=== PATIENT | female | born 1980 | race Caucasian/White ===

== ENCOUNTER 2016-11-20 16:02 | Emergency (ER) | payer OTHER ==
[~2016-11-20] VITALS: Ht 175.3 cm; Wt 117.1 kg
[~2016-11-20 16:02] MED LIST: MAGN400T6 PO; NAPR-1169 PO
[2016-11-20 16:14] VITALS: Ht 175.3 cm; Wt 117.1 kg
[2016-11-20] MEDS ORDERED: ACETAMINOPHEN 500 MG TAB PO STA (17:03)
--- NOTE | 2016-11-20 17:24 | DIAGNOSTIC IMAGING REPORT ---
RIGHT WRIST MIN 3 VIEWS ROUTINE CLINICAL HISTORY: Right wrist pain status post trauma COMPARISON: None. DISCUSSION: No acute fractures or dislocations are visualized. There is a 2 mm corticated density adjacent the base the fifth metacarpal. This is likely old. IMPRESSION: No acute fractures or dislocations are visualized. Electronically signed by: Ben Roque M.D. 11/20/2016 5:22 PM Dictated Date/Time: 11/20/2016 5:22 PM
--- NOTE | 2016-11-20 17:25 | DIAGNOSTIC IMAGING REPORT ---
LEFT WRIST MIN 3 VIEWS ROUTINE CLINICAL HISTORY: Left wrist pain status post trauma COMPARISON: None. DISCUSSION: No acute fractures or dislocations are visualized. There is a tiny navicular spur. IMPRESSION: No acute fractures or dislocations identified. Electronically signed by: Ben Roque M.D. 11/20/2016 5:23 PM Dictated Date/Time: 11/20/2016 5:23 PM
--- NOTE | 2016-11-20 17:28 | DIAGNOSTIC IMAGING REPORT ---
RIGHT ELBOW MIN 3 VIEWS ROUTINE CLINICAL HISTORY: Right elbow pain. Trauma. COMPARISON: None. DISCUSSION: The fat pads are not displaced. No acute fractures or dislocations are visualized. IMPRESSION: No acute fractures or dislocations identified. Electronically signed by: Ben Roque M.D. 11/20/2016 5:26 PM Dictated Date/Time: 11/20/2016 5:25 PM
[2016-11-20 18:13] VITALS: BP 131/91; PULSE 88; TEMP 37.3; O2SAT 96
--- NOTE | 2016-11-21 01:03 | EMERGENCY ROOM VISIT NOTE ---
History First contact with patient: 16:42 Chief Complaint: WRIST PAIN Stated Complaint: SLIPPED & FELL ON BOTH WRISTS, RT WRIST/ELBOW PAIN History of Present Illness The patient is a 35 year old female who presents to the Emergency Room with complaints of bilateral wrist pain after slipping and falling backwards about one hour ago. The patient slipped on ice and attempted to catch herself. She is having pain of both of her wrists as well as her right elbow. She did not strike her head or lose consciousness. She has taken ibuprofen at home with only minimal improvement of symptoms. She does not have a previous history of fracture to her wrist or elbow. She rates her discomfort a 7/10. Review of Systems More than 10 systems were reviewed and otherwise negative with the exception of history of present illness. Past Medical/Surgical History Medical Problems: (1) Asthma (2) Depressive disorder (3) Dilation and curettage (4) DRUG ABUSE NEC-UNSPEC (5) MIGRAINE W AURA W/O INTRACT MGRN W/O STATUS MIGRAINOSUS (6) Missed (7) OBESITY, NOS (8) PNEUMONIA, ORGANISM NOS (9) PYELONEPHRITIS NOS (10) THREATEN ABORT-ANTEPART (11) TOBACCO USE DISOR COMP PREG/CHILDBIRTH/PUERPERIUM, ANTEPART Family History Cancer Diabetes mellitus Gallbladder disease Heart disease Hypertension Kidney stones Lung disease Seizures Social History Smoking Status: Current Every Day Smoker Alcohol Use: occasionally Marital Status: Housing Status: lives with family Occupation Status: employed Current/Historical Medications Scheduled Bupropion HCl (Bupropion HCl Sr), 100 MG PO QAM Gabapentin (Neurontin), 300 MG PO TID Magnesium Oxide (Mag-Ox), 400 MG PO DAILY Scheduled PRN Naproxen (Naprosyn), 500 MG PO BID PRN for Pain Allergies Coded Allergies: Citalopram (Verified Allergy, Mild, ITCHING, 08/24/16) Azithromycin (Verified Adverse Reaction, Intermediate, GI UPSET, 08/24/16) Venlafaxine (Verified Adverse Reaction, Mild, DROWSY, 08/24/16) Ketorolac Tromethamine (Verified Adverse Reaction, Unknown, headache, ) Morphine (Verified Adverse Reaction, Unknown, REBOUND HEADACHE, 11/20/16) Red Dye (Verified Adverse Reaction, Unknown, MIGRAINE, 08/24/16) #30 Uncoded Allergies: fish-talapia (Adverse Reaction, Intermediate, states she throws up after eating only this fish, 11/22/15) Physical Exam Vital Signs Date Time Temp Pulse Resp B/P Pulse Ox O2 Delivery O2 Flow Rate FiO2 11/20/16 18:13 37.3 88 18 131/91 96 11/20/16 18:11 88 18 131/91 96 Room Air 11/20/16 16:14 37.3 91 18 135/95 96 Room Air Pain Rating (0-10): 3.0 Physical Exam VITALS: Vitals are noted on the nurse's note and reviewed by myself. Vital signs stable. GENERAL: Well-developed, well-nourished, white female, who is in no acute distress and resting comfortably. Patient is cooperative with the examination. HEAD: Normocephalic atraumatic. HEART: Regular rate and rhythm without murmurs gallops or rubs. LUNGS: Clear to auscultation bilaterally without wheezes, rales or rhonchi. No retractions or accessory muscle use. MUSCULOSKELETAL: No muscle atrophy, erythema, or edema noted. There is tenderness bilaterally of the wrists. Neurovascular status is intact to both wrists. No significant lacerations, abrasions, or deformity noted. No snuffbox tenderness appreciated in either wrist. The patient does have tenderness with supination and pronation of the right elbow. No other significant injuries are noted. NEURO: Patient was alert and oriented to person place and time. CN II through XII grossly intact. Medical Decision & Procedures ER Provider Diagnostic Interpretation: RIGHT ELBOW MIN 3 VIEWS ROUTINE CLINICAL HISTORY: Right elbow pain. Trauma. COMPARISON: None. DISCUSSION: The fat pads are not displaced. No acute fractures or dislocations are visualized. IMPRESSION: No acute fractures or dislocations identified. RIGHT WRIST MIN 3 VIEWS ROUTINE CLINICAL HISTORY: Right wrist pain status post trauma COMPARISON: None. DISCUSSION: No acute fractures or dislocations are visualized. There is a 2 mm corticated density adjacent the base the fifth metacarpal. This is likely old. IMPRESSION: No acute fractures or dislocations are visualized. LEFT WRIST MIN 3 VIEWS ROUTINE CLINICAL HISTORY: Left wrist pain status post trauma COMPARISON: None. DISCUSSION: No acute fractures or dislocations are visualized. There is a tiny navicular spur. IMPRESSION: No acute fractures or dislocations identified. Medications Administered Medications (Trade) Dose Ordered Sig/Mary Route Start Time Stop Time Status Last Admin Dose Admin Acetaminophen (Tylenol Tab) 1,000 mg NOW STAT PO 11/20/16 17:03 11/20/16 17:04 DC 11/20/16 17:29 1,000 MG ED Course Physical exam and history were performed. Nursing notes and EMR were reviewed. Patient appears to have fallen and suffered injury to her wrist and elbow as described above. She was given ibuprofen and Tylenol here in the department. X -rays were performed and do not show evidence of acute fracture or dislocation. The patient will be treated conservatively, and asked to follow with orthopedics with any ongoing or persisting symptoms. She was otherwise invited back to the ER anytime and was pleased with plan of care. The chart was completed utilizing [employer] Speech Voice Recognition Software. Grammatical errors, random word insertions, pronoun errors, and incomplete sentences are an occasional consequence of this system due to software limitations, ambient noise, and hardware issues. Any formal questions or concerns about the content, text, or information contained within the body of this dictation should be directly addressed to the provider for clarification. . Medical Decision Differential diagnoses includes, but is not limited to: Sprain, strain, fracture , dislocation, subluxation, contusion, and others Impression Primary Impression: Fall Additional Impression: Wrist injuries Departure Information Dispostion Home / Self-Care Condition GOOD Forms HOME CARE DOCUMENTATION FORM, Work Instructions, Additional Instructions: Patient seen and evaluated today in the emergency department medical care. May not lift more than 10 pounds at work until 11/23/2016. IMPORTANT VISIT INFORMATION Patient Instructions [facility] Additional Instructions You were seen and evaluated today on an emergency basis only. This is not a substitute for, or an effort to provide, complete comprehensive medical care. It is not possible to recognize and treat all injuries or illnesses in a single emergency department visit. For this reason it is recommended that you followup with Orthopedics, Dr. Mckeon's office, with any ongoing or persistent symptoms. For baseline pain relief you may alternate ibuprofen and acetaminophen every 4 hours for pain control. Take 600 mg ibuprofen (Advil) and then 4 hours later take 1000 mg acetaminophen (Tylenol). Do not take more than 3000 mg acetaminophen in a single day. Wear your splints for comfort for the next 4 or 5 days. If you have persistent discomfort please follow with orthopedics. You are welcome to return to the emergency department anytime with new, worsening, or concerning symptoms. Work Instructions Additional Work Instructions: Patient seen and evaluated today in the emergency department medical care. May not lift more than 10 pounds at work until 11/23/2016. Problem Qualifiers
[2017-04-03] MEDS ORDERED: CYCL10TA6 PO (02:02)
[2017-04-03] MEDS ORDERED: ASPI-390 PO (02:03)
[2017-04-03] MEDS ORDERED: WLLSR100 PO (12:48)
== END 2016-11-20 18:14 | disposition home or self-care (01) ==
LOC: C.EDB 16:04 → C.EDD 18:14
DX: S69.91XA Unspecified injury of right wrist, hand and finger(s), initial encounter (principal); S69.92XA Unspecified injury of left wrist, hand and finger(s), initial encounter; W00.0XXA Fall on same level due to ice and snow, initial encounter; J45.909 Unspecified asthma, uncomplicated; F32.9 Major depressive disorder, single episode, unspecified; E66.9 Obesity, unspecified; Z72.0 Tobacco use; Z83.3 Family history of diabetes mellitus; Z83.79 Family history of other diseases of the digestive system; Z82.49 Family history of ischemic heart disease and other diseases of the circulatory system; Z84.1 Family history of disorders of kidney and ureter; Z83.6 Family history of other diseases of the respiratory system; Z82.0 Family history of epilepsy and other diseases of the nervous system

== ENCOUNTER 2016-12-22 03:32 | Emergency (ER) | payer OTHER ==
[~2016-12-22] VITALS: Ht 175.3 cm; Wt 98.0 kg
[2016-12-22 03:39] VITALS: TEMP 36.8; Ht 175.3 cm; Wt 98.0 kg
[2016-12-22] MEDS ORDERED: XYLOCAINE 1%/SOD BICARB 20 ML VIAL INFIL ONE (03:53)
[2016-12-22] MEDS ORDERED: CEPHALEXIN 500MG HOME PACK 1 EA BTL PO ONE (04:00)
[2016-12-22] MEDS ORDERED: SEPTRA DS HOME PACK 1 EA VIAL PO ONE (04:00)
[2016-12-22] MEDS ORDERED: SULF800T23 PO (04:01)
[2016-12-22] MEDS ORDERED: CEPH500C2 PO (04:01)
--- NOTE | 2016-12-22 04:06 | EMERGENCY ROOM VISIT NOTE ---
History First contact with patient: 03:43 Chief Complaint: WOUND INFECTION Stated Complaint: LUMP ON TAILBONE TO LEFT CHEEK Nursing Triage Summary: + pylonidal cyst. History of Present Illness The patient is a 35 year old female who presents to the Emergency Room with complaints of buttock pain for the past 2 weeks. Patient states there was some drainage of this area. No history of pilonidal abscess before. Patient denies fevers, vomiting, diarrhea. Review of Systems See HPI for pertinent positives & negatives. A total of 10 systems reviewed and were otherwise negative. Past Medical/Surgical History Medical Problems: (1) Asthma (2) Depressive disorder (3) Dilation and curettage (4) DRUG ABUSE NEC-UNSPEC (5) MIGRAINE W AURA W/O INTRACT MGRN W/O STATUS MIGRAINOSUS (6) Missed (7) OBESITY, NOS (8) PNEUMONIA, ORGANISM NOS (9) PYELONEPHRITIS NOS (10) THREATEN ABORT-ANTEPART (11) TOBACCO USE DISOR COMP PREG/CHILDBIRTH/PUERPERIUM, ANTEPART Family History Cancer Diabetes mellitus Gallbladder disease Heart disease Hypertension Kidney stones Lung disease Seizures Social History Smoking Status: Never Smoker Alcohol Use: occasionally Marital Status: Housing Status: lives with family Occupation Status: employed Current/Historical Medications Scheduled Bupropion HCl (Bupropion HCl Sr), 100 MG PO QAM Cephalexin Monohydrate (Keflex), 500 MG PO QID Gabapentin (Neurontin), 300 MG PO TID Magnesium Oxide (Mag-Ox), 400 MG PO DAILY Sulfa/Trimethoprim (Bactrim Ds 800MG/160MG), 1 TAB PO BID Scheduled PRN Naproxen (Naprosyn), 500 MG PO BID PRN for Pain Allergies Coded Allergies: Citalopram (Verified Allergy, Mild, ITCHING, 08/24/16) Azithromycin (Verified Adverse Reaction, Intermediate, GI UPSET, 08/24/16) Venlafaxine (Verified Adverse Reaction, Mild, DROWSY, 08/24/16) Ketorolac Tromethamine (Verified Adverse Reaction, Unknown, headache, ) Morphine (Verified Adverse Reaction, Unknown, REBOUND HEADACHE, 11/20/16) Red Dye (Verified Adverse Reaction, Unknown, MIGRAINE, 08/24/16) #30 Uncoded Allergies: fish-talapia (Adverse Reaction, Intermediate, states she throws up after eating only this fish, 11/22/15) Physical Exam Vital Signs Date Time Temp Pulse Resp B/P Pulse Ox O2 Delivery O2 Flow Rate FiO2 12/22/16 03:39 36.8 113 16 122/87 96 Room Air Physical Exam VITALS: Vitals are noted on the nurse's note and reviewed by myself. Vital signs stable. GENERAL: Pleasant female, in no acute distress, nondiaphoretic, well-developed well-nourished. SKIN: Capillary reflex less than 2 seconds. HEENT: Normocephalic. PERRLA. EOMI. Nares patent. Mucous membranes moist. Neck is supple without nuchal rigidity. HEART: Regular rate and rhythm without murmurs gallops or rubs. LUNGS: Clear to auscultation bilaterally without wheezes, rales or rhonchi. No retractions or accessory muscle use. ABDOMEN: Positive bowel sounds x 4. Normal tympanic percussion. Soft, nontender, without masses or organomegaly. García sign negative. No guarding or rebound tenderness. Pelvic exam: 1 cm x 1 cm erythematous area with no fluctuance to the gluteal cleft without palpable abscess or active drainage with superficial abrasion present. The was shown this MUSCULOSKELETAL: No gross musculoskeletal defects. NEURO: Patient was alert and oriented to person place and time. Normal sensation to light and sharp touch. No focal neurological deficits. Medical Decision & Procedures ED Course Prior records reviewed and summarized as above. Triage Nursing notes reviewed. Additional history obtained from family. The patient's history was concerning for swelling and redness of the skin. Differential diagnosis: Etiologies such as cellulitis, abscess, MRSA infection, necrotizing fasciitis, dermatitis, drug eruption, as well as others were entertained.. Physical examination: The physical examination was consistent with cellulitis with possible developing abscess ER treatment provided: Keflex, Bactrim On reassessment the patient felt better. Diagnostics interpreted by me: Deferred This appears to be cellulitis with developing pilonidal abscess. Patient had no fluctuance. She was well-appearing. Afebrile nontoxic. She was advised to continue Epsom soaks abd FU with family care in a day or 2 or here in the ER sooner for fevers, redness, spreading infection, worsening signs or symptoms or as needed.By the evaluation outlined above emergent etiologies such as necrotizing fasciitis, DVT, as well as others were deemed relatively unlikely. The pt informed about the findings as listed above. All questions were answered and pleased with the treatment. Return instructions were outlined and the patient was discharged in stable condition. Outpatient prescription management: ELIAS carrillo Referral: The patient was referred back to primary care physician for follow-up in 2 to 3 days for a recheck of the current condition. Medical Decision as above Impression Primary Impression: Pilonidal abscess Departure Information Dispostion Home / Self-Care Condition GOOD Prescriptions Sulfa/Trimethoprim (Bactrim Ds 800MG/160MG) Tab 1 TAB PO BID for 9 Days, #18 TAB Prov: Alana Waldron .JENNIFER 12/22/16 Cephalexin Monohydrate (KEFLEX) 500 Mg Cap 500 MG PO QID for 9 Days, #36 CAP Prov: Alana Waldron .JENNIFER 12/22/16 Forms WORK / SCHOOL INSTRUCTIONS, HOME CARE DOCUMENTATION FORM, IMPORTANT VISIT INFORMATION Patient Instructions [facility], ED Cyst Pilonidal Infec Abx Only Additional Instructions Cephalexin(Keflex) 500mg: Take one pill four times daily for 10 days for your skin infection. All antibiotics can cause diarrhea. If this occurs and you feel worse or it does not resolve in 1-2 days follow up with your doctor or return to the Emergency Department as this could be signs of serious underlying problems. Any medication can cause an allergic reaction, stop the pills immediately and return to the ER for rash, hives, breathing difficulties, or swelling. Trimethoprim-Sulfamethoxazole(Bactrim DS): Take one pill twice daily for 10 days for your skin infection. All antibiotics can cause diarrhea. If this occurs and you feel worse or it does not resolve in 1-2 days follow up with your doctor or return to the Emergency Department as this could be signs of serious underlying problems. Any medication can cause an allergic reaction, stop the pills immediately and return to the ER for rash, hives, breathing difficulties, or swelling. Acetaminophen(Tylenol) may be used for fever or pain. Use 1000mg every six hours as needed. Avoid using more than 3000mg in a 24 hour period. Warm compresses to the affected area 4 times daily for 15-20 minutes. Rest and drink plenty of fluids. Continue current medications. Return to the ER for severe pain, persistent fevers, spreading redness, or any worsening of your condition. Follow up with your primary physician within 2-3 days for a recheck of the current condition.
[2016-12-22 04:09] VITALS: BP 119/81; PULSE 97; O2SAT 98
[2017-04-03] MEDS ORDERED: CYCL10TA6 PO (02:02)
[2017-04-03] MEDS ORDERED: ASPI-390 PO (02:03)
[2017-04-03] MEDS ORDERED: WLLSR100 PO (12:48)
== END 2016-12-22 04:09 | disposition home or self-care (01) ==
LOC: C.EDB 03:33
DX: L05.91 Pilonidal cyst without abscess (principal); F32.9 Major depressive disorder, single episode, unspecified; J45.909 Unspecified asthma, uncomplicated; F17.200 Nicotine dependence, unspecified, uncomplicated; Z87.440 Personal history of urinary (tract) infections; Z79.899 Other long term (current) drug therapy; Z88.1 Allergy status to other antibiotic agents; Z88.5 Allergy status to narcotic agent; Z88.8 Allergy status to other drugs, medicaments and biological substances; Z80.9 Family history of malignant neoplasm, unspecified; Z83.3 Family history of diabetes mellitus; Z83.79 Family history of other diseases of the digestive system; Z82.49 Family history of ischemic heart disease and other diseases of the circulatory system; Z84.1 Family history of disorders of kidney and ureter; Z82.0 Family history of epilepsy and other diseases of the nervous system

== ENCOUNTER 2017-02-08 21:04 | Emergency (ER) | payer OTHER ==
[~2017-02-08] VITALS: Ht 175.3 cm; Wt 117.0 kg
[2017-02-08 21:06] VITALS: BP 156/97; PULSE 97; TEMP 36.8; Ht 175.3 cm; Wt 117.0 kg
[2017-02-08] MEDS ORDERED: PROMETHAZINE HCL INJ 25 MG/ML 1 ML VIAL IM STA (21:34)
[2017-02-08] MEDS ORDERED: HYDROmorphone INJ 1 MG/ML SYR IM STA (21:34)
--- NOTE | 2017-02-08 22:22 | EMERGENCY ROOM VISIT NOTE ---
ED Visit Note First contact with patient: 21:14 CHIEF COMPLAINT: Migraine headache HISTORY OF PRESENT ILLNESS: This 36-year-old female patient presented to the emergency department ambulatory with a gradual onset of a severe generalized headache that started this morning. The patient states the migraine is similar to their typical migraines. There has been associated photophobia, phonophobia, nausea and vomiting. The patient denies fever or chills recently, and there is no weakness or numbness of the extremities. There is no difficulty with speech or vision. No trauma to the head and no neck pain. The pain is severe, constant , and it is slowly increasing in severity. The patient rates the pain as throbbing and 10/10. The patient has taken her typical medications without relief. This is not the worst headache of the life and is similar to previous migraines. Previous imaging studies of the brain have been normal. REVIEW OF SYSTEMS: A review of systems was performed with positives and pertinent negatives listed in the history of present illness. All other systems were reviewed and are negative. ALLERGIES: See EMR MEDICATIONS: Bupropion, Neurontin, magnesium, Naprosyn PMH: Migraine headaches SOCIAL HISTORY: The patient lives locally with family. She is a smoker. She denies alcohol use. PHYSICAL EXAM: Vital Signs: Reviewed Nurse's notes, vital signs stable. GENERAL : This is a 36-year-old female, who appears in pain, but non toxic in appearance and in no acute distress. MENTAL STATUS: Alert, oriented, and coherent. HEENT: Normocephalic. PERRLA. EOMI. Nares patent without nuchal rigidity. Tympanic membranes pearly siegel without erythema or effusion bilaterally. Mucous membranes moist. NECK: Supple, no nuchal rigidity, nontender, no lymphadenopathy. HEART: Regular rhythm and normal rate without murmurs, ectopy, gallops, or rubs. LUNGS: Clear to auscultation bilaterally without wheezes, rales or rhonchi. No dullness to percussion. No accessory muscle use. No retractions. SKIN: Normal. NEUROLOGICAL: Pupils are round, equal and react to light. The optic fundi are normal and the discs are flat. The patient moves all extremities well and the gait is normal. EMERGENCY DEPARTMENT COURSE: I examined the patient. The patient is on a 2 narcotic injection per month treatment plan for their migraines. The patient was given 1 mg Dilaudid and 25 mg Phenergan per their usual protocol. The differential diagnosis includes acute intracranial bleed, meningitis, encephalitis, mass or mass effect, sinusitis, infection, tumor, headache, temporal arteritis and carbon monoxide exposure, and migraine. The patient was discharged home in stable condition with a family member driving. DIAGNOSIS: Migraine headache Problem List Medical Problems: (1) Asthma Status: Chronic (2) Depressive disorder Status: Chronic (3) Dilation and curettage Status: Resolved (4) DRUG ABUSE NEC-UNSPEC Status: Chronic (5) MIGRAINE W AURA W/O INTRACT MGRN W/O STATUS MIGRAINOSUS Status: Chronic (6) Missed Status: Resolved (7) OBESITY, NOS Status: Chronic (8) PNEUMONIA, ORGANISM NOS Status: Resolved (9) PYELONEPHRITIS NOS Status: Resolved (10) THREATEN ABORT-ANTEPART Status: Resolved (11) TOBACCO USE DISOR COMP PREG/CHILDBIRTH/PUERPERIUM, ANTEPART Status: Chronic Current/Historical Medications Scheduled Bupropion HCl (Bupropion HCl Sr), 100 MG PO QAM Gabapentin (Neurontin), 300 MG PO TID Magnesium Oxide (Mag-Ox), 400 MG PO DAILY Scheduled PRN Naproxen (Naprosyn), 500 MG PO BID PRN for Pain Allergies Coded Allergies: Citalopram (Verified Allergy, Mild, ITCHING, 02/08/17) Azithromycin (Verified Adverse Reaction, Intermediate, GI UPSET, 02/08/17) Venlafaxine (Verified Adverse Reaction, Mild, DROWSY, 02/08/17) Ketorolac Tromethamine (Verified Adverse Reaction, Unknown, headache, ) Morphine (Verified Adverse Reaction, Unknown, REBOUND HEADACHE, 02/08/17) Red Dye (Verified Adverse Reaction, Unknown, MIGRAINE, 02/08/17) #30 Uncoded Allergies: fish-talapia (Adverse Reaction, Intermediate, states she throws up after eating only this fish, 11/22/15) Vital Signs Date Time Temp Pulse Resp B/P Pulse Ox O2 Delivery O2 Flow Rate FiO2 02/08/17 22:38 18 98 02/08/17 21:06 36.8 97 18 156/97 94 Room Air Medications Administered Medications (Trade) Dose Ordered Sig/Mary Route Start Time Stop Time Status Last Admin Dose Admin Hydromorphone HCl (Dilaudid Inj) 1 mg NOW STAT IM 02/08/17 21:34 02/08/17 21:38 DC 02/08/17 22:01 1 MG Promethazine HCl (Phenergan Inj) 25 mg NOW STAT IM 02/08/17 21:34 02/08/17 21:38 DC 02/08/17 22:01 25 MG Departure Information Impression Primary Impression: Migraine Dispostion Home / Self-Care Condition GOOD Referrals Roddy Giraldo M.D. (PCP) Patient Instructions [facility] Additional Instructions You have received a narcotic medication today. It is illegal to drive while taking this medication. Resume home medications. Follow-up with your primary care provider or neurologist for further evaluation of your headaches.
[2017-02-08 22:38] VITALS: O2SAT 98
[2017-04-03] MEDS ORDERED: CYCL10TA6 PO (02:02)
[2017-04-03] MEDS ORDERED: ASPI-390 PO (02:03)
[2017-04-03] MEDS ORDERED: WLLSR100 PO (12:48)
[2017-06-10] MEDS ORDERED: ACETTAB43 PO (17:25)
== END 2017-02-08 22:39 | disposition home or self-care (01) ==
LOC: C.EDB 21:04 → C.EDC 22:39
DX: G43.909 Migraine, unspecified, not intractable, without status migrainosus (principal); J45.909 Unspecified asthma, uncomplicated; F32.9 Major depressive disorder, single episode, unspecified; E66.9 Obesity, unspecified; F17.210 Nicotine dependence, cigarettes, uncomplicated; Z79.899 Other long term (current) drug therapy

== ENCOUNTER 2017-03-23 01:43 | Emergency (ER) | payer OTHER ==
[~2017-03-23] VITALS: Ht 175.3 cm; Wt 116.1 kg
[2017-03-23 01:47] VITALS: BP 134/91; PULSE 115; TEMP 36.6; O2SAT 95; Ht 175.3 cm; Wt 116.1 kg
[2017-03-23] MEDS ORDERED: PROMETHAZINE HCL INJ 25 MG/ML 1 ML VIAL IM STA (01:52)
[2017-03-23] MEDS ORDERED: HYDROmorphone INJ 1 MG/ML SYR IM STA (01:52)
--- NOTE | 2017-03-23 01:55 | EMERGENCY ROOM VISIT NOTE ---
History First contact with patient: 01:48 Chief Complaint: HEADACHE Stated Complaint: MIGRAINE History of Present Illness The patient is a 36 year old female who presents to the Emergency Room with complaints of headache which started yesterday morning. The patient states that on the left side of her head. 9 out of 10, nothing makes it better or worse described as throbbing. The patient denies any visual changes or any dizziness. The patient admits to some nausea but denies any vomiting. The patient states the symptoms are typical for her migraine headache. The patient states this is not the worst headache of her life. The patient states that she slept all day yesterday which sometimes will relieve her headache but it did not work. Patient denies chest pain, dyspnea, neck stiffness, fever, chills, numbness, tingling, localized weakness. Review of Systems See HPI for pertinent positives & negatives. A total of 10 systems reviewed and were otherwise negative. Past Medical/Surgical History Medical Problems: (1) Asthma (2) Depressive disorder (3) Dilation and curettage (4) DRUG ABUSE NEC-UNSPEC (5) MIGRAINE W AURA W/O INTRACT MGRN W/O STATUS MIGRAINOSUS (6) Missed (7) OBESITY, NOS (8) PNEUMONIA, ORGANISM NOS (9) PYELONEPHRITIS NOS (10) THREATEN ABORT-ANTEPART (11) TOBACCO USE DISOR COMP PREG/CHILDBIRTH/PUERPERIUM, ANTEPART Family History Cancer Diabetes mellitus Gallbladder disease Heart disease Hypertension Kidney stones Lung disease Seizures Social History Smoking Status: Current Every Day Smoker Alcohol Use: occasionally Marital Status: Housing Status: lives with family Occupation Status: employed Current/Historical Medications Scheduled Bupropion HCl (Bupropion HCl Sr), 100 MG PO QAM Gabapentin (Neurontin), 300 MG PO TID Magnesium Oxide (Mag-Ox), 400 MG PO DAILY Scheduled PRN Naproxen (Naprosyn), 500 MG PO BID PRN for Pain Allergies Coded Allergies: Cephalexin (Unverified Allergy, Mild, GI SYMPTOMS, 02/28/17) Citalopram (Verified Allergy, Mild, ITCHING, 02/28/17) Sulfamethoxazole w/Trimethoprim (Unverified Allergy, Mild, GI SYMPTOMS, ) Azithromycin (Verified Adverse Reaction, Intermediate, GI UPSET, 02/28/17) Venlafaxine (Verified Adverse Reaction, Mild, DROWSY, 02/28/17) Ketorolac Tromethamine (Verified Adverse Reaction, Unknown, headache, 02/28) Morphine (Verified Adverse Reaction, Unknown, REBOUND HEADACHE, 02/28/17) Red Dye (Verified Adverse Reaction, Unknown, MIGRAINE, 02/28/17) #30 Uncoded Allergies: fish-talapia (Adverse Reaction, Intermediate, states she throws up after eating only this fish, 11/22/15) Physical Exam Vital Signs Date Time Temp Pulse Resp B/P Pulse Ox O2 Delivery O2 Flow Rate FiO2 03/23/17 01:47 36.6 115 18 134/91 95 Room Air Physical Exam VITALS: Vitals are noted on the nurse's note and reviewed by myself. Vital signs mildly tachycardic. GENERAL: Pleasant female, in no acute distress, nondiaphoretic, well-developed well-nourished. SKIN: The skin was without rashes, erythema, edema, or bruising. There is no tenting of the skin. Capillary reflex less than 2 seconds. HEAD: Normocephalic atraumatic. EARS: External auditory canals clear, tympanic membranes pearly siegel without erythema or effusion bilaterally. EYES: Pupils equal round and reactive to light and accommodation. Conjunctivae without injection, sclerae without icterus. Extraocular movements intact. NOSE: Patent, turbinates without inflammation or discharge. No sinus tenderness. MOUTH: Mucous membranes moist. Pharynx without erythema or exudate. Uvula midline. Airway patent. Tongue does not deviate. NECK: Supple without nuchal rigidity. No lymphadenopathy. No thyromegaly. Cervical spine is nontender. No JVD. No meningeal signs HEART: Regular rate and rhythm without murmurs gallops or rubs. LUNGS: Clear to auscultation bilaterally without wheezes, rales or rhonchi. No dullness to percussion. No retractions or accessory muscle use. ABDOMEN: Positive bowel sounds x 4. Normal tympanic percussion. Soft, nontender, without masses or organomegaly. García sign negative. No guarding or rebound tenderness. MUSCULOSKELETAL: No muscle atrophy, erythema, or edema noted. NEURO: Patient was alert and oriented to person place and time. Normal sensation to light and sharp touch. No focal neurological deficits. Medical Decision & Procedures ED Course Prior records/ancillary studies reviewed. Additional history obtained from family. Triage Nursing notes reviewed. The patient's history was concerning for headache. Differential diagnosis: Etiologies such as migraine headache, meningitis, sinusitis, CO exposure, ICH, SAH, infection, tumor, headache, sinus thrombosis, arterial dissection, as well as others were entertained. Physical examination findings: As above. Non-focal. ER treatment provided: Dilaudid and Phenergan per patient standard protocol On reassessment the patient felt better. Diagnostics interpreted by me: This appears to be consistent with migraine. Patient is a long-standing history of this and symptoms are similar. She was neurovascularly and neurologically intact. No signs of meningitis. She is advised to follow-up family care in a few days or here in the ER sooner for headache, fevers, neck stiffness, worsening signs or symptoms or as needed. Patient ambulated out of the ER without difficulties.. By the evaluation outlined above emergent etiologies such as meningitis, sinusitis, CO exposure, ICH, SAH, infection, temporal arteritis, tumor, sinus thrombosis, arterial dissection, as well as others were deemed relatively unlikely. The pt informed about the findings as listed above. All questions were answered and pleased with the treatment. Return instructions were outlined and the patient was discharged in stable condition. Referral: The patient was referred back to their primary care physician for follow-up in 2 to 3 days for a recheck of the current condition. Medical Decision As above Impression Primary Impression: Migraine Departure Information Dispostion Home / Self-Care Condition GOOD Referrals Roddy Giraldo M.D. (PCP) Patient Instructions My [facility] Additional Instructions DO NOT drive, drink alcohol, operate machinery, or perform dangerous activities today. You were given medications in the ER that can affect your ability to safely function or operate a vehicle. Rest today in a quiet, peaceful, dark environment and get a full 8-10 hrs of sleep tonight. Avoid loud noises, smoke/smoking, alcohol, bright lights, stress, or physical exertion today to minimize the chance the headache may return. Continue current medications. Acetaminophen(Tylenol) may be used for fever or pain. Use 1000mg every six hours as needed. Avoid using more than 3000mg in a 24 hour period. Return to the ER for passing out, worsening headache, vision problems, neck stiffness/pain, fevers, vomiting, worsening of your condition, or as needed. Follow up with your primary physician and/or a neurologist in 2-3 days for a recheck of your current condition. Problem Qualifiers Primary Impression: Migraine Migraine type: without aura Status migrainosus presence: without status migrainosus Intractability: not intractable Qualified Codes: G43.009 - Migraine without aura, not intractable, without status migrainosus
[2017-03-23] MEDS ORDERED: ACET325T96 PO (02:03)
[2017-04-03] MEDS ORDERED: CYCL10TA6 PO (02:02)
[2017-04-03] MEDS ORDERED: ASPI-390 PO (02:03)
[2017-04-03] MEDS ORDERED: WLLSR100 PO (12:48)
[2017-06-10] MEDS ORDERED: ACETTAB43 PO (17:25)
== END 2017-03-23 02:22 | disposition home or self-care (01) ==
LOC: C.EDB 01:44
DX: G43.909 Migraine, unspecified, not intractable, without status migrainosus (principal); F32.9 Major depressive disorder, single episode, unspecified; J45.909 Unspecified asthma, uncomplicated; F17.200 Nicotine dependence, unspecified, uncomplicated; Z87.440 Personal history of urinary (tract) infections; Z79.899 Other long term (current) drug therapy; Z88.1 Allergy status to other antibiotic agents; Z88.2 Allergy status to sulfonamides; Z88.8 Allergy status to other drugs, medicaments and biological substances; Z80.9 Family history of malignant neoplasm, unspecified; Z83.3 Family history of diabetes mellitus; Z83.79 Family history of other diseases of the digestive system; Z82.49 Family history of ischemic heart disease and other diseases of the circulatory system; Z84.1 Family history of disorders of kidney and ureter; Z82.0 Family history of epilepsy and other diseases of the nervous system

== ENCOUNTER 2017-04-03 15:14 | Emergency (ER) | payer OTHER ==
[~2017-04-03] VITALS: Ht 175.3 cm; Wt 115.9 kg
[~2017-04-03 15:14] MED LIST changes: +ACET325T96 PO; +ASPI-390 PO; +CYCL10TA6 PO; -MAGN400T6 PO; +WLLSR100 PO
[2017-04-03 15:26] VITALS: TEMP 37.1; Ht 175.3 cm; Wt 115.9 kg
[2017-04-03] MEDS ORDERED: PROMETHAZINE HCL INJ 25 MG/ML 1 ML VIAL IM STA (15:39)
[2017-04-03] MEDS ORDERED: HYDROmorphone INJ 1 MG/ML SYR IM STA ×2 (15:39→16:53)
--- NOTE | 2017-04-03 15:41 | EMERGENCY ROOM VISIT NOTE ---
History Report prepared by Pascale: Constantino Guadalupe Under the Supervision of: Dr. Virgil Alba M.D. First contact with patient: 15:31 Chief Complaint: HEADACHE Stated Complaint: SEVERE MIGRAINE W/NAUSEA History of Present Illness The patient is a 36 year old female who presents to the Emergency Room with complaints of a headache that began last night. She rates her current pain a 10/ 10 in severity. She has a past medical history of migraines. She states that it began like her typical migraine, but then it got severely worse. She tried Tylenol and Ibuprofen with no relief. She is also experiencing nausea, vomiting , light sensitivity, and noise sensitivity. She denies any fevers, chills, neck pain, chest pain, shortness of breath, cough, weakness, or numbness. She denies any chance of her being . Source of History: patient, spouse/significant other Onset: last night Position: head Symptom Intensity: 10/10 Quality: ache Timing: constant Associated Symptoms: + nausea, + vomiting, No SOB, No chest pain, No chills , No cough, No fevers, No neck pain, No numbness, No weakness Review of Systems See HPI for pertinent positives & negatives. A total of 10 systems reviewed and were otherwise negative. Past Medical & Surgical Medical Problems: (1) Asthma (2) Depressive disorder (3) Dilation and curettage (4) DRUG ABUSE NEC-UNSPEC (5) MIGRAINE W AURA W/O INTRACT MGRN W/O STATUS MIGRAINOSUS (6) Missed (7) OBESITY, NOS (8) PNEUMONIA, ORGANISM NOS (9) PYELONEPHRITIS NOS (10) THREATEN ABORT-ANTEPART (11) TOBACCO USE DISOR COMP PREG/CHILDBIRTH/PUERPERIUM, ANTEPART Old medical records were reviewed. Nurse's notes were reviewed and I agree with. Family History Cancer Diabetes mellitus Gallbladder disease Heart disease Hypertension Kidney stones Lung disease Seizures Social History Smoking Status: Current Every Day Smoker Smokeless Tobacco Use: No Alcohol Use: occasionally Drug Use: none Marital Status: Housing Status: lives with family Occupation Status: employed Current/Historical Medications Scheduled Acetaminophen (Tylenol), 1,000 MG PO PRN UD Bupropion HCl (Bupropion HCl Sr), 100 MG PO QAM Gabapentin (Neurontin), 300 MG PO TID Ibuprofen (Advil), 800 MG PO PRN UD Scheduled PRN Zkqebiu-Ntjloeanqpqlw-Qmpsimed (Excedrin Migraine), 1 TAB PO DIRECTED PRN for Migraine Cyclobenzaprine Hcl (Flexeril), 10 MG PO DIRECTED PRN for muscle spasms Allergies Coded Allergies: Cephalexin (Unverified Allergy, Mild, GI SYMPTOMS, 03/23/17) Citalopram (Verified Allergy, Mild, ITCHING, 03/23/17) Sulfamethoxazole w/Trimethoprim (Unverified Allergy, Mild, GI SYMPTOMS, ) Azithromycin (Verified Adverse Reaction, Intermediate, GI UPSET, 02/28/17) Venlafaxine (Verified Adverse Reaction, Mild, DROWSY, 03/23/17) Ketorolac Tromethamine (Verified Adverse Reaction, Unknown, headache, 03/23) Morphine (Verified Adverse Reaction, Unknown, REBOUND HEADACHE, 03/23/17) Red Dye (Verified Adverse Reaction, Unknown, MIGRAINE, 03/23/17) #30 Uncoded Allergies: fish-talapia (Adverse Reaction, Intermediate, states she throws up after eating only this fish, 11/22/15) Physical Exam Vital Signs Date Time Temp Pulse Resp B/P Pulse Ox O2 Delivery O2 Flow Rate FiO2 04/03/17 15:26 37.1 95 16 155/102 96 Room Air Physical Exam General: Non ill appearing young female, Well developed well nourished in no acute distress, breathing comfortably on room air. Normal speech. Mild photophobia. HEENT: Normal cephalic atraumatic. Pupils are equal round and reactive to light. Extraocular movements are intact. Oropharynx is pink with moist mucous membranes. No swelling of the mouth lips or tongue. Neck: Supple with a midline trachea. No meningeal signs or stiffness, no JVD or bruits. No Stridor. Chest: Clear to auscultation bilaterally. No wheezes or rhonchi. No increased work of breathing. Heart: regular rate and rhythm. Abdomen: Soft nontender, nondistended without rebound guarding or rigidity. Extremities: No cyanosis clubbing or edema. No calf tenderness or assymetry Spine/Back. Non tender to palpation. No CVA tenderness Skin: Good turgor without rashes. Neurologic exam: Cranial nerves two through 12 are intact. Motor and sensation are intact and symmetrical throughout. Medical Decision & Procedures Medications Administered Medications (Trade) Dose Ordered Sig/Mary Route Start Time Stop Time Status Last Admin Dose Admin Hydromorphone HCl (Dilaudid Inj) 1 mg NOW STAT IM 04/03/17 15:39 04/03/17 15:42 DC 04/03/17 16:03 1 MG Promethazine HCl (Phenergan Inj) 25 mg NOW STAT IM 04/03/17 15:39 04/03/17 15:42 DC 04/03/17 16:04 25 MG ED Course 153: Past medical records reviewed. The patient was evaluated in room B10, and a complete history and physical examination were performed. 153: Ordered Phenergan Inj 25 mg IM, Dilaudid Inj 1 mg IM 1650: Her pain is starting to feel better. It is now down to an 8/10. She would like more pain medication. 1652: Ordered Dilaudid Inj 1 mg IM 1730: Upon reevaluation, the patient is resting. I discussed the results and treatment plan with her. She verbalized agreement of the treatment plan. The patient was discharged home. Medical Decision Differentials include migraine, tension headache, meningitis, aneurysm, and toxicologic process. Medication Reconciliation: I attest that I have personally reviewed the patient' s current medication list. Blood pressure Screening: Patient was found to have moderately elevated blood pressure on screening. This may be related to her headache but I did encourage her to follow up with her regular doctor for recheck and possible treatment if persistently elevated. This patient comes in as described above. She was placed in room B 10. She is here for treatment and evaluation of headache and so the previous migraines. She does have photophobia. She has a normal neurologic exam. She has nothing to suggest meningitis or encephalitis or subarachnoid hemorrhage. She's had no trauma. I have reviewed her old records. She was given Dilaudid 1 mg IM and Phenergan 25 mg IM. She was reassessed frequently. She was feeling better but the pain was still 8 out of 10 she was given a second dose of IM Dilaudid. She is feeling much better. She will be discharged home. She'll return if increasing pain, worsening symptoms, fever chills, any new problems or concerns. Impression Primary Impression: Migraine Scribe Attestation The scribe's documentation has been prepared under my direction and personally reviewed by me in its entirety. I confirm that the note above accurately reflects all work, treatment, procedures, and medical decision making performed by me. Departure Information Dispostion Home / Self-Care Referrals Roddy Giraldo M.D. (PCP) Forms HOME CARE DOCUMENTATION FORM, IMPORTANT VISIT INFORMATION Patient Instructions My [facility] Additional Instructions Rest. Drink plenty of fluids. Return if: Headache different than typical, worsening of symptoms, increasing pain, numbness or weakness, any new problems or concerns Your blood pressure was mild/moderately elevated. Please follow-up with your doctor this week for recheck. It may be related to severe pain today. You may need further treatment or evaluation however. Follow-up with doctor in the next couple days for recheck
[2017-04-03] MEDS ORDERED: IBUP-1050 PO (16:06)
[2017-04-03] MEDS ORDERED: ACET-1256 PO (16:06)
[2017-04-03 18:50] VITALS: BP 125/95; PULSE 96; O2SAT 97
[2017-04-03] MEDS ORDERED: GABA-113 PO (22:54)
[2017-06-10] MEDS ORDERED: ACETTAB43 PO (17:25)
== END 2017-04-03 18:50 | disposition home or self-care (01) ==
LOC: C.EDB 15:19
DX: G43.909 Migraine, unspecified, not intractable, without status migrainosus (principal); F32.9 Major depressive disorder, single episode, unspecified; J45.909 Unspecified asthma, uncomplicated; Z79.899 Other long term (current) drug therapy; Z87.09 Personal history of other diseases of the respiratory system; Z87.448 Personal history of other diseases of urinary system; Z87.898 Personal history of other specified conditions; Z82.0 Family history of epilepsy and other diseases of the nervous system; Z82.49 Family history of ischemic heart disease and other diseases of the circulatory system; Z83.3 Family history of diabetes mellitus; Z83.6 Family history of other diseases of the respiratory system; Z83.79 Family history of other diseases of the digestive system; Z84.1 Family history of disorders of kidney and ureter; F17.200 Nicotine dependence, unspecified, uncomplicated

== ENCOUNTER 2017-06-10 16:08 | Emergency (ER) | payer OTHER ==
[~2017-06-10] VITALS: Ht 175.3 cm; Wt 112.6 kg
[~2017-06-10 16:08] MED LIST changes: +ACET-1256 PO; -ACET325T96 PO; +GABA-113 PO; +IBUP-1050 PO; -NAPR-1169 PO
[2017-06-10 16:20] VITALS: TEMP 36.7; Ht 175.3 cm; Wt 112.6 kg
[2017-06-10] MEDS ORDERED: SODIUM CHLORIDE 0.9% 1000ML 1,000 ML IV STA ×3 (16:50→17:39)
[2017-06-10 17:10] LABS: BASO % 0.3 %; BASO ABS # 0.03 K/uL (0-0.2); COMPLETE YES; EOS % 3.6 %; HEMATOCRIT 38.4 % (37-47); IG% 0.3 %; LYMPH % 23.8 %; LYMPH ABS # 2.72 K/uL (1.2-3.4); MEAN CORPUSCULAR HEMOGLOBIN 32.9 pg (25-34); MEAN CORPUSCULAR HGB CONC 34.6 g/dl (32-36); MEAN PLATELET VOLUME 9.8 fL (7.4-10.4); MONO % 8.2 %; NEUT % 63.8 %; PLATELET COUNT 218 K/uL (130-400); RED BLOOD COUNT 4.04 M/uL (4.2-5.4); WHITE BLOOD COUNT 11.45 K/uL (4.8-10.8)
[2017-06-10] MEDS ORDERED: CALC500C3 PO (17:25)
[2017-06-10] MEDS ORDERED: ACETTAB PO (17:25)
[2017-06-10 17:31] LABS: BUN/CREATININE RATIO 14.8 (10-20); CALCIUM 9.1 mg/dl (8.5-10.1); CREATININE 0.75 mg/dl (0.60-1.20); POTASSIUM 3.8 mmol/L (3.5-5.1)
[2017-06-10 17:32] LABS: PREG INTERNAL NEGATIVE QC NEG CLEAR BACKGROUND; PREG INTERNAL POSITIVE QC POS CONTROL LINE
[2017-06-10] MEDS ORDERED: PROMETHAZINE HCL INJ 25 MG in SODIUM CHLORIDE 0.9% 50ML 50 ML IV STA (17:32)
[2017-06-10] MEDS ORDERED: RANITIDINE HCL 50 MG/100 ML D5W IV STA (17:39)
[2017-06-10] MEDS ORDERED: DICYCLOMINE HCL 10 MG/ML 2 ML AMP IM ONE (17:45)
--- NOTE | 2017-06-10 18:24 | DIAGNOSTIC IMAGING REPORT ---
CHEST AND ABDOMEN 2 VIEWS HISTORY: Generalized abdominal pain. Vomiting. COMPARISON: Chest 10/19/2016. FINDINGS: The right lung is clear. Stable small linear scarlike density at the left lower lobe. Cholecystectomy. The cardiomediastinal silhouette is within normal limits. There is no pneumoperitoneum or pneumatosis. The bowel gas pattern is unremarkable. No evidence for bowel obstruction. No renal calculi. IMPRESSION: No acute cardiopulmonary process. No evidence for bowel obstruction. Electronically signed by: Greg Cotter M.D. 06/10/2017 6:22 PM Dictated Date/Time: 06/10/2017 6:21 PM
[2017-06-10] MEDS ORDERED: BENTYL HOME PACK 10 MG VIAL PO ONE (19:30)
[2017-06-10] MEDS ORDERED: PHENERGAN 25MG HOMEPACK PO ONE (19:30)
[2017-06-10 19:48] VITALS: BP 105/64; PULSE 85; O2SAT 95
--- NOTE | 2017-06-10 23:41 | EMERGENCY ROOM VISIT NOTE ---
History Report prepared by Samyibe: Taylor Norman Under the Supervision of: Dr. Refugio Carrero M.D. First contact with patient: 16:50 Chief Complaint: ABDOMINAL PAIN Stated Complaint: ABDOMINAL PAIN, THROWING UP Nursing Triage Summary: pt reports diffuse abdominal pain with NVD X 2 days , all is yellow in color History of Present Illness The patient is a 36 year old female who presents to the Emergency Room with complaints of persistent abdominal pain for the past 2 days. She rates her discomfort as a 10/10 in severity and describes the pain as feeling "crampy" in nature. Tums and Midol have provided no relief. She also complains of nausea, vomiting and diarrhea for the past 2 days. She has been unable to keep any food or liquids down. Her vomit has been "yellow and green" in color and mostly liquid. Imodium has provided minimal relief of her diarrhea. The patient admits to a history of a previous appendectomy, cholecystectomy and tubal ligation. She denies any recent antibiotic use. The patient also denies LOC, headache, fevers, chills, diaphoresis, visual changes, neck pain, chest pain, breathing difficulties, back pain, melena, hematochezia, urinary symptoms, numbness, weakness, lymphadenopathy, rash, or other complaints. Source of History: patient Onset: 2 days [employer] Position: abdomen Symptom Intensity: 10/10 Quality: cramping Timing: other (persistent) Modifying Factors (Relieving): other (Tums, Midol) Associated Symptoms: + nausea, + vomiting, + diarrhea Review of Systems See HPI for pertinent positives and negatives. A total of ten systems were reviewed and were otherwise negative. Past Medical & Surgical Medical Problems: (1) Asthma (2) Depressive disorder (3) Dilation and curettage (4) DRUG ABUSE NEC-UNSPEC (5) MIGRAINE W AURA W/O INTRACT MGRN W/O STATUS MIGRAINOSUS (6) Missed (7) OBESITY, NOS (8) PNEUMONIA, ORGANISM NOS (9) PYELONEPHRITIS NOS (10) THREATEN ABORT-ANTEPART (11) TOBACCO USE DISOR COMP PREG/CHILDBIRTH/PUERPERIUM, ANTEPART Surgical Problems: (1) History of appendectomy (2) History of cholecystectomy (3) History of tubal ligation Family History Cancer Diabetes mellitus Gallbladder disease Heart disease Hypertension Kidney stones Lung disease Seizures Social History Smoking Status: Current Every Day Smoker Alcohol Use: occasionally Drug Use: none Marital Status: Housing Status: lives with family Occupation Status: employed Current/Historical Medications Scheduled Acetaminophen (Tylenol), 1,000 MG PO PRN UD Ibuprofen (Advil), 800 MG PO PRN UD Scheduled PRN Qpsnasj-Hthbrugocswcb-Zxelmvui (Excedrin Migraine), 1 TAB PO DIRECTED PRN for Migraine Miscellaneous Medications Amwihxppwzldd-Vlvxgeyw-Nuehcdz (Midol Maximum Strength Me), 1 TAB PO Calcium Carbonate (Tums), 1-2 TAB PO Allergies Coded Allergies: Cephalexin (Unverified Allergy, Mild, GI SYMPTOMS, 06/10/17) Citalopram (Verified Allergy, Mild, ITCHING, 06/10/17) Sulfamethoxazole w/Trimethoprim (Unverified Allergy, Mild, GI SYMPTOMS, 06/10/17) Azithromycin (Verified Adverse Reaction, Intermediate, GI UPSET, 06/10/17) Venlafaxine (Verified Adverse Reaction, Mild, DROWSY, 06/10/17) Ketorolac Tromethamine (Verified Adverse Reaction, Unknown, headache, ) Morphine (Verified Adverse Reaction, Unknown, REBOUND HEADACHE, 06/10/17) Red Dye (Verified Adverse Reaction, Unknown, MIGRAINE, 06/10/17) #30 Uncoded Allergies: fish-talapia (Adverse Reaction, Intermediate, states she throws up after eating only this fish, 11/22/15) Physical Exam Vital Signs Date Time Temp Pulse Resp B/P (MAP) Pulse Ox O2 Delivery O2 Flow Rate FiO2 06/10/17 19:48 85 20 105/64 95 Room Air 06/10/17 17:33 92 18 138/78 97 Room Air 06/10/17 16:20 36.7 95 18 130/92 97 Room Air Physical Exam GENERAL: Awake, alert, uncomfortable appearing, mild distress HEAD: Normocephalic, atraumatic. No edema. EYES: Normal conjunctiva. Sclera non-icteric. OROPHARYNX: Lips, tongue, and mucosa unremarkable. No erythema or exudate. NECK: Supple. No nuchal rigidity. FROM. No adenopathy. RESPIRATORY: CTA bilaterally. No wheezes rales or rhonchi. CARDIAC: Borderline tachycardic rate, normal rhythm. ABDOMEN: Soft, non distended. epigastric and mild bilateral lower abdominal tenderness to palpation. No rebound or guarding. MUSCULOSKELETAL: Atraumatic. No edema. NEURO: Normal sensorium. SKIN: No rash or jaundice noted Medical Decision & Procedures ER Provider Diagnostic Interpretation: Radiology results as stated below per my review and radiologist interpretation: CHEST AND ABDOMEN 2 VIEWS HISTORY: Generalized abdominal pain. Vomiting. COMPARISON: Chest 10/19/2016. FINDINGS: The right lung is clear. Stable small linear scarlike density at the left lower lobe. Cholecystectomy. The cardiomediastinal silhouette is within normal limits. There is no pneumoperitoneum or pneumatosis. The bowel gas pattern is unremarkable. No evidence for bowel obstruction. No renal calculi. IMPRESSION: No acute cardiopulmonary process. No evidence for bowel obstruction. Electronically signed by: Greg Cotter M.D. 06/10/2017 6:22 PM Laboratory Results 06/10/17 16:08 Red Blood Count 4.04, Mean Corpuscular Volume 95.0, Mean Corpuscular Hemoglobin 32.9, Mean Corpuscular Hemoglobin Concent 34.6, Mean Platelet Volume 9.8, Neutrophils (%) (Auto) 63.8, Lymphocytes (%) (Auto) 23.8, Monocytes (%) (Auto) 8.2, Eosinophils (%) (Auto) 3.6, Basophils (%) (Auto) 0.3, Neutrophils # (Auto) 7.32, Lymphocytes # (Auto) 2.72, Monocytes # (Auto) 0.94, Eosinophils # (Auto) 0.41, Basophils # (Auto) 0.03 06/10/17 16:08 Test 06/10/17 16:08 White Blood Count 11.45 K/uL (4.8-10.8) Red Blood Count 4.04 M/uL (4.2-5.4) Hemoglobin 13.3 g/dL (12.0-16.0) Hematocrit 38.4 % (37-47) Mean Corpuscular Volume 95.0 fL (80-100) Mean Corpuscular Hemoglobin 32.9 pg (25-34) Mean Corpuscular Hemoglobin Concent 34.6 g/dl (32-36) Platelet Count 218 K/uL (130-400) Mean Platelet Volume 9.8 fL (7.4-10.4) Neutrophils (%) (Auto) 63.8 % Lymphocytes (%) (Auto) 23.8 % Monocytes (%) (Auto) 8.2 % Eosinophils (%) (Auto) 3.6 % Basophils (%) (Auto) 0.3 % Neutrophils # (Auto) 7.32 K/uL (1.4-6.5) Lymphocytes # (Auto) 2.72 K/uL (1.2-3.4) Monocytes # (Auto) 0.94 K/uL (0.11-0.59) Eosinophils # (Auto) 0.41 K/uL (0-0.5) Basophils # (Auto) 0.03 K/uL (0-0.2) RDW Standard Deviation 45.9 fL (36.4-46.3) RDW Coefficient of Variation 13.2 % (11.5-14.5) Immature Granulocyte % (Auto) 0.3 % Immature Granulocyte # (Auto) 0.03 K/uL (0.00-0.02) Anion Gap 5.0 mmol/L (3-11) Est Creatinine Clear Calc Drug Dose 140.1 ml/min Estimated GFR () 119.7 Estimated GFR (Non- 103.3 BUN/Creatinine Ratio 14.8 (10-20) Calcium Level 9.1 mg/dl (8.5-10.1) Total Bilirubin 0.5 mg/dl (0.2-1) Direct Bilirubin 0.1 mg/dl (0-0.2) Aspartate Amino Transf (AST/SGOT) 16 U/L (15-37) Alanine Aminotransferase (ALT/SGPT) 22 U/L (12-78) Alkaline Phosphatase 74 U/L (45-117) Total Protein 7.4 gm/dl (6.4-8.2) Albumin 3.7 gm/dl (3.4-5.0) Lipase 74 U/L (73-393) Human Chorionic Gonadotropin, Qual NEG (NEG) Laboratory results reviewed by me Medications Administered Medications (Trade) Dose Ordered Sig/Mary Route Start Time Stop Time Status Last Admin Dose Admin Sodium Chloride 1,000 ml @ 999 mls/hr Q1H1M STAT IV 06/10/17 16:50 06/10/17 17:50 DC 06/10/17 16:50 999 MLS/HR Promethazine HCl 25 mg/Sodium Chloride 51 ml @ 204 mls/hr NOW STAT IV 06/10/17 17:32 06/10/17 17:46 DC 06/10/17 17:43 204 MLS/HR Dicyclomine HCl (Bentyl Inj) 20 mg NOW ONCE IM 06/10/17 17:45 06/10/17 17:46 DC 06/10/17 17:43 20 MG Ranitidine HCl (zANTac IV) 50 mg NOW STAT IV 06/10/17 17:39 06/10/17 17:40 DC 06/10/17 18:15 50 MG Sodium Chloride 1,000 ml @ 999 mls/hr Q1H1M STAT IV 06/10/17 17:39 06/10/17 18:39 DC 06/10/17 17:39 999 MLS/HR Dicyclomine HCl (Dicyclomine HCl 10MG Home Pack) 1 ea UD ONCE PO 06/10/17 19:30 06/10/17 19:31 DC 06/10/17 19:50 1 EA Promethazine HCl (Phenergan 25MG Home Pack) 1 homepack UD ONCE PO 06/10/17 19:30 06/10/17 19:31 DC 06/10/17 19:50 1 HOMEPACK ED Course 1650: NSS 1000 ml @ 999 mls/hr IV, NSS 1000 ml @ 125 mls/hr IV. 173: Promethazine HCl 25 mg/NSS 51 ml @ 204 mls/hr IV. 173: The patient was evaluated in room A12B. A complete history and physical exam was performed. 1739: NSS 1000 ml @ 999 mls/hr IV, Zantac 50 mg IV. 174: Bentyl 20 mg IM. 1834: I reevaluated the patient. She is feeling better and resting comfortably. 1929: Phenergan 25 mg 1 homepack PO, Dicyclomine HCl 25 mg PO. 1934: I reevaluated the patient. She is feeling much better. I discussed her results and discharge instructions and she verbalized complete understanding and agreement. Medical Decision Medication Reconciliation: I attest that I have personally reviewed the patient' s current medication list Blood pressure screening: Patient was found to have an elevated blood pressure and was referred to their primary doctor for recheck and further treatment. Triage Nursing notes reviewed. The patient's presentation and history were concerning for nausea, vomiting, and diarrhea with abdominal pain. Etiologies such as gastroenteritis, food borne illness, infections, obstruction , pancreatitis, appendicitis, diverticulitis, inflammatory bowel disease, GI bleed, biliary pathology, toxicologic as well as others were entertained. The patient was evaluated. She was uncomfortable. She was hydrated. She was given Phenergan and Bentyl. She was also given Zantac. Imaging was performed. Her CBC showed a slight leukocytosis but this has been consistently elevated in the past. Her chemistry panel is unremarkable. Obstruction series showed no evidence of bowel obstruction or free air. No acute findings. On reassessment the patient felt much better. Her symptoms had resolved. She was observed for additional time as her fluids refinishing. She was reassessed again and was symptom-free. She had no additional vomiting or abdominal pain. I discussed conservative management with her. I asked for her to follow closely as an outpatient as she has persistent leukocytosis but was really unaware of this. The patient was given a home pack of Bentyl and Phenergan. If she worsens in any way she will come back. I gave my usual and customary discussion regarding this issue. By the evaluation outlined above other emergent etiologies such as those listed in the differential, as well as others, were deemed relatively unlikely. The patient was educated about the findings as listed above. All questions were answered and the patient was pleased with the treatment. Return instructions were outlined and the patient was discharged in stable condition. The patient was referred to her PCP for follow-up for a recheck of the current condition. Impression Primary Impression: Nausea vomiting and diarrhea Additional Impression: Generalized abdominal pain Scribe Attestation The scribe's documentation has been prepared under my direction and personally reviewed by me in its entirety. I confirm that the note above accurately reflects all work, treatment, procedures, and medical decision making performed by me. Departure Information Dispostion Home / Self-Care Referrals Roddy Giraldo M.D. (PCP) Patient Instructions My [facility] Additional Instructions VOMITING INSTRUCTIONS: DO NOT drive, drink alcohol, operate machinery, or perform dangerous activities today. You were given medications in the ER that can affect your ability to safely function or operate a vehicle. Phenergan(promethazine) tablets 25mg: Take one every six hours as needed for nausea. Avoid alcohol, operating machinery or dangerous equipment, working on ladders or roofs, DRIVING, or situations where being under the influence may be dangerous. Bentyl(dicyclomine) 10 mg: Take 1-2 tablets every 6 hours as needed for abdominal pain. Discontinue this medication if you develop any rash, itching, increased abdominal pain, heartburn, increased nausea, constipation, or as needed. Imodium: This is available [id number]. Start out with two pills then take one after each loose bowel movement. You can take a maximum of 8 in one day. Only used as needed. Stop if you have bloody stools. Ibuprofen(Motrin, Advil) may be used for fever or pain. Use 600mg every six hours as needed. Take with food. Avoid using more than 2400mg in a 24 hour period. Do not use 2400mg per day for more than three consecutive days without physician direction. Prolonged inappropriate use can lead to stomach upset or ulcers. (AND/OR) Acetaminophen(Tylenol) may be used for fever or pain. Use 1000mg every six hours as needed. Avoid using more than 4000mg in a 24 hour period. Rest and drink plenty of fluids as tolerated. Slow sips of water or sports drinks are recommended instead of large amounts all at once. Continue current medications. Once your stomach is settled start with a clear liquid diet (jello, soup broth, etc.) and then advance as tolerated. You should avoid full, heavy meals for about 24 hrs from the time your symptoms resolved. Return to the ER for persistent vomiting, fevers, abdominal pain, chest pains, difficulty breathing, black or bloody stools, worsening of your condition, or as needed. Follow up with your primary physician in 2-3 days for a recheck of your current condition Problem Qualifiers
== END 2017-06-10 19:50 | disposition home or self-care (01) ==
LOC: C.EDB 16:09 → C.EDA 19:50
DX: R11.2 Nausea with vomiting, unspecified (principal); R19.7 Diarrhea, unspecified; R10.84 Generalized abdominal pain; F32.9 Major depressive disorder, single episode, unspecified; J45.909 Unspecified asthma, uncomplicated; F17.200 Nicotine dependence, unspecified, uncomplicated; Z87.440 Personal history of urinary (tract) infections; Z98.51 Tubal ligation status; Z90.49 Acquired absence of other specified parts of digestive tract; Z98.890 Other specified postprocedural states; Z88.1 Allergy status to other antibiotic agents; Z88.2 Allergy status to sulfonamides; Z88.5 Allergy status to narcotic agent; Z88.8 Allergy status to other drugs, medicaments and biological substances; Z80.9 Family history of malignant neoplasm, unspecified; Z83.3 Family history of diabetes mellitus; Z83.79 Family history of other diseases of the digestive system; Z82.49 Family history of ischemic heart disease and other diseases of the circulatory system; Z82.0 Family history of epilepsy and other diseases of the nervous system

== ENCOUNTER 2017-07-27 02:25 | Emergency (ER) | payer OTHER ==
[~2017-07-27] VITALS: Ht 175.3 cm; Wt 113.0 kg
[~2017-07-27 02:25] MED LIST changes: +ACETTAB PO; +CALC500C3 PO; -CYCL10TA6 PO; -GABA-113 PO; -WLLSR100 PO
[2017-07-27 02:30] VITALS: TEMP 36.7; Ht 175.3 cm; Wt 113.0 kg
[2017-07-27] MEDS ORDERED: ALBUT/IPRATROP 3MG/0.5MG NEB 3 ML VIAL INH STA (02:40)
[2017-07-27] MEDS ORDERED: DEXAMETHASONE SOD INJ 10 MG/ML VIAL PO ONE (02:45)
[2017-07-27] MEDS ORDERED: PRED50TA PO (03:17)
[2017-07-27] MEDS ORDERED: ALBUTEROL HFA 8 GM INHALER INH STA (03:24)
[2017-07-27 03:28] VITALS: BP 144/96; PULSE 88; O2SAT 96
--- NOTE | 2017-07-27 03:41 | EMERGENCY ROOM VISIT NOTE ---
History First contact with patient: 02:33 Chief Complaint: COUGH Stated Complaint: PAIN IN CHEST/BACK WHEN COUGH, MIGRAINE Nursing Triage Summary: c/o cough with green sputum x 1 week. History of Present Illness The patient is a 36 year old female who presents to the Emergency Room with complaints of cough and congestion for the past week who continues to smoke. Patient tried Motrin and Tylenol with no improvement of symptoms. Patient denies chest pain, abdominal pain, headache, neck stiffness, sore throat, vomiting, diarrhea. Family members are currently sick with similar symptoms. Review of Systems See HPI for pertinent positives & negatives. A total of 10 systems reviewed and were otherwise negative. Past Medical/Surgical History Medical Problems: (1) Asthma (2) Depressive disorder (3) Dilation and curettage (4) DRUG ABUSE NEC-UNSPEC (5) MIGRAINE W AURA W/O INTRACT MGRN W/O STATUS MIGRAINOSUS (6) Missed (7) OBESITY, NOS (8) PNEUMONIA, ORGANISM NOS (9) PYELONEPHRITIS NOS (10) THREATEN ABORT-ANTEPART (11) TOBACCO USE DISOR COMP PREG/CHILDBIRTH/PUERPERIUM, ANTEPART Surgical Problems: (1) History of appendectomy (2) History of cholecystectomy (3) History of tubal ligation Family History Cancer Diabetes mellitus Gallbladder disease Heart disease Hypertension Kidney stones Lung disease Seizures Social History Smoking Status: Current Every Day Smoker Alcohol Use: occasionally Drug Use: none Marital Status: Housing Status: lives with family Occupation Status: employed Current/Historical Medications Scheduled Prednisone (Prednisone), 50 MG PO DAILY Scheduled PRN Acetaminophen (Tylenol), 1,000 MG PO Q4 PRN for Pain or Fever Kpntulbumkazg-Irelpcvn-Wxfppjj (Midol Maximum Strength Me), 1 TAB PO UD PRN for menstral cramps Ytyhyjz-Woagysfvtqsfm-Maropbdg (Excedrin Migraine), 1 TAB PO DIRECTED PRN for Migraine Calcium Carbonate (Tums), 1-2 TAB PO QID PRN for Heartburn Ibuprofen (Advil), 400-600 MG PO Q4 PRN for Pain or Fever Physical Exam Vital Signs Date Time Temp Pulse Resp B/P (MAP) Pulse Ox O2 Delivery O2 Flow Rate FiO2 07/27/17 03:28 88 22 144/96 96 Room Air 07/27/17 02:52 97 Room Air 07/27/17 02:30 36.7 87 18 126/90 97 Room Air Pain Rating (0-10): 6.0 Physical Exam PHYSICAL EXAM: Vital Signs: Reviewed Nurse's notes. Oxygen saturation was 97% on room air. GENERAL: White female with tobacco odor, Alert, oriented and coherent. The patient is able to speak in complete sentences. NECK: Supple, non -tender. CHEST: Symmetrical expansion. no retractions no accessory muscle use. HEART: Regular rate and normal heart sounds, no murmur, gallop or rub. LUNGS: Breath sounds equal but significantly diminished in intensity on both sides. Bilateral wheezes heard but no rales or pleuritic rub. SKIN: The skin was without rashes, erythema, edema, or bruising. There is no tenting of the skin. Capillary reflex less than 2 seconds. HEAD: Normocephalic atraumatic. EARS: External auditory canals clear, tympanic membranes pearly siegel without erythema or effusion bilaterally. EYES: Pupils equal round and reactive to light and accommodation. Conjunctivae without injection, sclerae without icterus. Extraocular movements intact. NOSE: Patent, turbinates without inflammation or discharge. No sinus tenderness. MOUTH: Mucous membranes moist. Pharynx without erythema or exudate. Uvula midline. Airway patent. Tongue does not deviate. ABDOMEN: Positive bowel sounds x 4. Normal tympanic percussion. Soft, nontender, without masses or organomegaly. García sign negative. No guarding or rebound tenderness. MUSCULOSKELETAL: No muscle atrophy, erythema, or edema noted. NEURO: Patient was alert and oriented to person place and time. Normal sensation to light and sharp touch. No focal neurological deficits. Medical Decision & Procedures Medications Administered Medications (Trade) Dose Ordered Sig/Mary Route Start Time Stop Time Status Last Admin Dose Admin Dexamethasone Sodium Phosphate (Decadron Inj) 10 mg NOW ONCE PO 07/27/17 02:45 07/27/17 02:46 DC 07/27/17 02:46 10 MG Albuterol/ Ipratropium (Duoneb) 3 ml NOW STAT INH 07/27/17 02:40 07/27/17 02:41 DC 07/27/17 02:46 3 ML Albuterol (Ventolin Hfa Inhaler) 2 puffs ONE STAT INH 07/27/17 03:24 07/27/17 03:25 DC 07/27/17 03:29 2 PUFFS ED Course Prior records/ancillary studies reviewed. Triage Nursing notes reviewed. Additional history obtained from the family. The patient's history was concerning for respiratory difficulties. Differential diagnosis: Etiologies such as infections, reactive airway disease, pneumonia, pneumothorax , COPD, CHF, cardiac ischemia, pulmonary embolism, musculoskeletal, gastrointestinal, as well as others were entertained. Physical examination: As above. ER treatment provided: Nebulizer, Decadron On reassessment the patient felt better. Diagnostic interpretation by me: Imaging studies: Chest x-ray with no acute consolidation, pneumothorax or free air per my interpretation. This appears to be consistent with bronchitis. Patient was neurovascularly and neurologically intact. Patient was speaking in full sentences. Stable vital signs. Patient is well-appearing. Patient is tolerating fluids. Patient did not have an acute abdomen on exam. Patient was ambulating without difficulties. Patient was advised to follow-up with family care in a few days or here in the ER sooner for severe pain, fevers, chest pain, abdominal pain, worsening signs or symptoms or as needed.By the evaluation outlined above emergent etiologies such as CHF, cardiac ischemia, pulmonary embolism, reactive airway disease, pneumonia, pneumothorax, musculoskeletal, serious bacterial infections, as well as others were deemed relatively unlikely. The pt informed about the findings as listed above. All questions were answered and pleased with the treatment. Return instructions were outlined and the patient was discharged in stable condition. Outpatient prescription management: Prednisone Referral: The patient was referred back to their primary care physician for follow-up in 2 to 3 days for a recheck of the current condition. Medical Decision as above Medication Reconcilliation Current Medication List: was personally reviewed by me Blood Pressure Screening Patient's blood pressure: Normal blood pressure Impression Primary Impression: Acute bronchitis Departure Information Dispostion Home / Self-Care Condition GOOD Prescriptions Prednisone (Prednisone) 50 Mg Tab 50 MG PO DAILY for 4 Days, #4 TAB Prov: Alana Waldron PA-C 07/27/17 Forms HOME CARE DOCUMENTATION FORM, Work Instructions, Return To Work: 1 day IMPORTANT VISIT INFORMATION Patient Instructions Bronchitis Acute, My [facility] Additional Instructions Albuterol Inhaler: Take 2 puffs four times daily for five days, then as needed. Prednisone 50mg: Once daily until the prescription is finished. It is best to take this earlier in the day as some patients note occasional difficulty falling asleep when taken in the late evening. Acetaminophen(Tylenol) may be used for fever or pain. Use 1000mg every six hours as needed. Avoid using more than 3000mg in a 24 hour period. (AND/OR) Ibuprofen(Motrin, Advil) may be used for fever or pain. Use 600mg every six hours as needed. Take with food. Avoid using more than 2400mg in a 24 hour period. Do not use 2400mg per day for more than three consecutive days without physician direction. Prolonged inappropriate use can lead to stomach upset or ulcers. Afrin nasal spray: 2-3 sprays to each nostril twice daily as needed for congestion. Do not use for more than 3-4 days because it can lead to worsening rebound congestion. Pseudoephedrine(Sudaphed): 30-60mg every 6 hours as needed for nasal congestion. Do not take this with other stimulant products or supplements. Rest and drink plenty of fluids. Controlling your fever with Tylenol and Ibuprofen as above will make you feel better. Wash your hands after nose blowing, sneezing, or coughing. Most germs are spread through contact, therefore improper hygiene may result in your close contacts and loved ones becoming ill just like you. Continue current medications. Return to the ER for severe headache, neck stiffness, chest pain, difficulty breathing, fevers, vomiting, worsening of your condition, or as needed. Follow up with your primary physician this week for a recheck of your current condition. Work Instructions Return To Work: 1 day Problem Qualifiers Primary Impression: Acute bronchitis Bronchitis organism: unspecified organism Qualified Codes: J20.9 - Acute bronchitis, unspecified
--- NOTE | 2017-07-27 07:09 | DIAGNOSTIC IMAGING REPORT ---
CHEST 2 VIEWS ROUTINE CLINICAL HISTORY: cough/congestion dyspnea COMPARISON STUDY: 06/10/2017 FINDINGS: Chronic bibasilar interstitial change. Mid and upper lungs are considered clear. No evidence for cardiac enlargement IMPRESSION: Chronic bibasilar interstitial change. No acute process. The above report was generated using voice recognition software. It may contain grammatical, syntax or spelling errors. Electronically signed by: Sterling Cobos M.D. 07/27/2017 7:08 AM Dictated Date/Time: 07/27/2017 7:07 AM
== END 2017-07-27 03:34 | disposition home or self-care (01) ==
LOC: C.EDB 02:27 → C.EDA 03:34
DX: J20.9 Acute bronchitis, unspecified (principal); J45.909 Unspecified asthma, uncomplicated; F32.9 Major depressive disorder, single episode, unspecified; F17.200 Nicotine dependence, unspecified, uncomplicated; Z87.440 Personal history of urinary (tract) infections; Z90.49 Acquired absence of other specified parts of digestive tract; Z98.51 Tubal ligation status; Z98.890 Other specified postprocedural states; Z80.9 Family history of malignant neoplasm, unspecified; Z83.3 Family history of diabetes mellitus; Z83.79 Family history of other diseases of the digestive system; Z82.49 Family history of ischemic heart disease and other diseases of the circulatory system; Z84.1 Family history of disorders of kidney and ureter; Z82.0 Family history of epilepsy and other diseases of the nervous system

== ENCOUNTER 2017-09-03 20:42 | Emergency (ER) | payer OTHER ==
[~2017-09-03] VITALS: Ht 175.3 cm; Wt 114.0 kg
[~2017-09-03 20:42] MED LIST changes: -ACETTAB PO; +ACETTAB43 PO
[2017-09-03 20:51] VITALS: TEMP 37; Ht 175.3 cm; Wt 114.0 kg
[2017-09-03] MEDS ORDERED: PROPARACAINE HCL 0.5% OP SOLN 15 ML BTL OP STA (21:02)
[2017-09-03] MEDS ORDERED: ACETAMINOPHEN 325 MG TAB PO STA (21:02)
[2017-09-03] MEDS ORDERED: IBUPROFEN 600 MG TAB PO STA (21:02)
[2017-09-03] MEDS ORDERED: NORCO 5/325MG HOME PACK PO STA (21:36)
[2017-09-03] MEDS ORDERED: CIPROFLOXACIN HCL 0.3% OP SOLN 2.5 ML BTL OP STA (21:36)
[2017-09-03] MEDS ORDERED: HYDR-5688 PO (21:40)
[2017-09-03] MEDS ORDERED: CIPR0.3S OPL (21:40)
--- NOTE | 2017-09-03 21:41 | EMERGENCY ROOM VISIT NOTE ---
History First contact with patient: 20:56 Chief Complaint: EYE ASSESSMENT Stated Complaint: SOMETHING IN LEFT EYE History of Present Illness The patient is a 36 year old female who presents to the Emergency Room via private vehicle accompanied by male with complaints of "something in left eye". The patient states that she placed her contacts in her eyes around 9:30 AM this morning, and had been doing well until this afternoon when she went to remove them. She states that when she removed the contact from the left eye, and felt as though there was something still in her eye. It is now burning, and she has tried flushing the eye without relief. She is also tried lubrication drops. Her tetanus is up-to-date. Review of Systems A complete 6-point Review of Systems was discussed with the patient, with pertinent positives and negatives listed in the History of Present Illness. All remaining Review of Systems questions can be considered negative unless otherwise specified. Past Medical/Surgical History Medical Problems: (1) Asthma (2) Depressive disorder (3) Dilation and curettage (4) DRUG ABUSE NEC-UNSPEC (5) MIGRAINE W AURA W/O INTRACT MGRN W/O STATUS MIGRAINOSUS (6) Missed (7) OBESITY, NOS (8) PNEUMONIA, ORGANISM NOS (9) PYELONEPHRITIS NOS (10) THREATEN ABORT-ANTEPART (11) TOBACCO USE DISOR COMP PREG/CHILDBIRTH/PUERPERIUM, ANTEPART Surgical Problems: (1) History of appendectomy (2) History of cholecystectomy (3) History of tubal ligation Family History Cancer Diabetes mellitus Gallbladder disease Heart disease Hypertension Kidney stones Lung disease Seizures Social History Smoking Status: Current Every Day Smoker Alcohol Use: occasionally Drug Use: none Marital Status: Housing Status: lives with family Occupation Status: employed Current/Historical Medications Scheduled Ciprofloxacin Hcl (Ophth) (Ciloxan Oph), 1 DROP OPL DIRECTED Scheduled PRN Acetaminophen (Tylenol), 1,000 MG PO Q4 PRN for Pain or Fever Oxukwtrrozwfa-Gecouqey-Iwkynix (Midol Maximum Strength Me), 1 TAB PO UD PRN for menstral cramps Albuterol Hfa (Ventolin Hfa), 2 PUFFS INH Q6H PRN for Shortness of Breath Ldzodgq-Ykvvlmigwbmmj-Lgrmawzm (Excedrin Migraine), 1 TAB PO DIRECTED PRN for Migraine Calcium Carbonate (Tums), 1-2 TAB PO QID PRN for Heartburn Hydrocodone/Acetaminophen 5MG/325MG ([place] 5MG/325MG), 1-2 TABLET PO Q6 PRN for Pain Ibuprofen (Advil), 400-600 MG PO Q4 PRN for Pain or Fever Physical Exam Vital Signs Date Time Temp Pulse Resp B/P (MAP) Pulse Ox O2 Delivery O2 Flow Rate FiO2 09/03/17 22:00 78 130/82 95 09/03/17 20:51 37.0 84 16 137/83 93 Room Air Right Eye Acuity: 20/70 Left Eye Acuity: Unable to assess Physical Exam VITAL SIGNS - Vital signs and nursing notes were reviewed. Stable. GENERAL -36-year-old female appearing her stated age who is in no acute distress. Communicates well with provider and answers questions appropriately. SKIN - Without rashes. Skin around the left eye is unremarkable. No rashes. Negative Winston sign. HEAD - Normocephalic, Atraumatic. EYES - PERRL with EOMI bilaterally. Sclera without noticeable foreign body or excoriations. Some minimal bulbar injection noted in the left eye. Without subconjunctival hemorrhage. Palpebral conjunctiva pink and moist with no injection or discharge noted.Slit lamp examination performed as further described. Slit Lamp Examination was performed of the left eye(s). Alcaine drops were applied to the affected eye(s) for proper anesthetization. The affected eye(s) were stained with Fluorescein stain to precipitate adequate visualization of any conjunctival/scleral excoriations or ulcers. The patient's face was comfortably rested on the chin guard of the slit lamp apparatus. The lights were dimmed and the affected eye(s) were thoroughly examined under microscopy using the blue light. no uptake was present within the eye. Additionally, the eye(s) were examined under microscopy using the regular light. Close examination revealed no abnormalities. Patient tolerated the procedure well and no complications were met.. Medical Decision & Procedures Medications Administered Medications (Trade) Dose Ordered Sig/Mary Route Start Time Stop Time Status Last Admin Dose Admin Proparacaine HCl (Alcaine 0.5% Oph Soln) 2 drops NOW STAT OP 09/03/17 21:02 09/03/17 21:03 DC 09/03/17 21:13 2 DROPS Ibuprofen (Motrin Tab) 600 mg NOW STAT PO 09/03/17 21:02 09/03/17 21:04 DC 09/03/17 21:12 600 MG Acetaminophen (Tylenol Tab) 650 mg NOW STAT PO 09/03/17 21:02 09/03/17 21:04 DC 09/03/17 21:13 650 MG Medical Decision Patient was seen and evaluated as above. She presents to us today status post moving the contact with developing pain in the left eye. Visual acuity is not able to be assessed of the left eye. Alcaine alleviated her pain. I suspect she either has some irritation of the cornea, or of the palpebral conjunctiva secondary to digital trauma from removing the contact. No evidence of abrasion noted to exam. No evidence of herpes zoster ophthalmicus. I suspect she likely has a small keratitis, or conjunctivitis. She'll be given Ciloxan eyedrops for prevention of any developing infection, as well as for lubrication of the eye. She'll be given a short prescription of [place] for her pain. At this time she appears stable for outpatient management and is to follow with ophthalmology by calling their office first thing Tuesday. She was educated upon management, educated upon worrisome symptoms which to return, had questions by discharge, and was discharged home in good condition. In the evaluation and treatment of this patient, the following differential diagnoses were considered: Corneal Abrasion, Conjunctivitis, Eye Contusion, Globe Injury, Orbital Floor Injury (Blowout Fracture), Corneal Ulcer, Keratitis , Herpes Zoster Opthalmic, Blepharitis, Orbital Cellulitis, Iritis, Scleritis/ Episcleritis, Uveitis, Temporal Arteritis, Subconjunctival Hemorrhage. [place] Drug Monitoring Program Search Results: patient reviewed within database, no issues identified Impression Primary Impression: Corneal irritation of left eye Departure Information Dispostion Home / Self-Care Condition GOOD Prescriptions Hydrocodone/Acetaminophen 5MG/325MG ([place] 5MG/325MG) Tab 1-2 TABLET PO Q6 Y for Pain, #15 TAB For Initial Treatment Prov: Vikram Mccarthy PA-C 09/03/17 Ciprofloxacin Hcl (Ophth) (CILOXAN OPH) 0.3 % Mary 1 DROP OPL DIRECTED, #1 BTL 2 drops in the affected eye every 2 hours while awake for the first 2 days then every 4 hours for the other 5 days Prov: Vikram Mccarthy PA-C 09/03/17 Referrals No Doctor, Assigned (PCP) Barrett Gutierrez MD Patient Instructions My [facility] Additional Instructions You have been treated in the Emergency Department today for your Corneal Abrasion. You have received pain medicine in the emergency department which impairs your ability to operate a vehicle. It is illegal for you to drive after receiving these medicines. You have been prescribed NORCO to be used for pain control. This is a narcotic medication. You cannot drive or consume alcohol while on this medicine. This medicine should only be used for pain that cannot be controlled with over-the- counter pain medicines. PLEASE NO TYLENOL WITH THIS!! You have been prescribed Ciloxan eye drops. This is an antibiotic which will help to prevent an infection from developing in your affected eye. You should use 2 drops in the affected eye every 2 hours while awake for the first 2 days, then every 4 hours for the remaining 5 days. This is a total of a 7-day course for these antibiotic eye drops. For pain control, you can use the following ilat-eco-rmohqsg medicines (if >12 yo): - Regular strength (325mg/tab) Tylenol (acetaminophen) 2 tabs every 4-6 hours as needed. Do not exceed 12 tablets in a 24 hour period. Avoid taking more than 3 grams (3000 mg) of Tylenol per day. This includes any other sources of acetaminophen you may take on a regular basis. - Regular strength (200 mg/tab) Advil (ibuprofen) 1-2 tabs every 4-6 hours as needed. Do not exceed a dose of 3200 mg per day. You should relax in a quiet, dark place for the rest of the day. You should wear sunglasses while outside for the next few days until your eyes are not as sensitive to the light. You should schedule a follow-up appointment in 2-3 days with your Primary Care Provider or established Eye Doctor (Purchasing And Claims Supervisor) for further evaluation and treatment of your Corneal Abrasion. Return to the Emergency Department if your current symptoms worsen despite treatment course outlined above, or if you develop any of the following symptoms : intractable pain, visual disturbances, loss of vision, increased redness, swelling, drainage, or if you develop a fever.
[2017-09-03] MEDS ORDERED: VNTHFA/IN INH (21:58)
[2017-09-03 22:00] VITALS: BP 130/82; PULSE 78; O2SAT 95
== END 2017-09-03 22:00 | disposition home or self-care (01) ==
LOC: C.EDB 20:43 → C.EDD 22:00
DX: H57.12 Ocular pain, left eye (principal); F17.210 Nicotine dependence, cigarettes, uncomplicated; J45.909 Unspecified asthma, uncomplicated; F32.9 Major depressive disorder, single episode, unspecified

== ENCOUNTER 2017-11-15 23:04 | Emergency (ER) | payer OTHER ==
[~2017-11-15] VITALS: Ht 172.7 cm; Wt 116.1 kg
[~2017-11-15 23:04] MED LIST changes: +HYDR-5688 PO; +VNTHFA/IN INH
[2017-11-15 23:09] VITALS: TEMP 36.5; Ht 172.7 cm; Wt 116.1 kg
[2017-11-15] MEDS ORDERED: SODIUM CHLORIDE 0.9% 1000ML 1,000 ML IV STA (23:22)
[2017-11-15] MEDS ORDERED: DiphenhydrAMINE HCL 50 MG/ML VIAL IV STA (23:22)
[2017-11-15] MEDS ORDERED: METOCLOPRAMIDE HCL INJ 5 MG/ML 2 ML VIAL IV STA (23:22)
[2017-11-15] MEDS ORDERED: DEXAMETHASONE **PF** INJ 10 MG/ML VIAL IV ONE (23:30)
[2017-11-16] MEDS ORDERED: PHENERGAN 25MG HOMEPACK PO ONE (00:15)
--- NOTE | 2017-11-16 00:33 | EMERGENCY ROOM VISIT NOTE ---
History First contact with patient: 23:17 Chief Complaint: HEADACHE Stated Complaint: MIGRAINE L SIDE W/ VOMITING History of Present Illness The patient is a 36 year old female who presents to the Emergency Room with complaints of left-sided headache for the past few days described as aching, ranging in severity 7 out of 10. It does not radiate. Nothing makes it better or worse. It was slow in onset. She also complains of nausea and vomiting photophobia. Headache feels similar to prior. Normal imaging in the past. She follows with neurology at [facility]. Patient denies chest pain, dyspnea, fever, chills, recent illness, cold symptoms, neck stiffness, sore throat, abdominal pain. She is tolerating by mouth fluids and food. Review of Systems See HPI for pertinent positives & negatives. A total of 10 systems reviewed and were otherwise negative. Past Medical/Surgical History Medical Problems: (1) Asthma (2) Depressive disorder (3) Dilation and curettage (4) DRUG ABUSE NEC-UNSPEC (5) MIGRAINE W AURA W/O INTRACT MGRN W/O STATUS MIGRAINOSUS (6) Missed (7) OBESITY, NOS (8) PNEUMONIA, ORGANISM NOS (9) PYELONEPHRITIS NOS (10) THREATEN ABORT-ANTEPART (11) TOBACCO USE DISOR COMP PREG/CHILDBIRTH/PUERPERIUM, ANTEPART Surgical Problems: (1) History of appendectomy (2) History of cholecystectomy (3) History of tubal ligation Family History Cancer Diabetes mellitus Gallbladder disease Heart disease Hypertension Kidney stones Lung disease Seizures Social History Smoking Status: Current Every Day Smoker Alcohol Use: occasionally Drug Use: none Marital Status: Housing Status: lives with family Occupation Status: employed Current/Historical Medications No Active Prescriptions or Reported Meds Physical Exam Vital Signs Date Time Temp Pulse Resp B/P (MAP) Pulse Ox O2 Delivery O2 Flow Rate FiO2 11/15/17 23:09 36.5 99 18 141/96 97 Room Air Physical Exam VITALS: Vitals are noted on the nurse's note and reviewed by myself. Vital signs stable. GENERAL: Pleasant female, in no acute distress, nondiaphoretic, well-developed well-nourished. SKIN: The skin was without rashes, erythema, edema, or bruising. There is no tenting of the skin. Capillary reflex less than 2 seconds. HEAD: Normocephalic atraumatic. EARS: External auditory canals clear, tympanic membranes pearly siegel without erythema or effusion bilaterally. EYES: Pupils equal round and reactive to light and accommodation. Conjunctivae without injection, sclerae without icterus. Extraocular movements intact. NOSE: Patent, turbinates without inflammation or discharge. No sinus tenderness. MOUTH: Mucous membranes moist. Pharynx without erythema or exudate. Uvula midline. Airway patent. Tongue does not deviate. NECK: Supple without nuchal rigidity. No lymphadenopathy. No thyromegaly. Cervical spine is nontender. No JVD. HEART: Regular rate and rhythm without murmurs gallops or rubs. LUNGS: Clear to auscultation bilaterally without wheezes, rales or rhonchi. No dullness to percussion. No retractions or accessory muscle use. ABDOMEN: Positive bowel sounds x 4. Normal tympanic percussion. Soft, nontender, without masses or organomegaly. García sign negative. No guarding or rebound tenderness. MUSCULOSKELETAL: No muscle atrophy, erythema, or edema noted. NEURO: Patient was alert and oriented to person place and time. Normal sensation to light and sharp touch. No focal neurological deficits. Cranial nerves II through XII grossly intact. No pronator drift. Cerebellar exam intact. Medical Decision & Procedures Medications Administered Medications (Trade) Dose Ordered Sig/Mary Route Start Time Stop Time Status Last Admin Dose Admin Metoclopramide HCl (Reglan Inj) 10 mg NOW STAT IV 11/15/17 23:22 11/15/17 23:23 DC 11/15/17 23:35 10 MG Diphenhydramine HCl (Benadryl Inj) 25 mg NOW STAT IV 11/15/17 23:22 11/15/17 23:23 DC 11/15/17 23:35 25 MG Sodium Chloride 1,000 ml @ 999 mls/hr Q1H1M STAT IV 11/15/17 23:22 11/16/17 00:22 DC 11/15/17 23:35 999 MLS/HR Dexamethasone Sodium Phosphate (Dexamethasone Inj Pf) 10 mg NOW ONCE IV 11/15/17 23:30 11/15/17 23:31 DC 11/15/17 23:35 10 MG ED Course Prior records/ancillary studies reviewed. Additional history obtained from family. Triage Nursing notes reviewed. The patient's history was concerning for headache. Differential diagnosis: Etiologies such as migraine headache, meningitis, sinusitis, CO exposure, ICH, SAH, infection, tumor, headache, sinus thrombosis, arterial dissection, as well as others were entertained. Physical examination findings: As above. Non-focal. ER treatment provided: ladonnarl, monty, RUSTY On reassessment the patient felt better. Diagnostics interpreted by me: Deferred This appears to be consistent with migraine. Patient has a long-standing history of this. Symptoms are similar. She was neurovascularly and neurologically intact.. She requested a home pack of Phenergan and this is given to her. She is advised to rest, stay well-hydrated and follow-up family care in neurology in a few days or here in the ER sooner for headache, fevers, vomiting, worsening signs or symptoms or as needed. Patient had no signs of meningitis. She is well-appearing. Symptoms are slow in onset. By the evaluation outlined above emergent etiologies such as meningitis, sinusitis, CO exposure, ICH, SAH, infection, temporal arteritis, tumor, sinus thrombosis, arterial dissection, as well as others were deemed relatively unlikely. The pt informed about the findings as listed above. All questions were answered and pleased with the treatment. Return instructions were outlined and the patient was discharged in stable condition. Outpatient prescription management: Phenergan Referral: The patient was referred back to their primary care physician/neurology for follow-up in 2 to 3 days for a recheck of the current condition. The chart was completed utilizing [employer] Speech voice recognition software. Grammatical errors, random word insertions, pronoun errors, and incomplete sentences are an occassional consequence of this system due to software limitations, ambient noise, and hardware issues. Any formal questions or concerns about the content, text, or information contained within the body of this dictation should be directly addressed to the physician physical therapy assistant for clarification. Medical Decision As above Medication Reconcilliation Current Medication List: was personally reviewed by me Blood Pressure Screening Patient's blood pressure: Elevated blood pressure Blood pressure disposition: Elevated BP felt to be situational Impression Primary Impression: Migraine Departure Information Dispostion Home / Self-Care Condition GOOD Prescriptions No Active Prescriptions or Reported Meds Referrals Roddy Giraldo M.D. (PCP) Forms HOME CARE DOCUMENTATION FORM, IMPORTANT VISIT INFORMATION Patient Instructions My [facility] [employer] Additional Instructions DO NOT drive, drink alcohol, operate machinery, or perform dangerous activities today. You were given medications in the ER that can affect your ability to safely function or operate a vehicle. Rest today in a quiet, peaceful, dark environment and get a full 8-10 hrs of sleep tonight. Avoid loud noises, smoke/smoking, alcohol, bright lights, stress, or physical exertion today to minimize the chance the headache may return. Continue current medications. Acetaminophen(Tylenol) may be used for fever or pain. Use 1000mg every six hours as needed. Avoid using more than 3000mg in a 24 hour period. Return to the ER for passing out, worsening headache, vision problems, neck stiffness/pain, fevers, vomiting, worsening of your condition, or as needed. Follow up with your primary physician and/or a neurologist in 2-3 days for a recheck of your current condition. Problem Qualifiers Primary Impression: Migraine Migraine type: without aura Status migrainosus presence: without status migrainosus Intractability: not intractable Qualified Codes: G43.009 - Migraine without aura, not intractable, without status migrainosus
[2017-11-16 01:03] VITALS: BP 131/85; PULSE 90; O2SAT 93
== END 2017-11-16 01:04 | disposition home or self-care (01) ==
LOC: C.EDB 23:05 → C.EDC 11-16 01:04
DX: G43.009 Migraine without aura, not intractable, without status migrainosus (principal); J45.909 Unspecified asthma, uncomplicated; F17.200 Nicotine dependence, unspecified, uncomplicated; Z87.01 Personal history of pneumonia (recurrent); Z98.51 Tubal ligation status; Z90.49 Acquired absence of other specified parts of digestive tract; Z90.89 Acquired absence of other organs; Z83.3 Family history of diabetes mellitus; Z82.49 Family history of ischemic heart disease and other diseases of the circulatory system; Z84.1 Family history of disorders of kidney and ureter; Z82.0 Family history of epilepsy and other diseases of the nervous system

== ENCOUNTER 2018-06-10 01:59 | Emergency (ER) | payer OTHER ==
[~2018-06-10] VITALS: Ht 177.8 cm; Wt 120.0 kg
[~2018-06-10 01:59] MED LIST changes: -ACET-1256 PO; -ACETTAB43 PO; -ASPI-390 PO; -CALC500C3 PO; +CIPR-255 PO; -HYDR-5688 PO; -IBUP-1050 PO; +PHEN-876 PO; -VNTHFA/IN INH
[2018-06-10 02:04] VITALS: TEMP 36.7; Ht 177.8 cm; Wt 120.0 kg
[2018-06-10 03:16] VITALS: BP 128/88; PULSE 98; O2SAT 97
--- NOTE | 2018-06-10 09:00 | DIAGNOSTIC IMAGING REPORT ---
RIGHT ANKLE 3 VIEWS CLINICAL HISTORY: Right ankle injury. FINDINGS: 3 views of the right ankle are obtained. No prior studies are available for comparison at the time of dictation. The skeletal structures are well mineralized. No acute fracture is identified. Postoperative change is noted in the lateral malleolus. A tiny chronic avulsion injury is suggested inferior to the lateral malleolus. The ankle mortise is intact. There is no joint effusion. Mild soft tissue edema is present around the ankle. IMPRESSION: Mild soft tissue swelling with no radiographic evidence of acute fracture. Electronically signed by: Venkat Nation M.D. 06/10/2018 8:59 AM Dictated Date/Time: 06/10/2018 8:58 AM
--- NOTE | 2018-06-10 22:44 | EMERGENCY ROOM VISIT NOTE ---
History First contact with patient: 02:07 Chief Complaint: ANKLE PAIN Stated Complaint: RT ANKLE INJURY History of Present Illness The patient is a 37 year old female who presents to the Emergency Room with complaints of right ankle injury that occurred this evening as she was getting ready for bed. The patient states that she stepped awkwardly, and heard a popping in her right ankle. The patient reports old history of fracture with surgical repair to this ankle greater than 15 years ago. Was started the patient is able to ambulate with a limp. She did not suffer additional injury with her fall. She did not take anything ehmo-udn-ikkjaid for her discomfort. She rates her current pain a 5/10. Review of Systems More than 10 systems were reviewed and otherwise negative with the exception of history of present illness. Past Medical/Surgical History Medical Problems: (1) Asthma (2) Depressive disorder (3) Dilation and curettage (4) DRUG ABUSE NEC-UNSPEC (5) MIGRAINE W AURA W/O INTRACT MGRN W/O STATUS MIGRAINOSUS (6) Missed (7) OBESITY, NOS (8) PNEUMONIA, ORGANISM NOS (9) PYELONEPHRITIS NOS (10) THREATEN ABORT-ANTEPART (11) TOBACCO USE DISOR COMP PREG/CHILDBIRTH/PUERPERIUM, ANTEPART Surgical Problems: (1) History of appendectomy (2) History of cholecystectomy (3) History of tubal ligation Family History Cancer Diabetes mellitus Gallbladder disease Heart disease Hypertension Kidney stones Lung disease Seizures Social History Smoking Status: Current Every Day Smoker Alcohol Use: occasionally Drug Use: none Marital Status: Housing Status: lives with family Occupation Status: employed Current/Historical Medications Scheduled Ciprofloxacin Hcl (Cipro), 500 MG PO BID Scheduled PRN Phenazopyridine HCl (Pyridium), 200 MG PO TID PRN for Frequency/Burning w/ Urination Physical Exam Vital Signs Date Time Temp Pulse Resp B/P (MAP) Pulse Ox O2 Delivery O2 Flow Rate FiO2 06/10/18 03:16 98 18 128/88 97 06/10/18 02:04 36.7 102 18 130/93 97 Room Air Physical Exam VITALS: Vitals are noted on the nurse's note and reviewed by myself. Vital signs stable. GENERAL: Well-developed, well-nourished, white female, who is in no acute distress and resting comfortably. Patient is cooperative with the examination. HEAD: Normocephalic atraumatic. HEART: Regular rate and rhythm without murmurs gallops or rubs. LUNGS: Clear to auscultation bilaterally without wheezes, rales or rhonchi. No retractions or accessory muscle use. MUSCULOSKELETAL: Mild tenderness appreciated over the lateral aspect of the right ankle at the lateral malleolus. No significant tenderness into the foot. No deformity or laceration appreciated. No tenderness into the right knee Medical Decision & Procedures ER Provider Diagnostic Interpretation: RIGHT ANKLE 3 VIEWS CLINICAL HISTORY: Right ankle injury. FINDINGS: 3 views of the right ankle are obtained. No prior studies are available for comparison at the time of dictation. The skeletal structures are well mineralized. No acute fracture is identified. Postoperative change is noted in the lateral malleolus. A tiny chronic avulsion injury is suggested inferior to the lateral malleolus. The ankle mortise is intact. There is no joint effusion. Mild soft tissue edema is present around the ankle. IMPRESSION: Mild soft tissue swelling with no radiographic evidence of acute fracture. ED Course Physical exam and history were performed. Nursing notes, EMR, and Medication List were personally reviewed. Patient appears to have fallen at home and injured her right ankle. X-ray was performed and reviewed by myself and radiology showing the patient was given a gel ankle splint and patches. She has followed with orthopedics in the past and will be referred back to their service. She was otherwise invited back to the ER with any new, worsening, or concerning symptoms. The chart was completed utilizing [employer] Speech Voice Recognition Software. Grammatical errors, random word insertions, pronoun errors, and incomplete sentences are an occasional consequence of this system due to software limitations, ambient noise, and hardware issues. Any formal questions or concerns about the content, text, or information contained within the body of this dictation should be directly addressed to the provider for clarification. . Medical Decision Differential diagnosis includes, but is not limited to: Sprain, strain, fracture , dislocation, subluxation, contusion, and others Impression Primary Impression: Injury of right ankle Departure Information Dispostion Home / Self-Care Condition GOOD Referrals Roddy Hanna D.O. Forms HOME CARE DOCUMENTATION FORM, Work Instructions, IMPORTANT VISIT INFORMATION Patient Instructions My [facility] Additional Instructions You were seen and evaluated today on an emergency basis only. This is not a substitute for, or an effort to provide, complete comprehensive medical care. It is not possible to recognize and treat all injuries or illnesses in a single emergency department visit. For this reason it is recommended that you followup with [facility] with any ongoing or persisting symptoms. Wear your gel ankle splint and use your crutches for the next several days. You are welcome to return to the emergency department anytime with new, worsening, or concerning symptoms.
== END 2018-06-10 03:18 | disposition home or self-care (01) ==
LOC: C.EDB 02:00
DX: S99.911A Unspecified injury of right ankle, initial encounter (principal); X50.0XXA Overexertion from strenuous movement or load, initial encounter; J45.909 Unspecified asthma, uncomplicated; F32.9 Major depressive disorder, single episode, unspecified; E66.9 Obesity, unspecified; Z87.01 Personal history of pneumonia (recurrent); Z90.49 Acquired absence of other specified parts of digestive tract; Z98.51 Tubal ligation status; Z80.9 Family history of malignant neoplasm, unspecified; Z83.3 Family history of diabetes mellitus; Z83.79 Family history of other diseases of the digestive system; Z83.6 Family history of other diseases of the respiratory system; Z84.1 Family history of disorders of kidney and ureter; Z82.0 Family history of epilepsy and other diseases of the nervous system; F17.210 Nicotine dependence, cigarettes, uncomplicated; Z79.899 Other long term (current) drug therapy

== ENCOUNTER 2018-06-28 00:15 | Emergency (ER) | payer OTHER ==
[~2018-06-28] VITALS: Ht 175.3 cm; Wt 120.9 kg
[2018-06-28 00:37] VITALS: TEMP 36.8; Ht 175.3 cm; Wt 120.9 kg
[2018-06-28] MEDS ORDERED: ALBUT/IPRATROP 3MG/0.5MG NEB 3 ML VIAL INH ONE (01:00)
[2018-06-28] MEDS ORDERED: PRED20TA2 PO (02:03)
[2018-06-28] MEDS ORDERED: AMOX500C3 PO (02:03)
[2018-06-28 02:06] VITALS: BP 122/88; PULSE 74; O2SAT 96
--- NOTE | 2018-06-28 06:44 | DIAGNOSTIC IMAGING REPORT ---
CHEST 2 VIEWS ROUTINE CLINICAL HISTORY: Cough. Possible fever. COMPARISON STUDY: Chest radiograph July 27, 2017. FINDINGS: Lung volumes are normal. No pneumothorax or pleural effusion is noted. There is no consolidation or evidence for pulmonary edema. Cardiac size is normal. Mediastinal contours are normal. Linear opacity projecting over the heart on lateral projection suggests atelectasis or scarring. Note is made of a 1.2 cm nodular density within the left midlung. IMPRESSION: 1. No acute cardiopulmonary findings. 2. 1.2 cm nodular left midlung density. This may reflect artifact, minimal airspace disease or a small pulmonary nodule. Follow-up PA and shallow oblique radiographs of the chest in 2 weeks are recommended. 3. Linear opacity projecting over the heart on lateral projection favors atelectasis within the lingula or right middle lobe. Electronically signed by: Gee Dick M.D. 06/28/2018 6:43 AM Dictated Date/Time: 06/28/2018 6:38 AM
--- NOTE | 2018-06-28 06:58 | EMERGENCY ROOM VISIT NOTE ---
History First contact with patient: 00:50 Chief Complaint: CONGESTION Stated Complaint: HEADACHE,CHEST CONGESTION FOR OVER A WEEK Nursing Triage Summary: Pt complains of cough and congestion for 1.5 weeks. Pt using OTC medications with improvement. History of Present Illness The patient is a 37 year old female who presents to the Emergency Room with complaints of cough and congestion symptoms for the past 9 or 10 days. The patient states her has similar symptoms. She has been using over-the- counter medicine without significant. The patient is concerned as her son has an upcoming surgical procedure scheduled, and she does not want to jeopardize his surgical date. The patient primary concern is persistent coughing. She does not have a history of asthma. No recent travel history. She rates her discomfort a 7/10. Review of Systems More than 10 systems were reviewed and otherwise negative with the exception of history of present illness. Past Medical/Surgical History Medical Problems: (1) Asthma (2) Depressive disorder (3) Dilation and curettage (4) DRUG ABUSE NEC-UNSPEC (5) MIGRAINE W AURA W/O INTRACT MGRN W/O STATUS MIGRAINOSUS (6) Missed (7) OBESITY, NOS (8) PNEUMONIA, ORGANISM NOS (9) PYELONEPHRITIS NOS (10) THREATEN ABORT-ANTEPART (11) TOBACCO USE DISOR COMP PREG/CHILDBIRTH/PUERPERIUM, ANTEPART Surgical Problems: (1) History of appendectomy (2) History of cholecystectomy (3) History of tubal ligation Family History Cancer Diabetes mellitus Gallbladder disease Heart disease Hypertension Kidney stones Lung disease Seizures Social History Smoking Status: Current Every Day Smoker Alcohol Use: occasionally Drug Use: none Marital Status: Housing Status: lives with family Occupation Status: employed Current/Historical Medications Scheduled Amoxicillin (Amoxil), 500 MG PO TID Ciprofloxacin Hcl (Cipro), 500 MG PO BID Prednisone (Prednisone Tab), 2 TAB PO DAILY Scheduled PRN Phenazopyridine HCl (Pyridium), 200 MG PO TID PRN for Frequency/Burning w/ Urination Physical Exam Vital Signs Date Time Temp Pulse Resp B/P (MAP) Pulse Ox O2 Delivery O2 Flow Rate FiO2 06/28/18 02:06 74 20 122/88 96 06/28/18 00:37 36.8 81 20 135/88 98 Room Air Physical Exam VITALS: Vitals are noted on the nurse's note and reviewed by myself. Vital signs stable. GENERAL: Well-developed, well-nourished, white female, who is in no acute distress and resting comfortably. Patient is cooperative with the examination. HEAD: Normocephalic atraumatic. EARS: External ear normal. External auditory canals clear, tympanic membranes pearly siegel without erythema or effusion bilaterally. EYES: Pupils equal round and reactive to light and accommodation. Conjunctivae without injection, sclerae without icterus. Extraocular movements intact. NOSE: Patent, turbinates without inflammation or discharge. MOUTH: Mucous membranes moist. Tonsils are not enlarged. Pharynx without erythema, blood, or exudate. Uvula midline. Airway patent. NECK: Supple without nuchal rigidity. No lymphadenopathy. No thyromegaly. Cervical spine is nontender. HEART: Regular rate and rhythm without murmurs gallops or rubs. LUNGS: Coarse rhonchi throughout Medical Decision & Procedures ER Provider Diagnostic Interpretation: CHEST 2 VIEWS ROUTINE CLINICAL HISTORY: Cough. Possible fever. COMPARISON STUDY: Chest radiograph July 27, 2017. FINDINGS: Lung volumes are normal. No pneumothorax or pleural effusion is noted. There is no consolidation or evidence for pulmonary edema. Cardiac size is normal. Mediastinal contours are normal. Linear opacity projecting over the heart on lateral projection suggests atelectasis or scarring. Note is made of a 1.2 cm nodular density within the left midlung. IMPRESSION: 1. No acute cardiopulmonary findings. 2. 1.2 cm nodular left midlung density. This may reflect artifact, minimal airspace disease or a small pulmonary nodule. Follow-up PA and shallow oblique radiographs of the chest in 2 weeks are recommended. 3. Linear opacity projecting over the heart on lateral projection favors atelectasis within the lingula or right middle lobe. Medications Administered Medications (Trade) Dose Ordered Sig/Mary Route Start Time Stop Time Status Last Admin Dose Admin Albuterol/ Ipratropium (Duoneb) 3 ml NOW ONCE INH 06/28/18 01:00 06/28/18 01:01 DC 06/28/18 01:06 3 ML Prednisone (PredniSONE TAB) 40 mg NOW STAT PO 06/28/18 00:56 06/28/18 00:59 DC 06/28/18 01:06 40 MG ED Course Physical exam and history were performed. Nursing notes, EMR, and Medication List were personally reviewed. Patient appears to have URI/bronchitis symptoms bring her to the ER tonight. These have been going on for several days. X-ray was obtained and reviewed by myself and radiology as above. A DuoNeb and oral steroids were provided here in the department, and the patient had significant improvement of her discomfort after this. Because of the length of symptoms I will give her a course of amoxicillin and prednisone. The patient is to follow with her primary care physician next week for ongoing care and evaluation. She was pleased with plan of care and voiced understanding The chart was completed utilizing [employer] Voice Recognition Software. Grammatical errors, random word insertions, pronoun errors, and incomplete sentences are an occasional consequence of this system due to software limitations, ambient noise, and hardware issues. Any formal questions or concerns about the content, text, or information contained within the body of this dictation should be directly addressed to the provider for clarification. . Medical Decision Differential diagnosis: Etiologies such as infections, reactive airway disease, pneumonia, pneumothorax , COPD, CHF, cardiac ischemia, pulmonary embolism, musculoskeletal, gastrointestinal, as well as others were entertained. Impression Primary Impression: Acute bronchitis Departure Information Dispostion Home / Self-Care Condition GOOD Prescriptions Prednisone (Prednisone Tab) 20 Mg Tab 2 TAB PO DAILY for 5 Days, #10 TAB Prov: Hernandez Jo PA-C 06/28/18 Amoxicillin (AMOXIL) 500 Mg Cap 500 MG PO TID for 10 Days, #30 CAP Prov: Hernandez Jo PA-C 06/28/18 Forms HOME CARE DOCUMENTATION FORM, IMPORTANT VISIT INFORMATION Patient Instructions My [facility] Additional Instructions You were seen and evaluated today on an emergency basis only. This is not a substitute for, or an effort to provide, complete comprehensive medical care. It is not possible to recognize and treat all injuries or illnesses in a single emergency department visit. For this reason it is recommended that you followup with your primary care physician next week for ongoing care and evaluation. Take amoxicillin 500 mg 3 times daily for the next 10 days. Take prednisone as prescribed You are welcome to return to the emergency department anytime with new, worsening, or concerning symptoms.
== END 2018-06-28 02:10 | disposition home or self-care (01) ==
LOC: C.EDB 00:16 → C.EDC 02:10
DX: J20.9 Acute bronchitis, unspecified (principal); J45.909 Unspecified asthma, uncomplicated; F32.9 Major depressive disorder, single episode, unspecified; E66.9 Obesity, unspecified; Z87.01 Personal history of pneumonia (recurrent); F17.210 Nicotine dependence, cigarettes, uncomplicated; Z90.49 Acquired absence of other specified parts of digestive tract; Z98.51 Tubal ligation status; Z80.9 Family history of malignant neoplasm, unspecified; Z83.3 Family history of diabetes mellitus; Z82.49 Family history of ischemic heart disease and other diseases of the circulatory system; Z84.1 Family history of disorders of kidney and ureter; Z83.79 Family history of other diseases of the digestive system; Z82.0 Family history of epilepsy and other diseases of the nervous system

== ENCOUNTER 2019-06-29 19:17 | Inpatient (IN) ==
[2019-06-29] MEDS ORDERED: ONDANSETRON INJ 2 MG/ML 2 ML VIAL IV STA (19:32)
[2019-06-29] MEDS ORDERED: SODIUM CHLORIDE 0.9% 1000ML 1,000 ML IV ONE (19:32)
[2019-06-29] MEDS ORDERED: ACETAMINOPHEN 1,000 MG/100 ML VIAL IV STA (19:32)
[2019-06-29] MEDS ORDERED: DiphenhydrAMINE HCL 50 MG/ML VIAL IV STA (19:32)
--- NOTE | 2019-06-29 19:54 | Emergency Department Note ---
Entered by Timur Hdz acting as a scribe for Venkat Mittal MD History of Present Illness General Chief complaint: Unable to Void Stated complaint: PROBLEMS URINATING, POSSIBLE KIDNEY STONE ALSO Time Seen by Provider: 06/29/19 19:27 Source: patient Limitations: no limitations History of Present Illness Onset (ago): hour(s) (this morning) Location: abdomen Radiation: flank Severity: similar to prior episodes Pain Consistency: + constant Maximum Pain Intensity: 6 Associated symptoms: + denies other symptoms (cold, congestion, ), + nausea/vomiting and + other (diarrhea); no cough The patient is a 38 year old female who presents to the Emergency Room with complaints of constant flank pain and difficulty urinating starting this morning. The patient states she started having diarrhea 4 days ago. She notes she started vomiting 2 days ago. She notes she tried to urinate this morning and was only able to urinate a few drops. She notes she feels like she needs to urinate but is unable to. She states she has not been able to urinate at all since this morning. She notes she has had this before when she had a kidney or bladder infection. She states she has pain on both flanks but states her left is worse. She states she has cold chills. She notes she had a kidney stone about 5 years ago. She states she has not had a recent CT scan of her abdomen. She denies cough, cold, congestion, and taking any medications today. She states she is not concerned for as she had a tubal ligation years ago. She notes she initially thought her symptoms were from food from the fair. Patient was in the ED on June 02 for right shoulder pain. Home Medications Home Medications Medication Instructions Recorded Confirmed Type acetaminophen 1,000 mg PO Q6H PRN 07/30/18 06/29/19 History diclofenac sodium 50 mg PO TID PRN 02/01/19 06/29/19 History magnesium 400 mg PO DAILY 02/01/19 06/29/19 History pantoprazole 40 mg PO QAM 02/01/19 06/29/19 History ranitidine HCl 150 mg PO BID 02/01/19 06/29/19 History topiramate [Topamax] 75 mg PO BID 02/01/19 06/29/19 History bupropion HCl 150 mg PO DAILY 04/09/19 06/29/19 History aspirin [Adult Low Dose Aspirin] 81 mg PO DAILY 06/02/19 06/29/19 History gabapentin 300 mg PO TID 06/02/19 06/29/19 History albuterol sulfate 2 puff INHALATION Q6H PRN 06/29/19 06/29/19 History cetirizine 10 mg PO QAM 06/29/19 06/29/19 History epinephrine 0.3 mg IM DIRECTED PRN 06/29/19 06/29/19 History hydroxyzine HCl 25 mg PO Q6H PRN 06/29/19 06/29/19 History lorazepam [Ativan] 0.5 mg PO TID PRN 06/29/19 06/29/19 History riboflavin (vitamin B2) [Vitamin 400 mg PO DAILY 06/29/19 06/29/19 History B-2] Allergies Allergy/AdvReac Type Severity Reaction Status Date / Time cat dander Allergy Intermediate Hives Verified 06/02/19 20:24 dog dander Allergy Intermediate Hives Verified 06/02/19 20:24 pollen extracts Allergy Intermediate Watery Eye Verified 06/02/19 20:24 ragweed pollen Allergy Intermediate Hives Verified 06/02/19 20:24 Bactrim Allergy Mild GI SYMPTOMS Unverified 06/28/18 02:02 cephalexin Allergy Mild GI SYMPTOMS Verified 06/02/19 20:24 citalopram Allergy Mild ITCHING Verified 06/02/19 20:24 sulfamethoxazole Allergy Mild GI SYMPTOMS Verified 06/02/19 20:24 trimethoprim Allergy Mild GI SYMPTOMS Verified 06/02/19 20:24 mivacurium AdvReac Intermediate GI UPSET Verified 06/02/19 20:24 venlafaxine AdvReac Mild DROWSY Verified 06/02/19 20:24 ketorolac AdvReac Unknown headache Verified 06/02/19 20:24 morphine AdvReac Unknown REBOUND Verified 06/02/19 20:24 HEADACHE red dye AdvReac Unknown MIGRAINE Verified 06/02/19 20:24 fish-talapia AdvReac Intermediate states she Uncoded 08/01/18 00:23 throws up after eating only this fish Past Med/Surg History Medical History Migraine (Acute) Headache (Acute) Bronchitis (Acute) Trichomonas vaginitis (Acute) Vulvovaginal candidiasis (Acute) Nausea (Acute) Cough (Acute) Chest pain (Acute) Acute headache (Acute) Hordeolum externum of left lower eyelid (Acute) Depressive disorder (Chronic 06/08/11) Missed (Resolved 06/08/11) Acute bronchitis (Acute) Generalized abdominal pain (Acute) Injury of right ankle (Acute) Nausea vomiting and diarrhea (Acute) Surgical History History of tubal ligation Family History Other No significant family history Social History Preferred Language: Lebanese marital status: Current Living Situation: Spouse current occupational status: employed Feels Safe at Home: Yes Smoking Status: Current every day smoker Review of Systems See HPI for pertinent positives & negatives. and A total of 10 systems reviewed and were otherwise negative Physical Exam Vital Signs Vital Signs - 24 hr 06/29/19 19:19 06/29/19 20:52 06/29/19 22:44 Temperature 37.3 C Temperature Source Oral Sepsis Recent Fever Within 48 Hours No Sepsis Action Taken by Nursing No Action Required Pulse Rate 107 H Pulse Rate [Right] 86 85 Pulse Rhythm [Right] Regular Regular Pulse Strength [Right] Normal Normal Respiratory Rate 18 18 18 Respiratory Effort / Characteristics Non-Labored Spontaneous Non-Labored Spontaneous Non-Labored Spontaneous Respiratory Depth Normal Normal Normal Respiratory Pattern Regular Regular Blood Pressure 129/89 Blood Pressure [Left Arm] 121/78 122/75 Blood Pressure Mean 102 Blood Pressure Mean [Left Arm] 92 90 Blood Pressure Position [Left Arm] Sitting Lying Pulse Oximetry 97 97 97 Oxygen Delivery Method Room Air Room Air Room Air GENERAL: Patient is in no acute distress. HEENT: No acute trauma, normocephalic atraumatic, mucous membranes moist, no nasal congestion, no scleral icterus. NECK: No stridor, no adenopathy, no meningismus, trachea is midline. LUNGS: Clear to auscultation bilaterally, no wheeze, no rhonchi, breath sounds equal. BACK: Bilateral flank discomfort with percussion. HEART: Without murmurs gallops or rubs, regular rate and rhythm. ABDOMEN: Soft, bowel sounds positive, no hernias, no peritonitis. Tender to both lower quadrants. No obvious bladder distension. EXTREMITIES: No cyanosis or edema, full range of motion of all the joints without pain or difficulty, no signs for acute trauma. NEUROLOGIC: Oriented x 3, no acute motor or sensory deficits, no focal weakness. SKIN: No rash, no jaundice, no diaphoresis. Course 1928: The patient was evaluated in room B10, and a complete history and physical examination were performed. Patient was seen in the ED on June 02 for right shoulder pain. 2117: Patient was retaining urine. 450 cc urine drained. 2124: I discussed the labs and imaging results with the patient and her . I discussed the possibility for admission and they both agree the patient should be admitted. 2133: I discussed the patient's case with Dr. [facility] Hospitalist. He will evaluate the patient for further management Administered Medications Discontinued Medications Diphenhydramine HCl (Benadryl) 25 mg IV NOW STA Stop: 06/29/19 19:33 Last Admin: 06/29/19 20:18 Dose: 25 mg Documented by: [id number] Hydromorphone HCl (Dilaudid) 0.5 mg IV NOW STA Stop: 06/29/19 21:16 Last Admin: 06/29/19 21:26 Dose: 0.5 mg Documented by: [id number] Acetaminophen (Ofirmev) 1,000 mg in 100 mls @ 400 mls/hr IV NOW STA Stop: 06/29/19 19:46 Last Infusion: 06/29/19 20:40 Dose: 0 mls/hr Documented by: [id number] Admin: 06/29/19 20:18 Dose: 400 mls/hr Documented by: [id number] Sodium Chloride (Nss 1000ml) 1,000 mls @ 999 mls/hr IV .Q1H1M ONE Stop: 06/29/19 20:32 Last Infusion: 06/29/19 21:25 Dose: 0 mls/hr Documented by: [id number] Admin: 06/29/19 20:19 Dose: 999 mls/hr Documented by: [id number] Ciprofloxacin (Cipro) 400 mg in 200 mls @ 200 mls/hr IV NOW STA Stop: 06/29/19 22:14 Last Infusion: 06/29/19 22:27 Dose: 0 mls/hr Documented by: [id number] Admin: 06/29/19 21:26 Dose: 200 mls/hr Documented by: [id number] Metronidazole (Flagyl) 500 mg PO NOW STA Stop: 06/29/19 21:16 Last Admin: 06/29/19 21:26 Dose: 500 mg Documented by: [id number] Ondansetron HCl (Zofran) 4 mg IV NOW STA Stop: 06/29/19 19:33 Last Admin: 06/29/19 20:18 Dose: 4 mg Documented by: [id number] Medical Decision Making Differential Diagnosis Differential Diagnosis: Pyelonephritis, renal colic, hydronephrosis, renal or liver failure, dehydration, urinary retention, UTI, foodborne or viral illness. Medical Records Attestation: I reviewed the patient's medical records. Home Medications Current Medication List: was personally reviewed by me Laboratory Data Attestation: I reviewed the patient's lab results. Result diagrams: 06/29/19 20:11 06/29/19 20:11 Lab Results 06/29/19 06/29/19 06/29/19 Range/Units 20:11 20:11 20:20 WBC 18.65 H (4.8-10.8) K/uL RBC 4.01 L (4.2-5.4) M/uL Hgb 13.3 (12.0-16.0) g/dL Hct 38.0 (37-47) % MCV 94.8 (80-100) fL MCH 33.2 (25-34) pg MCHC 35.0 (32-36) g/dL RDW Std Deviation 47.6 H (36.4-46.3) fL RDW Coeff of Og 13.7 (11.5-14.5) % Plt Count 281 (130-400) K/uL MPV 9.1 (7.4-10.4) fL Immature Gran % (Auto) 0.3 % Neut % (Auto) 67.1 % Lymph % (Auto) 21.7 % Hartley % (Auto) 7.6 % Eos % (Auto) 3.1 % Baso % (Auto) 0.2 % Immature Gran # (Auto) 0.06 H (0.00-0.02) K/uL Neut # (Auto) 12.52 H (1.4-6.5) K/uL Lymph # (Auto) 4.04 H (1.2-3.4) K/uL Hartley # (Auto) 1.42 H (0.11-0.59) K/uL Eos # (Auto) 0.58 H (0-0.5) K/uL Baso # (Auto) 0.03 (0-0.2) K/uL Sodium 139 (136-145) mmol/L Potassium 3.7 (3.5-5.1) mmol/L Chloride 111 H (98-107) mmol/L Carbon Dioxide 23 (21-32) mmol/L Anion Gap 6.0 (3-11) BUN 13 (7-18) mg/dl Creatinine 0.90 (0.6-1.2) mg/dl Est Cr Clr Drug Dosing 114.8 ml/min Est GFR ( Amer) 94.7 Est GFR (Non-Af Amer) 81.7 BUN/Creatinine Ratio 14.4 (10-20) Glucose 85 (70-99) mg/dl Calcium 8.5 (8.5-10.1) mg/dl Magnesium 2.2 (1.8-2.4) mg/dl Total Bilirubin 0.4 (0.2-1) mg/dl AST 8 L (15-37) U/L ALT 19 (12-78) U/L Alkaline Phosphatase 76 (45-117) U/L Total Protein 7.5 (6.4-8.2) gm/dl Albumin 3.5 (3.4-5.0) gm/dl Globulin 4.0 (2.5-4.0) gm/dl Albumin/Globulin Ratio 0.9 (0.9-2) Lipase 61 L (73-393) U/L Urine Color Dark Yellow Urine Appearance Clear (Clear) Urine pH 5.5 (4.5-7.5) Ur Specific Purling 1.025 (1.000-1.030) Urine Protein Negative (Negative) Urine Glucose (UA) Negative (Negative) Urine Ketones Negative (Negative) Urine Blood Trace H (Negative) Urine Nitrite Negative (Negative) Urine Bilirubin Negative (Negative) Urine Urobilinogen Negative (Negative) Ur Leukocyte Esterase Negative (Negative) Urine WBC (Auto) 0 (0-5) /hpf Urine RBC (Auto) 10-30 H (0-4) /hpf U Hyaline Cast (Auto) 1-5 (0-5) /lpf U Epithel Cells (Auto) 0-5 (0-5) /lpf Urine Bacteria (Auto) Negative (Negative) Imaging Data Radiologist's Impression: Radiology results as stated below per my review and the radiologist's interpretation: CT OF THE ABDOMEN AND PELVIS WITHOUT CONTRAST CLINICAL HISTORY: poss stone, flank pain and hard to urinate COMPARISON STUDY: CT of the abdomen and pelvis July 07, 2016. Abdominal series June 10, 2017. TECHNIQUE: Axial images of the abdomen and pelvis were obtained without IV contrast. Images were reviewed in the axial, sagittal, and coronal planes. Automated exposure control was utilized for the study. A dose lowering technique was utilized adhering to the principles of ALARA. FINDINGS: No urinary calculi are present. There is no hydronephrosis. There is no biliary ductal dilatation status post cholecystectomy. No pneumatosis, free air or portal venous gas is present. Evaluation of the abdomen and pelvis is suboptimal on this unenhanced exam. The liver, spleen, adrenal glands and pancreas are normal. There is no peripancreatic infiltration. There is no evidence for a bowel obstruction. The appendix is not visualized. Note is made of sigmoid diverticulosis. There is moderate wall thickening of the sigmoid colon with mild adjacent infiltration. There is no free air or abscess. Trace ascites within the pelvis is noted. A 4.5 cm water attenuation left adnexal lesion is present. No suspicious osseous lesion is noted. IMPRESSION: 1. Mild acute sigmoid diverticulitis. No free air or abscess. 2. 4.5 cm water attenuation left adnexal lesion favors an ovarian cyst. A pelvic ultrasound in 6 weeks to ensure resolution is recommended. 3. No urinary calculi or hydronephrosis. Electronically signed by: Gee Dick M.D. 06/29/2019 8:54 PM Blood Pressure Blood Pressure Findings: Normal blood pressure Blood Pressure Disposition: further management by hospitalist [facility] Narrative There is a significant leukocytosis at 18,000, this is consistent with infection. No anemia. Renal panel testing does not show evidence for renal insufficiency or for significant electrolyte abnormality. No liver enzyme elevations. Lipase was not elevated. Urinalysis did not show infection. Some red blood cells were seen. Abdominal and pelvis CT shows diverticulitis, there was no bowel obstruction. The patient did have around 450 cc of urine in her bladder that we drained via catheter. The patient was given IV Tylenol, she received IV Zofran, IV saline. She was given IV Benadryl and eventually IV Dilaudid. She received IV Cipro and oral Flagyl. The patient presents with abdominal pain, vomiting, diarrhea and difficulty with urination. She is retaining urine, she has acute diverticulitis. She has a high white blood cell count. I do think IV antibiotic's and hydration as well as symptom control is warranted. Hospitalization is warranted. I spoke to the patient and ed case manager. The on-call hospitalist was consulted. Impression & Plan Acute diverticulitis, Vomiting, Diarrhea, Leukocytosis, Urinary retention Discharge Plan Visit Data Chief Complaint: Unable to Void Stated Complaint: PROBLEMS URINATING, POSSIBLE KIDNEY STONE ALSO ED Provider: Venkat Mittal Discharge Problem: Acute diverticulitis, Vomiting, Diarrhea, Leukocytosis, Urinary retention Patient Disposition: Being Evaluated by Hospitalist Forms Stand Alone Forms: My [facility] Prescriptions Prescriptions: No Action bupropion HCl 150 mg tablet extended release 24 hr 150 mg PO DAILY RF: 0 aspirin [Adult Low Dose Aspirin] 81 mg Tablet,Delayed Release (Dr/Ec) 81 mg PO DAILY RF: 0 gabapentin 300 mg Capsule 300 mg PO TID RF: 0 cetirizine 10 mg tablet 10 mg PO QAM RF: 0 riboflavin (vitamin B2) [Vitamin B-2] 100 mg Tablet 400 mg PO DAILY RF: 0 hydroxyzine HCl 25 mg tablet 25 mg PO Q6H PRN (Reason: Itching) RF: 0 epinephrine 0.3 mg/0.3 mL auto-injector 0.3 mg IM DIRECTED PRN (Reason: Allergic Reaction) RF: 0 albuterol sulfate 90 mcg/actuation HFA aerosol inhaler 2 puff inhalation Q6H PRN (Reason: Shortness Of Breath Or Wheezing) RF: 0 lorazepam [Ativan] 0.5 mg Tablet 0.5 mg PO TID PRN (Reason: Anxiety) RF: 0 acetaminophen 500 mg Tablet 1,000 mg PO Q6H PRN (Reason: Pain) RF: 0 pantoprazole 40 mg Tablet,Delayed Release (Dr/Ec) 40 mg PO QAM RF: 0 ranitidine HCl 150 mg Tablet 150 mg PO BID RF: 0 diclofenac sodium 50 mg Tablet,Delayed Release (Dr/Ec) 50 mg PO TID PRN (Reason: Pain) RF: 0 magnesium 200 mg Tablet 400 mg PO DAILY RF: 0 topiramate [Topamax] 50 mg Tablet 75 mg PO BID RF: 0 Referrals Referrals: Roddy Giraldo MD [Primary Care Provider] - Discharge Problem: Vomiting Qualifiers: Vomiting type: unspecified Vomiting Intractability: non-intractable Nausea presence: unspecified Qualified Code(s): R11.10 - Vomiting, unspecified Diarrhea Qualifiers: Diarrhea type: unspecified type Qualified Code(s): R19.7 - Diarrhea, unspecified Leukocytosis Qualifiers: Leukocytosis type: unspecified Qualified Code(s): D72.829 - Elevated white blood cell count, unspecified The scribe's documentation has been prepared under my direction and personally reviewed by me in its entirety. I confirm that the note above accurately reflects all work, treatment, procedures, and medical decision making performed by me.
[2019-06-29 20:23] LABS: Basophils # (auto) 0.03 K/uL (0-0.2); Basophils % (auto) 0.2 %; Eosinophils # (auto) 0.58 K/uL (0-0.5); Eosinophils % (auto) 3.1 %; Hemoglobin 13.3 g/dL (12.0-16.0); Immature Granulocytes # (auto) 0.06 K/uL (0.00-0.02); Immature Granulocytes % (auto) 0.3 %; Lymphocytes # (auto) 4.04 K/uL (1.2-3.4); Lymphocytes % (auto) 21.7 %; Mean Corpuscular Hemoglobin 33.2 pg (25-34); Mean Corpuscular Volume 94.8 fL (80-100); Mean Platelet Volume 9.1 fL (7.4-10.4); Monocytes # (auto) 1.42 K/uL (0.11-0.59); Monocytes % (auto) 7.6 %; Neutrophils # (auto) 12.52 K/uL (1.4-6.5); Neutrophils % (auto) 67.1 %; Platelet Count 281 K/uL (130-400); RDW Coefficient of Variation 13.7 % (11.5-14.5); RDW Standard Deviation 47.6 fL (36.4-46.3); Red Blood Count 4.01 M/uL (4.2-5.4); White Blood Count 18.65 K/uL (4.8-10.8)
[2019-06-29 20:33] LABS: Appearance Urine Clear (Clear); Bacteria Urine Automated Negative (Negative); Bilirubin Urine Negative (Negative); Blood Urine Trace (Negative); Color Urine Dark Yellow; Epithelial Cell Urine Auto 0-5 /lpf (0-5); Glucose Urine UA Negative (Negative); Ketones Urine Negative (Negative); Leukocyte Esterase Urine Negative (Negative); Nitrite Urine Negative (Negative); Protein Urine Negative (Negative); Specific Gravity Urine 1.025 (1.000-1.030); Urobilinogen Urine Negative (Negative); WBC Urine Automated 0 /hpf (0-5); pH Urine 5.5 (4.5-7.5)
[2019-06-29 20:42] LABS: Albumin Level 3.5 gm/dl (3.4-5.0); BUN Creatinine Ratio 14.4 (10-20); Calcium 8.5 mg/dl (8.5-10.1); Creatinine Clr Calc Pharmacy 114.8 ml/min; Est GFR (African American) 94.7; Est GFR (Non-African American) 81.7; Magnesium 2.2 mg/dl (1.8-2.4); Potassium 3.7 mmol/L (3.5-5.1)
[2019-06-29 20:45] LABS: Albumin Globulin Ratio 0.9 (0.9-2); Bilirubin,Total 0.4 mg/dl (0.2-1); Total Protein 7.5 gm/dl (6.4-8.2)
--- NOTE | 2019-06-29 20:55 | CT Scan Report ---
CT OF THE ABDOMEN AND PELVIS WITHOUT CONTRAST CLINICAL HISTORY: poss stone, flank pain and hard to urinate COMPARISON STUDY: CT of the abdomen and pelvis July 07, 2016. Abdominal series June 10, 2017. TECHNIQUE: Axial images of the abdomen and pelvis were obtained without IV contrast. Images were revi ewed in the axial, sagittal, and coronal planes. Automated exposure control was utilized for the abdulkadir dy. A dose lowering technique was utilized adhering to the principles of ALARA. FINDINGS: No urinary calculi are present. There is no hydronephrosis. There is no biliary ductal dila tation status post cholecystectomy. No pneumatosis, free air or portal venous gas is present. Evaluat ion of the abdomen and pelvis is suboptimal on this unenhanced exam. The liver, spleen, adrenal gland s and pancreas are normal. There is no peripancreatic infiltration. There is no evidence for a bowel obstruction. The appendix is not visualized. Note is made of sigmoid diverticulosis. There is moderat e wall thickening of the sigmoid colon with mild adjacent infiltration. There is no free air or absce ss. Trace ascites within the pelvis is noted. A 4.5 cm water attenuation left adnexal lesion is prese nt. No suspicious osseous lesion is noted. IMPRESSION: 1. Mild acute sigmoid diverticulitis. No free air or abscess. 2. 4.5 cm water attenuation left adnexal lesion favors an ovarian cyst. A pelvic ultrasound in 6 week s to ensure resolution is recommended. 3. No urinary calculi or hydronephrosis. Electronically signed by: Gee Dick M.D. 06/29/2019 8:54 PM
[2019-06-29] MEDS ORDERED: metroNIDAZOLE 250 MG TAB PO STA (21:15)
[2019-06-29] MEDS ORDERED: HYDROmorphone INJ 0.5 MG/0.5 ML SYR IV STA (21:15)
[2019-06-29] MEDS ORDERED: CIPROFLOXACIN 400 MG/200 ML BAG IV STA (21:15)
--- NOTE | 2019-06-30 00:03 | History and Physical Report ---
DATE OF ADMISSION: 06/29/2019 CHIEF COMPLAINT: Abdominal pain and nausea. HISTORY OF PRESENT ILLNESS: This is a 38-year-old female with past medical history significant for migraines, bipolar, depression, tobacco use disorder, generalized anxiety disorder, history of possible idiopathic recurrent urticaria, obesity and gastroesophageal reflux disease who presents with abdominal pain and unable to void. The patient states since yesterday, she has had a few episodes of vomiting and diarrhea and today, she did not vomit, but she has had a couple of episodes of diarrhea which were yellow in color and then developed lower abdominal pain radiating to the back and she had difficulty voiding and she thought some pressure-like feeling, but she was unable to void and she thought she might have urinary tract infection or kidney stone and came to the Emergency Room. In the Emergency Room, she was straight cathed once and after that she voided on her own. Imaging studies showed mild sigmoid diverticulitis. The patient states she is feeling chills, but no fevers. Currently, nausea and abdominal pain are better. Denies any headache. No blurred vision. No earache. No runny nose. No sore throat. No difficulty swallowing. Appetite is okay, but did not eat today because of nausea. No chest pain. No shortness of breath. No recent weight gain or weight loss. Sleeps okay. Ambulates okay. No hematuria. No swelling in the legs. No rash. Currently resting comfortably and hemodynamically stable. She also recently saw dermatology for her urticaria and getting worked up and on cetirizine and hydroxyzine for now. She states that the urticaria is improved currently. ALLERGIES: CAT DANDER, DOG DANDER, POLLEN EXTRACTS, AZITHROMYCIN, BACTRIM, CITALOPRAM, KEFLEX, LIPITOR, MORPHINE, RED DYE AND VENLAFAXINE. PAST MEDICAL HISTORY: As mentioned above. PAST SURGICAL HISTORY: induced by D and E, colposcopy with cervical biopsy, dental surgery, right ankle surgery, right shoulder rotator cuff, laparoscopic appendectomy, ligation of oviducts, lumbar spine injections, removal of gallbladder, craniotomy as a . MEDICATIONS: The patient is on cetirizine 10 mg p.o. daily, gabapentin 300 mg p.o. daily, hydroxyzine 25 mg p.o. at bedtime and q. 6 hours p.r.n., diclofenac 50mg mg p.o. t.i.d. p.r.n., epinephrine p.r.n.,magnesium 500 mg b.i.d., Zantac 150 mg b.i.d., Topamax 75 mg p.o. b.i.d., Protonix 40 mg p.o. daily, albuterol 2 puffs q. 4 hours p.r.n., Ativan 0.5 mg p.o. t.i.d. p.r.n., Wellbutrin-XL 150 mg p.o. daily, riboflavin 400 mg p.o. daily, Tylenol Extra Strength 500 mg every 6 hours p.r.n. and aspirin 81 mg p.o. daily. FAMILY HISTORY: Significant for Father had throat cancer, diabetes, heart disorder, status post stent placement, hypertension, stroke and thyroid disorder. Mother had breast cancer, of myocardial infarction at age 51, hypertension and stroke. SOCIAL HISTORY: , smokes one half pack a day for 13 years. Alcohol, very little. No drug use. REVIEW OF SYMPTOMS: As per HPI. Rest of review of systems negative. PHYSICAL EXAMINATION: GENERAL: The patient is morbidly obese, not in acute distress. VITAL SIGNS: Temperature 37.3, pulse 85, respiratory rate 18, blood pressure 122/75 and oxygen 97% on room air. HEENT: No pallor. No icterus. Pupils are equal, round and reactive to light. NECK: No JVD. No neck masses. No carotid bruits. CARDIOVASCULAR: S1, S2 heard. Regular rate and rhythm. No murmur. No gallop. RESPIRATORY SYSTEM: Normal AP diameter. No accessory muscle use. No wheezing. No crackles. ABDOMEN: Soft. Bowel sounds present. Mild abdominal tenderness seen in the periumbilical region. No guarding. No rigidity. No distention. CENTRAL NERVOUS SYSTEM: Cranial nerves II through XII are grossly intact. Nonfocal. EXTREMITIES: No edema. No erythema. LABORATORY DATA: WBC 18,000, hemoglobin 13.3, hematocrit 38 and platelets 281. Sodium 139, potassium 3.7, chloride 111, CO2 of 23, BUN 13, creatinine 0.9, serum glucose 85, calcium 8.5, magnesium 2.2, total bilirubin 0.4, AST 8, ALT 19, alkaline phosphatase 76 and lipase 61. Urinalysis, trace blood. CT of abdomen and pelvis shows mild acute sigmoid diverticulitis. No free air or abscess. 4.5cm water attenuation left adnexal lesion favors ovarian cyst. Pelvic ultrasound in 6 weeks to ensure resolution is recommended. No evidence of calculi or hydronephrosis. ASSESSMENT AND PLAN: This is a 38-year-old female who presents with nausea, vomiting, diarrhea, abdominal pain and unable to void and found to have acute diverticulitis. 1. Acute mild sigmoid diverticulitis. Presented with abdominal pain, nausea and diarrhea. As the patient's nausea is improved, we will place on clear liquid diet. I.V. Cipro and Flagyl. Follow the response. This first episode. If worsens will consult surgery. Needs to follow as outpatient with Gastroenterology for colonoscopy in 6-8 weeks. 2. Urinary retention. Did straight cath in the Emergency Room, but currently, she is voiding on herself. We will closely monitor. Urinalysis is negative possibly secondary to diverticulitis. 3. Left adnexal lesion . Most likely ovarian cyst. needs pelvic ultrasound in 6 weeks to ensure resolution. 4. Obesity, needs counseling. Follow up with primary care physician. 5. History of recurrent urticaria, following with allergy/immunology. 6. Migraine, currently stable. Continue home medications. 7. Bipolar and depression. Continue Wellbutrin. Continue Ativan p.r.n. 8. Deep venous thrombosis prophylaxis, sequential compression devices for now. 9. Disposition: Closely monitor in the medical floor. Level 1 full code. MTDD
[2019-06-30] MEDS ORDERED: ACETAMINOPHEN 325 MG TAB PO PRN (00:29)
[2019-06-30] MEDS ORDERED: ALBUTEROL HFA 8 GM INHALER INH PRN (00:29)
[2019-06-30] MEDS ORDERED: EPINEPHRINE ADULT AUTO-INJECT 0.3 MG SYR IM PRN (00:29)
[2019-06-30] MEDS: metroNIDAZOLE 500 MG/100 ML BAG IV SCH ×3 (05:31→21:03)
[2019-06-30] MEDS: HEPARIN SOD 5,000 UNIT/0.5 ML VIAL SQ SCH ×3 (05:31→21:04)
[2019-06-30] MEDS: ACETAMINOPHEN 500 MG TAB PO PRN ×2 (06:28→19:31)
[2019-06-30 07:03] LABS: Basophils # (auto) 0.03 K/uL (0-0.2); Basophils % (auto) 0.2 %; Eosinophils # (auto) 0.58 K/uL (0-0.5); Eosinophils % (auto) 4.2 %; Hemoglobin 11.6 g/dL (12.0-16.0); Immature Granulocytes # (auto) 0.04 K/uL (0.00-0.02); Immature Granulocytes % (auto) 0.3 %; Lymphocytes % (auto) 30.8 %; Mean Corpuscular Hemoglobin 32.4 pg (25-34); Mean Corpuscular Hgb Conc 34.1 g/dL (32-36); Mean Platelet Volume 8.9 fL (7.4-10.4); Monocytes # (auto) 1.33 K/uL (0.11-0.59); Monocytes % (auto) 9.7 %; Neutrophils # (auto) 7.47 K/uL (1.4-6.5); Neutrophils % (auto) 54.8 %; Platelet Count 234 K/uL (130-400); RDW Coefficient of Variation 13.6 % (11.5-14.5); RDW Standard Deviation 47.4 fL (36.4-46.3); Red Blood Count 3.58 M/uL (4.2-5.4); White Blood Count 13.65 K/uL (4.8-10.8)
[2019-06-30] MEDS: ONDANSETRON INJ 2 MG/ML 2 ML VIAL IV PRN (07:10)
[2019-06-30 07:11] LABS: INR 1.1 (0.9-1.1); Prothrombin Time 11.4 Seconds (9.0-12.0)
[2019-06-30] MEDS: HYDROmorphone INJ 0.5 MG/0.5 ML SYR IV PRN ×3 (07:14→21:07)
[2019-06-30 07:30] LABS: BUN Creatinine Ratio 14.6 (10-20); Calcium 7.8 mg/dl (8.5-10.1); Creatinine Clr Calc Pharmacy 127.5 ml/min; Est GFR (African American) 107.5; Est GFR (Non-African American) 92.8; Magnesium 2.2 mg/dl (1.8-2.4); Potassium 3.6 mmol/L (3.5-5.1)
[2019-06-30] MEDS: CIPROFLOXACIN 400 MG/200 ML BAG IV SCH ×2 (08:14→21:03)
[2019-06-30] MEDS: GABAPENTIN 100 MG CAP PO SCH ×3 (08:14→21:01)
[2019-06-30] MEDS: GABAPENTIN 300 MG CAP PO SCH ×3 (08:15→21:01)
[2019-06-30] MEDS: CETIRIZINE HCL 10 MG TABLET PO SCH (08:15)
[2019-06-30] MEDS: MAGNESIUM OXIDE 400 MG TAB PO SCH (08:15)
[2019-06-30] MEDS: PANTOprazole 40 MG TAB PO SCH (08:16)
[2019-06-30] MEDS: TOPIRAMATE 50 MG TAB PO SCH ×2 (08:16→21:02)
[2019-06-30] MEDS: BuPROPion XL 150 MG TABCR PO SCH (08:17)
[2019-06-30] MEDS: ASPIRIN 81 MG ECTAB PO SCH (08:17)
[2019-06-30] MEDS ORDERED: NON-FORMULARY MEDICATION (Riboflavin (Vitamin B2) [Vitamin B-2] 400 MG) PO SCH (09:00)
[2019-06-30] MEDS: SIMETHICONE 80 MG CHEW PO PRN (12:28)
--- NOTE | 2019-06-30 19:33 | Hospitalist Progress Note ---
Date of Service June 30, 2019 Assessment & Plan (1) Acute diverticulitis: Acute diverticulitis (Acute) Presented with lower abdominal pain. CT demonstrated sigmoid diverticulitis without free air or abscess. Receiving IV ciprofloxacin and metronidazole. White count 18,650 on admission, now 13,650. Continue IV antibiotics and bowel rest. Urinary retention (Acute) Probably due to diverticulitis. Straight cath PRN. Abnormal CT pelvis 4.5 cm water attenuation left adrenal lesion noted on CT of abdomen and pelvis. Probable physiologic ovarian cyst. Repeat evaluation with pelvic ultrasound in 6 months to ensure resolution recommended. VTE prophylaxis SQ heparin. Ambulate. Disposition Anticipated discharge to home. Family Medicine follow-up with Dr. Giraldo. Subjective Recheck for diverticulitis. Patient seen in their room around 1050. Feels a little better, but still has persistent lower abdominal pain. No fever or chills. Some nausea, no emesis. No diarrhea, melena, hematochezia. Review of Systems: Constitutional- no fever. Cardiac- no chest pain. Pulmonary- no cough or SOB. GI- as noted above. - urinary urgency without dysuria. Otherwise, as noted above. Physical Exam Constitutional: no acute distress Respiratory: no respiratory distress Auscultation: lungs clear to auscultation bilaterally Cardiovascular: Rate/Rhythm: regular rate and regular rhythm Heart Sounds: no gallop, no murmur and no cardiac rub Vessels: no JVD Extremities: no calf tenderness and no edema Gastrointestinal (Abdomen): Inspection/Auscultation: normal bowel sounds; abdomen not distended Percussion/Palpation: + abdomen tender (moderate suprapubic / LLQ tenderness without rebound or guarding) Skin: no rashes, warm and dry Psychiatric: Orientation: alert and oriented x 3 Results & Data Vital Signs (Past 12 Hours) Vital Signs Temp Pulse Resp BP Pulse Ox 06/30/19 15:21 36.7 C 64 20 119/82 99 06/30/19 07:28 36.6 C 65 23 114/76 96 Laboratory Results 06/30/19 06:50 06/30/19 06:50
[2019-07-01] MEDS: HYDROmorphone INJ 0.5 MG/0.5 ML SYR IV PRN ×2 (00:53→15:31)
[2019-07-01] MEDS: LORazepam 0.5 MG TAB PO PRN (00:53)
[2019-07-01] MEDS: ACETAMINOPHEN 500 MG TAB PO PRN ×2 (03:01→08:51)
[2019-07-01] MEDS: metroNIDAZOLE 500 MG/100 ML BAG IV SCH ×3 (05:49→22:56)
[2019-07-01] MEDS: HEPARIN SOD 5,000 UNIT/0.5 ML VIAL SQ SCH ×3 (05:58→21:43)
[2019-07-01 06:34] LABS: Hematocrit (blood only) 34.8 % (37-47); Hemoglobin 11.6 g/dL (12.0-16.0); Mean Corpuscular Hemoglobin 32.2 pg (25-34); Mean Corpuscular Hgb Conc 33.3 g/dL (32-36); Mean Corpuscular Volume 96.7 fL (80-100); Mean Platelet Volume 9.3 fL (7.4-10.4); Platelet Count 250 K/uL (130-400); RDW Coefficient of Variation 13.6 % (11.5-14.5); RDW Standard Deviation 48.1 fL (36.4-46.3); White Blood Count 8.81 K/uL (4.8-10.8)
[2019-07-01 07:07] LABS: BUN Creatinine Ratio 9.4 (10-20); Creatinine Clr Calc Pharmacy 117.4 ml/min; Est GFR (African American) 97.3; Est GFR (Non-African American) 83.9; Potassium 3.7 mmol/L (3.5-5.1)
--- NOTE | 2019-07-01 08:22 | Hospitalist Progress Note ---
Date of Service July 01, 2019 Assessment & Plan (1) Acute diverticulitis: Acute diverticulitis (Acute) Presented with lower abdominal pain. CT demonstrated sigmoid diverticulitis without free air or abscess. Receiving IV ciprofloxacin and metronidazole with improvement. White count 18,650 on admission, now 8810. Continue IV antibiotics today and transition to PO therapy tomorrow if doing well. Advance diet. Urinary retention (Acute) Probably due to diverticulitis. Symptoms improved. Straight cath PRN. Abnormal CT pelvis 4.5 cm water attenuation left adrenal lesion noted on CT of abdomen and pelvis. Probable physiologic ovarian cyst. Repeat evaluation with pelvic ultrasound in 6 months to ensure resolution recommended. VTE prophylaxis SQ heparin. Ambulate. Disposition Anticipated discharge to home. Family Medicine follow-up with Dr. Giraldo. Subjective Recheck for diverticulitis. Patient seen in their room around 0750. Feels better. No fever or chills. No nausea or vomiting. Had 1 loose stool this morning without melena or hematochezia. Review of Systems: Constitutional- no fever. Cardiac- no chest pain. Pulmonary- no cough or SOB. GI- as noted above. - no urinary symptoms. Otherwise, as noted above. Physical Exam Constitutional: no acute distress Respiratory: no respiratory distress Auscultation: lungs clear to auscultation bilaterally Cardiovascular: Rate/Rhythm: regular rate and regular rhythm Heart Sounds: no gallop, no murmur and no cardiac rub Vessels: no JVD Extremities: no calf tenderness and no edema Gastrointestinal (Abdomen): Inspection/Auscultation: normal bowel sounds; abdomen not distended Percussion/Palpation: + abdomen tender (mild suprapubic / LLQ tenderness without rebound or guarding) Skin: no rashes, warm and dry Psychiatric: Orientation: alert and oriented x 3 Results & Data Vital Signs (Past 12 Hours) Vital Signs Temp Pulse Resp BP Pulse Ox 07/01/19 07:41 36.7 C 81 18 101/68 94 06/30/19 23:00 36.7 C 71 18 111/76 99 Laboratory Results 07/01/19 05:47 07/01/19 05:47
[2019-07-01] MEDS: MAGNESIUM OXIDE 400 MG TAB PO SCH (08:41)
[2019-07-01] MEDS: GABAPENTIN 300 MG CAP PO SCH ×3 (08:41→20:41)
[2019-07-01] MEDS: ASPIRIN 81 MG ECTAB PO SCH (08:41)
[2019-07-01] MEDS: BuPROPion XL 150 MG TABCR PO SCH (08:41)
[2019-07-01] MEDS: TOPIRAMATE 50 MG TAB PO SCH ×2 (08:42→20:42)
[2019-07-01] MEDS: CETIRIZINE HCL 10 MG TABLET PO SCH (08:43)
[2019-07-01] MEDS: PANTOprazole 40 MG TAB PO SCH (08:43)
[2019-07-01] MEDS: GABAPENTIN 100 MG CAP PO SCH ×3 (08:44→20:42)
[2019-07-01] MEDS: CIPROFLOXACIN 400 MG/200 ML BAG IV SCH ×2 (08:45→20:44)
[2019-07-01] MEDS: SIMETHICONE 80 MG CHEW PO PRN (20:40)
[2019-07-01] MEDS: ONDANSETRON INJ 2 MG/ML 2 ML VIAL IV PRN (20:40)
[2019-07-02] MEDS: HYDROmorphone INJ 0.5 MG/0.5 ML SYR IV PRN (00:06)
[2019-07-02] MEDS: LORazepam 0.5 MG TAB PO PRN (02:52)
[2019-07-02] MEDS: HEPARIN SOD 5,000 UNIT/0.5 ML VIAL SQ SCH ×2 (05:34→14:33)
[2019-07-02] MEDS: GABAPENTIN 300 MG CAP PO SCH ×2 (08:22→14:32)
[2019-07-02] MEDS: ASPIRIN 81 MG ECTAB PO SCH (08:22)
[2019-07-02] MEDS: CETIRIZINE HCL 10 MG TABLET PO SCH (08:22)
[2019-07-02] MEDS: PANTOprazole 40 MG TAB PO SCH (08:22)
[2019-07-02] MEDS: MAGNESIUM OXIDE 400 MG TAB PO SCH (08:22)
[2019-07-02] MEDS: BuPROPion XL 150 MG TABCR PO SCH (08:22)
[2019-07-02] MEDS: TOPIRAMATE 50 MG TAB PO SCH (08:23)
[2019-07-02] MEDS: metroNIDAZOLE 500 MG TAB PO SCH ×2 (08:23→14:33)
[2019-07-02] MEDS: GABAPENTIN 100 MG CAP PO SCH ×2 (08:23→14:32)
[2019-07-02] MEDS ORDERED: CIPROFLOXACIN 500 MG TAB PO SCH (09:00)
--- NOTE | 2019-07-02 16:25 | Hospitalist Progress Note ---
Date of Service July 02, 2019 Assessment & Plan (1) Acute diverticulitis: Acute diverticulitis (Acute) Presented with lower abdominal pain. CT demonstrated sigmoid diverticulitis without free air or abscess. Receiving IV ciprofloxacin and metronidazole with improvement. White count 18,650 on admission, then fell to 8810. Tolerating diet. Transitioned to PO therapy with ciprofloxacin + metronidazole. Urinary retention (Acute) Probably due to diverticulitis. Symptoms resolved. Abnormal CT pelvis 4.5 cm water attenuation left adrenal lesion noted on CT of abdomen and pelvis. Probable physiologic ovarian cyst. Discussed with patient. Repeat evaluation with pelvic ultrasound in 6 weeks to ensure resolution recommended. VTE prophylaxis SQ heparin. Ambulating. Disposition Discharge to home. Family Medicine follow-up with Dr. Giraldo. Subjective Recheck for diverticulitis. Initially seen in the morning. Experiencing nausea and bloating. Reassessed in the late afternoon. Moved bowels. Feels much better. No nausea, vomiting, abdominal pain. Physical Exam Constitutional: no acute distress Respiratory: no respiratory distress Auscultation: lungs clear to auscul tation bilaterally Cardiovascular: Rate/Rhythm: regular rate and regular rhythm Heart Sounds: no gallop, no murmur and no cardiac rub Vessels: no JVD Extremities: no calf tenderness and no edema Gastrointestinal (Abdomen): Inspection/Auscultation: + abdomen distended (mild) and normal bowel sounds Percussion/Palpation: abdomen nontender Skin: no rashes, warm and dry Psychiatric: Orientation: alert and oriented x 3 Results & Data Vital Signs (Past 12 Hours) Vital Signs Temp Pulse Resp BP Pulse Ox 07/02/19 15:06 36.4 C L 79 17 140/90 97 07/02/19 07:22 36.9 C 70 17 112/74 94
--- NOTE | 2019-07-03 08:38 | Discharge Summary ---
Date of Service Date of Admission: 06/29/19 Date of Discharge: 07/02/19 Admission HPI Per Admitting Provider This is a 38-year-old female with past medical history significant for migraines, bipolar, depression, tobacco use disorder, generalized anxiety disorder, history of possible idiopathic recurrent urticaria, obesity and gastroesophageal reflux disease who presents with abdominal pain and unable to void. The patient states since yesterday, she has had a few episodes of vomiting and diarrhea and today, she did not vomit, but she has had a couple of episodes of diarrhea which were yellow in color and then developed lower abdominal pain radiating to the back and she had difficulty voiding and she thought some pressure-like feeling, but she was unable to void and she thought she might have urinary tract infection or kidney stone and came to the Emergency Room. In the Emergency Room, she was straight cathed once and after that she voided on her own. Imaging studies showed mild sigmoid diverticulitis. The patient states she is feeling chills, but no fevers. Currently, nausea and abdominal pain are better. Denies any headache. No blurred vision. No earache. No runny nose. No sore throat. No difficulty swallowing. Appetite is okay, but did not eat today because of nausea. No chest pain. No shortness of breath. No recent weight gain or weight loss. Sleeps okay. Ambulates okay. No hematuria. No swelling in the legs. No rash. Currently resting comfortably and hemodynamically stable. She also recently saw dermatology for her urticaria and getting worked up and on cetirizine and hydroxyzine for now. She states that the urticaria is improved currently. Principal Diagnosis diverticulitis sigmoid colon, uncomplicated OTHER NEW / ACUTE DIAGNOSES: left adnexal cyst Discharge Data Allergies Allergy/AdvReac Type Severity Reaction Status Date / Time cat dander Allergy Intermediate Hives Verified 06/02/19 20:24 dog dander Allergy Intermediate Hives Verified 06/02/19 20:24 pollen extracts Allergy Intermediate Watery Eye Verified 06/02/19 20:24 ragweed pollen Allergy Intermediate Hives Verified 06/02/19 20:24 Bactrim Allergy Mild GI SYMPTOMS Unverified 06/28/18 02:02 cephalexin Allergy Mild GI SYMPTOMS Verified 06/02/19 20:24 citalopram Allergy Mild ITCHING Verified 06/02/19 20:24 sulfamethoxazole Allergy Mild GI SYMPTOMS Verified 06/02/19 20:24 trimethoprim Allergy Mild GI SYMPTOMS Verified 06/02/19 20:24 mivacurium AdvReac Intermediate GI UPSET Verified 06/02/19 20:24 venlafaxine AdvReac Mild DROWSY Verified 06/02/19 20:24 ketorolac AdvReac Unknown headache Verified 06/02/19 20:24 morphine AdvReac Unknown REBOUND Verified 06/02/19 20:24 HEADACHE red dye AdvReac Unknown MIGRAINE Verified 06/02/19 20:24 fish-talapia AdvReac Intermediate states she Uncoded 08/01/18 00:23 throws up after eating only this fish Consultations 06/29/19 21:37 ED Decision to Admit Stat Ordered Studies 06/29/19 19:32 CT abd pelvis wo con Stat Hospital Course (1) Acute diverticulitis: Acute diverticulitis (Acute) Presented with lower abdominal pain. CT demonstrated sigmoid diverticulitis without free air or abscess. Receiving IV ciprofloxacin and metronidazole with improvement. White count 18,650 on admission, then fell to 8810. Tolerating diet. Transitioned to PO therapy with ciprofloxacin + metronidazole. Urinary retention (Acute) Probably due to diverticulitis. Symptoms resolved. Abnormal CT pelvis 4.5 cm water attenuation left adrenal lesion noted on CT of abdomen and pelvis. Probable physiologic ovarian cyst. Discussed with patient. Repeat evaluation with pelvic ultrasound in 6 weeks to ensure resolution recommended. VTE prophylaxis SQ heparin. Ambulating. Disposition Discharge to home. Family Medicine follow-up with Dr. Giraldo. Total Time Total Time Spent Total Time Spent (In Minutes): 35 Discharge Plan Discharge Items Patient Disposition: Home - Self-Care Reason For Visit: abdominal pain Discharge Diagnosis: diverticulitis Condition: Good Discharge Goals: Decrease discomfort and Improve disease control Activity: Resume your previous activity Non-emergency contact: Primary Care Provider and Hospitalist Call non-emergency contact if: you have any medication questions, your pain is n ot controlled and your temperature is above 101 Follow-up/Referrals: Roddy Giraldo MD [Primary Care Provider] - (07/05/2019 12:40 PM Roddy Giraldo MD) Diet: Regular and See below Diet Comment: low fiber for 2 weeks, then well-balanced high fiber diet Addtl Provider Instructions: MEDICATION CHANGES: Take ciprofloxacin and metronidazole as instructed to treat diverticulitis. Do not drink any alcoholic beverages while taking metronidazole. SUMMARY OF TEST RESULTS: CT scans showed: (1) diverticulitis (2) cyst in pelvic area, probably a benign pelvic cyst PENDING TEST RESULTS: none RECOMMENDATIONS FOR FOLLOW-UP: Ultrasound of pelvis in 6 wks to recheck cyst. Please ask Dr. Giraldo to schedule. OTHER INSTRUCTIONS: Seek medical attention if you have: * temperature above 101 * chest pain or trouble breathing * abdominal pain, nausea, vomiting * diarrhea, dark stools or bloody stools * any unanswered questions or concerns Call [phone] if symptoms are severe. Please take good care of yourself. Call if you have any questions or problems. You can reach a [facility] hospitalist on duty at [facility] 24 hours a day by calling [phone]. My cell # is [phone]. Prescriptions: New ciprofloxacin HCl 500 mg Tablet 500 mg PO BID Qty: 14 RF: 0 metronidazole 500 mg Tablet 500 mg PO TID Qty: 21 RF: 0 Continued bupropion HCl 150 mg tablet extended release 24 hr 150 mg PO DAILY RF: 0 aspirin [Adult Low Dose Aspirin] 81 mg Tablet,Delayed Release (Dr/Ec) 81 mg PO DAILY RF: 0 gabapentin 300 mg Capsule 300 mg PO TID RF: 0 cetirizine 10 mg tablet 10 mg PO QAM RF: 0 riboflavin (vitamin B2) [Vitamin B-2] 100 mg Tablet 400 mg PO DAILY RF: 0 hydroxyzine HCl 25 mg tablet 25 mg PO Q6H PRN (Reason: Itching) RF: 0 epinephrine 0.3 mg/0.3 mL auto-injector 0.3 mg IM DIRECTED PRN (Reason: Allergic Reaction) RF: 0 albuterol sulfate 90 mcg/actuation HFA aerosol inhaler 2 puff inhalation Q6H PRN (Reason: Shortness Of Breath Or Wheezing) RF: 0 lorazepam [Ativan] 0.5 mg Tablet 0.5 mg PO TID PRN (Reason: Anxiety) RF: 0 acetaminophen 500 mg Tablet 1,000 mg PO Q6H PRN (Reason: Pain) RF: 0 pantoprazole 40 mg Tablet,Delayed Release (Dr/Ec) 40 mg PO QAM RF: 0 ranitidine HCl 150 mg Tablet 150 mg PO BID RF: 0 diclofenac sodium 50 mg Tablet,Delayed Release (Dr/Ec) 50 mg PO TID PRN (Reason: Pain) RF: 0 magnesium 200 mg Tablet 400 mg PO DAILY RF: 0 topiramate [Topamax] 50 mg Tablet 75 mg PO BID RF: 0 Stand-Alone Forms: [facility] [place] Work/School Release (Inpt) Discharge Orders: Discharge Order (Routine); Ordered 07/02/19 Ordered By: Refugio Sorto Admission Data Admit Date/Time: 06/29/19 22:47 Attending Provider: Refugio Sorto Admit Provider: Alexandru Polo Primary Care Provider: Roddy Giraldo Other Providers: Alexandru Polo Service: Medical Other Interventions: Discharge Summary Assessment (RN) Last Done: 07/02/19 16:52 DC Date/Time DO NOT enter until pt leaves facility: 07/02/19 17:14
== END 2019-07-02 17:14 | disposition home or self-care (01) | DRG 392 ==
LOC: ED 19:17 → 2N 22:47 → 4W 07-01 00:48

== ENCOUNTER 2021-04-05 14:31 | Observation (INO) ==
[2021-04-05] MEDS ORDERED: SODIUM CHLORIDE 0.9% 1000ML 1,000 ML IV ONE (14:43)
[2021-04-05] MEDS ORDERED: PROCHLORPERAZINE 1 ML IV ONE (14:43)
[2021-04-05 14:50] LABS: Basophils # (auto) 0.03 K/uL (0-0.2); Basophils % (auto) 0.2 %; Eosinophils # (auto) 0.53 K/uL (0-0.5); Eosinophils % (auto) 3.5 %; Hematocrit (blood only) 41.8 % (37-47); Hemoglobin 14.2 g/dL (12.0-16.0); Immature Granulocytes # (auto) 0.05 K/uL (0.00-0.02); Immature Granulocytes % (auto) 0.3 %; Lymphocytes # (auto) 4.13 K/uL (1.2-3.4); Lymphocytes % (auto) 27.1 %; Mean Corpuscular Hemoglobin 32.9 pg (25-34); Mean Corpuscular Volume 96.8 fL (80-100); Mean Platelet Volume 9.3 fL (7.4-10.4); Monocytes # (auto) 1.11 K/uL (0.11-0.59); Monocytes % (auto) 7.3 %; Neutrophils # (auto) 9.39 K/uL (1.4-6.5); Neutrophils % (auto) 61.6 %; Platelet Count 268 K/uL (130-400); RDW Coefficient of Variation 13.9 % (11.5-14.5); RDW Standard Deviation 49.3 fL (36.4-46.3); Red Blood Count 4.32 M/uL (4.2-5.4); White Blood Count 15.24 K/uL (4.8-10.8)
--- NOTE | 2021-04-05 15:00 | CT Scan Report ---
CT SCAN OF THE BRAIN WITHOUT IV CONTRAST CLINICAL HISTORY: Strokelike symptoms. COMPARISON STUDY: CT of the brain dated 10/15/2019. TECHNIQUE: Unenhanced axial CT scan of the brain is performed from the vertex to the skull base. A d ose lowering technique was utilized adhering to the principles of ALARA. The examination is modestly degraded by motion artifact. FINDINGS: Brain parenchyma: The brain parenchyma is normal in appearance. There is no hemorrhage, mass effect, or evidence of acute territorial ischemia by CT criteria. Hill-white matter differentiation is preser parth. No extra-axial fluid collection is seen. Ventricles, sulci, cisterns: Normal in configuration. Intracranial vasculature: The visualized intracranial vasculature at the skull base is normal in appe arance. Calvarium: Postoperative change is again seen involving the posterior calvarium. No destructive umer rial lesion is identified. Sinuses and mastoids: There is mild to moderate mucosal thickening within the frontal and ethmoid sin uses. The mastoid air cells are well pneumatized. Orbits: The bony orbits are grossly intact. IMPRESSION: There is no hemorrhage, mass effect, or evidence of acute territorial ischemia by CT ilana pete. ACT 112: Negative or not required by law. Electronically signed by: Venkat Nation M.D. 04/05/2021 2:59 PM
[2021-04-05 15:01] LABS: Partial Thromboplastin Ratio 1.1; Partial Thromboplastin Time 29.5 Seconds (21.0-31.0); Prothrombin Time 10.1 Seconds (9.0-12.0)
--- NOTE | 2021-04-05 15:01 | Emergency Department Note ---
Impression & Plan Left sided numbness, Migraine, Nausea, Facial droop ED Provider Note Provider: Devonte Smith MD DATE OF SERVICE: 04/05/2021 CHIEF COMPLAINT: Headache, numbness, facial droop HISTORY OF PRESENT ILLNESS: Patient is a 40-year-old female with a past medical history of migraines presenting here today with her complaining of neurological symptoms. Seen in room B1 initially with an 8 minutes of her arrival. Patient was made a stroke alert. Patient reports 4 to 5 days of headache worsened last day or so. Denies any trauma. Denies fainting or syncope. Reports at 1 PM she was working doing some crafts and had the sudden onset of left-sided numbness in her left arm and leg as well as feeling her speech was not quite right. Alert her who then brought here here via private vehicle to the hospital. Patient is taken to be 1 by triage staff. Patient denies any fevers. Reports she is on aspirin. Denies a history of similar weakness or numbness. Denies a history of complex migraines but does report some significant migraines in the past. reports he is on Topamax at home for this and follows with [facility] neurology. states that her speech and facial droop seem a bit worse since he first noticed things around 1 PM. REVIEW OF SYSTEMS: A total of 10 review of systems was obtained and negative except as stated above in the HPI. PAST MEDICAL HISTORY: As noted above MEDICATIONS: Reviewed home medication list includes aspirin and Topamax SOCIAL HISTORY: and lives at home, smoker PHYSICAL EXAM: GENERAL: alert and oriented in no acute distress on stretcher eyes closed Head: normocephalic and atraumatic EYES: No injection, discharge or icterus. PERRL, EOMI. NECK: Trachea midline. Supple. ENT: Mucous membranes pink and moist. Pharynx without erythema or exudate. LUNGS: Airway patent. No retractions. Breath sounds clear with good air entry bilaterally. HEART: Regular rate and rhythm. No chest wall tenderness ABDOMEN: Soft and non-tender, without guarding or rebound. SKIN: Acyanotic, warm, dry, without rashes EXTREMITIES: Without swelling, tenderness or deformity NEUROLOGICAL: No aphasia. Tongue midline. Right facial droop with some mildly slurred speech. Somewhat slow to answer at times. Normal strength and tone in the extremities with some drift in the left upper arm and left leg. Patient with some decreased left-sided face sensation as well as left arm and left leg sensation. EK bpm normal sinus rhythm. No PVC or PAC. No acute ST segment elevation or depression. QTC 413. CONTINUOUS CARDIAC MONITORING: was ordered and showed a heart rate of 80s-90s bpm in normal sinus rhythm Patient's laboratory studies and imaging reviewed. Differential includes Infection, dehydration, metabolic abnormality, hypo/hyperglycemia, electrolyte disturbance, anemia, hypoxia, cardiac sources, intracerebral event, toxicologic, neurologic, as well as other pathologies. IMPRESSION/MEDICAL DECISION MAKING: Patient is with headache and history of migraine. No history of complex migraine but this is certainly on the differential. Given her significant neurological deficit this time made a stroke alert. Within the time window for TPA. Discussed with telestroke at [place]. Patient is somewhat hypertensive here. CT and CTAs were completed for the patient as well as basic blood work. Per radiology no acute intracranial hemorrhage, mass, or acute ischemia by CT. CT angiogram as per radiology without evidence of acute occlusions/stenosis. Blood work shows some slight leukocytosis of 15 unclear etiology but no other significant abnormalities. No platelet abnormality noted. Again lower suspici on for infectious etiology at this point especially not bacterial meningitis. Urinalysis is pending. Discussed with radiology and they do not see evidence of a venous thrombus at this point on CTA. Patient in discussion with telestroke who evaluated the patient wishes to decline TPA at this time as she is having at this point just numbness symptoms and some facial droop. Discussed with the pat ient and at bedside as well risks and benefits. They both agree with the plan at this point to defer TPA. We will plan for MRI and treatment of headache and further evaluation here in the hospital. Patient was given multiple medications to help with a headache including Compazine, IV Tylenol, Zofran, and IV magnesium. Patient and were agreeable plan for further care here in the hospital. Hospitalist was contacted. Patient failed bedside swallow. MRI of the brain ordered. DIAGNOSIS: Right facial droop, left-sided numbness, migraine DISPOSITION: Hospitalist will evaluate Patient and were agreeable with this plan. Past Med/Surg History Medical History Anemia Asthma HAS NOT USED INHALER SINCE LAST WINTER Bipolar disorder Degenerative disc disease Depression with anxiety Diverticulosis GERD (gastroesophageal reflux disease) History of IBS History of kidney stones Osteoarthritis Post traumatic stress disorder Tobacco use Surgical History H/O craniotomy AT 6 MONTHS AGE (LEFT SIDE OF SKULL ABNORMALITY "WAS LEFT ON LEFT SIDE TOO LONG AN INFANT") History of ankle surgery RT History of appendectomy History of cholecystectomy History of colonoscopy History of dilatation and curettage History of tooth extraction History of tubal ligation Family History (Updated 04/05/21 @ 16:35 by María Elena Martinez PA-C) Grandmother (Maternal) Family hx of colon cancer Other Cancer Coronary heart disease Diabetes Hypertension Stroke Social History (Updated 04/05/21 @ 16:35 by María Elena Martinez PA-C) Smoking Status: Current every day smoker Cigarettes Per Day: 20 CIG DAILY; Second Hand Exposure: Yes; Hx Alcohol Use: Yes Alcohol type: beer Hx Substance Use: No Preferred Language: Mohawk Communication Ability: Effective Physician Liaison Required: No Beliefs That Will Affect Care: None marital status: Current Living Situation: Spouse Current Living Situation Comment: and children current occupational status: employed Feels Safe at Home: Yes Assistive Devices: Denture - Upper and Denture - Lower Allergies Allergies Allergy/AdvReac Type Severity Reaction Status Date / Time ragweed pollen Allergy Intermediate Hives Verified 04/05/21 15:45 citalopram Allergy Mild ITCHING Verified 04/05/21 15:45 pollen extracts Allergy Mild Watery Eye Verified 04/05/21 15:45 azithromycin AdvReac Intermediate Gastrointestinal Verified 04/05/21 15:45 Upset ketorolac AdvReac Intermediate headache Verified 04/05/21 15:45 morphine AdvReac Intermediate REBOUND Verified 04/05/21 15:45 HEADACHE red dye AdvReac Intermediate MIGRAINE Verified 04/05/21 15:45 cephalexin AdvReac Mild GI SYMPTOMS Verified 04/05/21 15:45 sulfamethoxazole AdvReac Mild GI SYMPTOMS Verified 04/05/21 15:45 trimethoprim AdvReac Mild GI SYMPTOMS Verified 04/05/21 15:45 venlafaxine AdvReac Mild DROWSY Verified 04/05/21 15:45 fish-talapia AdvReac Intermediate states she Uncoded 04/05/21 15:45 throws up after eating only this fish Home Meds Home Medications Medication Instructions Recorded Confirmed magnesium 200 mg PO BID 02/01/19 04/05/21 bupropion HCl 150 mg PO QAM 04/09/19 04/05/21 epinephrine 0.3 mg IM DIRECTED PRN 06/29/19 04/05/21 riboflavin (vitamin B2) [Vitamin 400 mg PO QAM 06/29/19 04/05/21 B-2] albuterol sulfate 2 inh INHALATION QID PRN 05/02/20 04/05/21 fluticasone propionate 1 spray INTRANASAL DAILY PRN 05/02/20 04/05/21 montelukast [Singulair] 10 mg PO HS 05/02/20 04/05/21 topiramate 75 mg PO AMHS 08/20/20 04/05/21 escitalopram oxalate 10 mg PO QAM 02/20/21 04/05/21 hydroxyzine HCl 25 mg PO UD PRN 02/20/21 04/05/21 aspirin [Aspir-81] 81 mg PO QAM 04/05/21 04/05/21 diclofenac sodium 75 mg PO BID 04/05/21 04/05/21 lorazepam 0.5 mg PO Q8H PRN 04/05/21 04/05/21 Results & Data (ED) Vital Signs Vital Signs - 24 hr 04/05/21 14:35 04/05/21 14:59 04/05/21 15:00 Temperature 36.3 C L Temperature Source Temporal Artery Scan Pulse Rate 97 H 100 H 90 Pulse Rate from SpO2 Sensor Respiratory Rate 20 Respiratory Effort / Characteristics Non-Labored Spontaneous Respiratory Depth Normal Blood Pressure 144/95 H 161/113 H Blood Pressure Mean 111 129 Pulse Oximetry 97 Oxygen Delivery Method Room Air Sepsis Recent Fever Within 48 Hours No Sepsis New/Unexplained Change in Mental Status N/A Sepsis Action Taken by Nursing No Action Required 04/05/21 15:01 04/05/21 15:02 04/05/21 15:10 Temperature Temperature Source Pulse Rate 88 90 94 H Pulse Rate from SpO2 Sensor Respiratory Rate Respiratory Effort / Characteristics Respiratory Depth Blood Pressure 145/94 H Blood Pressure Mean 111 Pulse Oximetry Oxygen Delivery Method Sepsis Recent Fever Within 48 Hours Sepsis New/Unexplained Change in Mental Status Sepsis Action Taken by Nursing 04/05/21 15:13 04/05/21 15:16 04/05/21 15:20 Temperature Temperature Source Pulse Rate 91 H 92 H 86 Pulse Rate from SpO2 Sensor 93 H 87 Respiratory Rate Respiratory Effort / Characteristics Respiratory Depth Blood Pressure 162/103 H 148/90 H Blood Pressure Mean 122 109 Pulse Oximetry 99 98 Oxygen Delivery Method Sepsis Recent Fever Within 48 Hours Sepsis New/Unexplained Change in Mental Status Sepsis Action Taken by Nursing 04/05/21 15:21 04/05/21 15:26 04/05/21 15:31 Temperature Temperature Source Pulse Rate 80 81 87 Pulse Rate from SpO2 Sensor 80 82 86 Respiratory Rate Respiratory Effort / Characteristics Respiratory Depth Blood Pressure 128/92 128/88 Blood Pressure Mean 104 101 Pulse Oximetry 98 98 98 Oxygen Delivery Method Sepsis Recent Fever Within 48 Hours Sepsis New/Unexplained Change in Mental Status Sepsis Action Taken by Nursing 04/05/21 15:40 04/05/21 15:50 04/05/21 16:00 Temperature Temperature Source Pulse Rate 75 82 77 Pulse Rate from SpO2 Sensor 75 82 78 Respiratory Rate Respiratory Effort / Characteristics Respiratory Depth Blood Pressure Blood Pressure Mean Pulse Oximetry 98 99 94 Oxygen Delivery Method Sepsis Recent Fever Within 48 Hours Sepsis New/Unexplained Change in Mental Status Sepsis Action Taken by Nursing 04/05/21 16:06 04/05/21 16:07 04/05/21 17:07 Temperature Temperature Source Pulse Rate Pulse Rate from SpO2 Sensor 80 77 74 Respiratory Rate Respiratory Effort / Characteristics Respiratory Depth Blood Pressure 133/83 126/80 Blood Pressure Mean 99 95 Pulse Oximetry 94 94 97 Oxygen Delivery Method Sepsis Recent Fever Within 48 Hours Sepsis New/Unexplained Change in Mental Status Sepsis Action Taken by Nursing Laboratory Data Result diagrams: 04/05/21 14:42 04/05/21 14:42 Lab Results 04/05/21 04/05/21 04/05/21 Range/Units 14:42 14:42 14:42 WBC 15.24 H (4.8-10.8) K/uL RBC 4.32 (4.2-5.4) M/uL Hgb 14.2 (12.0-16.0) g/dL POC Hgb (12.0-16.0) g/dl Hct 41.8 (37-47) % POC Hct (37-47) % MCV 96.8 (80-100) fL MCH 32.9 (25-34) pg MCHC 34.0 (32-36) g/dL RDW Std Deviation 49.3 H (36.4-46.3) fL RDW Coeff of Og 13.9 (11.5-14.5) % Plt Count 268 (130-400) K/uL MPV 9.3 (7.4-10.4) fL Immature Gran % (Auto) 0.3 % Neut % (Auto) 61.6 % Lymph % (Auto) 27.1 % [place] % (Auto) 7.3 % Eos % (Auto) 3.5 % Baso % (Auto) 0.2 % Neut # (Auto) 9.39 H (1.4-6.5) K/uL Lymph # (Auto) 4.13 H (1.2-3.4) K/uL [place] # (Auto) 1.11 H (0.11-0.59) K/uL Eos # (Auto) 0.53 H (0-0.5) K/uL Baso # (Auto) 0.03 (0-0.2) K/uL Immature Gran # (Auto) 0.05 H (0.00-0.02) K/uL PT 10.1 (9.0-12.0) Seconds INR 1.0 (0.9-1.1) APTT 29.5 (21.0-31.0) Seconds PTT Ratio 1.1 POC Sodium (135-144) mmol/L Sodium 138 (136-145) mmol/L POC Potassium (3.3-5.0) mmol/L Potassium 3.8 (3.5-5.1) mmol/L POC Chloride (101-112) mmol/L Chloride 108 H (98-107) mmol/L Carbon Dioxide 21 (21-32) mmol/L POC Total CO2 (24-31) mmol/L Anion Gap 9.0 (3-11) POC Anion Gap (16-25) mmol/L POC BUN (7-18) mg/dl BUN 12 (7-18) mg/dl Creatinine 0.76 (0.6-1.2) mg/dl POC Creatinine (0.6-1.3) mg/dl Est Cr Clr Drug Dosing 137.3 ml/min Est GFR ( Amer) 114.5 ml/min Est GFR (Non-Af Amer) 98.8 ml/min BUN/Creatinine Ratio 16.0 (10-20) Glucose 91 (70-99) mg/dl POC Glucose (other) (70-99) mg/dl Calcium 8.9 (8.5-10.1) mg/dl POC Ioniz Calcium [place] (1.12-1.32) mmol/l Magnesium 2.2 (1.8-2.4) mg/dl Total Bilirubin 0.4 (0.2-1) mg/dl AST 13 L (15-37) U/L ALT 21 (12-78) U/L Alkaline Phosphatase 87 (45-117) U/L Troponin I < 0.015 (0-0.045) ng/ml Total Protein 8.0 (6.4-8.2) gm/dl Albumin 3.7 (3.4-5.0) gm/dl Globulin 4.3 H (2.5-4.0) gm/dl Albumin/Globulin Ratio 0.9 (0.9-2) COVID-19 Eval Order SARS-CoV-2 (PCR) (Negative) Blood Type Antibody Screen 04/05/21 04/05/21 04/05/21 Range/Units 14:47 15:08 15:50 WBC (4.8-10.8) K/uL RBC (4.2-5.4) M/uL Hgb (12.0-16.0) g/dL POC Hgb 13.9 (12.0-16.0) g/dl Hct (37-47) % POC Hct 41 (37-47) % MCV (80-100) fL MCH (25-34) pg MCHC (32-36) g/dL RDW Std Deviation (36.4-46.3) fL RDW Coeff of Og (11.5-14.5) % Plt Count (130-400) K/uL MPV (7.4-10.4) fL Immature Gran % (Auto) % Neut % (Auto) % Lymph % (Auto) % [place] % (Auto) % Eos % (Auto) % Baso % (Auto) % Neut # (Auto) (1.4-6.5) K/uL Lymph # (Auto) (1.2-3.4) K/uL [place] # (Auto) (0.11-0.59) K/uL Eos # (Auto) (0-0.5) K/uL Baso # (Auto) (0-0.2) K/uL Immature Gran # (Auto) (0.00-0.02) K/uL PT (9.0-12.0) Seconds INR (0.9-1.1) APTT (21.0-31.0) Seconds PTT Ratio POC Sodium 142 (135-144) mmol/L Sodium (136-145) mmol/L POC Potassium 3.9 (3.3-5.0) mmol/L Potassium (3.5-5.1) mmol/L POC Chloride 108 (101-112) mmol/L Chloride (98-107) mmol/L Carbon Dioxide (21-32) mmol/L POC Total CO2 19 L (24-31) mmol/L Anion Gap (3-11) POC Anion Gap 20.0 (16-25) mmol/L POC BUN 12 (7-18) mg/dl BUN (7-18) mg/dl Creatinine (0.6-1.2) mg/dl POC Creatinine 0.8 (0.6-1.3) mg/dl Est Cr Clr Drug Dosing ml/min Est GFR ( Amer) ml/min Est GFR (Non-Af Amer) ml/min BUN/Creatinine Ratio (10-20) Glucose (70-99) mg/dl POC Glucose (other) 92 (70-99) mg/dl Calcium (8.5-10.1) mg/dl POC Ioniz Calcium [place] 1.21 (1.12-1.32) mmol/l Magnesium (1.8-2.4) mg/dl Total Bilirubin (0.2-1) mg/dl AST (15-37) U/L ALT (12-78) U/L Alkaline Phosphatase (45-117) U/L Troponin I (0-0.045) ng/ml Total Protein (6.4-8.2) gm/dl Albumin (3.4-5.0) gm/dl Globulin (2.5-4.0) gm/dl Albumin/Globulin Ratio (0.9-2) COVID-19 Eval Order Covid19 at [facility] SARS-CoV-2 (PCR) (Negative) Blood Type O Positive Antibody Screen NEGATIVE 04/05/21 Range/Units 15:50 WBC (4.8-10.8) K/uL RBC (4.2-5.4) M/uL Hgb (12.0-16.0) g/dL POC Hgb (12.0-16.0) g/dl Hct (37-47) % POC Hct (37-47) % MCV (80-100) fL MCH (25-34) pg MCHC (32-36) g/dL RDW Std Deviation (36.4-46.3) fL RDW Coeff of Og (11.5-14.5) % Plt Count (130-400) K/uL MPV (7.4-10.4) fL Immature Gran % (Auto) % Neut % (Auto) % Lymph % (Auto) % [place] % (Auto) % Eos % (Auto) % Baso % (Auto) % Neut # (Auto) (1.4-6.5) K/uL Lymph # (Auto) (1.2-3.4) K/uL [place] # (Auto) (0.11-0.59) K/uL Eos # (Auto) (0-0.5) K/uL Baso # (Auto) (0-0.2) K/uL Immature Gran # (Auto) (0.00-0.02) K/uL PT (9.0-12.0) Seconds INR (0.9-1.1) APTT (21.0-31.0) Seconds PTT Ratio POC Sodium (135-144) mmol/L Sodium (136-145) mmol/L POC Potassium (3.3-5.0) mmol/L Potassium (3.5-5.1) mmol/L POC Chloride (101-112) mmol/L Chloride (98-107) mmol/L Carbon Dioxide (21-32) mmol/L POC Total CO2 (24-31) mmol/L Anion Gap (3-11) POC Anion Gap (16-25) mmol/L POC BUN (7-18) mg/dl BUN (7-18) mg/dl Creatinine (0.6-1.2) mg/dl POC Creatinine (0.6-1.3) mg/dl Est Cr Clr Drug Dosing ml/min Est GFR ( Amer) ml/min Est GFR (Non-Af Amer) ml/min BUN/Creatinine Ratio (10-20) Glucose (70-99) mg/dl POC Glucose (other) (70-99) mg/dl Calcium (8.5-10.1) mg/dl POC Ioniz Calcium [place] (1.12-1.32) mmol/l Magnesium (1.8-2.4) mg/dl Total Bilirubin (0.2-1) mg/dl AST (15-37) U/L ALT (12-78) U/L Alkaline Phosphatase (45-117) U/L Troponin I (0-0.045) ng/ml Total Protein (6.4-8.2) gm/dl Albumin (3.4-5.0) gm/dl Globulin (2.5-4.0) gm/dl Albumin/Globulin Ratio (0.9-2) COVID-19 Eval Order SARS-CoV-2 (PCR) NEGATIVE (Negative) Blood Type Antibody Screen Administered Medications Discontinued Medications Sodium Chloride (Nss 1000ml) 1,000 mls @ 999 mls/hr IV .Q1H1M ONE Stop: 04/05/21 15:43 Last Infusion: 04/05/21 16:39 Dose: 0 mls/hr Documented by: [id number] Admin: 04/05/21 15:22 Dose: 999 mls/hr Documented by: [id number] Prochlorperazine (Compazine) 1 mls @ 1 mls/min IV ONE ONE Stop: 04/05/21 14:44 Last Admin: 04/05/21 15:21 Dose: 1 mls/min Documented by: [id number] Magnesium Sulfate/Dextrose (Magnesium Sulfate / D5w) 1 gm in 100 mls @ 600 mls/hr IV Q10M [place] Stop: 04/05/21 15:47 Last Infusion: 04/05/21 16:26 Dose: 0 mls/hr Documented by: [id number] Admin: 04/05/21 16:10 Dose: 600 mls/hr Documented by: [id number] Infusion: 04/05/21 16:10 Dose: 0 mls/hr Documented by: [id number] Admin: 04/05/21 15:52 Dose: 600 mls/hr Documented by: [id number] Acetaminophen (Ofirmev) 1,000 mg in 100 mls @ 400 mls/hr IV NOW STA Stop: 04/05/21 15:44 Last Infusion: 04/05/21 16:11 Dose: 0 mls/hr Documented by: [id number] Admin: 04/05/21 15:53 Dose: 400 mls/hr Documented by: [id number] Ondansetron HCl (Ondansetron Inj 2 Mg/Ml 2 Ml Vial) 4 mg IV NOW STA Stop: 04/05/21 15:34 Last Admin: 04/05/21 15:53 Dose: 4 mg Documented by: [id number] Imaging Data Radiologist's Impression: Chest X-Ray 04/05/21 14:42 SINGLE VIEW CHEST CLINICAL HISTORY: Strokelike symptoms. FINDINGS: An AP, portable, upright chest radiograph is compared to study dated 11/20/2019. The cardiomediastinal silhouette is unremarkable. The lungs and pleural spaces are clear. No pneumothorax is seen. The bony thorax is grossly intact. IMPRESSION: No active disease in the chest. ACT 112: Negative or not required by law. Electronically signed by: Venkat Nation M.D. 04/05/2021 3:[address] 04/05/21 14:42 CT SCAN OF THE BRAIN WITHOUT IV CONTRAST CLINICAL HISTORY: Strokelike symptoms. COMPARISON STUDY: CT of the brain dated 10/15/2019. TECHNIQUE: Unenhanced axial CT scan of the brain is performed from the vertex to the skull base. A dose lowering technique was utilized adhering to the principles of ALARA. The examination is modestly degraded by motion artifact. FINDINGS: Brain parenchyma: The brain parenchyma is normal in appearance. There is no he morrhage, mass effect, or evidence of acute territorial ischemia by CT criteria. Hill-white matter differentiation is preserved. No extra-axial fluid collection is seen. Ventricles, sulci, cisterns: Normal in configuration. Intracranial vasculature: The visualized intracranial vasculature at the skull base is normal in appearance. Calvarium: Postoperative change is again seen involving the posterior calvarium. No destructive calvarial lesion is identified. Sinuses and mastoids: There is mild to moderate mucosal thickening within the frontal and ethmoid sinuses. The mastoid air cells are well pneumatized. Orbits: The bony orbits are grossly intact. IMPRESSION: There is no hemorrhage, mass effect, or evidence of acute terr itorial ischemia by CT criteria. ACT 112: Negative or not required by law. Electronically signed by: Venkat Nation M.D. 04/05/2021 2:59 PM Head CTA 04/05/21 14:42 CT ANGIOGRAM OF THE BRAIN; CT ANGIOGRAM OF THE NECK CLINICAL HISTORY: Strokelike symptoms. COMPARISON STUDY: Unenhanced CT of the brain performed concurrently on 04/05/2021. MRI and MR angiogram of the brain of the brain dated 02/17/2011. TECHNIQUE: Following the IV administration of 117 of Optiray 350, CT angiogram of the head and neck was performed from the aortic arch to the vertex. Images are reviewed in the axial, sagittal, and coronal planes. 3-D MIPS images are created and assessed. IV contrast was administered without complication. All measurements were calculated based on NASCET criteria. A dose lowering technique was utilized adhering to the principles of ALARA. CT DOSE: 1404.47 mGy.cm FINDINGS: Brain parenchyma: The brain parenchyma is normal in appearance. There is no hemorrhage, mass effect, or evidence of acute territorial ischemia by CT criteria. There is no evidence of enhancing mass lesion on the angiogram phase images. The ventricles, sulci, and cisterns are normal in configuration. Hill- white matter differentiation is preserved. No extra-axial fluid collection is seen. Thoracic aorta: Visualized portions of the thoracic aorta are normal in caliber. The aortic arch demonstrates standard 3-vessel anatomy. Right carotid arterial system: The right common carotid artery is widely patent, as are the right internal and external carotid arteries. Left carotid arterial system: The left common carotid artery is widely patent, as are the left internal and external carotid arteries. Vertebral arteries: The vertebral arteries are widely patent bilaterally and codominant. Subclavian arteries: Widely patent bilaterally. Intracranial vasculature: [place] is developmentally complete. The internal carotid arteries are patent at the skull base, as are the anterior and middle cerebral arteries bilaterally. The vertebrobasilar system and posterior cerebral arteries are widely patent. The vertebral arteries are codominant. There is no aneurysm, high-grade stenosis, or focal vessel cut off seen throughout the intracranial circulation. Jugular veins: Patent bilaterally. Dural sinuses: The right transverse sinus is diminutive. The sinuses are patent, Lung apices: Partially visualized upper lobe lung parenchyma appears clear. Soft tissues: The visualized pharyngeal soft tissues are normal in appearance noting angiographic phase technique. The oropharyngeal airway appears widely patent. The salivary and thyroid glands are normal in appearance. No cervical lymphadenopathy is seen. Skeletal structures: Postoperative change is again seen involving the posterior calvarium. No destructive calvarial lesion is identified. The cervical spine is within normal limits. No lytic or blastic lesion is seen. Orbits: The bony orbits are intact. Orbital contents are normal as visualized. Sinuses and mastoids: There is mild mucosal thickening within the maxillary antra. Mild to moderate mucosal thickening seen within the frontal and ethmoid sinuses. The mastoid air cells are well pneumatized. IMPRESSION: 1. There is no evidence of hemorrhage, mass effect, or acute territorial ischemia by CT criteria noting angiographic phase technique. 2. Unremarkable CT angiogram of the brain. 3. Unremarkable CT angiogram of the neck. ACT 112: Negative or not required by law. Electronically signed by: Venkat Nation M.D. 04/05/2021 3:08 PM Neck CTA 04/05/21 14:42 CT ANGIOGRAM OF THE BRAIN; CT ANGIOGRAM OF THE NECK CLINICAL HISTORY: Strokelike symptoms. COMPARISON STUDY: Unenhanced CT of the brain performed concurrently on 04/05/2021. MRI and MR angiogram of the brain of the brain dated 02/17/2011. TECHNIQUE: Following the IV administration of 117 of Optiray 350, CT angiogram of the head and neck was performed from the aortic arch to the vertex. Images are reviewed in the axial, sagittal, and coronal planes. 3-D MIPS images are created and assessed. IV contrast was administered without complication. All measurements were calculated based on NASCET criteria. A dose lowering technique was utilized adhering to the principles of ALARA. CT DOSE: 1404.47 mGy.cm FINDINGS: Brain parenchyma: The brain parenchyma is normal in appearance. There is no hemorrhage, mass effect, or evidence of acute territorial ischemia by CT criteria. There is no evidence of enhancing mass lesion on the angiogram phase images. The ventricles, sulci, and cisterns are normal in configuration. Hill- white matter differentiation is preserved. No extra-axial fluid collection is seen. Thoracic aorta: Visualized portions of the thoracic aorta are normal in caliber. The aortic arch demonstrates standard 3-vessel anatomy. Right carotid arterial system: The right common carotid artery is widely patent, as are the right internal and external carotid arteries. Left carotid arterial system: The left common carotid artery is widely patent, as are the left internal and external carotid arteries. Vertebral arteries: The vertebral arteries are widely patent bilaterally and codominant. Subclavian arteries: Widely patent bilaterally. Intracranial vasculature: [place] is developmentally complete. The internal carotid arteries are patent at the skull base, as are the anterior and middle cerebral arteries bilaterally. The vertebrobasilar system and posterior cerebral arteries are widely patent. The vertebral arteries are codominant. Ther e is no aneurysm, high-grade stenosis, or focal vessel cut off seen throughout the intracranial circulation. Jugular veins: Patent bilaterally. Dural sinuses: The right transverse sinus is diminutive. The sinuses are patent, Lung apices: Partially visualized upper lobe lung parenchyma appears clear. Soft tissues: The visualized pharyngeal soft tissues are normal in appearance noting angiographic phase technique. The oropharyngeal airway appears widely patent. The salivary and thyroid glands are normal in appearance. No cervical lymphadenopathy is seen. Skeletal structures: Postoperative change is again seen involving the posterior calvarium. No destructive calvarial lesion is identified. The cervical spine is within normal limits. No lytic or blastic lesion is seen. Orbits: The bony orbits are intact. Orbital contents are normal as visualized. Sinuses and mastoids: There is mild mucosal thickening within the maxillary antra. Mild to moderate mucosal thickening seen within the frontal and ethmoid sinuses. The mastoid air cells are well pneumatized. IMPRESSION: 1. There is no evidence of hemorrhage, mass effect, or acute territorial isc hemia by CT criteria noting angiographic phase technique. 2. Unremarkable CT angiogram of the brain. 3. Unremarkable CT angiogram of the neck. ACT 112: Negative or not required by law. Electronically signed by: Venkat Nation M.D. 04/05/2021 3:08 PM Discharge Plan Visit Data Chief Complaint: Stroke/CVA Symptoms Stated Complaint: STOKE SYMPTOMS ED Provider: Devonte Smith Discharge Problem: Left sided numbness, Migraine, Nausea, Facial droop Patient Disposition: Being Evaluated by Hospitalist Forms Stand Alone Forms: My [facility] [place] [facility] Prescriptions Prescriptions: No Action bupropion HCl 150 mg tablet extended release 24 hr 150 mg PO QAM RF: 0 riboflavin (vitamin B2) [Vitamin B-2] 100 mg Tablet 400 mg PO QAM RF: 0 epinephrine 0.3 mg/0.3 mL auto-injector 0.3 mg IM DIRECTED PRN (Reason: Allergic Reaction) RF: 0 montelukast [Singulair] 10 mg Tablet 10 mg PO HS RF: 0 fluticasone propionate 50 mcg/actuation [place],Suspension 1 spray INTRANASAL DAILY PRN (Reason: ALLERGIES) RF: 0 albuterol sulfate 90 mcg/actuation Aerosol Powdr Breath Activated 2 inh INHALATION QID PRN (Reason: SHORT OF BREATH) RF: 0 topiramate 50 mg tablet 75 mg PO AMHS RF: 0 magnesium 200 mg Tablet 200 mg PO BID RF: 0 hydroxyzine HCl 25 mg tablet 25 mg PO UD PRN (Reason: Anxiety) RF: 0 escitalopram oxalate 10 mg tablet 10 mg PO QAM RF: 0 aspirin [Aspir-81] 81 mg Tablet,Delayed Release (Dr/Ec) 81 mg PO QAM RF: 0 diclofenac sodium 75 mg tablet,delayed release (DR/EC) 75 mg PO BID RF: 0 lorazepam 0.5 mg tablet 0.5 mg PO Q8H PRN (Reason: Anxiety) RF: 0 Referrals Referrals: Roddy Giraldo MD [Primary Care Provider] - Discharge Problem: Migraine Qualifiers: Migraine type: unspecified Status migrainosus presence: with status migrainosus Intractability: intractable Qualified Code(s): G43.911 - Migraine, unspecified, intractable, with status migrainosus
[2021-04-05 15:08] LABS: Alanine Aminotransferase 21 U/L (12-78); Albumin Level 3.7 gm/dl (3.4-5.0); Aspartate Aminotransferase 13 U/L (15-37); Blood Urea Nitrogen 12 mg/dl (7-18); Calcium 8.9 mg/dl (8.5-10.1); Carbon Dioxide 21 mmol/L (21-32); Chloride 108 mmol/L (98-107); Creatinine Clr Calc Pharmacy 137.3 ml/min; Est GFR (African American) 114.5 ml/min; Est GFR (Non-African American) 98.8 ml/min; Glucose 91 mg/dl (70-99); Magnesium 2.2 mg/dl (1.8-2.4); Potassium 3.8 mmol/L (3.5-5.1); Sodium 138 mmol/L (136-145)
[2021-04-05 15:09] LABS: iSTAT Creatinine 0.8 mg/dl (0.6-1.3); iSTAT Hemoglobin 13.9 g/dl (12.0-16.0); iSTAT Ionized Calcium 1.21 mmol/l (1.12-1.32); iSTAT Potassium 3.9 mmol/L (3.3-5.0)
--- NOTE | 2021-04-05 15:09 | CT Scan Report ---
CT ANGIOGRAM OF THE BRAIN; CT ANGIOGRAM OF THE NECK CLINICAL HISTORY: Strokelike symptoms. COMPARISON STUDY: Unenhanced CT of the brain performed concurrently on 04/05/2021. MRI and MR angiogr am of the brain of the brain dated 02/17/2011. TECHNIQUE: Following the IV administration of 117 of Optiray 350, CT angiogram of the head and neck w as performed from the aortic arch to the vertex. Images are reviewed in the axial, sagittal, and chase nal planes. 3-D MIPS images are created and assessed. IV contrast was administered without complicati on. All measurements were calculated based on NASCET criteria. A dose lowering technique was utilize d adhering to the principles of ALARA. CT DOSE: 1404.47 mGy.cm FINDINGS: Brain parenchyma: The brain parenchyma is normal in appearance. There is no hemorrhage, mass effect, or evidence of acute territorial ischemia by CT criteria. There is no evidence of enhancing mass lesi on on the angiogram phase images. The ventricles, sulci, and cisterns are normal in configuration. Gr ay-white matter differentiation is preserved. No extra-axial fluid collection is seen. Thoracic aorta: Visualized portions of the thoracic aorta are normal in caliber. The aortic arch demo nstrates standard 3-vessel anatomy. Right carotid arterial system: The right common carotid artery is widely patent, as are the right int ernal and external carotid arteries. Left carotid arterial system: The left common carotid artery is widely patent, as are the left internal sales al and external carotid arteries. Vertebral arteries: The vertebral arteries are widely patent bilaterally and codominant. Subclavian arteries: Widely patent bilaterally. Intracranial vasculature: The [place] is developmentally complete. The internal carotid armani yadi are patent at the skull base, as are the anterior and middle cerebral arteries bilaterally. The vertebrobasilar system and posterior cerebral arteries are widely patent. The vertebral arteries are codominant. There is no aneurysm, high-grade stenosis, or focal vessel cut off seen throughout the in tracranial circulation. Jugular veins: Patent bilaterally. Dural sinuses: The right transverse sinus is diminutive. The sinuses are patent, Lung apices: Partially visualized upper lobe lung parenchyma appears clear. Soft tissues: The visualized pharyngeal soft tissues are normal in appearance noting angiographic pha se technique. The oropharyngeal airway appears widely patent. The salivary and thyroid glands are nor mal in appearance. No cervical lymphadenopathy is seen. Skeletal structures: Postoperative change is again seen involving the posterior calvarium. No destruc tive calvarial lesion is identified. The cervical spine is within normal limits. No lytic or blastic lesion is seen. Orbits: The bony orbits are intact. Orbital contents are normal as visualized. Sinuses and mastoids: There is mild mucosal thickening within the maxillary antra. Mild to moderate m ucosal thickening seen within the frontal and ethmoid sinuses. The mastoid air cells are well pneumat ized. IMPRESSION: 1. There is no evidence of hemorrhage, mass effect, or acute territorial ischemia by CT criteria noti ng angiographic phase technique. 2. Unremarkable CT angiogram of the brain. 3. Unremarkable CT angiogram of the neck. ACT 112: Negative or not required by law. Electronically signed by: Venkat Nation M.D. 04/05/2021 3:08 PM
[2021-04-05 15:13] LABS: Albumin Globulin Ratio 0.9 (0.9-2); Alkaline Phosphatase 87 U/L (45-117); Bilirubin,Total 0.4 mg/dl (0.2-1); Globulin 4.3 gm/dl (2.5-4.0); Troponin I < 0.015 ng/ml (0-0.045)
--- NOTE | 2021-04-05 15:21 | XRay Report ---
SINGLE VIEW CHEST CLINICAL HISTORY: Strokelike symptoms. FINDINGS: An AP, portable, upright chest radiograph is compared to study dated 11/20/2019. The cardiom ediastinal silhouette is unremarkable. The lungs and pleural spaces are clear. No pneumothorax is see n. The bony thorax is grossly intact. IMPRESSION: No active disease in the chest. ACT 112: Negative or not required by law. Electronically signed by: Venkat Nation M.D. 04/05/2021 3:20 PM
[2021-04-05] MEDS ORDERED: ACETAMINOPHEN 1,000 MG/100 ML VIAL IV STA (15:30)
[2021-04-05] MEDS ORDERED: ONDANSETRON INJ 2 MG/ML 2 ML VIAL IV STA (15:33)
[2021-04-05] MEDS: MAGNESIUM SULFATE / D5W 1 GM/100 ML BAG IV SCH ×2 (15:52→16:10)
--- NOTE | 2021-04-05 16:21 | History & Physical Report ---
Date of Service April 05, 2021 Assessment & Plan (1) Left sided numbness: (2) Facial droop: (3) Headache: Pt is 40 y/o F with PMH migraine VERONICA, h/o complex migraine, bipolar, depression, anxiety, dyslipidemia, GERD, asthma presented to ER with c/o left sided weakness. Reports was doing crafts and around 1PM had onset of left arm and leg numbness and felt like her speech was slurred. Last known well was noon today. Pt reports VERONICA for past 4 days. In ER pt with continued reported left sided paresthesias and had noted right sided facial droop and slight slurred speech. Tele-Stroke with [facility] TPA was not recommended secondary to resolving symptoms, NIHSS 2 for sensory disturbance L face and R mild facial droop. CT HEAD: no acute intracranial abnormality CTA HEAD & NECK: 1. There is no evidence of hemorrhage, mass effect, or acute territorial ischemia by CT criteria noting angiographic phase technique. 2. Unremarkable CT angiogram of the brain. 3. Unremarkable CT angiogram of the neck. In ER pt afebrile, P: 97, BP: 144/95, WBC: 15, Initial troponin negative. No significant electrolyte abnormality DDX: CVA, complex migraine -Tele to monitor for arrhythmias -tox screen pending -lipids, HA1C, TSH in am -MRI brain pending -echo with bubble study -give aspirin now -aspiration precautions -speech eval -PT/OT consult -neurology consult (4) Migraine: -In ER given IV Tyelnol, zofran, prochlorperazine, magnesium sulfate 1GM I V, 1L NSS with -Topamax, riboflavin, magnesium held for now while npo as pt failed dysphagia screen with facial droop -Neurology suggested steroids, IVF, and increasing topamax to 100mg BID -IVF, dose decadron IV and plan to increase topamax when able to take po (5) Depression with anxiety: Bipolar disorder -Wellbutrin, Lexapro held for now (6) Asthma: No signs exacerbation -Hold Singulair for now (7) GERD (gastroesophageal reflux disease): (8) Tobacco use: -Smoking cessation encouraged -Denies nicotine patch DVT Prophylaxis -SCDs Full Code Follows with Dr Giraldo for routine care Pt was seen and care coordinated with Dr Fuentes. See addendum History of Present Illness Chief Complaint: left sided numbness Primary Care Provider: Roddy Giraldo MD Pt is 40 y/o F with PMH migraine VERONICA, h/o complex migraine, bipolar, depression, anxiety, dyslipidemia, GERD, asthma presented to ER with c/o left sided weakness. Reports was doing crafts and around 1PM had onset of dizziness, left arm and leg numbness and felt like her speech was slurred. Did not notice any extremity weakness. Last known well was noon today. Pt reports VERONICA for past 4 days. Takes Tylenol and ibuprofen as needed for headaches. Did not have any ibuprofen or Tylenol today. Denies fever/chills, diaphoresis, N/V/D/C, syncope, vision changes, neck pain, CP, SOB, orthopnea, palpitations, cough, sore throat, choking, otalgia, rhinorrhea, abdominal pain, extremity edema, rashes, urinary symptoms. In ER pt with continued reported left sided paresthesias and had noted right sided facial droop and slight slurred speech. Tele-Stroke with [facility] TPA was not recommended secondary to resolving symptoms, NIHSS 2 for sensory disturbance L face and R mild facial droop. Allergies Allergy/AdvReac Type Severity Reaction Status Date / Time ragweed pollen Allergy Intermediate Hives Verified 04/05/21 15:45 citalopram Allergy Mild ITCHING Verified 04/05/21 15:45 pollen extracts Allergy Mild Watery Eye Verified 04/05/21 15:45 dexamethasone [From Decadron] Allergy Cramping Verified 04/05/21 18:14 of the Muscles azithromycin AdvReac Intermediate Gastrointestinal Verified 04/05/21 15:45 Upset ketorolac AdvReac Intermediate headache Verified 04/05/21 15:45 morphine AdvReac Intermediate REBOUND Verified 04/05/21 15:45 HEADACHE red dye AdvReac Intermediate MIGRAINE Verified 04/05/21 15:45 cephalexin AdvReac Mild GI SYMPTOMS Verified 04/05/21 15:45 sulfamethoxazole AdvReac Mild GI SYMPTOMS Verified 04/05/21 15:45 trimethoprim AdvReac Mild GI SYMPTOMS Verified 04/05/21 15:45 venlafaxine AdvReac Mild DROWSY Verified 04/05/21 15:45 fish-talapia AdvReac Intermediate states she Uncoded 04/05/21 15:45 throws up after eating only this fish Home Medications Medication Instructions Recorded Confirmed Type magnesium 200 mg PO BID 02/01/19 04/05/21 History bupropion HCl 150 mg PO QAM 04/09/19 04/05/21 History epinephrine 0.3 mg IM DIRECTED PRN 06/29/19 04/05/21 History riboflavin (vitamin B2) [Vitamin 400 mg PO QAM 06/29/19 04/05/21 History B-2] albuterol sulfate 2 inh INHALATION QID PRN 05/02/20 04/05/21 History fluticasone propionate 1 spray INTRANASAL DAILY PRN 05/02/20 04/05/21 History montelukast [Singulair] 10 mg PO HS 05/02/20 04/05/21 History topiramate 75 mg PO AMHS 08/20/20 04/05/21 History escitalopram oxalate 10 mg PO QAM 02/20/21 04/05/21 History hydroxyzine HCl 25 mg PO UD PRN 02/20/21 04/05/21 History aspirin [Aspir-81] 81 mg PO QAM 04/05/21 04/05/21 History diclofenac sodium 75 mg PO BID 04/05/21 04/05/21 History lorazepam 0.5 mg PO Q8H PRN 04/05/21 04/05/21 History Past Med/Surg History Medical History Anemia Asthma HAS NOT USED INHALER SINCE LAST WINTER Bipolar disorder Degenerative disc disease Depression with anxiety Diverticulosis GERD (gastroesophageal reflux disease) History of IBS History of kidney stones Osteoarthritis Post traumatic stress disorder Tobacco use Surgical History H/O craniotomy AT 6 MONTHS AGE (LEFT SIDE OF SKULL ABNORMALITY "WAS LEFT ON LEFT SIDE TOO LONG AN ") History of ankle surgery RT History of appendectomy History of cholecystectomy History of colonoscopy History of dilatation and curettage History of tooth extraction History of tubal ligation Family History (Updated 04/05/21 @ 16:35 by María Elena Martinez PA-C) Grandmother (Maternal) Family hx of colon cancer Other Cancer Coronary heart disease Diabetes Hypertension Stroke Social History (Updated 04/05/21 @ 17:56 by María Elena Martinez PA-C) Smoking Status: Current every day smoker Cigarettes Per Day: 10 CIG DAILY; Second Hand Exposure: Yes; Do You Dip or Chew Tobacco: No; Tobacco Cessation Education Requested by Patient: No Hx Alcohol Use: Yes Alcohol type: beer Hx Substance Use: No Preferred Language: Lithuanian Communication Ability: Effective 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 Beliefs That Will Affect Care: None marital status: Current Living Situation: Spouse Current Living Situation Comment: and children current occupational status: employed Feels Safe at Home: Yes Safety Concerns: Feels Safe At This Time Assistive Devices: Denture - Upper Review of Systems Review of Systems: All systems reviewed & are unremarkable except as noted in HPI & below Physical Exam Physical Exam: General: mild distress secondary to VERONICA, +photophobia, obese Head: normocephalic, atraumatic Eyes: PERRL, EOM's intact, conjunctiva non-injected, anicteric ENT: normal inspection external ears, nose, mucous membranes moist Neck: supple, trachea midline Lungs: clear, no respiratory distress, no wheezing/rhonchi/rales CV: RRR, no murmur, no pretibial edema Abd: normal BS, soft, non-tender Ext: no cyanosis, no calf tenderness Neuro: A&O x 3, Facial sensation is intact and symmetric, slight droop of right side of mouth noted at rest however resolves with smiling, bilateral eyebrow raise intact, Hearing grossly intact, no noted slurred speech at this time, Shoulder shrug intact, Tongue is midline, normal movement, no fasciculations, strength 5/5 upper and lower extremities Skin: warm, dry Results & Data Results & Data ([facility]) Vital Signs (Past 12 Hours) Vital Signs Temp Pulse Resp BP Pulse Ox 04/05/21 16:06 133/83 94 04/05/21 16:00 77 94 04/05/21 15:50 82 99 04/05/21 15:40 75 98 04/05/21 15:31 87 98 04/05/21 15:26 81 128/88 98 04/05/21 15:21 80 128/92 98 04/05/21 15:20 86 98 04/05/21 15:16 92 H 148/90 H 99 04/05/21 15:13 91 H 162/103 H 04/05/21 15:10 94 H 04/05/21 15:02 90 145/94 H 04/05/21 15:01 88 04/05/21 15:00 90 161/113 H 04/05/21 14:59 100 H 04/05/21 14:35 36.3 C L 97 H 20 144/95 H 97 Laboratory Results Short CBC 04/05/21 04/05/21 04/05/21 Range/Units 14:42 14:42 14:42 WBC 15.24 H (4.8-10.8) K/uL RBC 4.32 (4.2-5.4) M/uL Hgb 14.2 (12.0-16.0) g/dL POC Hgb (12.0-16.0) g/dl Hct 41.8 (37-47) % POC Hct (37-47) % MCV 96.8 (80-100) fL MCH 32.9 (25-34) pg MCHC 34.0 (32-36) g/dL RDW Std Deviation 49.3 H (36.4-46.3) fL RDW Coeff of Og 13.9 (11.5-14.5) % Plt Count 268 (130-400) K/uL MPV 9.3 (7.4-10.4) fL Immature Gran % (Auto) 0.3 % Neut % (Auto) 61.6 % Lymph % (Auto) 27.1 % [place] % (Auto) 7.3 % Eos % (Auto) 3.5 % Baso % (Auto) 0.2 % Neut # (Auto) 9.39 H (1.4-6.5) K/uL Lymph # (Auto) 4.13 H (1.2-3.4) K/uL [place] # (Auto) 1.11 H (0.11-0.59) K/uL Eos # (Auto) 0.53 H (0-0.5) K/uL Baso # (Auto) 0.03 (0-0.2) K/uL Immature Gran # (Auto) 0.05 H (0.00-0.02) K/uL PT 10.1 (9.0-12.0) Seconds INR 1.0 (0.9-1.1) APTT 29.5 (21.0-31.0) Seconds PTT Ratio 1.1 POC Sodium (135-144) mmol/L Sodium 138 (136-145) mmol/L POC Potassium (3.3-5.0) mmol/L Potassium 3.8 (3.5-5.1) mmol/L POC Chloride (101-112) mmol/L Chloride 108 H (98-107) mmol/L Carbon Dioxide 21 (21-32) mmol/L POC Total CO2 (24-31) mmol/L Anion Gap 9.0 (3-11) POC Anion Gap (16-25) mmol/L POC BUN (7-18) mg/dl BUN 12 (7-18) mg/dl Creatinine 0.76 (0.6-1.2) mg/dl POC Creatinine (0.6-1.3) mg/dl Est Cr Clr Drug Dosing 137.3 ml/min Est GFR ( Amer) 114.5 ml/min Est GFR (Non-Af Amer) 98.8 ml/min BUN/Creatinine Ratio 16.0 (10-20) Glucose 91 (70-99) mg/dl POC Glucose (other) (70-99) mg/dl Calcium 8.9 (8.5-10.1) mg/dl POC Ioniz Calcium [place] (1.12-1.32) mmol/l Magnesium 2.2 (1.8-2.4) mg/dl Total Bilirubin 0.4 (0.2-1) mg/dl AST 13 L (15-37) U/L ALT 21 (12-78) U/L Alkaline Phosphatase 87 (45-117) U/L Troponin I < 0.015 (0-0.045) ng/ml Total Protein 8.0 (6.4-8.2) gm/dl Albumin 3.7 (3.4-5.0) gm/dl Globulin 4.3 H (2.5-4.0) gm/dl Albumin/Globulin Ratio 0.9 (0.9-2) 04/05/ Range/Units 14:47 WBC (4.8-10.8) K/uL RBC (4.2-5.4) M/uL Hgb (12.0-16.0) g/dL POC Hgb 13.9 (12.0-16.0) g/dl Hct (37-47) % POC Hct 41 (37-47) % MCV (80-100) fL MCH (25-34) pg MCHC (32-36) g/dL RDW Std Deviation (36.4-46.3) fL RDW Coeff of Og (11.5-14.5) % Plt Count (130-400) K/uL MPV (7.4-10.4) fL Immature Gran % (Auto) % Neut % (Auto) % Lymph % (Auto) % [place] % (Auto) % Eos % (Auto) % Baso % (Auto) % Neut # (Auto) (1.4-6.5) K/uL Lymph # (Auto) (1.2-3.4) K/uL [place] # (Auto) (0.11-0.59) K/uL Eos # (Auto) (0-0.5) K/uL Baso # (Auto) (0-0.2) K/uL Immature Gran # (Auto) (0.00-0.02) K/uL PT (9.0-12.0) Seconds INR (0.9-1.1) APTT (21.0-31.0) Seconds PTT Ratio POC Sodium 142 (135-144) mmol/L Sodium (136-145) mmol/L POC Potassium 3.9 (3.3-5.0) mmol/L Potassium (3.5-5.1) mmol/L POC Chloride 108 (101-112) mmol/L Chloride (98-107) mmol/L Carbon Dioxide (21-32) mmol/L POC Total CO2 19 L (24-31) mmol/L Anion Gap (3-11) POC Anion Gap 20.0 (16-25) mmol/L POC BUN 12 (7-18) mg/dl BUN (7-18) mg/dl Creatinine (0.6-1.2) mg/dl POC Creatinine 0.8 (0.6-1.3) mg/dl Est Cr Clr Drug Dosing ml/min Est GFR ( Amer) ml/min Est GFR (Non-Af Amer) ml/min BUN/Creatinine Ratio (10-20) Glucose (70-99) mg/dl POC Glucose (other) 92 (70-99) mg/dl Calcium (8.5-10.1) mg/dl POC Ioniz Calcium [place] 1.21 (1.12-1.32) mmol/l Magnesium (1.8-2.4) mg/dl Total Bilirubin (0.2-1) mg/dl AST (15-37) U/L ALT (12-78) U/L Alkaline Phosphatase (45-117) U/L Troponin I (0-0.045) ng/ml Total Protein (6.4-8.2) gm/dl Albumin (3.4-5.0) gm/dl Globulin (2.5-4.0) gm/dl Albumin/Globulin Ratio (0.9-2) BMP 04/05/21 14:42 Sodium 138 Potassium 3.8 Chloride 108 H Carbon Dioxide 21 BUN 12 Creatinine 0.76 Glucose 91 Calcium 8.9 Cardiac Enzymes 04/05/21 Range/Units 14:42 Troponin I < 0.015 (0-0.045) ng/ml Liver Function 04/05/21 Range/Units 14:42 Total Bilirubin 0.4 (0.2-1) mg/dl AST 13 L (15-37) U/L ALT 21 (12-78) U/L Alkaline Phosphatase 87 (45-117) U/L Albumin 3.7 (3.4-5.0) gm/dl Diagnostic Findings Chest X-Ray 04/05/21 14:42 SINGLE VIEW CHEST CLINICAL HISTORY: Strokelike symptoms. FINDINGS: An AP, portable, upright chest radiograph is compared to study dated 11/20/2019. The cardiomediastinal silhouette is unremarkable. The lungs and pleural spaces are clear. No pneumothorax is seen. The bony thorax is grossly intact. IMPRESSION: No active disease in the chest. ACT 112: Negative or not required by law. Electronically signed by: Venkat Nation M.D. 04/05/2021 3:[address] 04/05/21 14:42 CT SCAN OF THE BRAIN WITHOUT IV CONTRAST CLINICAL HISTORY: Strokelike symptoms. COMPARISON STUDY: CT of the brain dated 10/15/2019. TECHNIQUE: Unenhanced axial CT scan of the brain is performed from the vertex to the skull base. A dose lowering technique was utilized adhering to the principles of ALARA. The examination is modestly degraded by motion artifact. FINDINGS: Brain parenchyma: The brain parenchyma is normal in appearance. There is no hemorrhage, mass effect, or evidence of acute territorial ischemia by CT criteria. Hill-white matter differentiation is preserved. No extra-axial fluid collection is seen. Ventricles, sulci, cisterns: Normal in configuration. Intracranial vasculature: The visualized intracranial vasculature at the skull base is normal in appearance. Calvarium: Postoperative change is again seen involving the posterior calvarium. No destructive calvarial lesion is identified. Sinuses and mastoids: There is mild to moderate mucosal thickening within the frontal and ethmoid sinuses. The mastoid air cells are well pneumatized. Orbits: The bony orbits are grossly intact. IMPRESSION: There is no hemorrhage, mass effect, or evidence of acute territorial ischemia by CT criteria. ACT 112: Negative or not required by law. Electronically signed by: Venkat Nation M.D. 04/05/2021 2:59 PM Head CTA 04/05/21 14:42 CT ANGIOGRAM OF THE BRAIN; CT ANGIOGRAM OF THE NECK CLINICAL HISTORY: Strokelike symptoms. COMPARISON STUDY: Unenhanced CT of the brain performed concurrently on 04/05/2021. MRI and MR angiogram of the brain of the brain dated 02/17/2011. TECHNIQUE: Following the IV administration of 117 of Optiray 350, CT angiogram of the head and neck was performed from the aortic arch to the vertex. Images are reviewed in the axial, sagittal, and coronal planes. 3-D MIPS images are created and assessed. IV contrast was administered without complication. All m easurements were calculated based on NASCET criteria. A dose lowering technique was utilized adhering to the principles of ALARA. CT DOSE: 1404.47 mGy.cm FINDINGS: Brain parenchyma: The brain parenchyma is normal in appearance. There is no hemorrhage, mass effect, or evidence of acute territorial ischemia by CT criteria. There is no evidence of enhancing mass lesion on the angiogram phase i mages. The ventricles, sulci, and cisterns are normal in configuration. Hill- white matter differentiation is preserved. No extra-axial fluid collection is seen. Thoracic aorta: Visualized portions of the thoracic aorta are normal in caliber. The aortic arch demonstrates standard 3-vessel anatomy. Right carotid arterial system: The right common carotid artery is widely patent, as are the right internal and external carotid arteries. Left carotid arterial system: The left common carotid artery is widely patent, as are the left internal and external carotid arteries. Vertebral arteries: The vertebral arteries are widely patent bilaterally and codominant. Subclavian arteries: Widely patent bilaterally. Intracranial vasculature: The [place] is developmentally complete. The internal carotid arteries are patent at the skull base, as are the anterior and middle cerebral arteries bilaterally. The vertebrobasilar system and posterior cerebral arteries are widely patent. The vertebral arteries are codominant. There is no aneurysm, high-grade stenosis, or focal vessel cut off seen throughout the intracranial circulation. Jugular veins: Patent bilaterally. Dural sinuses: The right transverse sinus is diminutive. The sinuses are patent, Lung apices: Partially visualized upper lobe lung parenchyma appears clear. Soft tissues: The visualized pharyngeal soft tissues are normal in appearance noting angiographic phase technique. The oropharyngeal airway appears widely patent. The salivary and thyroid glands are normal in appearance. No cervical lymphadenopathy is seen. Skeletal structures: Postoperative change is again seen involving the posterior calvarium. No destructive calvarial lesion is identified. The cervical spine is within normal limits. No lytic or blastic lesion is seen. Orbits: The bony orbits are intact. Orbital contents are normal as visualized. Sinuses and mastoids: There is mild mucosal thickening within the maxillary antra. Mild to moderate mucosal thickening seen within the frontal and ethmoid sinuses. The mastoid air cells are well pneumatized. IMPRESSION: 1. There is no evidence of hemorrhage, mass effect, or acute territorial ischemia by CT criteria noting angiographic phase technique. 2. Unremarkable CT angiogram of the brain. 3. Unremarkable CT angiogram of the neck. ACT 112: Negative or not required by law. Electronically signed by: Venkat Nation M.D. 04/05/2021 3:08 PM Neck CTA 04/05/21 14:42 CT ANGIOGRAM OF THE BRAIN; CT ANGIOGRAM OF THE NECK CLINICAL HISTORY: Strokelike symptoms. COMPARISON STUDY: Unenhanced CT of the brain performed concurrently on 04/05/2021. MRI and MR angiogram of the brain of the brain dated 02/17/2011. TECHNIQUE: Following the IV administration of 117 of Optiray 350, CT angiogram of the head and neck was performed from the aortic arch to the vertex. Images are reviewed in the axial, sagittal, and coronal planes. 3-D MIPS images are created and assessed. IV contrast was administered without complication. All measurements were calculated based on NASCET criteria. A dose lowering technique was utilized adhering to the principles of ALARA. CT DOSE: 1404.47 mGy.cm FINDINGS: Brain parenchyma: The brain parenchyma is normal in appearance. There is no hemorrhage, mass effect, or evidence of acute territorial ischemia by CT criteria. There is no evidence of enhancing mass lesion on the angiogram phase images. The ventricles, sulci, and cisterns are normal in configuration. Hill- white matter differentiation is preserved. No extra-axial fluid collection is seen. Thoracic aorta: Visualized portions of the thoracic aorta are normal in caliber. The aortic arch demonstrates standard 3-vessel anatomy. Right carotid arterial system: The right common carotid artery is widely patent, as are the right internal and external carotid arteries. Left carotid arterial system: The left common carotid artery is widely patent, as are the left internal and external carotid arteries. Vertebral arteries: The vertebral arteries are widely patent bilaterally and codominant. Subclavian arteries: Widely patent bilaterally. Intracranial vasculature: The [place] is developmentally complete. The internal carotid arteries are patent at the skull base, as are the anterior and middle cerebral arteries bilaterally. The vertebrobasilar system and posterior cerebral arteries are widely patent. The vertebral arteries are codominant. There is no aneurysm, high-grade stenosis, or focal vessel cut off seen through out the intracranial circulation. Jugular veins: Patent bilaterally. Dural sinuses: The right transverse sinus is diminutive. The sinuses are patent, Lung apices: Partially visualized upper lobe lung parenchyma appears clear. Soft tissues: The visualized pharyngeal soft tissues are normal in appearance noting angiographic phase technique. The oropharyngeal airway appears widely patent. The salivary and thyroid glands are normal in appearance. No cervical lymphadenopathy is seen. Skeletal structures: Postoperative change is again seen involving the posterior calvarium. No destructive calvarial lesion is identified. The cervical spine is within normal limits. No lytic or blastic lesion is seen. Orbits: The bony orbits are intact. Orbital contents are normal as visualized. Sinuses and mastoids: There is mild mucosal thickening within the maxillary antra. Mild to moderate mucosal thickening seen within the frontal and ethmoid sinuses. The mastoid air cells are well pneumatized. IMPRESSION: 1. There is no evidence of hemorrhage, mass effect, or acute territorial ischemia by CT criteria noting angiographic phase technique. 2. Unremarkable CT angiogram of the brain. 3. Unremarkable CT angiogram of the neck. ACT 112: Negative or not required by law. Electronically signed by: Venkat Nation M.D. 04/05/2021 3:08 PM Code Status & VTE Plan VTE Prophylaxis Plan VTE Prophylaxis will be ordered: Yes Supervising Physician Co-Signing Physician Notes I saw this patient with the physician environmental emergencies assistant, I participated in the history, physical, review of systems, and physical exam. I reviewed the medications with the patient and the physician environmental emergencies assistant and helped reconcile the medications. I helped take a detailed family and social history as well. I formulated the assessment and plan personally with the physician environmental emergencies assistant and went over it with the patient. ROS-+ Headache, No Visual Changes, + Nausea, + Vomiting, + L sided numbness and weakness-now resolved, No Fever, No Chills, No Neck Pain or Stiffness, No Chest Pain, No Palpitations, No SOB, No MOSS, No Cough, No Sputum, No Wheezing, No Abdominal Pain, No Diarrhea, No Hematemesis, No Hemoptysis, No Unexpected Weight Loss, No Flank pain, No Melena, No Hematochezia, No Frequency, No Urgency, No Burning, No Hematuria, No Rashes, No Diaphoresis. Appetite is Normal Physical Exam Gen-AAO x 3, uncomfortable, sensitive to light, Afebrile, obese Head-NCAT, EOMI, PERRLA, Anicteric Sclera, No Posterior Pharyngeal Erythema Neck-Supple, No JVD, No Thyromegaly, No Masses, No LAD, No Bruits Lungs-Clear to Auscultation Bilaterally, No Rales, No Rhonchi, No Wheezing, No Crepitus Chest-No S4, +S1, +S2, No S3, No Murmurs, No Rubs, No Gallops, No Ectopy Abdomen-Soft, Bowel Sounds Present, Non Tender, Non Distended, No Hepatomegaly, No Splenomegaly, No Palpable Masses, No Rebound, No Rigidity, No Guarding Musculoskeletal-Full Range of Motion Bilaterally, No CVAT Extremities-No Cyanosis, No Clubbing, No Edema Nuero-Cranial Nerves II-XII grossly intact, Motor WNL, DTRs WNL, Strength WNL, Non Focal Psych-flat (1) Migraine Intractability: intractable Migraine type: unspecified Status migrainosus presence: with status migrainosus Qualified Code(s): G43.911 - Migraine, unspecified, intractable, with status migrainosus
--- NOTE | 2021-04-05 17:27 | Magnetic Resonance Report ---
MRI OF THE BRAIN WITHOUT IV CONTRAST CLINICAL HISTORY: Headache. Facial droop. Left facial numbness. COMPARISON STUDY: CT of the brain dated 04/05/2021. MRI of the brain dated 02/17/2011. TECHNIQUE: MRI of the brain was performed utilizing various T1 and T2-weighted sequences in the axial , sagittal, and coronal planes. IV contrast was not administered for this examination. FINDINGS: Brain parenchyma: The brain parenchyma is normal in appearance. There is no hemorrhage or mass effect . There is no restricted diffusion to suggest acute ischemia. Hill-white matter differentiation is pr eserved. No extra-axial fluid collection is seen. The cerebellar tonsils are normal in configuration. Ventricles, sulci, and cisterns: Normal in configuration. Pituitary and sella: Unremarkable. Intracranial vasculature: Normal flow voids are maintained at the skull base. Orbits: The bony orbits are grossly intact. Orbital contents are normal in appearance. Sinuses and mastoids: There is moderate mucosal thickening within the frontal and ethmoid sinuses. Mi ld mucosal thickening is seen within the maxillary antra, noting a 1.0 cm retention cyst on the right . There is trace left mastoid effusion. Calvarium: Postoperative change is seen involving the posterior calvarium. No destructive calvarial l esion is identified. Cervical cord: Partially visualized cervical spinal cord is normal in morphology and signal intensity . IMPRESSION: 1. No acute intracranial abnormality. 2. Paranasal sinus disease as above. ACT 112: Negative or not required by law. Electronically signed by: Venkat Nation M.D. 04/05/2021 5:26 PM
[2021-04-05] MEDS ORDERED: ASPIRIN 300 MG SUPP PR ONE (18:04)
[2021-04-05] MEDS ORDERED: PHARMACIST DISCHARGE MED REC CONSULT PRN (18:04)
[2021-04-05] MEDS ORDERED: ACETAMINOPHEN 1000 MG/100 ML IV IV PRN (18:04)
[2021-04-05] MEDS ORDERED: DEXAMETHASONE SOD INJ 4 MG/ML VIAL IV ONE (18:04)
[2021-04-05] MEDS ORDERED: ONDANSETRON INJ 2 MG/ML 2 ML VIAL IV PRN (18:04)
[2021-04-05] MEDS ORDERED: ACETAMINOPHEN 1,000 MG/100 ML VIAL IV PRN (18:45)
[2021-04-05] MEDS: SODIUM CHLORIDE 0.9% 1000ML 1,000 ML IV SCH (18:51)
[2021-04-05] MEDS: ACETAMINOPHEN 325 MG TAB PO PRN (18:52)
[2021-04-05] MEDS: ASPIRIN 81 MG ECTAB PO SCH (21:11)
[2021-04-06] MEDS ORDERED: traMADol HCL 50 MG TABLET PO STA (02:41)
[2021-04-06 03:05] LABS: Appearance Urine Cloudy (Clear); Bacteria Urine Automated Negative (Negative); Bilirubin Urine Negative (Negative); Blood Urine 2+ (Negative); Cast Urine Automated 0 /lpf (0-5); Color Urine Yellow; Epithelial Cell Urine Auto >30 /lpf (0-5); Glucose Urine UA Negative (Negative); Ketones Urine Negative (Negative); Leukocyte Esterase Urine Negative (Negative); Nitrite Urine Negative (Negative); Protein Urine Negative (Negative); Specific Gravity Urine 1.042 (1.000-1.030); Urobilinogen Urine Negative (Negative)
[2021-04-06 03:26] LABS: Amphetamines+Metham, Urine Neg (Neg); Barbiturates, Urine Neg (Neg); Benzodiazepine, Urine Neg (Neg); Cocaine, Urine Neg (Neg); MDMA (Ecstacy), Urine Neg (Neg); Methadone, Urine Neg (Neg); Opiate, Urine Neg (Neg); Phencyclidine, Urine Neg (Neg)
[2021-04-06] MEDS: SODIUM CHLORIDE 0.9% 1000ML 1,000 ML IV SCH (05:08)
--- NOTE | 2021-04-06 06:58 | Hospitalist Progress Note ---
Date of Service April 06, 2021 Assessment & Plan (1) Left sided numbness: (2) Facial droop: (3) Headache: Pt is 40 y/o F with PMH migraine VERONICA, h/o complex migraine, bipolar, depression, anxiety, dyslipidemia, GERD, asthma presented to ER with c/o left sided weakness. Reports was doing crafts and around 1PM had onset of left arm and leg numbness and felt like her speech was slurred. Last known well was noon today. Pt reports VERONICA for past 4 days. In ER pt with continued reported left sided paresthesias and had noted right sided facial droop and slight slurred speech. Tele-Stroke with [facility] TPA was not recommended secondary to resolving symptoms, NIHSS 2 for sensory disturbance L face and R mild facial droop. CT HEAD: no acute intracranial abnormality CTA HEAD & NECK: 1. There is no evidence of hemorrhage, mass effect, or acute territorial ischemia by CT criteria noting angiographic phase technique. 2. Unremarkable CT angiogram of the brain. 3. Unremarkable CT angiogram of the neck. In ER pt afebrile, P: 97, BP: 144/95, WBC: 15, Initial troponin negative. No significant electrolyte abnormality DDX: CVA, complex migraine -Tele -tox screen pending -lipids, HA1C, TSH in am -MRI brain noted -echo with bubble study -give aspirin now -aspiration precautions -speech eval -PT/OT consult -neurology to see (4) Migraine: -In ER given IV Tyelnol, zofran, prochlorperazine, magnesium sulfate 1GM IV, 1L NSS with -Topamax, riboflavin, magnesium held for now while npo as pt failed dysphagia screen with facial droop -Neurology suggested steroids, IVF, and increasing topamax to 100mg BID -IVF, no decadron given sec to ADR, plan to increase topamax (5) Depression with anxiety: Bipolar disorder -Wellbutrin, Lexapro held for now (6) Asthma: No signs exacerbation -Hold Singulair for now (7) GERD (gastroesophageal reflux disease): ppi (8) Tobacco use: -Smoking cessation encouraged -Denies nicotine patch DVT Prophylaxis -SCDs Full Code Follows with Dr Giraldo for routine care Labs checked ROS-+Headache, Sensitive to light, No Visual Changes, No Nausea, No Vomiting, No Fever, No Chills, No Neck Pain or Stiffness, No Chest Pain, No Palpitations, No SOB, No MOSS, No Cough, No Sputum, No Wheezing, No Abdominal Pain, No Diarrhea, No Hematemesis, No Hemoptysis, No Unexpected Weight Loss, No Flank pain, No Melena, No Hematochezia, No Frequency, No Urgency, No Burning, No Hematuria, No Rashes, No Diaphoresis. Appetite is Normal Physical Exam Gen-AAO x 3, NAD, Afebrile Head-NCAT, EOMI, PERRLA, Anicteric Sclera, No Posterior Pharyngeal Erythema Neck-Supple, No JVD, No Thyromegaly, No Masses, No LAD, No Bruits Lungs-Clear to Auscultation Bilaterally, No Rales, No Rhonchi, No Wheezing, No Crepitus Chest-No S4, +S1, +S2, No S3, No Murmurs, No Rubs, No Gallops, No Ectopy Abdomen-Soft, Bowel Sounds Present, Non Tender, Non Distended, No Hepatomegaly, No Splenomegaly, No Palpable Masses, No Rebound, No Rigidity, No Guarding Musculoskeletal-Full Range of Motion Bilaterally, No CVAT Extremities-No Cyanosis, No Clubbing, No Edema Nuero-Cranial Nerves II-XII grossly intact, Motor WNL, DTRs WNL, Strength WNL, Non Focal Psych-Normal Mood Admission and Anticipated Discharge Date Admission Date: April 05, 2021 Results & Data Results & Data ([facility]) Vital Signs (Past 12 Hours) Vital Signs Temp Pulse Pulse Resp BP Pulse Ox 04/06/21 03:35 36.9 C 80 18 122/73 96 04/06/21 01:00 67 04/05/21 23:42 37 C 77 18 116/69 95 04/05/21 20:00 36.8 C 77 18 128/76 95 (1) Migraine Intractability: intractable Migraine type: unspecified Status migrainosus presence: with status migrainosus Qualified Code(s): G43.911 - Migraine, unspecified, intractable, with status migrainosus
[2021-04-06 07:08] LABS: Basophils # (auto) 0.03 K/uL (0-0.2); Basophils % (auto) 0.2 %; Eosinophils # (auto) 0.59 K/uL (0-0.5); Eosinophils % (auto) 4.5 %; Hemoglobin 12.4 g/dL (12.0-16.0); Immature Granulocytes # (auto) 0.03 K/uL (0.00-0.02); Immature Granulocytes % (auto) 0.2 %; Lymphocytes # (auto) 4.35 K/uL (1.2-3.4); Lymphocytes % (auto) 33.5 %; Mean Corpuscular Hgb Conc 33.5 g/dL (32-36); Mean Corpuscular Volume 95.4 fL (80-100); Mean Platelet Volume 9.4 fL (7.4-10.4); Monocytes # (auto) 0.92 K/uL (0.11-0.59); Monocytes % (auto) 7.1 %; Neutrophils # (auto) 7.08 K/uL (1.4-6.5); Neutrophils % (auto) 54.5 %; Platelet Count 229 K/uL (130-400); RDW Coefficient of Variation 14.1 % (11.5-14.5); RDW Standard Deviation 49.2 fL (36.4-46.3); Red Blood Count 3.88 M/uL (4.2-5.4)
[2021-04-06 07:32] LABS: Estimated Average Glucose 120 mg/dl; Hemoglobin A1C 5.8 % (4.5-5.6)
[2021-04-06 07:45] LABS: BUN Creatinine Ratio 16.4 (10-20); Calcium 7.8 mg/dl (8.5-10.1); Creatinine Clr Calc Pharmacy 149.1 ml/min; Est GFR (African American) 126.5 ml/min; Est GFR (Non-African American) 109.1 ml/min; Potassium 3.8 mmol/L (3.5-5.1)
[2021-04-06 07:56] LABS: Thyroid Stimulating Hormone 3.75 uIu/ml (0.300-4.500)
[2021-04-06] MEDS: ASPIRIN 81 MG ECTAB PO SCH (08:07)
[2021-04-06] MEDS: ACETAMINOPHEN 325 MG TAB PO PRN (08:08)
[2021-04-06] MEDS ORDERED: ACETAMINOPHEN 1000 MG/100 ML IV IV PRN (09:22)
[2021-04-06] MEDS ORDERED: KETOROLAC 30 MG/ML VIAL IV PRN (09:23)
--- NOTE | 2021-04-06 10:04 | Electrocardiogram Report ---
Test Reason : Blood Pressure : / mmHG Vent. Rate : 083 BPM Atrial Rate : 083 BPM P-R Int : 156 ms QRS Dur : 080 ms QT Int : 352 ms P-R-T Axes : 056 036 054 degrees QTc Int : 413 ms Normal sinus rhythm Normal ECG When compared with ECG of 19-SEP-2020 00:18, No significant change was found Confirmed by Melo Perez ([id number]) on 04/06/2021 10:03:42 AM Referred By: REFERRED SELF Confirmed By:Melo Perez
--- NOTE | 2021-04-06 13:12 | Consultation Report ---
DATE OF CONSULTATION: 04/06/2021 REASON FOR CONSULTATION: Complicated migraine. HISTORY OF PRESENT ILLNESS: The patient is a 40-year-old right-handed female with a history of common migraine for which she is on Topamax. The patient rarely has headaches, but when they occur, they can last 1-3 days and sometimes require Emergency Room intervention. The patient had a fairly typical 3-day headache, but on the day of admission had some vertigo, which had been a relatively new feature. She generally felt unwell, so came to the Emergency Room for treatment. While she was in the Emergency Room, there was some left arm and leg numbness and her speech was thought to be slurred. In the Emergency Room, she was reported to have a right facial droop and slurred speech. Her symptoms were resolving and telestroke did not recommend TPA secondary to resolving symptoms. The patient does not recall a lot of this as she feels she was confused. She does not know how long the neurologic symptoms lasted, but it may have been for hours. She has otherwise been well. She has been tapering off caffeine. She has not had any recent head or neck injury, chiropractic manipulation, medical or dental procedures. No fevers, chills, sweats, or nasal discharge. None of her medicines are new or changed in dose. She is chronically on Wellbutrin, which does not seem to cause headache. At baseline due to family history of early vascular disease, the patient takes an aspirin 1 a day. The patient was given a migraine cocktail in the Emergency Room. She had recently tapered off of prednisone taper for knee pain likely accounting for her elevated white count. I advised the Emergency Room to give her another course of prednisone. She has had adverse effects from dexamethasone. We also increased the dose of Topamax. At home, she was taking Tylenol and ibuprofen for headache. She had taken Maxalt in the past, but did not find it to be effective. She has no prior history of neurologic accompaniments to her headaches. PAST MEDICAL HISTORY: Migraine, bipolar, depression, anxiety, dyslipidemia, reflux, asthma. No history of DVT, PE. She has had 1 miscarriage. The patient denied a history of kidney stones. She has reflux, diverticulitis. 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 FAMILY HISTORY: Strong family history of early heart disease. SOCIAL HISTORY: The patient smokes, does not drink alcohol. 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 DIAGNOSTICS: CT of the brain unremarkable. CTA of head and neck negative. MRI of the brain normal. EKG, sinus rhythm. LABORATORY DATA: ____ mildly elevated at 15; H and H and platelet count normal. PT, PTT normal. Hemoglobin A1c 5.8. LDL 116. TSH normal. Urinalysis notable for 2+ blood, 10-30 red cells, greater than 30 epithelial cells. Tox screen negative. ALLERGIES: RAGWEED, CELEXA, POLLEN EXTRACTS, DECADRON, AZITHROMYCIN, KETOROLAC, MORPHINE, RED DYES, CEPHALEXIN, SULFAMETHOXAZOLE/TRIMETHOPRIM, VENLAFAXINE, FISH TILAPIA. HOME MEDICATIONS: Albuterol, aspirin 81, bupropion, diclofenac, epinephrine, Lexapro, fluticasone, hydroxyzine, lorazepam, magnesium, Singulair, riboflavin, and Topamax 75 b.i.d. PHYSICAL EXAMINATION: VITAL SIGNS: 129/81, 73, 20, 36.6. GENERAL: The patient is awake and alert. Speech and language are normal. Affect appropriate. HEENT: Head is normocephalic, atraumatic. No temporal artery tenderness. No sinus tenderness. No jaw click. NECK: Supple. NEUROLOGIC: Pupils are equal, round and reactive to light. There is no papilledema. Normal garcia, motility, facial sensation and facial symmetry. Motor 5/5, no drift. Normal rapid alternating movements. Symmetric reflexes. Downgoing toes. [id number]-[id number] and tzjg-vk-[id number] are normal. Gait is unremarkable. IMPRESSION: Complicated migraine/confusional migraine. Reassuring that imaging is unremarkable. Of concern is the patient's strong family history of vascular disease. PLAN: I would complete a vascular workup including an echo and a hypercoagulable state workup. I would increase the dose of her aspirin to 162 mg once a day. Increase Topamax to 100 mg b.i.d. We will need to confirm with the patient whether or not she has had kidney stones. She denied that to this examiner. On a p.r.n. basis at this point, would avoid triptans. [facility] might be an option as an outpatient. If the patient continues to do well and is taking oral medications, she can be discharged to follow up with our office.
--- NOTE | 2021-04-06 14:32 | Discharge Summary ---
Date of Service April 06, 2021 Admission HPI Per Admitting Provider Pt is 40 y/o F with PMH migraine VERONICA, h/o complex migraine, bipolar, depression, anxiety, dyslipidemia, GERD, asthma presented to ER with c/o left sided weakness. Reports was doing crafts and around 1PM had onset of dizziness, left arm and leg numbness and felt like her speech was slurred. Did not notice any extremity weakness. Last known well was noon today. Pt reports VERONICA for past 4 days. Takes Tylenol and ibuprofen as needed for headaches. Did not have any ibuprofen or Tylenol today. Denies fever/chills, diaphoresis, N/V/D/C, syncope, vision changes, neck pain, CP, SOB, orthopnea, palpitations, cough, sore throat, choking, otalgia, rhinorrhea, abdominal pain, extremity edema, rashes, urinary symptoms. In ER pt with continued reported left sided paresthesias and had noted right sided facial droop and slight slurred speech. Tele-Stroke with [facility] TPA was not recommended secondary to resolving symptoms, NIHSS 2 for sensory disturbance L face and R mild facial droop. Admission Exam Per Admitting Provider General: mild distress secondary to VERONICA, +photophobia, obese Head: normocephalic, atraumatic Eyes: PERRL, EOM's intact, conjunctiva non-injected, anicteric ENT: normal inspection external ears, nose, mucous membranes moist Neck: supple, trachea midline Lungs: clear, no respiratory distress, no wheezing/rhonchi/rales CV: RRR, no murmur, no pretibial edema Abd: normal BS, soft, non-tender Ext: no cyanosis, no calf tenderness Neuro: A&O x 3, Facial sensation is intact and symmetric, slight droop of right side of mouth noted at rest however resolves with smiling, bilateral eyebrow raise intact, Hearing grossly intact, no noted slurred speech at this time, Shoulder shrug intact, Tongue is midline, normal movement, no fasciculations, strength 5/5 upper and lower extremities Skin: warm, dry Principal Diagnosis Migraine: Depression with anxiety: Bipolar disorder Asthma: GERD (gastroesophageal reflux disease): Tobacco use: Discharge Exam See below Discharge Data Allergies Allergy/AdvReac Type Severity Reaction Status Date / Time ragweed pollen Allergy Intermediate Hives Verified 04/05/21 15:45 citalopram Allergy Mild ITCHING Verified 04/05/21 15:45 pollen extracts Allergy Mild Watery Eye Verified 04/05/21 15:45 dexamethasone [From Decadron] Allergy Cramping Verified 04/05/21 18:14 of the Muscles azithromycin AdvReac Intermediate Gastrointestinal Verified 04/05/21 15:45 Upset ketorolac AdvReac Intermediate headache Verified 04/05/21 15:45 morphine AdvReac Intermediate REBOUND Verified 04/05/21 15:45 HEADACHE red dye AdvReac Intermediate MIGRAINE Verified 04/05/21 15:45 cephalexin AdvReac Mild GI SYMPTOMS Verified 04/05/21 15:45 sulfamethoxazole AdvReac Mild GI SYMPTOMS Verified 04/05/21 15:45 trimethoprim AdvReac Mild GI SYMPTOMS Verified 04/05/21 15:45 venlafaxine AdvReac Mild DROWSY Verified 04/05/21 15:45 fish-talapia AdvReac Intermediate states she Uncoded 04/05/21 15:45 throws up after eating only this fish Consultations 04/05/21 15:39 ED Decision to Admit Stat 04/06/21 08:00 Consult Neurology Routine Ordered Studies 04/05/21 14:42 CT angio head w con Stat CT angio neck with con Stat CT head/brain wo con Stat 04/05/21 15:31 MR brain wo con Stat Hospital Course (1) Left sided numbness: (2) Facial droop: (3) Headache: Pt is 40 y/o F with PMH migraine VERONICA, h/o complex migraine, bipolar, depression, anxiety, dyslipidemia, GERD, asthma presented to ER with c/o left sided weakness. Reports was doing crafts and around 1PM had onset of left arm and leg numbness and felt like her speech was slurred. Last known well was noon today. Pt reports VERONICA for past 4 days. In ER pt with continued reported left sided paresthesias and had noted right sided facial droop and slight slurred speech. Tele-Stroke with [facility] TPA was not recommended secondary to resolving symptoms, NIHSS 2 for sensory disturbance L face and R mild facial droop. CT HEAD: no acute intracranial abnormality CTA HEAD & NECK: 1. There is no evidence of hemorrhage, mass effect, or acute territorial ischemia by CT criteria noting angiographic phase technique. 2. Unremarkable CT angiogram of the brain. 3. Unremarkable CT angiogram of the neck. In ER pt afebrile, P: 97, BP: 144/95, WBC: 15, Initial troponin negative. No sig nificant electrolyte abnormality DDX: CVA, complex migraine -MRI brain noted -echo with bubble study outpatient -aspirin now - Follow up c Neurology outpatient (4) Migraine: -In ER given IV Tyelnol, zofran, prochlorperazine, magnesium sulfate 1GM IV, 1L NSS with -Topamax, riboflavin, magnesium held for now while npo as pt failed dysphagia screen with facial droop - Topamax to 100mg BID (5) Depression with anxiety: Bipolar disorder -Wellbutrin, Lexapro held for now (6) Asthma: No signs exacerbation -Hold Singulair for now (7) GERD (gastroesophageal reflux disease): ppi (8) Tobacco use: -Smoking cessation encouraged -Denies nicotine patch DVT Prophylaxis -SCDs Full Code Follows with Dr Giraldo for routine care, outpatient Echo Labs checked DC home, Echo and hypercoag w/u in office, ASA 162 Daily, Topamax 100 BID ROS-+Headache, Sensitive to light, No Visual Changes, No Nausea, No Vomiting, No Fever, No Chills, No Neck Pain or Stiffness, No Chest Pain, No Palpitations, No SOB, No MOSS, No Cough, No Sputum, No Wheezing, No Abdominal Pain, No Diarrhea, No Hematemesis, No Hemoptysis, No Unexpected Weight Loss, No Flank pain, No Melena, No Hematochezia, No Frequency, No Urgency, No Burning, No Hematuria, No Rashes, No Diaphoresis. Appetite is Normal Physical Exam Gen-AAO x 3, NAD, Afebrile Head-NCAT, EOMI, PERRLA, Anicteric Sclera, No Posterior Pharyngeal Erythema Neck-Supple, No JVD, No Thyromegaly, No Masses, No LAD, No Bruits Lungs-Clear to Auscultation Bilaterally, No Rales, No Rhonchi, No Wheezing, No Crepitus Chest-No S4, +S1, +S2, No S3, No Murmurs, No Rubs, No Gallops, No Ectopy Abdomen-Soft, Bowel Sounds Present, Non Tender, Non Distended, No Hepatomegaly, No Splenomegaly, No Palpable Masses, No Rebound, No Rigidity, No Guarding Musculoskeletal-Full Range of Motion Bilaterally, No CVAT Extremities-No Cyanosis, No Clubbing, No Edema Nuero-Cranial Nerves II-XII grossly intact, Motor WNL, DTRs WNL, Strength WNL, Non Focal Psych-Normal Mood Total Time Total Time Spent Total Time Spent (In Minutes): 45 mins Total Time Includes: Examination of the Patient, Discharge Planning, Medication Reconciliation and Communication With Other Providers Discharge Plan Discharge Items Patient Disposition: Home - Self-Care Reason For Visit: STROKE LIKE SYMPTOMS Discharge Diagnosis: Migraine: Depression with anxiety: Bipolar disorder Asthma: GERD (gastroesophageal reflux disease): Tobacco use: Condition on Discharge: Good Health Concerns: Recurrent symptoms Activity: Resume your previous activity Lifting: Gradually increase as tolerated Bathing: No limitations Sexual Activity: When tolerated Exercise/Sports: Gradually increase as tolerated Driving/Machine Use: No limitations Weightbearing: Full weightbearing Non-emergency contact: Primary Care Provider and Neurologist Call non-emergency contact if: you have any medication questions, your symptoms worsen and your pain is worsening Follow-up/Referrals: Roddy Giraldo MD [Primary Care Provider] - Nanci Sharp MD [Physician] - (1-2 weeks) Diet: Heart Healthy Addtl Attending Provider Instructions: Request a Hypercoaguable work up with Dr Giraldo, Request a 2D Echocardiogram with a bubble study from Dr Giraldo, Request a work up for Kidney Stones as well Pending Studies at Discharge: No Stand-Alone Forms: My [facility], Smoking Cessation Medications and DC Order Prescriptions: New acetaminophen 325 mg Tablet 650 mg PO Q4H PRN (Reason: fever or pain) Qty: 90 RF: 0 aspirin [Adult Aspirin Regimen] 81 mg tablet,delayed release (DR/EC) 162 mg PO DAILY Qty: 60 RF: 0 topiramate [Topamax] 100 mg tablet 100 mg PO BID Qty: 60 RF: 0 ibuprofen 600 mg tablet 600 mg PO Q6H PRN (Reason: fever or pain) Qty: 90 RF: 0 Continued bupropion HCl 150 mg tablet extended release 24 hr 150 mg PO QAM RF: 0 riboflavin (vitamin B2) [Vitamin B-2] 100 mg Tablet 400 mg PO QAM RF: 0 epinephrine 0.3 mg/0.3 mL auto-injector 0.3 mg IM DIRECTED PRN (Reason: Allergic Reaction) RF: 0 montelukast [Singulair] 10 mg Tablet 10 mg PO HS RF: 0 fluticasone propionate 50 mcg/actuation [place],Suspension 1 spray INTRANASAL DAILY PRN (Reason: ALLERGIES) RF: 0 albuterol sulfate 90 mcg/actuation Aerosol Powdr Breath Activated 2 inh INHALATION QID PRN (Reason: SHORT OF BREATH) RF: 0 magnesium 200 mg Tablet 200 mg PO BID RF: 0 hydroxyzine HCl 25 mg tablet 25 mg PO UD PRN (Reason: Anxiety) RF: 0 escitalopram oxalate 10 mg tablet 10 mg PO QAM RF: 0 diclofenac sodium 75 mg tablet,delayed release (DR/EC) 75 mg PO BID RF: 0 lorazepam 0.5 mg tablet 0.5 mg PO Q8H PRN (Reason: Anxiety) RF: 0 Discontinued topiramate 50 mg tablet 75 mg PO AMHS RF: 0 aspirin [Aspir-81] 81 mg Tablet,Delayed Release (Dr/Ec) 81 mg PO QAM RF: 0 Discharge Orders: Discharge Order (Routine); Ordered 04/06/21 Ordered By: Renato Fuentes Admission Data Admit Date/Time: 04/05/21 16:04 Attending Provider: Renato Fuentes Admit Provider: Carlos Castillo Primary Care Provider: Roddy Giraldo Other Providers: Carlos Castillo ; Nanci Sharp
[2021-04-06] MEDS ORDERED: STROKE PATIENT DISCHARGE STA (14:44)
[2021-04-10 06:11] LABS: Anti-Thrombin III Activity 78 % normal (80-135); B2 Glycoprotein IgG <9 SGU (<=20); B2 Glycoprotein IgM <9 SMU (<=20); PTT LA Screen 42 sec (<=40); Protein S Functional(Activity) 102 % (60-140)
[2021-04-10 07:23] LABS: Lupus Hex Phase (Rflxdonotord) Negative (Negative)
== END 2021-04-06 15:48 | disposition home or self-care (01) ==
LOC: 2S 14:31 → ED 14:31 → SUATTDRO 16:04 → 2S 18:06

== ENCOUNTER 2021-07-08 22:07 | Inpatient (IN) ==
[2021-07-08 23:00] LABS: Appearance Urine Clear (Clear); Bacteria Urine Automated Negative (Negative); Bilirubin Urine Negative (Negative); Blood Urine 2+ (Negative); Cast Urine Automated 0 /lpf (0-5); Color Urine Dark Yellow; Glucose Urine UA Negative (Negative); Ketones Urine Negative (Negative); Leukocyte Esterase Urine Negative (Negative); Nitrite Urine Negative (Negative); Protein Urine Negative (Negative); Urobilinogen Urine Negative (Negative); pH Urine 6.5 (4.5-7.5)
[2021-07-08 23:25] LABS: Basophils # (auto) 0.05 K/uL (0-0.2); Basophils % (auto) 0.4 %; Eosinophils # (auto) 0.54 K/uL (0-0.5); Eosinophils % (auto) 4.4 %; Hematocrit (blood only) 39.1 % (37-47); Immature Granulocytes # (auto) 0.02 K/uL (0.00-0.02); Immature Granulocytes % (auto) 0.2 %; Lymphocytes # (auto) 4.29 K/uL (1.2-3.4); Lymphocytes % (auto) 34.8 %; Mean Corpuscular Hemoglobin 32.5 pg (25-34); Mean Corpuscular Hgb Conc 33.2 g/dL (32-36); Mean Corpuscular Volume 97.8 fL (80-100); Mean Platelet Volume 9.5 fL (7.4-10.4); Monocytes # (auto) 0.74 K/uL (0.11-0.59); Neutrophils # (auto) 6.67 K/uL (1.4-6.5); Neutrophils % (auto) 54.2 %; Platelet Count 271 K/uL (130-400); RDW Coefficient of Variation 13.4 % (11.5-14.5); RDW Standard Deviation 47.9 fL (36.4-46.3); White Blood Count 12.31 K/uL (4.8-10.8)
[2021-07-08 23:28] LABS: Amphetamines+Metham, Urine Neg (Neg); Barbiturates, Urine Neg (Neg); Benzodiazepine, Urine Neg (Neg); Cocaine, Urine Neg (Neg); MDMA (Ecstacy), Urine Neg (Neg); Methadone, Urine Neg (Neg); Opiate, Urine Neg (Neg); Phencyclidine, Urine Neg (Neg)
--- NOTE | 2021-07-08 23:39 | Emergency Department Note ---
History of Present Illness General Chief complaint: Mental Health Evaluation Stated complaint: SUICIDAL THOUGHTS Time Seen by Provider: 07/08/21 23:02 Source: patient Mode of arrival: ambulatory Limitations: no limitations History of Present Illness Provider complaint: Mental health evaluation Maximum Pain Intensity: 4 This is a 40-year-old female presents emergency department for mental health evaluation. Patient states she has been feeling more suicidal recently predominantly yesterday and this evening. Patient states that it not been for one of her children being at home this evening she considered overdosing. Patient does have a prior history of a suicide attempt as a teenager where she slit her wrists. Patient has previously been inpatient for mental health evaluation. Patient also cites worsening complex migraines and inability to see neurology in the office to discuss treatment of this contributing to her worsening symptoms. She also cites the unexpected suicide of a 16-year-old family friend earlier in November as a source of distress. She states she has not been seeking any outpatient therapy/counseling. She denies any recent illness or injury, no recent change in medications. Pt seen during a time of high acuity and national emergency pandemic while weari ng PPE. Home Medications Medication Instructions Recorded Confirmed Type bupropion HCl 150 mg 24 hr tablet, 150 mg PO QAM 04/09/19 07/08/21 History extended release epinephrine 0.3 mg/0.3 mL 0.3 mg IM DIRECTED PRN 06/29/19 07/08/21 History injection, auto-injector riboflavin (vitamin B2) 100 mg 400 mg PO QAM 06/29/19 07/08/21 History tablet (Vitamin B-2) fluticasone propionate 50 1 spray INTRANASAL DAILY PRN 05/02/20 07/08/21 History mcg/actuation nasal spray,suspension montelukast 10 mg tablet 10 mg PO HS 05/02/20 07/08/21 History (Singulair) escitalopram oxalate 10 mg tablet 10 mg PO HS 02/20/21 07/08/21 History hydroxyzine HCl 25 mg tablet 25 mg PO TID PRN 02/20/21 07/09/21 History acetaminophen 325 mg tablet 650 mg PO Q4H PRN #90 tab 04/06/21 07/08/21 Rx ibuprofen 600 mg tablet 600 mg PO Q6H PRN #90 tab 04/06/21 07/08/21 Rx aspirin 81 mg tablet,delayed 162 mg PO BID 04/30/21 07/08/21 History release (Adult Aspirin Regimen) pantoprazole 40 mg tablet,delayed 40 mg PO DAILYBB 04/30/21 07/08/21 History release rimegepant 75 mg disintegrating 75 mg PO DIRECTED PRN MDD 1 04/30/21 07/08/21 History tablet (Nurtec ODT) TAB/24 HOURS topiramate 50 mg tablet 75 mg PO BID 04/30/21 07/09/21 History lorazepam 0.5 mg tablet 0.5 mg PO Q8 PRN 07/09/21 07/09/21 History magnesium oxide 200 mg PO BID 07/09/21 07/09/21 History ondansetron 8 mg disintegrating 8 mg PO Q8 PRN 07/09/21 07/09/21 History tablet Allergies Allergy/AdvReac Type Severity Reaction Status Date / Time dexamethasone [From Decadron] Allergy Intermediate Cramping Verified 07/08/21 23:44 of the Muscles ragweed pollen Allergy Intermediate Hives Verified 07/08/21 23:44 citalopram Allergy Mild ITCHING Verified 07/08/21 23:44 pollen extracts Allergy Mild Watery Eye Verified 07/08/21 23:44 azithromycin AdvReac Intermediate Gastrointestinal Verified 07/08/21 23:44 Upset ketorolac AdvReac Intermediate headache Verified 07/08/21 23:44 morphine AdvReac Intermediate REBOUND Verified 07/08/21 23:44 HEADACHE red dye AdvReac Intermediate MIGRAINE Verified 07/08/21 23:44 cephalexin AdvReac Mild GI SYMPTOMS Verified 07/08/21 23:44 sulfamethoxazole AdvReac Mild GI SYMPTOMS Verified 07/08/21 23:44 trimethoprim AdvReac Mild GI SYMPTOMS Verified 07/08/21 23:44 venlafaxine AdvReac Mild DROWSY Verified 07/08/21 23:44 fish-talapia AdvReac Intermediate states she Uncoded 06/16/21 23:13 throws up after eating only this fish Past Med/Surg History Medical History Anemia Asthma HAS NOT USED INHALER SINCE LAST WINTER Atypical migraine Bipolar disorder Degenerative disc disease Depression with anxiety Diverticulosis GERD (gastroesophageal reflux disease) History of IBS History of kidney stones Osteoarthritis Post traumatic stress disorder Tobacco use Surgical History H/O craniotomy AT 6 MONTHS AGE (LEFT SIDE OF SKULL ABNORMALITY "WAS LEFT ON LEFT SIDE TOO LONG AN INFANT") History of ankle surgery RT History of appendectomy History of cholecystectomy History of colonoscopy History of dilatation and curettage History of tooth extraction History of tubal ligation Family History Grandmother (Maternal) Family hx of colon cancer Other Cancer Coronary heart disease Diabetes Hypertension Stroke Social History Smoking Status: Current every day smoker Tobacco Type: Cigarettes Cigarettes Per Day: 10 CIG DAILY; Second Hand Exposure: Yes; Hx Alcohol Use: Yes Alcohol type: beer Hx Substance Use: No Preferred Language: Nepali Communication Ability: Effective 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 Required: No Beliefs That Will Affect Care: None marital status: Current Living Situation: Spouse Current Living Situation Comment: and children current occupational status: employed Feels Safe at Home: Yes Assistive Devices: Glasses Review of Systems A total of 10 systems reviewed and were otherwise negative All systems reviewed & are unremarkable except as noted in HPI & below Physical Exam Vital Signs Vital Signs - 24 hr 07/09/21 00:52 Pulse Rate [Right Finger] 64 Respiratory Rate 20 Respiratory Effort / Characteristics Non-Labored Spontaneous Respiratory Depth Normal Respiratory Pattern Agonal Blood Pressure [Right Arm] 130/83 Blood Pressure Mean [Right Arm] 98 Pulse Oximetry 95 Oxygen Delivery Method Room Air GENERAL: alert, well appearing, well nourished, no distress, non-toxic, tearful EYE EXAM: normal conjunctiva, PERRL and EOM's grossly intact OROPHARYNX: no exudate, no erythema, lips, buccal mucosa, and tongue normal and mucous membranes are moist NECK: supple, no nuchal rigidity, no adenopathy, non-tender LUNGS: Clear to auscultation. Normal chest wall mechanics, no w/r/r HEART: no murmurs, S1 normal and S2 normal ABDOMEN: abdomen soft, non-tender, normo-active bowel sounds, no masses, no rebound or guarding. BACK: Back is symmetrical on inspection and there is no deformity, no midline tenderness, no CVA tenderness. SKIN: no rashes and no bruising UPPER EXTREMITIES: upper extremities are grossly normal. FROM, nml pulses b/l. LOWER EXTREMITIES: No pitting edema. FROM, nml pulses b/l. NEURO EXAM: Normal sensorium, cranial nerves II-XII grossly intact, normal speech, no gross weakness of arms, no gross weakness of legs. Gross sensation intact. Course Administered Medications Acetaminophen (Acetaminophen 325 Mg Tab) 650 mg PO Q4H PRN PRN Reason: Headache or Minor Fever Stop: 08/08/21 02:06 Last Admin: 07/09/21 14:07 Dose: 650 mg Documented by: [id number] Aspirin (Aspirin 81 Mg Ectab) 162 mg PO BID CHIRAG Stop: 08/08/21 08:59 Last Admin: 07/09/21 21:05 Dose: 162 mg Documented by: [id number] Admin: 07/09/21 09:53 Dose: 162 mg Documented by: [id number] Hydroxyzine HCl (Hydroxyzine Hcl 25 Mg Tab) 25 mg PO Q4H PRN PRN Reason: Anxiety Stop: 08/08/21 02:06 Last Admin: 07/09/21 17:16 Dose: 25 mg Documented by: [id number] Magnesium Oxide (Magnesium Oxide 400 Mg Tab) 200 mg PO BID CHIRAG Stop: 08/08/21 11:59 Last Admin: 07/09/21 21:06 Dose: 200 mg Documented by: [id number] Admin: 07/09/21 11:57 Dose: 200 mg Documented by: [id number] Montelukast Sodium (Montelukast Sodium 10 Mg Tablet) 10 mg PO HS CHIRAG Stop: 08/08/21 21:59 Last Admin: 07/09/21 21:07 Dose: 10 mg Documented by: [id number] Rimegepant 75mg Odt ([Patient Own Med]) 1 ea PO DAILY PRN PRN Reason: AT ONSET OF MIGRAINE Stop: 08/08/21 11:29 Last Admin: 07/09/21 11:58 Dose: 1 ea Documented by: [id number] Topiramate (Topiramate 25 Mg Tab) 75 mg PO BID CHIRAG Stop: 08/08/21 08:59 Last Admin: 07/09/21 21:07 Dose: 75 mg Documented by: [id number] Admin: 07/09/21 09:52 Dose: 75 mg Documented by: [id number] Discontinued Medications Acetaminophen (Acetaminophen 325 Mg Tab) 650 mg PO NOW STA Stop: 07/09/21 00:39 Last Admin: 07/09/21 00:47 Dose: 650 mg Documented by: [id number] Aspirin (Aspirin 81 Mg Ectab) 162 mg PO ONE ONE Stop: 07/09/21 02:46 Last Admin: 07/09/21 03:01 Dose: 162 mg Documented by: [id number] Aspirin (Aspirin 81 Mg Ectab) Confirm Administered Dose 162 mg PO .STK-MED ONE Stop: 07/09/21 02:27 Last Admin: 07/09/21 03:01 Dose: Not Given Documented by: [id number] Escitalopram Oxalate (Escitalopram Oxalate 10 Mg Tab) 10 mg PO ONE ONE Stop: 07/09/21 02:46 Last Admin: 07/09/21 03:01 Dose: 10 mg Documented by: [id number] Ibuprofen (Ibuprofen 600 Mg Tab) 600 mg PO Q6H PRN PRN Reason: Pain Stop: 08/08/21 03:44 Last Admin: 07/09/21 09:39 Dose: 600 mg Documented by: [id number] Ondansetron HCl (Ondansetron 8mg Od Tab) 8 mg PO Q8H PRN PRN Reason: Nausea Stop: 08/08/21 03:35 Last Admin: 07/09/21 09:40 Dose: 8 mg Documented by: [id number] Medical Decision Making Differential Diagnosis Differential diagnoses considered include mood disorder, infection, hypoglycemia, electrolyte abnormalities, cardiac sources, intracerebral event, toxicologic, neurologic, as well as others. Medical Records Attestation: I reviewed the patient's medical records. Home Medications Current Medication List: was personally reviewed by me Laboratory Data Attestation: I reviewed the patient's lab results. Result diagrams: 07/08/21 22:59 07/08/21 22:59 Lab Results 07/08/21 07/08/21 07/08/21 Range/Units 22:41 22:41 22:59 WBC 12.31 H (4.8-10.8) K/uL RBC 4.00 L (4.2-5.4) M/uL Hgb 13.0 (12.0-16.0) g/dL Hct 39.1 (37-47) % MCV 97.8 (80-100) fL MCH 32.5 (25-34) pg MCHC 33.2 (32-36) g/dL RDW Std Deviation 47.9 H (36.4-46.3) fL RDW Coeff of Og 13.4 (11.5-14.5) % Plt Count 271 (130-400) K/uL MPV 9.5 (7.4-10.4) fL Immature Gran % (Auto) 0.2 % Neut % (Auto) 54.2 % Lymph % (Auto) 34.8 % Mathews % (Auto) 6.0 % Eos % (Auto) 4.4 % Baso % (Auto) 0.4 % Neut # (Auto) 6.67 H (1.4-6.5) K/uL Lymph # (Auto) 4.29 H (1.2-3.4) K/uL Mathews # (Auto) 0.74 H (0.11-0.59) K/uL Eos # (Auto) 0.54 H (0-0.5) K/uL Baso # (Auto) 0.05 (0-0.2) K/uL Immature Gran # (Auto) 0.02 (0.00-0.02) K/uL Sodium (136-145) mmol/L Potassium (3.5-5.1) mmol/L Chloride (98-107) mmol/L Carbon Dioxide (21-32) mmol/L Anion Gap (3-11) BUN (7-18) mg/dl Creatinine (0.6-1.2) mg/dl Est Cr Clr Drug Dosing ml/min Est GFR ( Amer) ml/min Est GFR (Non-Af Amer) ml/min BUN/Creatinine Ratio (10-20) Glucose (70-99) mg/dl Calcium (8.5-10.1) mg/dl Total Bilirubin (0.2-1) mg/dl AST (15-37) U/L ALT (12-78) U/L Alkaline Phosphatase (45-117) U/L Total Protein (6.4-8.2) gm/dl Albumin (3.4-5.0) gm/dl Globulin (2.5-4.0) gm/dl Albumin/Globulin Ratio (0.9-2) TSH (0.300-4.500) uIu/ml HCG, Qual (Negative) Urine Color Dark Yellow Urine Appearance Clear (Clear) Urine pH 6.5 (4.5-7.5) Ur Specific Hope 1.020 (1.000-1.030) Urine Protein Negative (Negative) Urine Glucose (UA) Negative (Negative) Urine Ketones Negative (Negative) Urine Blood 2+ H (Negative) Urine Nitrite Negative (Negative) Urine Bilirubin Negative (Negative) Urine Urobilinogen Negative (Negative) Ur Leukocyte Esterase Negative (Negative) Urine WBC (Auto) 1-5 (0-5) /hpf Urine RBC (Auto) 10-30 H (0-4) /hpf U Hyaline Cast (Auto) 0 (0-5) /lpf U Epithel Cells (Auto) 10-20 H (0-5) /lpf Urine Bacteria (Auto) Negative (Negative) Salicylates (2.8-20) mg/dl Urine Opiates Screen Neg (Neg) Ur Methadone, Qual Neg (Neg) Acetaminophen (10-30) ug/ml Urine Barbiturates Neg (Neg) Ur Phencyclidine (PCP) Neg (Neg) U Amphetamin/Meth Scrn Neg (Neg) MDMA (Ecstasy) Screen Neg (Neg) U Benzodiazepines Scrn Neg (Neg) Ur Cocaine Metabolite Neg (Neg) U Marijuana (THC) Screen Neg (Neg) Ethyl Alcohol mg/dL (0-3) mg/dl COVID-19 Eval Order SARS-CoV-2, RNA, NAAT (NEGATIVE) 07/08/21 07/08/21 07/08/21 Range/Units 22:59 22:59 22:59 WBC (4.8-10.8) K/uL RBC (4.2-5.4) M/uL Hgb (12.0-16.0) g/dL Hct (37-47) % MCV (80-100) fL MCH (25-34) pg MCHC (32-36) g/dL RDW Std Deviation (36.4-46.3) fL RDW Coeff of Og (11.5-14.5) % Plt Count (130-400) K/uL MPV (7.4-10.4) fL Immature Gran % (Auto) % Neut % (Auto) % Lymph % (Auto) % Mathews % (Auto) % Eos % (Auto) % Baso % (Auto) % Neut # (Auto) (1.4-6.5) K/uL Lymph # (Auto) (1.2-3.4) K/uL Mathews # (Auto) (0.11-0.59) K/uL Eos # (Auto) (0-0.5) K/uL Baso # (Auto) (0-0.2) K/uL Immature Gran # (Auto) (0.00-0.02) K/uL Sodium 140 (136-145) mmol/L Potassium 3.7 (3.5-5.1) mmol/L Chloride 114 H (98-107) mmol/L Carbon Dioxide 24 (21-32) mmol/L Anion Gap 2.0 L (3-11) BUN 8 (7-18) mg/dl Creatinine 0.72 (0.6-1.2) mg/dl Est Cr Clr Drug Dosing 145.4 ml/min Est GFR ( Amer) 122.3 ml/min Est GFR (Non-Af Amer) 105.5 ml/min BUN/Creatinine Ratio 11.3 (10-20) Glucose 100 H (70-99) mg/dl Calcium 8.4 L (8.5-10.1) mg/dl Total Bilirubin 0.1 L (0.2-1) mg/dl AST 12 L (15-37) U/L ALT 21 (12-78) U/L Alkaline Phosphatase 90 (45-117) U/L Total Protein 7.4 (6.4-8.2) gm/dl Albumin 3.4 (3.4-5.0) gm/dl Globulin 4.0 (2.5-4.0) gm/dl Albumin/Globulin Ratio 0.9 (0.9-2) TSH 2.120 (0.300-4.500) uIu/ml HCG, Qual (Negative) Urine Color Urine Appearance (Clear) Urine pH (4.5-7.5) Ur Specific Hope (1.000-1.030) Urine Protein (Negative) Urine Glucose (UA) (Negative) Urine Ketones (Negative) Urine Blood (Negative) Urine Nitrite (Negative) Urine Bilirubin (Negative) Urine Urobilinogen (Negative) Ur Leukocyte Esterase (Negative) Urine WBC (Auto) (0-5) /hpf Urine RBC (Auto) (0-4) /hpf U Hyaline Cast (Auto) (0-5) /lpf U Epithel Cells (Auto) (0-5) /lpf Urine Bacteria (Auto) (Negative) Salicylates 2.7 L (2.8-20) mg/dl Urine Opiates Screen (Neg) Ur Methadone, Qual (Neg) Acetaminophen < 2 L (10-30) ug/ml Urine Barbiturates (Neg) Ur Phencyclidine (PCP) (Neg) U Amphetamin/Meth Scrn (Neg) MDMA (Ecstasy) Screen (Neg) U Benzodiazepines Scrn (Neg) Ur Cocaine Metabolite (Neg) U Marijuana (THC) Screen (Neg) Ethyl Alcohol mg/dL < 3.0 (0-3) mg/dl COVID-19 Eval Order SARS-CoV-2, RNA, NAAT (NEGATIVE) 07/08/21 07/09/21 07/09/21 Range/Units 22:59 01:14 01:14 WBC (4.8-10.8) K/uL RBC (4.2-5.4) M/uL Hgb (12.0-16.0) g/dL Hct (37-47) % MCV (80-100) fL MCH (25-34) pg MCHC (32-36) g/dL RDW Std Deviation (36.4-46.3) fL RDW Coeff of Og (11.5-14.5) % Plt Count (130-400) K/uL MPV (7.4-10.4) fL Immature Gran % (Auto) % Neut % (Auto) % Lymph % (Auto) % Mathews % (Auto) % Eos % (Auto) % Baso % (Auto) % Neut # (Auto) (1.4-6.5) K/uL Lymph # (Auto) (1.2-3.4) K/uL Mathews # (Auto) (0.11-0.59) K/uL Eos # (Auto) (0-0.5) K/uL Baso # (Auto) (0-0.2) K/uL Immature Gran # (Auto) (0.00-0.02) K/uL Sodium (136-145) mmol/L Potassium (3.5-5.1) mmol/L Chloride (98-107) mmol/L Carbon Dioxide (21-32) mmol/L Anion Gap (3-11) BUN (7-18) mg/dl Creatinine (0.6-1.2) mg/dl Est Cr Clr Drug Dosing ml/min Est GFR ( Amer) ml/min Est GFR (Non-Af Amer) ml/min BUN/Creatinine Ratio (10-20) Glucose (70-99) mg/dl Calcium (8.5-10.1) mg/dl Total Bilirubin (0.2-1) mg/dl AST (15-37) U/L ALT (12-78) U/L Alkaline Phosphatase (45-117) U/L Total Protein (6.4-8.2) gm/dl Albumin (3.4-5.0) gm/dl Globulin (2.5-4.0) gm/dl Albumin/Globulin Ratio (0.9-2) TSH (0.300-4.500) uIu/ml HCG, Qual Negative (Negative) Urine Color Urine Appearance (Clear) Urine pH (4.5-7.5) Ur Specific Hope (1.000-1.030) Urine Protein (Negative) Urine Glucose (UA) (Negative) Urine Ketones (Negative) Urine Blood (Negative) Urine Nitrite (Negative) Urine Bilirubin (Negative) Urine Urobilinogen (Negative) Ur Leukocyte Esterase (Negative) Urine WBC (Auto) (0-5) /hpf Urine RBC (Auto) (0-4) /hpf U Hyaline Cast (Auto) (0-5) /lpf U Epithel Cells (Auto) (0-5) /lpf Urine Bacteria (Auto) (Negative) Salicylates (2.8-20) mg/dl Urine Opiates Screen (Neg) Ur Methadone, Qual (Neg) Acetaminophen (10-30) ug/ml Urine Barbiturates (Neg) Ur Phencyclidine (PCP) (Neg) U Amphetamin/Meth Scrn (Neg) MDMA (Ecstasy) Screen (Neg) U Benzodiazepines Scrn (Neg) Ur Cocaine Metabolite (Neg) U Marijuana (THC) Screen (Neg) Ethyl Alcohol mg/dL (0-3) mg/dl COVID-19 Eval Order Covid19 [facility] SARS-CoV-2, RNA, NAAT NEGATIVE (NEGATIVE) MDM Narrative This is a 40-year-old female well-known to the emergency department who presents with worsening depression and thoughts of SI. Patient did have plan for possible overdose. Patient does have prior history of inpatient treatment for mental health conditions. Patient medically cleared here, evaluated by case management, and referred to [facility] Patient accepted to [facility] voluntarily. 201 signed, patient well-appearing at time of transfer upstairs. Impression & Plan Depression with anxiety Discharge Plan Visit Data Chief Complaint: Mental Health Evaluation Stated Complaint: SUICIDAL THOUGHTS ED Provider: Brenda Rivas Discharge Problem: Depression with anxiety Patient Disposition: Admitted As Inpatient Discharge Instructions Interventions: ED Discharge Assessment Last Done: 07/09/21 03:19
[2021-07-08 23:45] LABS: Albumin Level 3.4 gm/dl (3.4-5.0); BUN Creatinine Ratio 11.3 (10-20); Calcium 8.4 mg/dl (8.5-10.1); Creatinine Clr Calc Pharmacy 145.4 ml/min; Est GFR (African American) 122.3 ml/min; Est GFR (Non-African American) 105.5 ml/min; Potassium 3.7 mmol/L (3.5-5.1)
[2021-07-08 23:47] LABS: Acetaminophen < 2 ug/ml (10-30); Salicylate 2.7 mg/dl (2.8-20)
[2021-07-08 23:55] LABS: Albumin Globulin Ratio 0.9 (0.9-2); Bilirubin,Total 0.1 mg/dl (0.2-1); Thyroid Stimulating Hormone 2.12 uIu/ml (0.300-4.500); Total Protein 7.4 gm/dl (6.4-8.2)
[2021-07-09 00:13] LABS: Pregnancy Test, Serum Negative (Negative)
[2021-07-09] MEDS ORDERED: ACETAMINOPHEN 325 MG TAB PO STA (00:38)
[2021-07-09] MEDS ORDERED: ALUMINUM/MAGNESIUM SUSP 30 ML UDC PO PRN (02:07)
[2021-07-09] MEDS ORDERED: hydrOXYzine HCl 25 MG TAB PO PRN (02:07)
[2021-07-09] MEDS ORDERED: SODIUM CHLORIDE 0.65% NA SOLN 45 ML (OCEAN) PRN (02:07)
[2021-07-09] MEDS ORDERED: BISMUTH SUBSALICYLATE LIQD 236 ML PO PRN (02:07)
[2021-07-09] MEDS ORDERED: ACETAMINOPHEN 325 MG TAB PO PRN (02:07)
[2021-07-09] MEDS ORDERED: MAGNESIUM HYDROXIDE SUSP 30 ML UDC PO PRN (02:07)
[2021-07-09] MEDS ORDERED: ASPIRIN 81 MG ECTAB PO ONE ×2 (02:26→02:45)
[2021-07-09] MEDS ORDERED: ESCITALOPRAM OXALATE 10 MG TAB PO ONE (02:45)
[2021-07-09] MEDS ORDERED: ONDANSETRON 8MG OD TAB PO PRN ×2 (03:36→08:01)
[2021-07-09] MEDS ORDERED: ALBUTEROL HFA 8 GM INHALER INH PRN (03:36)
[2021-07-09] MEDS ORDERED: IBUPROFEN 600 MG TAB PO PRN (03:36)
[2021-07-09] MEDS ORDERED: FLUTICASONE PROPIONATE NA SPR 16 GM BTL PRN (08:01)
[2021-07-09] MEDS ORDERED: NON-FORMULARY MEDICATION (Riboflavin (Vitamin B2) [Vitamin B-2] 100 mg Tablet) PO SCH (09:00)
[2021-07-09] MEDS ORDERED: MAGNESIUM OXIDE 400 MG TAB PO SCH (09:00)
[2021-07-09] MEDS: TOPIRAMATE 25 MG TAB PO SCH ×2 (09:52→21:07)
[2021-07-09] MEDS: ASPIRIN 81 MG ECTAB PO SCH ×2 (09:53→21:05)
[2021-07-09] MEDS: MAGNESIUM OXIDE 400 MG TAB PO SCH ×2 (11:57→21:06)
[2021-07-09] MEDS: RIMEGEPANT 75 MG PO PRN (11:58)
--- NOTE | 2021-07-09 13:02 | History & Physical ---
Date of Service July 09, 2021 Impression / Recommendations Impression 40 yo female with mood swings, primarily depression, prior dx of bipolar do, presents with significant SI during grief reaction for traumatic loss of close family friend, worsening of migraines, currently unable to function/maintain safety outside of thehospital. (1) Migraine: Intractability: intractable Migraine type: without aura Status migrainosus presence: with status migrainosus Qualified Code(s): G43.011 - Migraine without aura, intractable, with status migrainosus (2) Bipolar disorder: 07/09/21: The patient was admitted to the [facility] ([facility] mental health unit) on q15 min checks (behavioral with suicide precautions) for safety. The patient will participate in group, recreational, and milieu therapies and will be offered additional individual and family sessions as clinically appropriate. sympomatic treatment of migraine. Will taper Lexapro due to ineffective but inability to titrate given worsening SI. I would not continue her steroid taper as also seems to have negative impact on mood. Continue Wellbutrin for now with consideration for additional antidepressant dose or mood stabilizer trial in the am. Risk Factors Assessment Do You Have Access To A Gun?: Yes ( has permit to carry, need to confirm status) Protective Factors Assessment Employed: Yes ([employer]) Psychiatric History Identifying Data PRESLEY BECKETT is a 40-year-old F who currently lives in [place], has a history of bipolar depression and treatment refractory migraine, and was admitted on 07/09/21 02:07 on a 201 voluntary commitment for SI with plan to OD on meds. She has a history of a prior inpatient hospitalization in 2016 and a prior suicide attempt by cutting her wrists as a teen. Chief Complaint "I would have ended it if my son wasn't home, I couldn't have him find me like that". History of Present Illness The patient reports rather persistent depression since Nov when a 16 yo family friend committed suicide. She was like a "second mother" to him as he spent time at their home and dated her youngest daughter "on again, off again". She has extreme guilt as "he seemed fine" but spontaneously wrote her a suicide note, went to her 's truck and used her 's gun to end his life. He was found by her and 2 youngest children. The whole family was in shock and since that time all are struggling/seeking additional counseling. A few weeks after she was offered Ativan prn for panic and also addition of Lexapro to her Wellbutrin XL and reports neither are helpful. She has marked difficulty concentrating but tries to keep "work separate". 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 She is only eating once a day. She reports persistent suicidal ideation for past 3-4 days and was close to coming to the ED before. Other stressors include worsening of her migraines and irritability (possibly due to steroid taper) and inability to get appointments through [facility] neurology. She has a migraine at the time of this assessment so we are in the dark with door closed to limit sound as is bringing her non-formulary Nucynta. She states that topamax was tried at a higher dose but this caused significant brain fog. She denies periods of elevated mood but has been reactive, prior chart lists bipolar with appropriate rx so likely bipolar II. States that her is more likely to see the signs of irritability. Has had benefit but also irritaiblity with Paxil in past. Her children are from a previous relationship so her younger daughter is currently living with daughter's biological father as "too hard" to be at the house since the suicide. She relates 18 daughter also moved out to live with her own boyfriend. made a statement to staff that some of these changes may have also been due to marital issues. Past Psychiatric History Current Psychiatric Diagnosis: Bipolar D/O; MDD; Anxiety Outpatient Services: states that she discontinued treatment with Dr. Tobar and wanted to resume therapy at [facility] and resume with Harini Galicia, no current therapist Previous Psych Admissions: 2016--at that time was researching how to combine chemicals to cause her on the internet, was discharged on Lamictal. Do You Have Access To A Gun?: Yes ( has permit to carry, need to confirm status) History of Previous Suicide Attempt: Yes (in teens "slit my wrists") Describe Attempts in the Past: None Past Medication Trials: Lamcital, gabapentin, Elavil (for migraine), Zoloft, Effexor, Celexa, Paxil, ?Colton, vu dose of Wellbutrin XL is current dose. Allergies Allergy/AdvReac Type Severity Reaction Status Date / Time dexamethasone [From Decadron] Allergy Intermediate Cramping Verified 07/08/21 23:44 of the Muscles ragweed pollen Allergy Intermediate Hives Verified 07/08/21 23:44 citalopram Allergy Mild ITCHING Verified 07/08/21 23:44 pollen extracts Allergy Mild Watery Eye Verified 07/08/21 23:44 azithromycin AdvReac Intermediate Gastrointestinal Verified 07/08/21 23:44 Upset ketorolac AdvReac Intermediate headache Verified 07/08/21 23:44 morphine AdvReac Intermediate REBOUND Verified 07/08/21 23:44 HEADACHE red dye AdvReac Intermediate MIGRAINE Verified 07/08/21 23:44 cephalexin AdvReac Mild GI SYMPTOMS Verified 07/08/21 23:44 sulfamethoxazole AdvReac Mild GI SYMPTOMS Verified 07/08/21 23:44 trimethoprim AdvReac Mild GI SYMPTOMS Verified 07/08/21 23:44 venlafaxine AdvReac Mild DROWSY Verified 07/08/21 23:44 fish-talapia AdvReac Intermediate states she Uncoded 06/16/21 23:13 throws up after eating only this fish Home Medications Medication Instructions Recorded Confirmed Type bupropion HCl 150 mg 24 hr tablet, 150 mg PO QAM 04/09/19 07/08/21 History extended release epinephrine 0.3 mg/0.3 mL 0.3 mg IM DIRECTED PRN 06/29/19 07/08/21 History injection, auto-injector riboflavin (vitamin B2) 100 mg 400 mg PO QAM 06/29/19 07/08/21 History tablet (Vitamin B-2) fluticasone propionate 50 1 spray INTRANASAL DAILY PRN 05/02/20 07/08/21 History mcg/actuation nasal spray,suspension montelukast 10 mg tablet 10 mg PO HS 05/02/20 07/08/21 History (Singulair) escitalopram oxalate 10 mg tablet 10 mg PO HS 02/20/21 07/08/21 History hydroxyzine HCl 25 mg tablet 25 mg PO TID PRN 02/20/21 07/09/21 History acetaminophen 325 mg tablet 650 mg PO Q4H PRN #90 tab 04/06/21 07/08/21 Rx ibuprofen 600 mg tablet 600 mg PO Q6H PRN #90 tab 04/06/21 07/08/21 Rx aspirin 81 mg tablet,delayed 162 mg PO BID 04/30/21 07/08/21 History release (Adult Aspirin Regimen) pantoprazole 40 mg tablet,delayed 40 mg PO DAILYBB 04/30/21 07/08/21 History release rimegepant 75 mg disintegrating 75 mg PO DIRECTED PRN MDD 1 04/30/21 07/08/21 History tablet (Nurtec ODT) TAB/24 HOURS topiramate 50 mg tablet 75 mg PO BID 04/30/21 07/09/21 History lorazepam 0.5 mg tablet 0.5 mg PO Q8 PRN 07/09/21 07/09/21 History magnesium oxide 200 mg PO BID 07/09/21 07/09/21 History ondansetron 8 mg disintegrating 8 mg PO Q8 PRN 07/09/21 07/09/21 History tablet Family History Family History of: Depression, Anxiety and Suicide Attempts (all in brother) Alcohol History Hx of Alcohol Use Over the Past 12 Months: No AUDIT Total Score: 2 Smoking Use Have You Smoked or Used Tobacco Products in the Last 30 Days: Yes tobacco type: cigarettes Smoking Status: Current every day smoker Smoking packs per day: 0.5 Substance History Hx of Prescription Med Misuse Over the Past 12 Months: No Hx of Over the Counter Med Misuse Over the Past 12 Months: No Hx of Inhalent Misuse Over the Past 12 Months: No Hx of Organic Substance Use Over the Past 12 Months: No Hx of Illegal Substances/Street Drug Use Over Past 12 Months: No Problems as a Result of Past Substance Use: None Identified Personal History Living Arrangements: Home Highest Grade Completed: High School Graduate and Vocational Training 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 Marital Status: Number Of Children: 3 Beliefs That Will Affect Care: None Current Legal Problems: No Hx Traumatic Life Events: Yes (grief reaction as per HPI) Patient History Medical History Anemia Asthma HAS NOT USED INHALER SINCE LAST WINTER Atypical migraine Bipolar disorder Degenerative disc disease Depression with anxiety Diverticulosis GERD (gastroesophageal reflux disease) History of IBS History of kidney stones Osteoarthritis Post traumatic stress disorder Tobacco use Surgical History H/O craniotomy AT 6 MONTHS AGE (LEFT SIDE OF SKULL ABNORMALITY "WAS LEFT ON LEFT SIDE TOO LONG AN ") History of ankle surgery RT History of appendectomy History of cholecystectomy History of colonoscopy History of dilatation and curettage History of tooth extraction History of tubal ligation Family History Grandmother (Maternal) Family hx of colon cancer Other Cancer Coronary heart disease Diabetes Hypertension Stroke Social History Smoking Status: Current every day smoker Tobacco Type: Cigarettes Cigarettes Per Day: 10 CIG DAILY; Second Hand Exposure: Yes; Hx Alcohol Use: Yes Alcohol type: beer Hx Substance Use: No Preferred Language: Sinhala Communication Ability: Effective 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 Beliefs That Will Affect Care: None marital status: Current Living Situation: Spouse Current Living Situation Comment: and children current occupational status: employed Feels Safe at Home: Yes Assistive Devices: Glasses Review of Systems Review of Systems: All systems reviewed & are unremarkable except as noted in HPI & below Physical Exam Psychiatric: Orientation: alert and oriented x 3 Apperance: appropriately dressed and appropriately groomed Eye Contact: good eye contact Motor Behavior: no abnormal motor movements Speech: normal rate/rhythm/volume of speech Affect: + depressed affect Mood: + depressed mood Thought Process: goal directed thought process Thought Content: reality based without delusions Suicidal Thoughts: denies suicidal intent (on unit); + reports suicidal thoughts and + reports suicidal plan Homicidal Thoughts: denies homicidal thoughts Hallucinations: no auditory hallucinations and no visual hallucinations Cognition: attention grossly intact and language grossly intact Estimated Intelligence: consistent with education level Insight: + limited insight Judgement: + limited judgement Vital Signs (Past 24 Hours): Last Vital Signs Temp 36.7 C 07/09/21 06:00 Pulse 91 H 07/09/21 06:36 Resp 16 07/09/21 06:00 BP 125/76 07/09/21 06:36 Pulse Ox 96 07/09/21 03:19 Exam Statement: A physical exam was performed in the ED by Dr. Rivas for the purposes of medical clearance. I accept that physical as correct and adequate for the purposes of the inpatient physical exam. Results & Data (U) Laboratory Results Laboratory Results - last 24 hr 09/01/21 09/01/21 09/01/21 22:41 22:41 22:59 WBC 12.31 H RBC 4.00 L Hgb 13.0 Hct 39.1 MCV 97.8 MCH 32.5 MCHC 33.2 RDW Std Deviation 47.9 H RDW Coeff of Og 13.4 Plt Count 271 MPV 9.5 Immature Gran % (Auto) 0.2 Neut % (Auto) 54.2 Lymph % (Auto) 34.8 Parke % (Auto) 6.0 Eos % (Auto) 4.4 Baso % (Auto) 0.4 Neut # (Auto) 6.67 H Lymph # (Auto) 4.29 H Parke # (Auto) 0.74 H Eos # (Auto) 0.54 H Baso # (Auto) 0.05 Immature Gran # (Auto) 0.02 Sodium Potassium Chloride Carbon Dioxide Anion Gap BUN Creatinine Est Cr Clr Drug Dosing Est GFR ( Amer) Est GFR (Non-Af Amer) BUN/Creatinine Ratio Glucose Calcium Total Bilirubin AST ALT Alkaline Phosphatase Total Protein Albumin Globulin Albumin/Globulin Ratio TSH HCG, Qual Urine Color Dark Yellow Urine Appearance Clear Urine pH 6.5 Ur Specific [place] 1.020 Urine Protein Negative Urine Glucose (UA) Negative Urine Ketones Negative Urine Blood 2+ H Urine Nitrite Negative Urine Bilirubin Negative Urine Urobilinogen Negative Ur Leukocyte Esterase Negative Urine WBC (Auto) 1-5 Urine RBC (Auto) 10-30 H U Hyaline Cast (Auto) 0 U Epithel Cells (Auto) 10-20 H Urine Bacteria (Auto) Negative Salicylates Urine Opiates Screen Neg Ur Methadone, Qual Neg Acetaminophen Urine Barbiturates Neg Ur Phencyclidine (PCP) Neg U Amphetamin/Meth Scrn Neg MDMA (Ecstasy) Screen Neg U Benzodiazepines Scrn Neg Ur Cocaine Metabolite Neg U Marijuana (THC) Screen Neg Ethyl Alcohol mg/dL COVID-19 Eval Order SARS-CoV-2, RNA, NAAT 07/08/21 07/08/21 07/08/21 22:59 22:59 22:59 WBC RBC Hgb Hct MCV MCH MCHC RDW Std Deviation RDW Coeff of Og Plt Count MPV Immature Gran % (Auto) Neut % (Auto) Lymph % (Auto) Parke % (Auto) Eos % (Auto) Baso % (Auto) Neut # (Auto) Lymph # (Auto) Parke # (Auto) Eos # (Auto) Baso # (Auto) Immature Gran # (Auto) Sodium 140 Potassium 3.7 Chloride 114 H Carbon Dioxide 24 Anion Gap 2.0 L BUN 8 Creatinine 0.72 Est Cr Clr Drug Dosing 145.4 Est GFR ( Amer) 122.3 Est GFR (Non-Af Amer) 105.5 BUN/Creatinine Ratio 11.3 Glucose 100 H Calcium 8.4 L Total Bilirubin 0.1 L AST 12 L ALT 21 Alkaline Phosphatase 90 Total Protein 7.4 Albumin 3.4 Globulin 4.0 Albumin/Globulin Ratio 0.9 TSH 2.120 HCG, Qual Urine Color Urine Appearance Urine pH Ur Specific [place] Urine Protein Urine Glucose (UA) Urine Ketones Urine Blood Urine Nitrite Urine Bilirubin Urine Urobilinogen Ur Leukocyte Esterase Urine WBC (Auto) Urine RBC (Auto) U Hyaline Cast (Auto) U Epithel Cells (Auto) Urine Bacteria (Auto) Salicylates 2.7 L Urine Opiates Screen Ur Methadone, Qual Acetaminophen < 2 L Urine Barbiturates Ur Phencyclidine (PCP) U Amphetamin/Meth Scrn MDMA (Ecstasy) Screen U Benzodiazepines Scrn Ur Cocaine Metabolite U Marijuana (THC) Screen Ethyl Alcohol mg/dL < 3.0 COVID-19 Eval Order SARS-CoV-2, RNA, NAAT 07/08/21 07/09/21 07/09/21 22:59 01:14 01:14 WBC RBC Hgb Hct MCV MCH MCHC RDW Std Deviation RDW Coeff of Og Plt Count MPV Immature Gran % (Auto) Neut % (Auto) Lymph % (Auto) Parke % (Auto) Eos % (Auto) Baso % (Auto) Neut # (Auto) Lymph # (Auto) Parke # (Auto) Eos # (Auto) Baso # (Auto) Immature Gran # (Auto) Sodium Potassium Chloride Carbon Dioxide Anion Gap BUN Creatinine Est Cr Clr Drug Dosing Est GFR ( Amer) Est GFR (Non-Af Amer) BUN/Creatinine Ratio Glucose Calcium Total Bilirubin AST ALT Alkaline Phosphatase Total Protein Albumin Globulin Albumin/Globulin Ratio TSH HCG, Qual Negative Urine Color Urine Appearance Urine pH Ur Specific [place] Urine Protein Urine Glucose (UA) Urine Ketones Urine Blood Urine Nitrite Urine Bilirubin Urine Urobilinogen Ur Leukocyte Esterase Urine WBC (Auto) Urine RBC (Auto) U Hyaline Cast (Auto) U Epithel Cells (Auto) Urine Bacteria (Auto) Salicylates Urine Opiates Screen Ur Methadone, Qual Acetaminophen Urine Barbiturates Ur Phencyclidine (PCP) U Amphetamin/Meth Scrn MDMA (Ecstasy) Screen U Benzodiazepines Scrn Ur Cocaine Metabolite U Marijuana (THC) Screen Ethyl Alcohol mg/dL COVID-19 Eval [facility] SARS-CoV-2, RNA, NAAT NEGATIVE Current Inpatient Medications Current Inpatient Medications: Current Inpatient Medications Acetaminophen (Acetaminophen 325 Mg Tab) 650 mg PO Q4H PRN PRN Reason: Headache or Minor Fever Stop: 08/08/21 02:06 Al Hydrox/Mg Hydrox/Simethicone (Aluminum/Magnesium Susp 30 Ml Udc) 30 ml PO Q4H PRN PRN Reason: GI Upset Stop: 08/08/21 02:06 Albuterol (Albuterol Hfa 8 Gm Inhaler) 2 puffs INH QIDR PRN PRN Reason: Shortness Of Breath Stop: 08/08/21 03:35 Aspirin (Aspirin 81 Mg Ectab) 162 mg PO BID CHIRAG Stop: 08/08/21 08:59 Last Admin: 07/09/21 09:53 Dose: 162 mg Documented by: Bismuth Subsalicylate (Bismuth Subsalicylate Liqd 236 Ml) 15 ml PO PRN PRN PRN Reason: Loose Stool Stop: 08/08/21 02:06 Fluticasone Propionate (Fluticasone Propionate Na Spr 16 Gm Btl) 1 sprays NA DAILY PRN PRN Reason: ALLERGIES Stop: 08/08/21 08:00 Hydroxyzine HCl (Hydroxyzine Hcl 25 Mg Tab) 50 mg PO HSZ PRN PRN Reason: Insomnia Stop: 08/08/21 02:06 Hydroxyzine HCl (Hydroxyzine Hcl 25 Mg Tab) 25 mg PO Q4H PRN PRN Reason: Anxiety Stop: 08/08/21 02:06 Ibuprofen (Ibuprofen 600 Mg Tab) 600 mg PO Q6H PRN PRN Reason: fever or pain Stop: 08/08/21 08:00 Lorazepam (Lorazepam 0.5 Mg Tab) 0.5 mg PO Q8H PRN PRN Reason: Anxiety Stop: 08/08/21 03:35 Magnesium Hydroxide (Magnesium Hydroxide Susp 30 Ml Udc) 30 ml PO DAILY PRN PRN Reason: Constipation Stop: 08/08/21 02:06 Magnesium Oxide (Magnesium Oxide 400 Mg Tab) 200 mg PO BID CHIRAG Stop: 08/08/21 11:59 Last Admin: 07/09/21 11:57 Dose: 200 mg Documented by: Montelukast Sodium (Montelukast Sodium 10 Mg Tablet) 10 mg PO HS ON LICENSE OF [facility] Stop: 08/08/21 21:59 Rimegepant 75mg Odt ([Patient Own Med]) 1 ea PO DAILY PRN PRN Reason: AT ONSET OF MIGRAINE Stop: 08/08/21 11:29 Last Admin: 07/09/21 11:58 Dose: 1 ea Documented by: Ondansetron HCl (Ondansetron 8mg Od Tab) 8 mg PO Q8 PRN PRN Reason: Nausea Stop: 08/08/21 08:00 Pantoprazole Sodium (Pantoprazole 40 Mg Tab) 40 mg PO DAILYBB ON LICENSE OF [facility] Stop: 08/09/21 07:59 Sodium Chloride (Sodium Chloride 0.65% Na Soln 45 Ml ([place])) 1 - 2 sprays NA PRN PRN PRN Reason: Nasal Dryness/Congestion Stop: 08/08/21 02:06 Topiramate (Topiramate 25 Mg Tab) 75 mg PO BID CHIRAG Stop: 08/08/21 08:59 Last Admin: 07/09/21 09:52 Dose: 75 mg Documented by:
[2021-07-09] MEDS: hydrOXYzine HCl 25 MG TAB PO PRN (17:16)
[2021-07-09] MEDS: MONTELUKAST SODIUM 10 MG TABLET PO SCH (21:07)
[2021-07-10] MEDS: IBUPROFEN 600 MG TAB PO PRN ×2 (07:37→13:26)
[2021-07-10] MEDS: PANTOprazole 40 MG TAB PO SCH (07:43)
[2021-07-10] MEDS: MAGNESIUM OXIDE 400 MG TAB PO SCH ×2 (08:38→20:50)
[2021-07-10] MEDS: ASPIRIN 81 MG ECTAB PO SCH ×2 (08:38→20:52)
[2021-07-10] MEDS: TOPIRAMATE 25 MG TAB PO SCH ×2 (08:39→20:50)
[2021-07-10] MEDS ORDERED: buPROPion SR 100 MG TABCR PO ONE (11:30)
[2021-07-10] MEDS: NICOTINE 14 MG/24 HR PATCH TD SCH (11:39)
[2021-07-10] MEDS: FLUoxetine HCL 20 MG CAP PO SCH (11:39)
[2021-07-10] MEDS: LORazepam 0.5 MG TAB PO PRN (11:44)
--- NOTE | 2021-07-10 15:43 | Psychiatric Progress Note ---
Date of Service July 10, 2021 Impression / Recommendations Impression 40 yo female with mood swings, primarily depression, prior dx of bipolar do, presents with significant SI during grief reaction for traumatic loss of close family friend, worsening of migraines, currently unable to function/maintain safety outside of the hospital. 07/10/21--ongoing hopelessness and overwhelm, unable to safety plan. (1) Migraine: (2) Bipolar disorder: 07/10/21: VERONICA improved today. Declines titration of Wellbutrin as prefers to taper in favor of a trial of Prozac (today reports past trials of Remeron, SI with Effexor XR, in addition to hx in H&P). Patient agreed to beging Prozac 20 mg daily following discussion of risks/benefits/alternatives of SSRI/SNRI/atypical antiderpessants/mood stabilizers). She reports she felt numb on lamictal in past and recognizes that research is less supportive of topamax (currently for migraine) as a primary mood stabilizer but is aware that antidepressants can sometimes precipitate hypomania. She denies a hx of boo vince or psychosis. Sleep onset is often delayed until 3-4 am at home. Following discussion around sleep hygiene agreed to trial of scheduled Vistaril 50 mg hs with a repeat if ineffective. 07/09/21: The patient [facility] ([facility] inpatient mental health unit) on q15 min checks (behavioral with suicide precautions) for safety. The patient will participate in group, recreational, and milieu therapies and will be offered additional individual and family sessions as clinically appropriate. sympomatic treatment of migraine. Will taper Lexapro due to ineffective but inability to titrate given worsening SI. I would not continue her steroid taper as also seems to have negative impact on mood. Continue Wellbutrin for now with consideration for additional antidepressant dose or mood stabilizer trial in the am. Risk Factors Assessment Do You Have Access To A Gun?: Yes ( has permit to carry, need to confirm status) Protective Factors Assessment Employed: Yes ([employer]) Interval History Identifying Information 40 yo female with a history of bipolar depression, admit for SI in context of ongoing family grief/trauma. 201 commitment. Chief Complaint "yeah I want to try different medication, I just don't get any energy boost anymore". Review of Systems Sleep Information Total Hours of Sleep: 7.5 Sleep Comments: admitted this shift. Meal Information Percent Meal Consumed - Breakfast: 90 Percent Meal Consumed - Lunch: 100 Percent Meal Consumed - Dinner: 95 Subjective Subjective Patient was seen & assessed and interval progress reviewed with treatment team. Migraine 80+% resolved following Nurtec yesterday. Was able to participate in groups. Feeling depressed and low energy but calmer today. Expressed sadness that daughter doesn't want to live with them as too many memories of her boyfriend at the trailer (he suicided as per HPI). Physical Exam Psychiatric Orientation: alert and oriented x 3 Apperance: appropriately dressed and appropriately groomed Eye Contact: good eye contact Motor Behavior: no abnormal motor movements Speech: normal rate/rhythm/volume of speech Affect: + depressed affect Mood: + depressed mood Thought Process: goal directed thought process Thought Content: reality based without delusions Suicidal Thoughts: denies suicidal plan and denies suicidal intent (on unit); + reports suicidal thoughts Homicidal Thoughts: denies homicidal thoughts Hallucinations: no auditory hallucinations and no visual hallucinations Cognition: attention grossly intact and language grossly intact Estimated Intelligence: consistent with education level Insight: + limited insight Judgement: + limited judgement Vital Signs (Past 24 Hours) Last Vital Signs Temp 36.9 C 07/10/21 06:00 Pulse 97 H 07/10/21 06:36 Resp 16 07/10/21 06:00 BP 124/88 07/10/21 06:36 Pulse Ox 96 07/10/21 06:00 Results & Data ([facility]) Current Inpatient Medications Current Inpatient Medications: Current Inpatient Medications Acetaminophen (Acetaminophen 325 Mg Tab) 650 mg PO Q4H PRN PRN Reason: Headache or Minor Fever Stop: 08/08/21 02:06 Last Admin: 07/09/21 14:07 Dose: 650 mg Documented by: Al Hydrox/Mg Hydrox/Simethicone (Aluminum/Magnesium Susp 30 Ml Udc) 30 ml PO Q4H PRN PRN Reason: GI Upset Stop: 08/08/21 02:06 Albuterol (Albuterol Hfa 8 Gm Inhaler) 2 puffs INH QIDR PRN PRN Reason: Shortness Of Breath Stop: 08/08/21 03:35 Aspirin (Aspirin 81 Mg Ectab) 162 mg PO BID [facility] Stop: 08/08/21 08:59 Last Admin: 07/10/21 08:38 Dose: 162 mg Documented by: Bismuth Subsalicylate (Bismuth Subsalicylate Liqd 236 Ml) 15 ml PO PRN PRN PRN Reason: Loose Stool Stop: 08/08/21 02:06 Fluoxetine HCl (Fluoxetine Hcl 20 Mg Cap) 20 mg PO QAM [facility] Stop: 08/09/21 11:29 Last Admin: 07/10/21 11:39 Dose: 20 mg Documented by: Fluticasone Propionate (Fluticasone Propionate Na Spr 16 Gm Btl) 1 sprays NA DAILY PRN PRN Reason: ALLERGIES Stop: 08/08/21 08:00 Hydroxyzine HCl (Hydroxyzine Hcl 25 Mg Tab) 50 mg PO HSZ PRN PRN Reason: Insomnia Stop: 08/08/21 02:06 Hydroxyzine HCl (Hydroxyzine Hcl 25 Mg Tab) 25 mg PO Q4H PRN PRN Reason: Anxiety Stop: 08/08/21 02:06 Last Admin: 07/09/21 17:16 Dose: 25 mg Documented by: Hydroxyzine HCl (Hydroxyzine Hcl 25 Mg Tab) 50 mg PO HS [facility] Stop: 08/09/21 21:59 Ibuprofen (Ibuprofen 600 Mg Tab) 600 mg PO Q6H PRN PRN Reason: fever or pain Stop: 08/08/21 08:00 Last Admin: 07/10/21 13:26 Dose: 600 mg Documented by: Lorazepam (Lorazepam 0.5 Mg Tab) 0.5 mg PO Q8H PRN PRN Reason: Anxiety Stop: 08/08/21 03:35 Last Admin: 07/10/21 11:44 Dose: 0.5 mg Documented by: Magnesium Hydroxide (Magnesium Hydroxide Susp 30 Ml Udc) 30 ml PO DAILY PRN PRN Reason: Constipation Stop: 08/08/21 02:06 Magnesium Oxide (Magnesium Oxide 400 Mg Tab) 200 mg PO BID [facility] Stop: 08/08/21 11:59 Last Admin: 07/10/21 08:38 Dose: 200 mg Documented by: Miscellaneous (Remove Nicoderm Patch) 1 ea N/A DAILY@0859 [facility] Stop: 08/10/21 08:58 Montelukast Sodium (Montelukast Sodium 10 Mg Tablet) 10 mg PO HS [facility] Stop: 08/08/21 21:59 Last Admin: 07/09/21 21:07 Dose: 10 mg Documented by: Nicotine (Nicotine 14 Mg/24 Hr Patch) 14 mg TD QAM [facility] Stop: 08/09/21 10:59 Last Admin: 07/10/21 11:39 Dose: 14 mg Documented by: Rimegepant 75mg Odt ([Patient Own Med]) 1 ea PO DAILY PRN PRN Reason: AT ONSET OF MIGRAINE Stop: 08/08/21 11:29 Last Admin: 07/09/21 11:58 Dose: 1 ea Documented by: Ondansetron HCl (Ondansetron 8mg Od Tab) 8 mg PO Q8 PRN PRN Reason: Nausea Stop: 08/08/21 08:00 Pantoprazole Sodium (Pantoprazole 40 Mg Tab) 40 mg PO DAILYBB [facility] Stop: 08/09/21 07:59 Last Admin: 07/10/21 07:43 Dose: 40 mg Documented by: Sodium Chloride (Sodium Chloride 0.65% Na Soln 45 Ml ([place])) 1 - 2 sprays NA PRN PRN PRN Reason: Nasal Dryness/Congestion Stop: 08/08/21 02:06 Topiramate (Topiramate 25 Mg Tab) 75 mg PO BID [facility] Stop: 08/08/21 08:59 Last Admin: 07/10/21 08:39 Dose: 75 mg Documented by: Mental Health & Subst Abuse Tx Therapist Name of Therapist: None - seeking one through [facility] Name of Veneer Matcher: None Post Discharge Appointments Primary Care Physician Name Of Family Doctor: Donald Giraldo (1) Migraine Intractability: intractable Migraine type: without aura Status migrainosus presence: with status migrainosus Qualified Code(s): G43.011 - Migraine without aura, intractable, with status migrainosus
[2021-07-10] MEDS: RIMEGEPANT 75 MG PO PRN (19:25)
[2021-07-10] MEDS: hydrOXYzine HCl 25 MG TAB PO SCH (20:50)
[2021-07-10] MEDS: MONTELUKAST SODIUM 10 MG TABLET PO SCH (20:50)
[2021-07-11] MEDS: NICOTINE 14 MG/24 HR PATCH TD SCH (08:13)
[2021-07-11] MEDS: PANTOprazole 40 MG TAB PO SCH (08:14)
[2021-07-11] MEDS: ASPIRIN 81 MG ECTAB PO SCH ×2 (08:14→20:25)
[2021-07-11] MEDS: FLUoxetine HCL 20 MG CAP PO SCH (08:14)
[2021-07-11] MEDS: MAGNESIUM OXIDE 400 MG TAB PO SCH ×2 (08:14→20:22)
[2021-07-11] MEDS: TOPIRAMATE 25 MG TAB PO SCH ×2 (08:15→20:24)
[2021-07-11] MEDS: LORazepam 0.5 MG TAB PO PRN (11:12)
[2021-07-11] MEDS: hydrOXYzine HCl 25 MG TAB PO PRN (12:33)
--- NOTE | 2021-07-11 16:26 | Psychiatric Progress Note ---
Date of Service July 11, 2021 Impression / Recommendations Impression 40 yo female with mood swings, primarily depression, prior dx of bipolar do, presents with significant SI during grief reaction for traumatic loss of close family friend, worsening of migraines, currently unable to function/maintain safety outside of the hospital. (1) Migraine: (2) Bipolar disorder: 07/11/2021atient continues to make incremental progress. Sleep improving and insight is improving. Mood still remains low with periods of anger. We will continue with current medication regimen for now 07/10/21: VERONICA improved today. Declines titration of Wellbutrin as prefers to taper in favor of a trial of Prozac (today reports past trials of Remeron, SI with Effexor XR, in addition to hx in H&P). Patient agreed to beging Prozac 20 mg daily following discussion of risks/benefits/alternatives of SSRI/SNRI/atypical antiderpessants/mood stabilizers). She reports she felt numb on lamictal in past and recognizes that research is less supportive of topamax (currently for migraine) as a primary mood stabilizer but is aware that antidepressants can sometimes precipitate hypomania. She denies a hx of boo vince or psychosis. Sleep onset is often delayed until 3-4 am at home. Following discussion around sleep hygiene agreed to trial of scheduled Vistaril 50 mg hs with a repeat if ineffective. 07/09/21: The patient was admitted to the [facility] ([facility] inpatient mental health unit) on q15 min checks (behavioral with suicide precautions) for safety. The patient will participate in group, recreational, and milieu therapies and will be offered additional individual and family sessions as clinically appropriate. sympomatic treatment of migraine. Will taper Lexapro due to ineffective but inability to titrate given worsening SI. I would not continue her steroid taper as also seems to have negative impact on mood. Continue Wellbutrin for now with consideration for additional antidepressant dose or mood stabilizer trial in the am. Risk Factors Assessment Do You Have Access To A Gun?: Yes ( has permit to carry, need to confirm status) Protective Factors Assessment Employed: Yes ([employer]) Interval History Identifying Information 40 yo female with a history of bipolar depression, admit for SI in context of ongoing family grief/trauma. 201 commitment. Chief Complaint "I put myself in the safe room". Review of Systems Sleep Information Total Hours of Sleep: 7 Sleep Comments: admitted this shift. Meal Information Percent Meal Consumed - Breakfast: 100 Percent Meal Consumed - Lunch: 100 Percent Meal Consumed - Dinner: 100 Subjective Subjective Patient seen, chart reviewed and case discussed with treatment team, nursing and social work. Patient reports a decent night of sleep and strong appetite. No side effects reported or observed. Regarding mood, patient reports some episodes of anger, for which she requests to be placed in a quiet room to help her focus on her thoughts and not become self-destructive. Patient is showing good insight, although still continues to struggle with mood. Compliant with the medication thus far. I spent 30 minutes with the patient, 50% of which was dedicated to counselling and coordination of care. Physical Exam Psychiatric Orientation: alert and oriented x 3 Apperance: appropriately dressed and appropriately groomed Eye Contact: good eye contact Motor Behavior: no abnormal motor movements Speech: normal rate/rhythm/volume of speech Affect: + depressed affect Mood: + depressed mood Thought Process: goal directed thought process Thought Content: reality based without delusions Suicidal Thoughts: denies suicidal plan and denies suicidal intent (on unit); + reports suicidal thoughts Homicidal Thoughts: denies homicidal thoughts Hallucinations: no auditory hallucinations and no visual hallucinations Cognition: attention grossly intact and language grossly intact Estimated Intelligence: consistent with education level Insight: + limited insight Judgement: + limited judgement Vital Signs (Past 24 Hours) Last Vital Signs Temp 37 C 07/11/21 06:44 Pulse 86 07/11/21 06:44 Resp 16 07/11/21 06:44 BP 123/82 07/11/21 06:44 Pulse Ox 96 07/10/21 06:00 Results & Data ([facility]) Current Inpatient Medications Current Inpatient Medications: Current Inpatient Medications Acetaminophen (Acetaminophen 325 Mg Tab) 650 mg PO Q4H PRN PRN Reason: Headache or Minor Fever Stop: 08/08/21 02:06 Last Admin: 07/09/21 14:07 Dose: 650 mg Documented by: Al Hydrox/Mg Hydrox/Simethicone (Aluminum/Magnesium Susp 30 Ml Udc) 30 ml PO Q4H PRN PRN Reason: GI Upset Stop: 08/08/21 02:06 Albuterol (Albuterol Hfa 8 Gm Inhaler) 2 puffs INH QIDR PRN PRN Reason: Shortness Of Breath Stop: 08/08/21 03:35 Aspirin (Aspirin 81 Mg Ectab) 162 mg PO BID [facility] Stop: 08/08/21 08:59 Last Admin: 07/11/21 08:14 Dose: 162 mg Documented by: Bismuth Subsalicylate (Bismuth Subsalicylate Liqd 236 Ml) 15 ml PO PRN PRN PRN Reason: Loose Stool Stop: 08/08/21 02:06 Fluoxetine HCl (Fluoxetine Hcl 20 Mg Cap) 20 mg PO QAM [facility] Stop: 08/09/21 11:29 Last Admin: 07/11/21 08:14 Dose: 20 mg Documented by: Fluticasone Propionate (Fluticasone Propionate Na Spr 16 Gm Btl) 1 sprays NA DAILY PRN PRN Reason: ALLERGIES Stop: 08/08/21 08:00 Hydroxyzine HCl (Hydroxyzine Hcl 25 Mg Tab) 50 mg PO HSZ PRN PRN Reason: Insomnia Stop: 08/08/21 02:06 Hydroxyzine HCl (Hydroxyzine Hcl 25 Mg Tab) 25 mg PO Q4H PRN PRN Reason: Anxiety Stop: 08/08/21 02:06 Last Admin: 07/11/21 12:33 Dose: 25 mg Documented by: Hydroxyzine HCl (Hydroxyzine Hcl 25 Mg Tab) 50 mg PO HS [facility] Stop: 08/09/21 21:59 Last Admin: 07/10/21 20:50 Dose: 50 mg Documented by: Ibuprofen (Ibuprofen 600 Mg Tab) 600 mg PO Q6H PRN PRN Reason: fever or pain Stop: 08/08/21 08:00 Last Admin: 07/10/21 13:26 Dose: 600 mg Documented by: Lorazepam (Lorazepam 0.5 Mg Tab) 0.5 mg PO Q8H PRN PRN Reason: Anxiety Stop: 08/08/21 03:35 Last Admin: 07/11/21 11:12 Dose: 0.5 mg Documented by: Magnesium Hydroxide (Magnesium Hydroxide Susp 30 Ml Udc) 30 ml PO DAILY PRN PRN Reason: Constipation Stop: 08/08/21 02:06 Magnesium Oxide (Magnesium Oxide 400 Mg Tab) 200 mg PO BID [facility] Stop: 08/08/21 11:59 Last Admin: 07/11/21 08:14 Dose: 200 mg Documented by: Miscellaneous (Remove Nicoderm Patch) 1 ea N/A DAILY@0859 [facility] Stop: 08/10/21 08:58 Last Admin: 07/11/21 08:14 Dose: 1 ea Documented by: Montelukast Sodium (Montelukast Sodium 10 Mg Tablet) 10 mg PO HS [facility] Stop: 08/08/21 21:59 Last Admin: 07/10/21 20:50 Dose: 10 mg Documented by: Nicotine (Nicotine 14 Mg/24 Hr Patch) 14 mg TD QAM [facility] Stop: 08/09/21 10:59 Last Admin: 07/11/21 08:13 Dose: 14 mg Documented by: Rimegepant 75mg Odt ([Patient Own Med]) 1 ea PO DAILY PRN PRN Reason: AT ONSET OF MIGRAINE Stop: 08/08/21 11:29 Last Admin: 07/10/21 19:25 Dose: 1 ea Documented by: Ondansetron HCl (Ondansetron 8mg Od Tab) 8 mg PO Q8 PRN PRN Reason: Nausea Stop: 08/08/21 08:00 Pantoprazole Sodium (Pantoprazole 40 Mg Tab) 40 mg PO DAILYBB [facility] Stop: 08/09/21 07:59 Last Admin: 07/11/21 08:14 Dose: 40 mg Documented by: Sodium Chloride (Sodium Chloride 0.65% Na Soln 45 Ml ([place])) 1 - 2 sprays NA PRN PRN PRN Reason: Nasal Dryness/Congestion Stop: 08/08/21 02:06 Topiramate (Topiramate 25 Mg Tab) 75 mg PO BID [facility] Stop: 08/08/21 08:59 Last Admin: 07/11/21 08:15 Dose: 75 mg Documented by: Mental Health & Subst Abuse Tx Psychiatrist Name of Psychiatrist: Karis Psychiatrist's Time of Appointment with Psychiatrist: Will follow up with you directly to schedule Psychiatric Appointment Comment: [id number] Therapist Name of Therapist: Karis Therapist's Time of Therapist Appointment: Will follow up with you directly to schedule Therapy Appointment Comment: [id number] Skill Training Program Coordinator Name of Skill Training Program Coordinator: None Post Discharge Appointments Primary Care Physician Name Of Family Doctor: Donald Giraldo Primary Care Date of Appointment with PCP: 07/20/21 Time of Appointment with PCP: 10 a.m. Provider Appointment Comment: [facility] Contact Information Discharge Discharge Address: [facility] [place] [address] (1) Migraine Intractability: intractable Migraine type: without aura Status migrainosus presence: with status migrainosus Qualified Code(s): G43.011 - Migraine without aura, intractable, with status migrainosus
[2021-07-11] MEDS: IBUPROFEN 600 MG TAB PO PRN (16:58)
[2021-07-11] MEDS: MONTELUKAST SODIUM 10 MG TABLET PO SCH (20:25)
[2021-07-11] MEDS: hydrOXYzine HCl 25 MG TAB PO SCH (20:25)
[2021-07-12] MEDS: FLUoxetine HCL 20 MG CAP PO SCH (07:49)
[2021-07-12] MEDS: PANTOprazole 40 MG TAB PO SCH (07:49)
[2021-07-12] MEDS: MAGNESIUM OXIDE 400 MG TAB PO SCH ×2 (07:49→21:36)
[2021-07-12] MEDS: ASPIRIN 81 MG ECTAB PO SCH ×2 (07:49→21:52)
[2021-07-12] MEDS: NICOTINE 14 MG/24 HR PATCH TD SCH (07:50)
[2021-07-12] MEDS: TOPIRAMATE 25 MG TAB PO SCH ×2 (07:50→21:37)
[2021-07-12] MEDS: hydrOXYzine HCl 25 MG TAB PO PRN (12:35)
[2021-07-12] MEDS: NICOTINE POLACRILEX 2 MG GUM MT PRN (12:57)
--- NOTE | 2021-07-12 13:44 | Psychiatric Progress Note ---
Date of Service July 12, 2021 Impression / Recommendations Impression 40 yo female with mood swings, primarily depression, prior dx of bipolar do, presents with significant SI during grief reaction for traumatic loss of close family friend, worsening of migraines, currently unable to function/maintain safety outside of the hospital. (1) Migraine: (2) Bipolar disorder: 07/12/2021--will add Lamictal 25 mg p.o. twice daily to the regimen. 07/11/2021atient continues to make incremental progress. Sleep improving and insight is improving. Mood still remains low with periods of anger. We will continue with current medication regimen for now 07/10/21: VERONICA improved today. Declines titration of Wellbutrin as prefers to taper in favor of a trial of Prozac (today reports past trials of Remeron, SI with Effexor XR, in addition to hx in H&P). Patient agreed to beging Prozac 20 mg daily following discussion of risks/benefits/alternatives of SSRI/SNRI/atypical antidepressants/mood stabilizers). She reports she felt numb on lamictal in past and recognizes that research is less supportive of topamax (currently for migraine) as a primary mood stabilizer but is aware that antidepressants can sometimes precipitate hypomania. She denies a hx of boo vince or psychosis. Sleep onset is often delayed until 3-4 am at home. Following discussion around sleep hygiene agreed to trial of scheduled Vistaril 50 mg hs with a repeat if ineffective. 07/09/21: The patient was admitted to the [facility] ([facility] mental health unit) on q15 min checks (behavioral with suicide precautions) for safety. The patient will participate in group, recreational, and milieu therapies and will be offered additional individual and family sessions as clinically appropriate. sympomatic treatment of migraine. Will taper Lexapro due to ineffective but inability to titrate given worsening SI. I would not continue her steroid taper as also seems to have negative impact on mood. Continue Wellbutrin for now with consideration for additional antidepressant dose or mood stabilizer trial in the am. Risk Factors Assessment Do You Have Access To A Gun?: Yes ( has permit to carry, need to confirm status) Protective Factors Assessment Employed: Yes ([employer]) Interval History Identifying Information 40 yo female with a history of bipolar depression, admit for SI in context of ongoing family grief/trauma. 201 commitment. Chief Complaint "These racing thoughts are bothering me". Review of Systems Sleep Information Total Hours of Sleep: 6.25 Sleep Comments: admitted this shift. Meal Information Percent Meal Consumed - Breakfast: 100 Percent Meal Consumed - Lunch: 100 Percent Meal Consumed - Dinner: 100 Subjective Subjective Patient seen, chart reviewed and case discussed with treatment team, nursing and social work. Patient reports a good night of sleep and strong appetite. No side effects reported or observed. Regarding mood, patient reports some improvement which they attribute to the medications as well as the therapy they have received on the unit. The idea of Lamictal medication was discussed with the patient, who agreed that it may be helpful to add to her regimen in order to target her mood instability. She also spoke of some sleeping difficulty, and was encouraged to use the as needed medications available to her. I spent 30 minutes with the patient, 50% of which was dedicated to counselling and coordination of care. Physical Exam Psychiatric Orientation: alert and oriented x 3 Apperance: appropriately dressed and appropriately groomed Eye Contact: good eye contact Motor Behavior: no abnormal motor movements Speech: normal rate/rhythm/volume of speech Affect: + depressed affect Mood: + depressed mood Thought Process: goal directed thought process Thought Content: reality based without delusions Suicidal Thoughts: denies suicidal plan and denies suicidal intent (on unit); + reports suicidal thoughts Homicidal Thoughts: denies homicidal thoughts Hallucinations: no auditory hallucinations and no visual hallucinations Cognition: attention grossly intact and language grossly intact Estimated Intelligence: consistent with education level Insight: + limited insight Judgement: + limited judgement Vital Signs (Past 24 Hours) Last Vital Signs Temp 36.7 C 07/12/21 06:52 Pulse 123 H 07/12/21 06:52 Resp 18 07/12/21 06:52 BP 115/81 07/12/21 06:52 Pulse Ox 96 07/10/21 06:00 Results & Data (U) Current Inpatient Medications Current Inpatient Medications: Current Inpatient Medications Acetaminophen (Acetaminophen 325 Mg Tab) 650 mg PO Q4H PRN PRN Reason: Headache or Minor Fever Stop: 08/08/21 02:06 Last Admin: 07/09/21 14:07 Dose: 650 mg Documented by: Al Hydrox/Mg Hydrox/Simethicone (Aluminum/Magnesium Susp 30 Ml Udc) 30 ml PO Q4H PRN PRN Reason: GI Upset Stop: 08/08/21 02:06 Albuterol (Albuterol Hfa 8 Gm Inhaler) 2 puffs INH QIDR PRN PRN Reason: Shortness Of Breath Stop: 08/08/21 03:35 Aspirin (Aspirin 81 Mg Ectab) 162 mg PO BID [facility] Stop: 08/08/21 08:59 Last Admin: 07/12/21 07:49 Dose: 162 mg Documented by: Bismuth Subsalicylate (Bismuth Subsalicylate Liqd 236 Ml) 15 ml PO PRN PRN PRN Reason: Loose Stool Stop: 08/08/21 02:06 Fluoxetine HCl (Fluoxetine Hcl 20 Mg Cap) 20 mg PO QAM [facility] Stop: 08/09/21 11:29 Last Admin: 07/12/21 07:49 Dose: 20 mg Documented by: Fluticasone Propionate (Fluticasone Propionate Na Spr 16 Gm Btl) 1 sprays NA DAILY PRN PRN Reason: ALLERGIES Stop: 08/08/21 08:00 Hydroxyzine HCl (Hydroxyzine Hcl 25 Mg Tab) 50 mg PO HSZ PRN PRN Reason: Insomnia Stop: 08/08/21 02:06 Hydroxyzine HCl (Hydroxyzine Hcl 25 Mg Tab) 25 mg PO Q4H PRN PRN Reason: Anxiety Stop: 08/08/21 02:06 Last Admin: 07/12/21 12:35 Dose: 25 mg Documented by: Hydroxyzine HCl (Hydroxyzine Hcl 25 Mg Tab) 50 mg PO HS [facility] Stop: 08/09/21 21:59 Last Admin: 07/11/21 20:25 Dose: 50 mg Documented by: Ibuprofen (Ibuprofen 600 Mg Tab) 600 mg PO Q6H PRN PRN Reason: fever or pain Stop: 08/08/21 08:00 Last Admin: 07/11/21 16:58 Dose: 600 mg Documented by: Lamotrigine (Lamotrigine 25 Mg Tab) 25 mg PO BID [facility] Stop: 08/11/21 20:59 Lorazepam (Lorazepam 0.5 Mg Tab) 0.5 mg PO Q8H PRN PRN Reason: Anxiety Stop: 08/08/21 03:35 Last Admin: 07/11/21 11:12 Dose: 0.5 mg Documented by: Magnesium Hydroxide (Magnesium Hydroxide Susp 30 Ml Udc) 30 ml PO DAILY PRN PRN Reason: Constipation Stop: 08/08/21 02:06 Magnesium Oxide (Magnesium Oxide 400 Mg Tab) 200 mg PO BID [facility] Stop: 08/08/21 11:59 Last Admin: 07/12/21 07:49 Dose: 200 mg Documented by: Miscellaneous (Remove Nicoderm Patch) 1 ea N/A DAILY@0859 [facility] Stop: 08/10/21 08:58 Last Admin: 07/12/21 07:49 Dose: 1 ea Documented by: Montelukast Sodium (Montelukast Sodium 10 Mg Tablet) 10 mg PO HS [facility] Stop: 08/08/21 21:59 Last Admin: 07/11/21 20:25 Dose: 10 mg Documented by: Nicotine (Nicotine 14 Mg/24 Hr Patch) 14 mg TD QAM [facility] Stop: 08/09/21 10:59 Last Admin: 07/12/21 07:50 Dose: 14 mg Documented by: Nicotine Polacrilex (Nicotine Polacrilex 2 Mg Gum) 1 piece MT PRN PRN PRN Reason: cravings Stop: 08/11/21 12:28 Last Admin: 07/12/21 12:57 Dose: 1 piece Documented by: Rimegepant 75mg Odt ([Patient Own Med]) 1 ea PO DAILY PRN PRN Reason: AT ONSET OF MIGRAINE Stop: 08/08/21 11:29 Last Admin: 07/10/21 19:25 Dose: 1 ea Documented by: Ondansetron HCl (Ondansetron 8mg Od Tab) 8 mg PO Q8 PRN PRN Reason: Nausea Stop: 08/08/21 08:00 Pantoprazole Sodium (Pantoprazole 40 Mg Tab) 40 mg PO DAILYBB [facility] Stop: 08/09/21 07:59 Last Admin: 07/12/21 07:49 Dose: 40 mg Documented by: Sodium Chloride (Sodium Chloride 0.65% Na Soln 45 Ml ([place])) 1 - 2 sprays NA PRN PRN PRN Reason: Nasal Dryness/Congestion Stop: 08/08/21 02:06 Topiramate (Topiramate 25 Mg Tab) 75 mg PO BID [facility] Stop: 08/08/21 08:59 Last Admin: 07/12/21 07:50 Dose: 75 mg Documented by: Mental Health & Subst Abuse Tx Psychiatrist Name of Psychiatrist: Karis Psychiatrist's Time of Appointment with Psychiatrist: Will follow up with you directly to schedule Psychiatric Appointment Comment: [phone] Therapist Name of Therapist: CarmelaIsael Therapist's Time of Therapist Appointment: Will follow up with you directly to schedule Therapy Appointment Comment: [phone] Casket Assembler Name of Casket Assembler: None Post Discharge Appointments Primary Care Physician Name Of Family Doctor: Donald Giraldo Primary Care Date of Appointment with PCP: 07/20/21 Time of Appointment with PCP: 10 a.m. Provider Appointment Comment: [address] [facility] Contact Information Discharge Discharge Address: [facility] [place] [address] (1) Migraine Intractability: intractable Migraine type: without aura Status migrainosus presence: with status migrainosus Qualified Code(s): G43.011 - Migraine without aura, intractable, with status migrainosus
[2021-07-12] MEDS: lamoTRIgine 25 MG TAB PO SCH (21:36)
[2021-07-12] MEDS: MONTELUKAST SODIUM 10 MG TABLET PO SCH (21:36)
[2021-07-12] MEDS: hydrOXYzine HCl 25 MG TAB PO SCH (21:39)
[2021-07-12] MEDS: LORazepam 0.5 MG TAB PO PRN (21:59)
[2021-07-13] MEDS: ASPIRIN 81 MG ECTAB PO SCH ×2 (08:09→20:36)
[2021-07-13] MEDS: PANTOprazole 40 MG TAB PO SCH (08:09)
[2021-07-13] MEDS: lamoTRIgine 25 MG TAB PO SCH ×2 (08:10→20:37)
[2021-07-13] MEDS: FLUoxetine HCL 20 MG CAP PO SCH (08:10)
[2021-07-13] MEDS: MAGNESIUM OXIDE 400 MG TAB PO SCH ×2 (08:10→20:34)
[2021-07-13] MEDS: TOPIRAMATE 25 MG TAB PO SCH ×2 (08:11→20:35)
[2021-07-13] MEDS: NICOTINE 14 MG/24 HR PATCH TD SCH (08:11)
[2021-07-13] MEDS: NICOTINE POLACRILEX 2 MG GUM MT PRN (09:17)
--- NOTE | 2021-07-13 10:47 | Psychiatric Progress Note ---
Date of Service July 13, 2021 Impression / Recommendations Impression 40 yo female with mood swings, primarily depression, prior dx of bipolar do, presents with significant SI during grief reaction for traumatic loss of close family friend, worsening of migraines, currently unable to function/maintain safety outside of the hospital. (1) Migraine: (2) Bipolar disorder: 07/13/21--Patient rporting feeling better with resolution fo SI. Will start discharge planning 07/12/2021--will add Lamictal 25 mg p.o. twice daily to the regimen. 07/11/2021atient continues to make incremental progress. Sleep improving and insight is improving. Mood still remains low with periods of anger. We will continue with current medication regimen for now 07/10/21: VERONICA improved today. Declines titration of Wellbutrin as prefers to taper in favor of a trial of Prozac (today reports past trials of Remeron, SI with Effexor XR, in addition to hx in H&P). Patient agreed to beging Prozac 20 mg daily following discussion of risks/benefits/alternatives of SSRI/SNRI/atypical antidepressants/mood stabilizers). She reports she felt numb on lamictal in past and recognizes that research is less supportive of topamax (currently for migraine) as a primary mood stabilizer but is aware that antidepressants can sometimes precipitate hypomania. She denies a hx of boo vince or psychosis. Sleep onset is often delayed until 3-4 am at home. Following discussion around sleep hygiene agreed to trial of scheduled Vistaril 50 mg hs with a repeat if ineffective. 07/09/21: The patient was admitted to the [facility] ([facility] mental health unit) on q15 min checks (behavioral with suicide precautions) for safety. The patient will participate in group, recreational, and milieu therapies and will be offered additional individual and family sessions as clinically appropriate. sympomatic treatment of migraine. Will taper Lexapro due to ineffective but inability to titrate given worsening SI. I would not continue her steroid taper as also seems to have negative impact on mood. Continue Wellbutrin for now with consideration for additional antidepressant dose or mood stabilizer trial in the am. Risk Factors Assessment Do You Have Access To A Gun?: Yes ( has permit to carry, need to confirm status) Protective Factors Assessment Employed: Yes ([employer]) Interval History Identifying Information 40 yo female with a history of bipolar depression, admit for SI in context of ongoing family grief/trauma. 201 commitment. Chief Complaint "Feeling better". Review of Systems Sleep Information Total Hours of Sleep: 7.25 Sleep Comments: admitted this shift. Meal Information Percent Meal Consumed - Breakfast: 100 Percent Meal Consumed - Lunch: 100 Percent Meal Consumed - Dinner: 100 Subjective Subjective Patient seen, chart reviewed and case discussed with treatment team, nursing and social work. Patient reports a good night of sleep and strong appetite. took the dosage of Lamictal last night. No side effects reported or observed. Regarding mood, patient reports some improvement which they attribute to the medications as well as the therapy they have received on the unit. Now denies SI. I spent 30 minutes with the patient, 50% of which was dedicated to counselling and coordination of care. Physical Exam Psychiatric Orientation: alert and oriented x 3 Apperance: appropriately dressed and appropriately groomed Eye Contact: good eye contact Motor Behavior: no abnormal motor movements Speech: normal rate/rhythm/volume of speech Affect: + depressed affect Mood: + depressed mood Thought Process: goal directed thought process Thought Content: reality based without delusions Suicidal Thoughts: denies suicidal plan and denies suicidal intent (on unit); + reports suicidal thoughts Homicidal Thoughts: denies homicidal thoughts Hallucinations: no auditory hallucinations and no visual hallucinations Cognition: attention grossly intact and language grossly intact Estimated Intelligence: consistent with education level Insight: + limited insight Judgement: + limited judgement Vital Signs (Past 24 Hours) Last Vital Signs Temp 36.8 C 07/13/21 06:57 Pulse 86 07/13/21 06:57 Resp 16 07/13/21 06:57 BP 115/79 07/13/21 06:57 Pulse Ox 96 07/10/21 06:00 Results & Data ([facility]) Current Inpatient Medications Current Inpatient Medications: Current Inpatient Medications Acetaminophen (Acetaminophen 325 Mg Tab) 650 mg PO Q4H PRN PRN Reason: Headache or Minor Fever Stop: 08/08/21 02:06 Last Admin: 07/09/21 14:07 Dose: 650 mg Documented by: Al Hydrox/Mg Hydrox/Simethicone (Aluminum/Magnesium Susp 30 Ml Udc) 30 ml PO Q4H PRN PRN Reason: GI Upset Stop: 08/08/21 02:06 Last Admin: 07/12/21 21:51 Dose: 30 ml Documented by: Albuterol (Albuterol Hfa 8 Gm Inhaler) 2 puffs INH QIDR PRN PRN Reason: Shortness Of Breath Stop: 08/08/21 03:35 Aspirin (Aspirin 81 Mg Ectab) 162 mg PO BID [facility] Stop: 08/08/21 08:59 Last Admin: 07/13/21 08:09 Dose: 162 mg Documented by: Bismuth Subsalicylate (Bismuth Subsalicylate Liqd 236 Ml) 15 ml PO PRN PRN PRN Reason: Loose Stool Stop: 08/08/21 02:06 Fluoxetine HCl (Fluoxetine Hcl 20 Mg Cap) 20 mg PO QAM [facility] Stop: 08/09/21 11:29 Last Admin: 07/13/21 08:10 Dose: 20 mg Documented by: Fluticasone Propionate (Fluticasone Propionate Na Spr 16 Gm Btl) 1 sprays NA DAILY PRN PRN Reason: ALLERGIES Stop: 08/08/21 08:00 Hydroxyzine HCl (Hydroxyzine Hcl 25 Mg Tab) 50 mg PO HSZ PRN PRN Reason: Insomnia Stop: 08/08/21 02:06 Hydroxyzine HCl (Hydroxyzine Hcl 25 Mg Tab) 25 mg PO Q4H PRN PRN Reason: Anxiety Stop: 08/08/21 02:06 Last Admin: 07/12/21 12:35 Dose: 25 mg Documented by: Hydroxyzine HCl (Hydroxyzine Hcl 25 Mg Tab) 50 mg PO HS [facility] Stop: 08/09/21 21:59 Last Admin: 07/12/21 21:39 Dose: 50 mg Documented by: Ibuprofen (Ibuprofen 600 Mg Tab) 600 mg PO Q6H PRN PRN Reason: fever or pain Stop: 08/08/21 08:00 Last Admin: 07/11/21 16:58 Dose: 600 mg Documented by: Lamotrigine (Lamotrigine 25 Mg Tab) 25 mg PO BID [facility] Stop: 08/11/21 20:59 Last Admin: 07/13/21 08:10 Dose: 25 mg Documented by: Lorazepam (Lorazepam 0.5 Mg Tab) 0.5 mg PO Q8H PRN PRN Reason: Anxiety Stop: 08/08/21 03:35 Last Admin: 07/12/21 21:59 Dose: 0.5 mg Documented by: Magnesium Hydroxide (Magnesium Hydroxide Susp 30 Ml Udc) 30 ml PO DAILY PRN PRN Reason: Constipation Stop: 08/08/21 02:06 Magnesium Oxide (Magnesium Oxide 400 Mg Tab) 200 mg PO BID [facility] Stop: 08/08/21 11:59 Last Admin: 07/13/21 08:10 Dose: 200 mg Documented by: Miscellaneous (Remove Nicoderm Patch) 1 ea N/A DAILY@0859 [facility] Stop: 08/10/21 08:58 Last Admin: 07/13/21 08:09 Dose: Not Given Documented by: Montelukast Sodium (Montelukast Sodium 10 Mg Tablet) 10 mg PO HS [facility] Stop: 08/08/21 21:59 Last Admin: 07/12/21 21:36 Dose: 10 mg Documented by: Nicotine (Nicotine 14 Mg/24 Hr Patch) 14 mg TD QAM [facility] Stop: 08/09/21 10:59 Last Admin: 07/13/21 08:11 Dose: 14 mg Documented by: Nicotine Polacrilex (Nicotine Polacrilex 2 Mg Gum) 1 piece MT PRN PRN PRN Reason: cravings Stop: 08/11/21 12:28 Last Admin: 07/13/21 09:17 Dose: 1 piece Documented by: Rimegepant 75mg Odt ([Patient Own Med]) 1 ea PO DAILY PRN PRN Reason: AT ONSET OF MIGRAINE Stop: 08/08/21 11:29 Last Admin: 07/10/21 19:25 Dose: 1 ea Documented by: Ondansetron HCl (Ondansetron 8mg Od Tab) 8 mg PO Q8 PRN PRN Reason: Nausea Stop: 08/08/21 08:00 Pantoprazole Sodium (Pantoprazole 40 Mg Tab) 40 mg PO DAILYBB [facility] Stop: 08/09/21 07:59 Last Admin: 07/13/21 08:09 Dose: 40 mg Documented by: Sodium Chloride (Sodium Chloride 0.65% Na Soln 45 Ml ([place])) 1 - 2 sprays NA PRN PRN PRN Reason: Nasal Dryness/Congestion Stop: 08/08/21 02:06 Topiramate (Topiramate 25 Mg Tab) 75 mg PO BID [facility] Stop: 08/08/21 08:59 Last Admin: 09/06/21 08:11 Dose: 75 mg Documented by: Mental Health & Subst Abuse Tx Psychiatrist Name of Psychiatrist: Karis Psychiatrist's Time of Appointment with Psychiatrist: Will follow up with you directly to schedule Psychiatric Appointment Comment: [phone] Therapist Name of Therapist: Karis Therapist's Time of Therapist Appointment: Will follow up with you directly to schedule Therapy Appointment Comment: [phone] Packaging Tech Name of Packaging Tech: None Post Discharge Appointments Primary Care Physician Name Of Family Doctor: Donald Giraldo Primary Care Date of Appointment with PCP: 07/20/21 Time of Appointment with PCP: 10 a.m. Provider Appointment Comment: [address] [facility] Contact Information Discharge Discharge Address: [facility] [place] [address] (1) Migraine Intractability: intractable Migraine type: without aura Status migrainosus presence: with status migrainosus Qualified Code(s): G43.011 - Migraine without aura, intractable, with status migrainosus
[2021-07-13] MEDS: hydrOXYzine HCl 25 MG TAB PO SCH (20:37)
[2021-07-13] MEDS: MONTELUKAST SODIUM 10 MG TABLET PO SCH (20:38)
[2021-07-13] MEDS: LORazepam 0.5 MG TAB PO PRN (22:09)
[2021-07-14] MEDS: PANTOprazole 40 MG TAB PO SCH (07:34)
[2021-07-14] MEDS: ASPIRIN 81 MG ECTAB PO SCH (07:34)
[2021-07-14] MEDS: FLUoxetine HCL 20 MG CAP PO SCH (07:34)
[2021-07-14] MEDS: MAGNESIUM OXIDE 400 MG TAB PO SCH (07:35)
[2021-07-14] MEDS: lamoTRIgine 25 MG TAB PO SCH (07:35)
[2021-07-14] MEDS: NICOTINE 14 MG/24 HR PATCH TD SCH (07:35)
[2021-07-14] MEDS: TOPIRAMATE 25 MG TAB PO SCH (07:36)
[2021-07-14] MEDS: IBUPROFEN 600 MG TAB PO PRN (07:38)
--- NOTE | 2021-07-14 11:16 | Discharge Summary ---
Date of Service July 14, 2021 History of Present Illness The patient reports rather persistent depression since Nov when a 16 yo family friend committed suicide. She was like a "second mother" to him as he spent time at their home and dated her youngest daughter "on again, off again". She has extreme guilt as "he seemed fine" but spontaneously wrote her a suicide note, went to her 's truck and used her 's gun to end his life. He was found by her and 2 youngest children. The whole family was in shock and since that time all are struggling/seeking additional counseling. A few weeks after she was offered Ativan prn for panic and also addition of Lexapro to her Wellbutrin XL and reports neither are helpful. She has marked difficulty concentrating but tries to keep "work separate". 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 She is only eating once a day. She reports persistent suicidal ideation for past 3-4 days and was close to coming to the ED before. Other stressors include worsening of her migraines and irritability (possibly due to steroid taper) and inability to get appointments through [facility] neurology. She has a migraine at the time of this assessment so we are in the dark with door closed to limit sound as is bringing her non-formulary Nucynta. She states that topamax was tried at a higher dose but this caused s ignificant brain fog. She denies periods of elevated mood but has been reactive, prior chart lists bipolar with appropriate rx so likely bipolar II. States that her is more likely to see the signs of irritability. Has had benefit but also irritaiblity with Paxil in past. Her children are from a previous relationship so her younger daughter is currently living with daughter's biological father as "too hard" to be at the house since the suicide. She relates 18 daughter also moved out to live with her own boyfriend. made a statement to staff that some of these changes may have also been due to marital issues. Physical Exam Psychiatric Orientation: alert and oriented x 3 Apperance: appropriately dressed and appropriately groomed Eye Contact: good eye contact Motor Behavior: no abnormal motor movements Speech: normal rate/rhythm/volume of speech Affect: + depressed affect Mood: + depressed mood Thought Process: goal directed thought process Thought Content: reality based without delusions Suicidal Thoughts: denies suicidal plan and denies suicidal intent (on unit); + reports suicidal thoughts Homicidal Thoughts: denies homicidal thoughts Hallucinations: no auditory hallucinations and no visual hallucinations Cognition: attention grossly intact and language grossly intact Estimated Intelligence: consistent with education level Insight: + limited insight Judgement: + limited judgement Vital Signs (Past 24 Hours) Last Vital Signs Temp 36.9 C 07/14/21 10:44 Pulse 97 H 07/14/21 10:44 Resp 16 07/14/21 10:44 BP 115/79 07/14/21 10:44 Pulse Ox 96 07/14/21 10:44 Principal Diagnosis Bipolar disorder Psychiatric Data See daily stay summary. In short, safety was maintained, and the patient was cooperative with care. Medication changes included stopping Lexapro and Wellbutrin and starting Prozac and Lamictal and they tolerated this well. A family session was held and safety plan was completed prior to discharge. Day of Discharge Assessment Today the patient voices readiness for discharge. They note improvement in mood and deny thoughts to harm self or others. Thoughts remain organized and they are improved from admission. There is no evidence of psychosis. They agree to take medications as prescribed and keep follow-up appointments. They are stable for discharge to outpatient level of care. Transition of Care Transition Of Care Record: was reviewed with the patient Advance Directives Advance Directives Information Provided: Yes Advance Directives: No Mental Health Advance Directive: No Living Will: No Power of School Aide: No Advance Directives Reason:: Declines as Mental Health Visit. Risk Factors Assessment Do You Have Access To A Gun?: Yes ( has permit to carry, need to confirm status) Protective Factors Assessment Employed: Yes ([employer]) Discharge Data Lab Results 07/08/21 07/08/21 07/08/21 22:41 22:41 22:59 WBC 12.31 H RBC 4.00 L Hgb 13.0 Hct 39.1 MCV 97.8 MCH 32.5 MCHC 33.2 RDW Std Deviation 47.9 H RDW Coeff of Og 13.4 Plt Count 271 MPV 9.5 Immature Gran % (Auto) 0.2 Neut % (Auto) 54.2 Lymph % (Auto) 34.8 [place] % (Auto) 6.0 Eos % (Auto) 4.4 Baso % (Auto) 0.4 Neut # (Auto) 6.67 H Lymph # (Auto) 4.29 H [place] # (Auto) 0.74 H Eos # (Auto) 0.54 H Baso # (Auto) 0.05 Immature Gran # (Auto) 0.02 Sodium Potassium Chloride Carbon Dioxide Anion Gap BUN Creatinine Est Cr Clr Drug Dosing Est GFR ( Amer) Est GFR (Non-Af Amer) BUN/Creatinine Ratio Glucose Calcium Total Bilirubin AST ALT Alkaline Phosphatase Total Protein Albumin Globulin Albumin/Globulin Ratio TSH HCG, Qual Urine Color Dark Yellow Urine Appearance Clear Urine pH 6.5 Ur Specific [place] 1.020 Urine Protein Negative Urine Glucose (UA) Negative Urine Ketones Negative Urine Blood 2+ H Urine Nitrite Negative Urine Bilirubin Negative Urine Urobilinogen Negative Ur Leukocyte Esterase Negative Urine WBC (Auto) 1-5 Urine RBC (Auto) 10-30 H U Hyaline Cast (Auto) 0 U Epithel Cells (Auto) 10-20 H Urine Bacteria (Auto) Negative Salicylates Urine Opiates Screen Neg Ur Methadone, Qual Neg Acetaminophen Urine Barbiturates Neg Ur Phencyclidine (PCP) Neg U Amphetamin/Meth Scrn Neg MDMA (Ecstasy) Screen Neg U Benzodiazepines Scrn Neg Ur Cocaine Metabolite Neg U Marijuana (THC) Screen Neg Ethyl Alcohol mg/dL COVID-19 Eval Order SARS-CoV-2, RNA, NAAT 07/08/21 07/08/21 07/08/21 22:59 22:59 22:59 WBC RBC Hgb Hct MCV MCH MCHC RDW Std Deviation RDW Coeff of Og Plt Count MPV Immature Gran % (Auto) Neut % (Auto) Lymph % (Auto) [place] % (Auto) Eos % (Auto) Baso % (Auto) Neut # (Auto) Lymph # (Auto) [place] # (Auto) Eos # (Auto) Baso # (Auto) Immature Gran # (Auto) Sodium 140 Potassium 3.7 Chloride 114 H Carbon Dioxide 24 Anion Gap 2.0 L BUN 8 Creatinine 0.72 Est Cr Clr Drug Dosing 145.4 Est GFR ( Amer) 122.3 Est GFR (Non-Af Amer) 105.5 BUN/Creatinine Ratio 11.3 Glucose 100 H Calcium 8.4 L Total Bilirubin 0.1 L AST 12 L ALT 21 Alkaline Phosphatase 90 Total Protein 7.4 Albumin 3.4 Globulin 4.0 Albumin/Globulin Ratio 0.9 TSH 2.120 HCG, Qual Urine Color Urine Appearance Urine pH Ur Specific [place] Urine Protein Urine Glucose (UA) Urine Ketones Urine Blood Urine Nitrite Urine Bilirubin Urine Urobilinogen Ur Leukocyte Esterase Urine WBC (Auto) Urine RBC (Auto) U Hyaline Cast (Auto) U Epithel Cells (Auto) Urine Bacteria (Auto) Salicylates 2.7 L Urine Opiates Screen Ur Methadone, Qual Acetaminophen < 2 L Urine Barbiturates Ur Phencyclidine (PCP) U Amphetamin/Meth Scrn MDMA (Ecstasy) Screen U Benzodiazepines Scrn Ur Cocaine Metabolite U Marijuana (THC) Screen Ethyl Alcohol mg/dL < 3.0 COVID-19 Eval Order SARS-CoV-2, RNA, NAAT 07/08/21 07/09/21 07/09/21 22:59 01:14 01:14 WBC RBC Hgb Hct MCV MCH MCHC RDW Std Deviation RDW Coeff of Og Plt Count MPV Immature Gran % (Auto) Neut % (Auto) Lymph % (Auto) [place] % (Auto) Eos % (Auto) Baso % (Auto) Neut # (Auto) Lymph # (Auto) [place] # (Auto) Eos # (Auto) Baso # (Auto) Immature Gran # (Auto) Sodium Potassium Chloride Carbon Dioxide Anion Gap BUN Creatinine Est Cr Clr Drug Dosing Est GFR ( Amer) Est GFR (Non-Af Amer) BUN/Creatinine Ratio Glucose Calcium Total Bilirubin AST ALT Alkaline Phosphatase Total Protein Albumin Globulin Albumin/Globulin Ratio TSH HCG, Qual Negative Urine Color Urine Appearance Urine pH Ur Specific [place] Urine Protein Urine Glucose (UA) Urine Ketones Urine Blood Urine Nitrite Urine Bilirubin Urine Urobilinogen Ur Leukocyte Esterase Urine WBC (Auto) Urine RBC (Auto) U Hyaline Cast (Auto) U Epithel Cells (Auto) Urine Bacteria (Auto) Salicylates Urine Opiates Screen Ur Methadone, Qual Acetaminophen Urine Barbiturates Ur Phencyclidine (PCP) U Amphetamin/Meth Scrn MDMA (Ecstasy) Screen U Benzodiazepines Scrn Ur Cocaine Metabolite U Marijuana (THC) Screen Ethyl Alcohol mg/dL COVID[facility]19 [facility], RNA, NAAT NEGATIVE Hospital Course (1) Migraine: (2) Bipolar disorder: 07/13/21--Patient rporting feeling better with resolution fo SI. Will start discharge planning 07/12/2021--will add Lamictal 25 mg p.o. twice daily to the regimen. 07/11/2021atient continues to make incremental progress. Sleep improving and insight is improving. Mood still remains low with periods of anger. We will continue with current medication regimen for now 07/10/21: VREONICA improved today. Declines titration of Wellbutrin as prefers to taper in favor of a trial of Prozac (today reports past trials of Remeron, SI with Effexor XR, in addition to hx in H&P). Patient agreed to beging Prozac 20 mg daily following discussion of risks/benefits/alternatives of SSRI/SNRI/atypical antidepressants/mood stabilizers). She reports she felt numb on lamictal in past and recognizes that research is less supportive of topamax (currently for migraine) as a primary mood stabilizer but is aware that antidepressants can sometimes precipitate hypomania. She denies a hx of boo vince or psychosis. Sleep onset is often delayed until 3-4 am at home. Following discussion around sleep hygiene agreed to trial of scheduled Vistaril 50 mg hs with a repeat if ineffective. 07/09/21: The patient was admitted to the [facility] ([facility] inpatient mental health unit) on q15 min checks (behavioral with suicide precautions) for safety. The patient will participate in group, recreational, and milieu therapies and will be offered additional individual and family sessions as clinically appropriate. sympomatic treatment of migraine. Will taper Lexapro due to ineffective but inability to titrate given worsening SI. I would not continue her steroid taper as also seems to have negative impact on mood. Continue Wellbutrin for now with consideration for additional antidepressant dose or mood stabilizer trial in the am. Mental Health & Subst Abuse Tx Psychiatrist Name of Psychiatrist: Karis Psychiatrist's Date of Appointment with Psychiatrist: 07/21/21 Time of Appointment with Psychiatrist: 10am Psychiatric Appointment Comment: [phone] Psychiatrist Release of Information: Obtained, Reviewed and Signed Therapist Name of Therapist: Karis Therapist's Time of Therapist Appointment: Will follow up with you directly to schedule Therapy Appointment Comment: [phone] Therapist Release of Information: Obtained, Reviewed and Signed Deburring Technician Name of Deburring Technician: None Post Discharge Appointments Primary Care Physician Name Of Family Doctor: Donald Giraldo Primary Care Date of Appointment with PCP: 07/20/21 Time of Appointment with PCP: 10 a.m. Provider Appointment Comment: [phone] [place] Primary Care Release of Information: Obtained, Reviewed and Signed Contact Information Discharge Discharge Address: [address] [place] [address] Discharge Plan Discharge Items Patient Disposition: Home - Self-Care Reason For Visit: BIPOLAR D/O Discharge Diagnosis: Bipolar disorder Activity: Resume your previous activity Non-emergency contact: Primary Care Provider, Psychiatrist and Therapist Call non-emergency contact if: you have any medication questions and your symptoms worsen Follow-up/Referrals: Roddy Giraldo MD [Primary Care Provider] - Diet: Regular Addtl Attending Provider Instructions: SPECIAL CARE INSTRUCTIONS: 1. Follow through with your scheduled aftercare appointments. If unable to keep an appointment, please call to reschedule. 2. Take your medication only as prescribed. Medication should not be changed or stopped without the approval of your doctor. In the event of worsening symptoms or concerns about side effects, contact your doctor immediately. 3. Utilize new healthy coping skills, anger management skills, and stress management skills learned during your hospitalization. Journal feelings and process them with a support person. Identify stressors or situations that may result in relapse, deterioration or inappropriate behaviors and develop a plan to deal with those issues. 4. If your coping skills are ineffective and you are in crisis, contact your outpatient providers for direction. If unable to reach your providers, please call the [facility] CRISIS LINE AT , go to the [facility] walk-in center at [address], [address], [place], or go to the closest Emergency Room. 5. Avoid alcohol and un-prescribed drugs. 6. You have been provided with the Mental Health Advance Directives Pamphlet for your review. 7. Your condition is stable for discharge to outpatient level of care, but recovery is an ongoing process. Ifthoughts to harm yourself or others return, follow the safety plan developed during your stay. Planning for a safe return home includes securing weapons. Our treatment team recommends weaponsbe removed from the home until your outpatient provider reassesses your progress. In rare cases where the items themselvescannot be removed, guns and ammunitionshould be secured separatelyand keys stored by a reliable personoutside of the home. If you were admitted on an involuntary commitment, the police or other legal authorities may be involved in this process. AFTERCARE APPOINTMENTS: * Please call your insurance company prior to your scheduled appointment to confirm your aftercare providers are covered. Take your insurance information to your appointments. WHO TO CALL AND WHEN: Medical Emergencies: For questions or emergencies related to your hospital stay, please contact the Inpatient Behavioral Health Unit at [phone]. A psychiatric attendant is on-call 30/05 for the Behavioral Health Unit for emergencies At any time you feel your situation is an emergency, you may also call 911 immediately. Pending Studies at Discharge: No Stand-Alone Forms: My [facility] Medications and DC Order Prescriptions: New lamotrigine [Lamictal] 25 mg Tablet 25 mg PO BID 30 Days Qty: 60 RF: 0 fluoxetine 20 mg Capsule 20 mg PO QAM 30 Days Qty: 30 RF: 0 Continued riboflavin (vitamin B2) [Vitamin B-2] 100 mg Tablet 400 mg PO QAM RF: 0 epinephrine 0.3 mg/0.3 mL auto-injector 0.3 mg IM DIRECTED PRN (Reason: Allergic Reaction) RF: 0 montelukast [Singulair] 10 mg Tablet 10 mg PO HS RF: 0 fluticasone propionate 50 mcg/actuation [place],Suspension 1 spray INTRANASAL DAILY PRN (Reason: ALLERGIES) RF: 0 Nurtec ODT 75 mg tablet,disintegrating 75 mg PO DIRECTED MDD 1 TAB/24 HOURS PRN (Reason: Migraine Headache) RF: 0 pantoprazole 40 mg tablet,delayed release (DR/EC) 40 mg PO DAILYBB RF: 0 aspirin [Adult Aspirin Regimen] 81 mg tablet,delayed release (DR/EC) 162 mg PO BID RF: 0 magnesium oxide 200 mg magnesium Tablet 200 mg PO BID RF: 0 ondansetron 8 mg tablet,disintegrating 8 mg PO Q8 PRN (Reason: Nausea) RF: 0 lorazepam 0.5 mg tablet 0.5 mg PO Q8 PRN (Reason: Anxiety) 10 Days Qty: 30 RF: 0 hydroxyzine HCl 25 mg tablet 25 mg PO TID PRN (Reason: Anxiety) 30 Days RF: 0 topiramate 50 mg tablet 75 mg PO BID 30 Days Qty: 90 RF: 0 acetaminophen 325 mg Tablet 650 mg PO Q4H PRN (Reason: fever or pain) Qty: 90 RF: 0 ibuprofen 600 mg tablet 600 mg PO Q6H PRN (Reason: fever or pain) Qty: 90 RF: 0 Discontinued bupropion HCl 150 mg tablet extended release 24 hr 150 mg PO QAM RF: 0 escitalopram oxalate 10 mg tablet 10 mg PO HS RF: 0 Discharge Orders: Discharge Order (Routine); Ordered 07/14/21 Ordered By: Roddy Graham Admission Data Admit Date/Time: 07/09/21 02:07 Attending Provider: Roddy Graham Admit Provider: Nette Esparza Primary Care Provider: Roddy Giraldo Other Interventions: Discharge Summary Assessment (RN) Last Done: 07/14/21 10:44 PSY Interdisciplinary Discharge Planning Last Done: 07/14/21 10:44 Coding Level of Care Code 34865 D/C day mgmt > 30 min Diagnoses Migraine G43.011 Intractability: intractable Migraine type: without aura Status migrainosus presence: with status migrainosus Bipolar disorder F31.9 Time Spent (min) 40
== END 2021-07-14 10:59 | disposition home or self-care (01) | DRG 885 ==
LOC: ED 22:07 → 3S 07-09 02:07 → SUATTDRO 07-09 02:07 → 3S 07-09 03:19

== ENCOUNTER 2024-04-22 23:33 | Observation (INO) ==
--- OUTSIDE RECORDS SUMMARY | 2024-04-22 23:40 | External Medical Summary | Summary of Care ---
Author Name Unknown Organization [facility] Address [address] [place] [address] Phone [phone] Care Team Providers Care Architectural Renderer Name Role Phone Roddy Giraldo MD Primary Care Provider + Encounter Details Date Type Department Care Team (Late st Contact Info) Description 01/18/[address]24 [address] [facility] [address] [place] [address] Roddy Giraldo MD [address] [place] [id number] Allergies Active Allergy Reactions Criticality Noted Date Comments Azithromycin High 04/23/2004 gi upset Sulfamethoxazole-Trimet hoprim Nausea/vomiting 12/23/2016 Citalopram High 09/18/2021 Citalopram Hydrobromide Other (Please comment) 09/21/2011 Effects on mood, thinking Cephalexin Nausea/vomiting 12/23/2016 Atorvastatin Calcium 01/31/2014 Myalgias Morphine Other (Please comment) High 09/01/2015 Rebound migraines Red Dye 01/09/2013 40 and 30 causes pt to get migraines Venlafaxine 04/23/2004 Effexor, dizziness documented as of this encounter (statuses as of 01/18/2024) Medications Medication Sig Dispensed Refills Start Date End Date Status valACYclovir (VALTREX) 1000 MG Tablet Take 2 Tabs by mouth every 12 hours. For 1 day for cold sores 4 Tab 11 08/12/2017 Active aspirin enteric coated 81 MG TBEC Take 2 Tablets by mouth in the morning and 2 Tablets before bedtime. 0 Active Acetaminophen 500 MG Oral Tablet Take 1 Tablet by mouth every 6 hours as needed for Pain. 0 Active Riboflavin 400 MG TabletIndications:Othe r migraine without status migrainosus, not intractable Take 1 Tab by mouth daily. 30 Tab 12 11/16/2018 Active Magnesium 500 MG Capsule Take 400 mg by mouth 2 times a day. 0 Active betamethasone dipropionate (DIPROSONE) 0.05 % cream Apply topically to affected area 2 times a day. Apply to hand rash. 45 g 3 06/19/2019 Active Triamcinolone Acetonide 0.5 % creamIndications:[place] titis Apply topically to affected area 2 times a day. To affected area. 60 g 5 06/26/2020 Active Ondansetron 8 MG Oral Tablet Disintegrating (Zofran) Place 1 Tab on tongue every 8 hours as needed for Nausea. dissolve on tongue. 20 Tab 5 04/13/2021 Active Albuterol Sulfate HFA 108 (90 Base) MCG/ACT Inhalation Aerosol SolutionIndications:Br onchitis, complicated Inhale 2 Puffs by mouth every 4 hours as needed for Wheezing. 18 g 5 09/29/2021 Active LORazepam 0.5 MG Oral Tablet (Ativan)Indications:Ad justment disorder with anxious mood TAKE 1 TABLET BY MOUTH EVERY 8 HOURS NEEDED FOR ANXIETY 10 Tablet 0 06/28/2022 Active lamoTRIgine 200 MG Oral Tablet (LaMICtal) Take 1 Tablet by mouth. In the morning. 0 01/27/2023 Active Trintellix 20 MG Oral Tablet Take 1 Tablet by mouth in the morning. 0 01/27/2023 Active hydrOXYzine HCl 50 MG Oral Tablet TAKE 1/2 TO 1 (ONE-HALF TO ONE) TABLET BY MOUTH THREE TIMES DAILY NEEDED FOR ANXIETY 0 01/27/2023 Active Insulin Pen Needle 32G X 6 MMIndications:Class 2 severe obesity due to excess calories with serious comorbidity and body mass index (BMI) of 35.0 to 35.9 in adult (HCC) Use with Saxenda pen 50 Each 2 04/14/2023 Active Pantoprazole Sodium 40 MG Oral Tablet Delayed Release (Protonix)Indications: Gastroesophageal reflux disease without esophagitis Take 1 Tablet by mouth in the morning. 30 minutes before the first meal of the day. Do not crush, split or chew the tablet. 90 Tablet 3 04/29/2023 Active Topiramate 50 MG Oral Tablet (topAMAX) Take 1 Tablet by mouth in the morning and 1 Tablet before bedtime. 60 Tablet 11 04/29/2023 Active Ibuprofen 600 MG Oral Tablet (Motrin) Take 1 Tablet by mouth every 6 hours as needed (pain). 60 Tablet 1 04/29/2023 Active Montelukast Sodium 10 MG Oral Tablet (Singulair) Take 1 Tablet by mouth in the morning. 90 Tablet 3 04/29/2023 Active Saxenda 18 MG/3ML Subcutaneous Solution Pen-injector (Liraglutide -Weight Management)Indications :Class 2 severe obesity due to excess calories with serious comorbidity and body mass index (BMI) of 35.0 to 35.9 in adult (HCC) Inject 3 mg under the skin in the morning. 15 mL 0 07/20/2023 Active documented as of this encounter (statuses as of 01/18/2024) Active Problems Problem Noted Date Diagnosed Date Varicose veins of right lower extremity with andrew n 04/07/2023 Leg cramping 04/07/2023 Viral gastroenteritis 04/07/2023 History of 2019 novel coronavirus disease (COVID -19) 11/09/2021 Overview: 10/27 Bereavement, uncomplicated 12/01/2020 Dyslipidemia 04/21/2020 Gastroesophageal reflux disease with esophagitis 04/21/2020 Recurrent urticaria 06/11/2019 Overview: since 04/08/19 S/P craniotomy 09/20/2013 Routine general medical exam ination at a health care facility 06/20/2012 Overview: 04/19 dad from [place] 08/[address] neg for stone. + stress w/ who is considering divorce Applying for jobs summer 2011 Pap WNL 2010x2, 2009, 2008 Generalized anxiety disorder 11/26/2011 Bipolar affective disorder, currently depressed, moderate 11/26/2011 Overview: 11/22 [facility] inpatient admit dx bipolar start lamictal, gabapentin 2/15 sertraline 50mg ok, 100mg sedating 07/20 pt self d/c sertrline Tobacco use disorder 05/02/2011 Overview: 0.5 ppd Migraine with aura and witho ut status migrainosus, not intractable 03/30/2011 Overview: 01/17 MRI brain-no mass. ?hx occiptal operation? documented as of this encounter (statuses as of 01/18/2024) Resolved Problems Problem Noted Date Diagnosed Date Resolved Date Body mass index (BMI) of 40. 0 to 44.9 in adult 03/19/2019 11/20/2019 Overview: Per Obesity protocol #1 Trichomonas infection 07/25/20162018 Overview: 07/07/16 treated. 07/28 retreat +4 pills for . Renal stone 10/08/2015 04/21/2020 Left-sided low back pain wit h left-sided sciatica 08/14/2015 04/21/2020 Constipation 04/24/2015 04/21/2020 Acute conjunctivitis 10/21/2014 014 Other and unspecified hyperlipidemia 10/07/2013 04/21/2020 Overview: 2013-LDL 120s-reinforced TLC Family history of ischemic heart disease 08/08/2013 04/21/2020 Screening cholesterol level 08/08/2013 04/21/2020 Menstrual migraine 02/15/2013 0 Jaw pain 07/28/2012 04/21/2020 Obesity, Class I, BMI 30.0-3 4.9 (see actual BMI) 05/02/2011 03/21/2019 Overview: Per Obesity protocol #1 Encounter for supervision of other normal 11/27/2010 06/20/2012 Overview: ICD-10 update of inactive term Low grade squamous intraepithelial dysplasia 9 07/28/2012 Presence of intrauterine contraceptive device 02/05/20 09 11/19/2010 Threatened premature labor, antepartum 03/27/2008 08/27/2008 Overview: ICD-10 update of inactive term HBP Jameson Bartholomew [id number] HIGH-RISK PREG NOS 03/21/2008 08/27/2008 Anemia 02/04/2006 07/28/2012 Overview: Post cholecystectomy 01/31/06 documented as of this encounter (statuses as of 01/18/2024) Immunizations Name Administration Dates Next Due Seasonal Influenza, PF, 6 M & above, IM , (FluLaval or Fluzone) 09/07/2019 Seasonal Influenza, Split, I IV3, With Preserve, Inj 12/12/2014,08/01/2013,07/28/2012 TDAP (age 10 and older)(Boostrix) 08/01/2018 TDAP (age 11 and older)(Adacel) 04/24/2008 documented as of this encounter Social History Tobacco Use Types Packs/Day Years Used Date Smoking Tobacco: Every Day Cigarettes 0.5 13 Smokeless Tobacco: Never Comments:started age 18/ hus band also smokes Alcohol Use Standard Drinks/Week Comments Yes 0 (1 standard drink = 0.6 oz pur e alcohol) very little PHQ-2 Answer Date Recorded PHQ-2 Score 2 07/05/2019 Hunger Vital Sign Answer Date Recorded Worried About Running Out of Food in the Last Ye ar Never true 04/21/2020 Ran Out of Food in the Last Year Never true 04/21/2020 Sex and Gender Information Value Date Recorded Sex Assigned at Not on file Gender Identity Not on file Sexual Orientation Not on file Job Start Date Occupation Industry Not on file Not on file Not on file documented as of this encounter Plan of Treatment Scheduled Procedures Name Priority Associated Diagnoses Date/Ti me COLONOSCOPY FLEXIBLE PROXIMA L DIAGNOSTIC Recall Screening for colon cancer Health Maintenance Due Date Last Done Comments Pneumococcal Vaccine: Pediatrics (0 to 5 Years) and At-Risk Patients (6 to 64 Years) (1 of 2 - PCV) 1987 Hepatitis B (1 of 3 - 19+ 3-dose series) 2000 HPV/Co-Test 2011 Cervical Cancer Screening 12/04/2018 Pap Smear 12/04/2018 12/04/2015, 11/08, 04/29/2011, Additional history exists Depression Screening 07/05/2020 07/05/2019 Mammogram 2021 COVID-19 Vaccine ( season) 2023 Influenza Vaccine (FLU shot) (#1) 2023 09/07/2019, 12/12/2014, 08/01/2013, Additional history exists Lipid Panel 01/27/2024 01/26/2019, 08/08, 08/16/2013, Additional history exists Diabetes Screening 04/07/2026 04/07/2023, 1 12/03/2020, 08/28/2021, Additional history exists DTaP,Tdap,and Td Vaccines (3 - Td or Tdap) 08/01/2028 08/01/2018, 04/24/2008 GARDASIL-HPV IMMUNIZATION SERIES Aged Out No longer eligible based on patient's age to complete this topic MENINGOCOCCAL (MENACTRA/MENVEO) Aged Out No longer eligible based on patient's age to complete this topic documented as of this encounter Medical Devices Not on filedocumented as of this encounter Procedures Procedure Name Priority Date/Time Associated Diagnosis Comments XR CHEST 1 VIEW Routine 04/05/2021 documented in this encounter Results * XR CHEST 1 VIEW (04/05/2021) Anatomical Region Laterality Modality Chest Other 04/05/2021 Devonte Smith MD RADIOLOGY (R AD GENERAL) documented in this encounter Advance Directives Latest Code Status on File Code Status Date Activated Date Inactivated Comments Full Code 03/25/2008 9:50 PM 03/27/2008 2:14 PM Code Status History Code Status Date Activated Date Inactivated Comments Full Code 03/21/2008 10:27 PM 03/23/2008 4:23 PM Care Teams Architectural Renderer Relationship Specialty Start Date End Date Roddy Giraldo MD [address] [facility] [place] [address] PCP - General Family Medicine 10/30/14 documented as of this encounter
--- OUTSIDE RECORDS SUMMARY | 2024-04-22 23:40 | External Medical Summary | Summary of Care ---
Author Name Unknown Organization [facility] Address [address] [place] [address] Phone [phone] Care Team Providers Care Seasoning Mixer Name Role Phone Roddy Giraldo MD Primary Care Provider + Encounter Details Date Type Department Care Team (Late st Contact Info) Description 01/10/2024 Orders Only [facility] Department [address] [place] [address] Alana Carr CHRA My[facility] Research Other*[id number] Allergies Active Allergy Reactions Criticality Noted Date [...] as of this encounter (statuses as of 01/10/2024) Medications Medication Sig Dispensed Refills Start Date [...] 3 06/19/2019 Active Triamcinolone Acetonide 0.5 % creamIndications:[place] titis Apply topically to affected area 2 [...] as of this encounter (statuses as of 01/10/2024) Active Problems Problem Noted Date Diagnosed Date [...] care facility 06/20/2012 Overview: 04/19 dad from [place] 08/[address] neg for stone. + stress w/ who is considering divorce Applying for jobs summer 2011 Pap WNL 2010x2, 2009, 2008 Generalized anxiety disorder 11/26/2011 Bipolar affective disorder, currently depressed, moderate 11/26/2011 Overview: 11/22 [facility] inpatient admit dx bipolar start lamictal, gabapentin 12/22 sertraline 50mg ok, 100mg sedating 07/20 pt self d/c sertrline Tobacco use disorder 05/02/2011 Overview: 0.5 ppd Migraine with aura and witho ut status migrainosus, not intractable 03/30/2011 Overview: 01/17 MRI brain-no mass. ?hx occiptal operation? documented as of this encounter (statuses as of 01/10/2024) Resolved Problems Problem Noted Date Diagnosed Date [...] ICD-10 update of inactive term HBP Jameson Fairborn [id number] HIGH-RISK PREG NOS 03/21/2008 08/27/2008 Anemia 02/04/2006 07/28/2012 Overview: Post cholecystectomy 01/31/06 documented as of this encounter (statuses as of 01/10/2024) Immunizations Name Administration Dates Next Due Seasonal [...] of this encounter Plan of Treatment Scheduled Orders Name Type Priority Associated Diagnoses Orde r Schedule MYCODE SUBSEQUENT ADULT Lab Routine MyCode Research Other*[id number] Every 6 Months for 2 Occurrences starting 01/10/2024 until 01/29/2025 Scheduled Procedures Name Priority Associated Diagnoses Date/Ti [...] Not on filedocumented as of this encounter Visit Diagnoses Diagnosis MyCode Research Other*[id number] documented in this encounter Advance Directives Latest Code Status on File Code Status Date Activated Date Inactivated Comments Full Code 03/25/2008 9:50 PM 03/27/2008 2:14 PM Code Status History Code Status Date Activated Date Inactivated Comments Full Code 03/21/2008 10:27 PM 03/23/2008 4:23 PM Care Teams Seasoning Mixer Relationship Specialty Start Date End Date Roddy Giraldo MD [address] [facility] [place] [address] PCP - General Family Medicine 10/30/14 documented as of this encounter
[2024-04-23 00:37] LABS: Basophils # (auto) 0.07 K/uL (0.00-0.20); Basophils % (auto) 0.5 %; Eosinophils # (auto) 0.06 K/uL (0.00-0.50); Eosinophils % (auto) 0.4 %; Hematocrit (blood only) 40.6 % (37.0-47.0); Hemoglobin 13.6 g/dl (12.0-16.0); Immature Granulocytes # (auto) 0.11 K/uL (0.01-0.20); Immature Granulocytes % (auto) 0.8 %; Lymphocytes # (auto) 1.67 K/uL (1.20-3.40); Lymphocytes % (auto) 11.5 %; Mean Corpuscular Hemoglobin 32.5 pg (25.0-34.0); Mean Corpuscular Hgb Conc 33.5 g/dL (32.0-36.0); Mean Corpuscular Volume 97.1 fL (80.0-100.0); Mean Platelet Volume 9.2 fL (9.4-12.4); Monocytes # (auto) 0.69 K/uL (0.11-0.59); Monocytes % (auto) 4.8 %; Neutrophils # (auto) 11.92 K/uL (1.40-6.50); Platelet Count 281 K/uL (130-400); RDW Coefficient of Variation 13.2 % (11.5-14.5); RDW Standard Deviation 46.9 fL (36.4-46.3); Red Blood Count 4.18 M/uL (4.20-5.40); White Blood Count 14.52 K/ul (4.8-10.8)
[2024-04-23 00:52] LABS: Anion Gap 9 (3-11); Bilirubin,Total 0.3 mg/dl (0.2-1.0); Calcium 9.2 mg/dl (8.6-10.3); Carbon Dioxide 24 mmol/L (21-32); Chloride 104 mmol/L (98-107); Potassium 4.7 mmol/L (3.5-5.1); Sodium 137 mmol/L (136-145)
[2024-04-23 00:58] LABS: Alanine Aminotransferase 19 U/L (7-52); Albumin Globulin Ratio 1.1 (0.9-2); Alkaline Phosphatase 75 U/L (34-104); Aspartate Aminotransferase 19 U/L (13-39); BUN Creatinine Ratio 10.9 (10-20); Blood Urea Nitrogen 14 mg/dl (6-23); Est GFR (African American) 59.2 ml/min; Globulin 3.7 gm/dl (2.5-4.0); Glucose 208 mg/dl (70-99(Fasting)); Total Protein 7.7 gm/dl (6.0-8.3); Troponin I High Sensitivity < 2.3 pg/ml (0-14)
[2024-04-23] MEDS: SODIUM CHLORIDE 0.9% 2,000 ML IV ONE (01:00)
[2024-04-23 01:01] LABS: Acetaminophen < 3 ug/ml (10-30); Salicylate < 3.0 mg/dl (3.0-30)
[2024-04-23 01:04] LABS: Prothrombin Time 10.9 Seconds (9.0-12.0)
[2024-04-23 01:08] LABS: Thyroid Stimulating Hormone 1.458 uIu/ml (0.300-4.500)
--- NOTE | 2024-04-23 01:21 | Emergency Department Note ---
Impression & Plan Acute confusion, Accidental marijuana overdose, ANUJ (acute kidney injury), Leukocytosis, Elevated lactic acid level ED Provider Note HISTORY OF PRESENT ILLNESS: Patient is a 43-year-old female presenting with confusion. Patient's provides most of history. Reports that the patient ingested a THC gummy that was an estimated 500 mg around 18 100-19 100 tonight. States that the patient has taken these Gummies before and has never acted like this. She started become very confused and difficult to arouse, so her brought her to the emergency department. On arrival to the ER, the patient is alert but slow to respond. No reported falls or recent head injury. No reported chiropractic manipulation of her neck. She denies any chest pain or shortness of breath. Denies any abdominal pain. No reported nausea or vomiting. No recent fevers. ROS: as above PHYSICAL EXAM: Constitutional: Patient appears in no acute distress. HENT: Head: Normocephalic and atraumatic. Eyes: EOMI, PERRL Mouth/Throat: Mucous membranes moist. Neck: Trachea midline. Neck supple. Cardiovascular: Tachycardic with regular rhythm. No murmurs, rubs or gallops. Intact distal pulses. Pulmonary/Chest: No respiratory distress. Breath sounds clear and equal bilaterally. No wheezes or rales. Abdominal: Abdomen soft, no tenderness, rebound or guarding. Musculoskeletal: No edema, tenderness or deformity noted. Skin: Warm and dry. No rash, erythema, pallor or cyanosis Psychiatric: Appropriate mood and affect for situation. Neurological: Alert and keenly responsive. CN II-XII grossly intact, moving all extremities equally and fully. Patient has a GCS of 14. She does arouse to verbal and physical stimuli. She is alert and oriented, just slow to respond. MDM: - Vitals signs stable - History obtained via patient's , given patient's confusion. History as above. - Chronic conditions affecting care: bipolar disorder; GERD; depression - Differential diagnoses include, but are not limited to: alcohol intoxication; drug intoxication; ACS; dysrhythmia; electrolyte abnormality; dehydration; ACS - Order placed for continuous cardiac monitoring. At this time, monitor showed rate of 100 bpm with normal sinus rhythm, per my interpretation. - External medical records reviewed. - EKG interpreted by myself showed normal sinus rhythm. Rate 82 bpm. QT 382. No acute ischemic changes. - Laboratory workup interpreted by myself showed leukocytosis (WBC 14.52) with left shift; normal PT/INR; stable electrolytes; elevated creatinine (Cr 1.29); elevated lactate (3.0); hyperglycemia (glucose 208); normal troponin; normal TSH; negative procalcitonin; negative alcohol/salicylate/acetaminophen levels - UA negative for infection - UDS positive for THC - CXR negative for pneumonia, per my interpretation - Patient given 2L NS in ER. - Repeat lactate rising to 3.1. - Blood cultures added - Unclear etiology for elevated lactate. No clear source of infection at this time. Will empirically cover with 2g IV rocephin. Patient's sepsis fluid resuscitation volume based on ideal body weight is 2045.4 mL. An additional 1L NS ordered. - Discussion was had with director case about patient's case and need for admission - Hospitalist consulted for admission - Patient admitted to [facility] for further evaluation and management. ASSESSMENT AND PLAN: Diagnosis: Acute confusion; accidental marijuana overdose; ANUJ; leukocytosis; elevated lactic acid Plan: admit Past Med/Surg History Problem List (Updated 04/23/24 @ 03:13 by Akosua Andrew MD) Elevated lactic acid level (Acute) Leukocytosis (Acute) ANUJ (acute kidney injury) (Acute) Accidental marijuana overdose (Acute) Acute confusion (Acute) Bilateral tinnitus Sensorineural hearing loss (SNHL) of both ears Hearing reduced Cerumen impaction Suspected COVID-19 virus infection (Acute) Bipolar disorder, curr episode mixed, severe, with psychotic features Tobacco use GERD (gastroesophageal reflux disease) Bipolar disorder Asthma HAS NOT USED INHALER SINCE LAST WINTER Headache (Acute) Bite by animal (Acute) Acute headache (Acute) Depressive disorder (Chronic 06/08/11) Adnexal cyst (Acute) Medical History Atypical migraine Tobacco use Degenerative disc disease Osteoarthritis History of kidney stones GERD (gastroesophageal reflux disease) Diverticulosis History of IBS Anemia Post traumatic stress disorder Bipolar disorder Depression with anxiety Asthma HAS NOT USED INHALER SINCE LAST WINTER Migraine Surgical History History of knee surgery H/O craniotomy AT 6 MONTHS AGE (LEFT SIDE OF SKULL ABNORMALITY "WAS LEFT ON LEFT SIDE TOO LONG AN ") History of dilatation and curettage History of ankle surgery RT History of colonoscopy History of appendectomy History of cholecystectomy History of tooth extraction History of tubal ligation Family History Grandmother (Maternal) Family hx of colon cancer Father Throat cancer Heart disease Brother Heart disease Other Asthma Coronary heart disease Diabetes Environmental allergies Hypertension No family history of adverse response to anesthesia No family history of bleeding disorder Stroke Social History Smoking Status: Current every day smoker Tobacco Type: Cigarettes Age Started Using Tobacco: 21; Cigarettes Per Day: 5 CIG DAILY-trying to quit; Second Hand Exposure: Yes; Do You Dip or Chew Tobacco: No; Hx Alcohol Use: Yes Alcohol type: beer Alcohol Intake Frequency Comment: occasional/rare Hx Substance Use: No Preferred Language: Sudanese Communication Ability: Effective 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 Hauler Required: No Beliefs That Will Affect Care: None marital status: Current Living Situation: Spouse Current Living Situation Comment: and children current occupational status: employed current occupation: [employer] Feels Safe at Home: Yes Assistive Devices: Glasses Allergies Allergies Allergy/AdvReac Type Severity Reaction Status Date / Time bee venom protein (honey bee) Allergy Severe ITCHY Verified 06/26/23 21:01 THROAT, FACE SWELLS-CARRIES AN EPIPEN citalopram Allergy Intermediate ITCHING/EFFECTS Verified 06/26/23 21:01 MOOD AND THINKING dexamethasone [From Decadron] Allergy Intermediate Cramping Verified 06/26/23 21:01 of the Muscles ragweed pollen Allergy Intermediate Hives Verified 06/26/23 21:01 pollen extracts Allergy Mild Watery Eye Verified 06/26/23 21:01 azithromycin AdvReac Intermediate Gastrointestinal Verified 06/26/23 21:01 Upset cephalexin AdvReac Intermediate GI SYMPTOMS Verified 06/26/23 21:01 ketorolac AdvReac Intermediate headache Verified 06/26/23 21:01 morphine AdvReac Intermediate REBOUND Verified 06/26/23 21:01 MIGRAINE HEADACHE red dye AdvReac Intermediate # 40 & Verified 06/26/23 21:01 #30--MIGRAINE sulfamethoxazole AdvReac Intermediate GI SYMPTOMS Verified 06/26/23 21:01 trimethoprim AdvReac Intermediate GI SYMPTOMS Verified 06/26/23 21:01 venlafaxine AdvReac Intermediate Dizziness Verified 06/26/23 21:01 fish-talapia AdvReac Intermediate states she Uncoded 06/26/23 21:01 throws up after eating only this fish Home Meds Home Medications Medication Instructions Recorded Confirmed epinephrine 0.3 mg/0.3 mL 0.3 mg IM DIRECTED PRN Allergic 06/29/19 06/26/23 injection, auto-injector Reaction riboflavin (vitamin B2) 100 mg 400 mg PO QAM 06/29/19 06/26/23 tablet (Vitamin B-2) aspirin 81 mg tablet,delayed 162 mg PO BID 04/30/21 06/26/23 release (Adult Aspirin Regimen) acetaminophen 500 mg tablet 500 mg PO Q6H PRN Pain 08/07/21 06/26/23 (Acetaminophen Extra Strength) ibuprofen 600 mg tablet (IBU) 600 mg PO Q6H PRN fever or pain 08/07/21 06/26/23 pantoprazole 40 mg tablet,delayed 40 mg PO DAILY PRN Stomach Upset 03/15/22 06/26/23 release (Protonix) topiramate 50 mg tablet 50 mg PO BID 05/10/22 06/26/23 hydroxyzine HCl 50 mg tablet 50 mg PO TID PRN Anxiety 06/26/23 06/26/23 lamotrigine 200 mg tablet 200 mg PO QAM 06/26/23 06/26/23 liraglutide (weight loss) 3 mg/0.5 3 mg subcut DAILY 06/26/23 06/26/23 mL (18 mg/3 mL) subcut pen injector (Saxenda) magnesium oxide 500 mg PO DAILY 06/26/23 06/26/23 montelukast 10 mg tablet 10 mg PO DAILY 06/26/23 06/26/23 (Singulair) valacyclovir 1 gram tablet 1,000 mg PO DIRECTED PRN Cold 06/26/23 06/26/23 (Valtrex) Sores vortioxetine 20 mg tablet 20 mg PO QAM 06/26/23 06/26/23 (Trintellix) Previous Rx's Medication Instructions Recorded lorazepam 0.5 mg tablet 0.5 mg PO Q8 PRN Anxiety 10 days 07/14/21 #30 tabs albuterol sulfate 90 mcg/actuation 2 inh inhalation Q6H PRN shortness 11/06/21 aerosol inhaler of breath or wheezing #8.5 grams ondansetron 4 mg disintegrating 4 mg PO Q8H PRN nausea and 05/31/23 tablet vomiting #30 tabs epinephrine 0.3 mg/0.3 mL 0.3 mg (0.3 mL) IM Q4H PRN 06/26/23 injection, auto-injector anaphylaxis #2 ea Results & Data (ED) Vital Signs Vital Signs - 24 hr 04/22/24 23:37 04/22/24 23:54 04/23/24 00:00 Temperature 36.5 C Temperature Source Temporal Artery Scan Pulse Rate 77 89 82 Pulse Rate from SpO2 Sensor 82 Respiratory Rate 20 24 Respiratory Effort / Characteristics Non-Labored Respiratory Depth Normal Respiratory Pattern Regular Blood Pressure 133/84 107/78 Blood Pressure Mean 100 88 Pulse Oximetry 91 91 Oxygen Delivery Method Room Air Room Air Sepsis Recent Fever Within 48 Hours No Sepsis New/Unexplained Change in Mental Status N/A Sepsis Action Taken by Nursing No Action Required 04/23/24 00:30 04/23/24 01:00 04/23/24 01:30 Temperature Temperature Source Pulse Rate 82 83 102 H Pulse Rate from SpO2 Sensor 82 84 102 H Respiratory Rate 21 22 20 Respiratory Effort / Characteristics Respiratory Depth Respiratory Pattern Blood Pressure 105/75 114/80 168/114 H Blood Pressure Mean 89 89 130 Pulse Oximetry 92 92 94 Oxygen Delivery Method Room Air Room Air Room Air Sepsis Recent Fever Within 48 Hours Sepsis New/Unexplained Change in Mental Status Sepsis Action Taken by Nursing 04/23/24 01:51 Temperature Temperature Source Pulse Rate 95 H Pulse Rate from SpO2 Sensor 95 H Respiratory Rate 18 Respiratory Effort / Characteristics Respiratory Depth Respiratory Pattern Blood Pressure 138/107 H Blood Pressure Mean 117 Pulse Oximetry 93 Oxygen Delivery Method Room Air Sepsis Recent Fever Within 48 Hours Sepsis New/Unexplained Change in Mental Status Sepsis Action Taken by Nursing Laboratory Data 04/22/24 23:58 04/22/24 23:58 Lab Results 04/22/24 04/23/24 04/23/24 Range/Units 23:58 01:11 02:33 WBC 14.52 H (4.8-10.8) K/ul RBC 4.18 L (4.20-5.40) M/uL Hgb 13.6 (12.0-16.0) g/dl Hct 40.6 (37.0-47.0) % MCV 97.1 (80.0-100.0) fL MCH 32.5 (25.0-34.0) pg MCHC 33.5 (32.0-36.0) g/dL RDW Std Deviation 46.9 H (36.4-46.3) fL RDW Coeff of Og 13.2 (11.5-14.5) % Plt Count 281 (130-400) K/uL MPV 9.2 L (9.4-12.4) fL Immature Gran % (Auto) 0.8 % Neut % (Auto) 82.0 % Lymph % (Auto) 11.5 % [place] % (Auto) 4.8 % Eos % (Auto) 0.4 % Baso % (Auto) 0.5 % Neut # (Auto) 11.92 H (1.40-6.50) K/uL Lymph # (Auto) 1.67 (1.20-3.40) K/uL [place] # (Auto) 0.69 H (0.11-0.59) K/uL Eos # (Auto) 0.06 (0.00-0.50) K/uL Baso # (Auto) 0.07 (0.00-0.20) K/uL Immature Gran # (Auto) 0.11 (0.01-0.20) K/uL PT 10.9 (9.0-12.0) Seconds INR 1.0 (0.9-1.1) Sodium 137 (136-145) mmol/L Potassium 4.7 (3.5-5.1) mmol/L Chloride 104 (98-107) mmol/L Carbon Dioxide 24 (21-32) mmol/L Anion Gap 9 (3-11) BUN 14 (6-23) mg/dl Creatinine 1.29 H (0.6-1.2) mg/dl Est Cr Clr Drug Dosing Not Reportable Est GFR ( Amer) 59.2 ml/min Est GFR (Non-Af Amer) 51.0 ml/min BUN/Creatinine Ratio 10.9 (10-20) Glucose 208 H (70-99(Fasting)) mg/dl Lactate 3.0 H* 3.1 H* (0.4-2.0) mmol/L Calcium 9.2 (8.6-10.3) mg/dl Magnesium 2.0 (1.7-2.4) mg/dl Total Bilirubin 0.3 (0.2-1.0) mg/dl AST 19 (13-39) U/L ALT 19 (7-52) U/L Alkaline Phosphatase 75 (34-104) U/L Troponin I High Sens < 2.3 (0-14) pg/ml Total Protein 7.7 (6.0-8.3) gm/dl Albumin 4.0 (3.4-5.0) gm/dl Globulin 3.7 (2.5-4.0) gm/dl Albumin/Globulin Ratio 1.1 (0.9-2) Procalcitonin < 0.02 (0-0.5) ng/ml TSH 1.458 (0.300-4.500) uIu/ml Urine Color Dark Yellow Urine Appearance Clear (Clear) Urine pH 5.5 (4.5-7.5) Ur Specific [place] 1.029 (1.000-1.030) Urine Protein Trace H (Negative) Urine Glucose (UA) Negative (Negative) Urine Ketones Trace H (Negative) Urine Blood 1+ H (Negative) Urine Nitrite Negative (Negative) Urine Bilirubin Negative (Negative) Urine Urobilinogen Negative (Negative) Ur Leukocyte Esterase Negative (Negative) Urine WBC (Auto) 0-5 (0-5) /hpf Urine RBC (Auto) 6-10 H (0-2) /hpf U Hyaline Cast (Auto) >20 H (0-2) /lpf U Epithel Cells (Auto) 6-10 H (0-2) /hpf Urine Bacteria (Auto) None Seen (None Seen) Granular Casts Present A (None Prsent) /lpf Salicylates < 3.0 L (3.0-30) mg/dl Urine Opiates Screen Neg (Neg) Ur Methadone, Qual Neg (Neg) Urine Fentanyl Screen Neg (Neg) Acetaminophen < 3 L (10-30) ug/ml Urine Barbiturates Neg (Neg) Ur Phencyclidine (PCP) Neg (Neg) U Amphetamin/Meth Scrn Neg (Neg) MDMA (Ecstasy) Screen Neg (Neg) U Benzodiazepines Scrn Neg (Neg) Ur Cocaine Metabolite Neg (Neg) U Marijuana (THC) Screen Pos H (Neg) Ethyl Alcohol mg/dL < 10.0 (<10.0) mg/dl Administered Medications Discontinued Medications Sodium Chloride (Nss) 2,000 mls @ 999 mls/hr IV .Q2H1M ONE Stop: 04/23/24 02:35 Last Admin: 04/23/24 01:00 Dose: 999 mls/hr Documented By: LAVON Discharge Plan Visit Data Chief Complaint: Overdose (Intentional) Stated Complaint: CBD - ALTERED MENTAL STATUS ED Provider: Akosua Andrew Discharge Problem: Acute confusion, Accidental marijuana overdose, ANUJ (acute kidney injury), Leukocytosis, Elevated lactic acid level Patient Disposition: Home - Self-Care Discharge Instructions Krames/Other Patient Handouts: ED Marijuana Abuse Activity Restrictions/Additional Instructions: Your laboratory workup showed that your white blood cell count which is a marker of infection inflammation was slightly elevated. You are also noted to have an elevated lactic acid level, which could be due to your acute ingestion. Your urine was negative for any acute infection. You were also noted to have an elevated creatinine or kidney function level. It is extremely important that you remain well-hydrated over the next few days. You did test positive for THC on urine drug screen. Recommend staying well-hydrated for the next 2 days and slowly advancing her diet as tolerated. Please return to the emergency department if you develop any chest pain or shortness of breath, lightheadedness or dizziness, fevers, inability to tolerate oral intake, or any new or worsening symptoms. Please schedule follow-up early this week with your doctor to discuss obtaining a repeat creatinine or kidney function level to evaluate for improvement. Forms Stand Alone Forms: My [facility], Suicide Prevention Resources, Important Visit Information Prescriptions Prescriptions: No Action pantoprazole [Protonix] 40 mg tablet,delayed release (DR/EC) 40 mg PO DAILY PRN (Reason: Stomach Upset) riboflavin (vitamin B2) [Vitamin B-2] 100 mg Tablet 400 mg PO QAM epinephrine 0.3 mg/0.3 mL auto-injector 0.3 mg IM DIRECTED PRN (Reason: Allergic Reaction) Rx Instructions: PER PT "GAVE 1ST SHOT AT 1929, NOTED DATED 2019, GAVE SECOND DOSE AT 1934" aspirin [Adult Aspirin Regimen] 81 mg tablet,delayed release (DR/EC) 162 mg PO BID Rx Instructions: PER PT "DON'T TAKE REGULARLY". lorazepam 0.5 mg tablet 0.5 mg PO Q8 PRN (Reason: Anxiety) 10 Days Qty: 30 0RF ondansetron 4 mg tablet,disintegrating 4 mg PO Q8H PRN (Reason: nausea and vomiting) Qty: 30 0RF lamotrigine 200 mg tablet 200 mg PO QAM valacyclovir [Valtrex] 1 gram Tablet 1,000 mg PO DIRECTED PRN (Reason: Cold Sores) hydroxyzine HCl 50 mg Tablet 50 mg PO TID PRN (Reason: Anxiety) magnesium oxide 500 mg Tablet 500 mg PO DAILY montelukast [Singulair] 10 mg Tablet 10 mg PO DAILY Trintellix 20 mg tablet 20 mg PO QAM Saxenda 3 mg/0.5 mL (18 mg/3 mL) pen injector 3 mg SUBCUT DAILY epinephrine 0.3 mg/0.3 mL auto-injector 0.3 mg IM Q4H PRN (Reason: anaphylaxis) Qty: 2 0RF acetaminophen [Acetaminophen Extra Strength] 500 mg Tablet 500 mg PO Q6H PRN (Reason: Pain) ibuprofen [IBU] 600 mg tablet 600 mg PO Q6H PRN (Reason: fever or pain) albuterol sulfate 90 mcg/actuation HFA aerosol inhaler 2 inh inhalation Q6H PRN (Reason: shortness of breath or wheezing) Qty: 8.5 0RF topiramate 50 mg tablet 50 mg PO BID Referrals Referrals: Roddy Giraldo MD [Primary Care Provider] -
[2024-04-23 01:45] LABS: Appearance Urine Clear (Clear); Bacteria Urine Automated None Seen (None Seen); Bilirubin Urine Negative (Negative); Blood Urine 1+ (Negative); Cast Urine Automated >20 /lpf (0-2); Color Urine Dark Yellow; Glucose Urine UA Negative (Negative); Granular Casts Urine Present /lpf (None Prsent); Ketones Urine Trace (Negative); Leukocyte Esterase Urine Negative (Negative); Nitrite Urine Negative (Negative); Protein Urine Trace (Negative); Specific Gravity Urine 1.029 (1.000-1.030); Urobilinogen Urine Negative (Negative); WBC Urine Automated 0-5 /hpf (0-5); pH Urine 5.5 (4.5-7.5)
[2024-04-23 01:52] LABS: Amphetamines+Metham, Urine Neg (Neg); Barbiturates, Urine Neg (Neg); Benzodiazepine, Urine Neg (Neg); Cocaine, Urine Neg (Neg); Fentanyl, Urine Neg (Neg); MDMA (Ecstacy), Urine Neg (Neg); Marijuana, Urine Pos (Neg); Methadone, Urine Neg (Neg); Opiate, Urine Neg (Neg); Phencyclidine, Urine Neg (Neg)
[2024-04-23] MEDS: cefTRIAXone SODIUM 2,000 MG/50 ML BAG IV STA (03:56)
--- NOTE | 2024-04-23 05:08 | History & Physical Report ---
Date of Service April 23, 2024 Assessment & Plan (1) Encephalopathy: Plan: Multifactorial Secondary to intentional THC ingestion Clinical dehydration and multiple home neuropsychotropic medications for anxiety/mood disorder contributory Patient not suicidal. 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 Review home medications with patient once more awake. DVT prophylaxis. Lovenox subcu Full code Patient requesting updates providers. Mr. Sina Mcdonald, contact #[phone]. Text document was generated using [employer] voice recognition software. It may contain grammatical or spelling errors. Kindly contact undersigned for clarification of any documentation item in question. History of Present Illness Chief Complaint: Weakness, confusion as per family Primary Care Provider: Roddy Giraldo MD History obtained from patient, family, and records. Limited history from patient secondary to disorientation. Medical history significant for hyperlipidemia, GERD, bronchial asthma, migraine, congenital cranial defect status post surgery, anxiety/mood disorder, ongoing tobacco abuse. Last confinement 2020 under psychiatry service at the mental health unit for bipolar disorder. Patient ingested a THC gummy yesterday. Patient noted to be confused and difficult to arouse after taking gummy. Patient has taken gummy before. No headache, no chest pain, no SOB, no abdominal pain. Patient denies self-harm intent. Patient brought to the ER for evaluation. 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 Allergies Allergy/AdvReac Type Severity Reaction Status Date / Time bee venom protein (honey bee) Allergy Severe ITCHY Verified 06/26/23 21:01 THROAT, FACE SWELLS-CARRIES AN EPIPEN citalopram Allergy Intermediate ITCHING/EFFECTS Verified 06/26/23 21:01 MOOD AND THINKING dexamethasone [From Decadron] Allergy Intermediate Cramping Verified 06/26/23 21:01 of the Muscles ragweed pollen Allergy Intermediate Hives Verified 06/26/23 21:01 pollen extracts Allergy Mild Watery Eye Verified 06/26/23 21:01 azithromycin AdvReac Intermediate Gastrointestinal Verified 06/26/23 21:01 Upset cephalexin AdvReac Intermediate GI SYMPTOMS Verified 06/26/23 21:01 Fish Containing Products AdvReac Intermediate Vomiting Verified 04/23/24 04:07 ketorolac AdvReac Intermediate headache Verified 06/26/23 21:01 morphine AdvReac Intermediate REBOUND Verified 06/26/23 21:01 MIGRAINE HEADACHE red dye AdvReac Intermediate # 40 & Verified 06/26/23 21:01 #30--MIGRAINE sulfamethoxazole AdvReac Intermediate GI SYMPTOMS Verified 06/26/23 21:01 trimethoprim AdvReac Intermediate GI SYMPTOMS Verified 06/26/23 21:01 venlafaxine AdvReac Intermediate Dizziness Verified 06/26/23 21:01 Home Medications Medication Instructions Recorded Confirmed Type epinephrine 0.3 mg/0.3 mL 0.3 mg IM DIRECTED PRN Allergic 06/29/19 06/26/23 History injection, auto-injector Reaction riboflavin (vitamin B2) 100 mg 400 mg PO QAM 06/29/19 06/26/23 History tablet (Vitamin B-2) aspirin 81 mg tablet,delayed 162 mg PO BID 04/30/21 06/26/23 History release (Adult Aspirin Regimen) lorazepam 0.5 mg tablet 0.5 mg PO Q8 PRN Anxiety 10 days 07/14/21 06/26/23 Rx #30 tabs acetaminophen 500 mg tablet 500 mg PO Q6H PRN Pain 08/07/21 06/26/23 History (Acetaminophen Extra Strength) ibuprofen 600 mg tablet (IBU) 600 mg PO Q6H PRN fever or pain 08/07/21 06/26/23 History albuterol sulfate 90 mcg/actuation 2 inh inhalation Q6H PRN shortness 11/06/21 06/26/23 Rx aerosol inhaler of breath or wheezing #8.5 grams pantoprazole 40 mg tablet,delayed 40 mg PO DAILY PRN Stomach Upset 03/15/22 06/26/23 History release (Protonix) topiramate 50 mg tablet 50 mg PO BID 05/10/22 06/26/23 History ondansetron 4 mg disintegrating 4 mg PO Q8H PRN nausea and 05/31/23 06/26/23 Rx tablet vomiting #30 tabs epinephrine 0.3 mg/0.3 mL 0.3 mg (0.3 mL) IM Q4H PRN 06/26/23 Rx injection, auto-injector anaphylaxis #2 ea hydroxyzine HCl 50 mg tablet 50 mg PO TID PRN Anxiety 06/26/23 06/26/23 History lamotrigine 200 mg tablet 200 mg PO QAM 06/26/23 06/26/23 History liraglutide (weight loss) 3 mg/0.5 3 mg subcut DAILY 06/26/23 06/26/23 History mL (18 mg/3 mL) subcut pen injector (Saxenda) magnesium oxide 500 mg PO DAILY 06/26/23 06/26/23 History montelukast 10 mg tablet 10 mg PO DAILY 06/26/23 06/26/23 History (Singulair) valacyclovir 1 gram tablet 1,000 mg PO DIRECTED PRN Cold 06/26/23 06/26/23 History (Valtrex) Sores vortioxetine 20 mg tablet 20 mg PO QAM 06/26/23 06/26/23 History (Trintellix) Past Med/Surg History Problem List (Updated 04/23/24 @ 09:26 by Mark Duenas MD) Encephalopathy Elevated lactic acid level (Acute) Leukocytosis (Acute) ANUJ (acute kidney injury) (Acute) Accidental marijuana overdose (Acute) Acute confusion (Acute) Bilateral tinnitus Sensorineural hearing loss (SNHL) of both ears Hearing reduced Cerumen impaction Suspected COVID-19 virus infection (Acute) Bipolar disorder, curr episode mixed, severe, with psychotic features Tobacco use GERD (gastroesophageal reflux disease) Bipolar disorder Asthma HAS NOT USED INHALER SINCE LAST WINTER Headache (Acute) Bite by animal (Acute) Acute headache (Acute) Depressive disorder (Chronic 06/08/11) Adnexal cyst (Acute) Medical History Atypical migraine Tobacco use Degenerative disc disease Osteoarthritis History of kidney stones GERD (gastroesophageal reflux disease) Diverticulosis History of IBS Anemia Post traumatic stress disorder Bipolar disorder Depression with anxiety Asthma HAS NOT USED INHALER SINCE LAST WINTER Migraine Surgical History History of knee surgery H/O craniotomy AT 6 MONTHS AGE (LEFT SIDE OF SKULL ABNORMALITY "WAS LEFT ON LEFT SIDE TOO LONG AN ") History of dilatation and curettage History of ankle surgery RT History of colonoscopy History of appendectomy History of cholecystectomy History of tooth extraction History of tubal ligation Family History Grandmother (Maternal) Family hx of colon cancer Father Throat cancer Heart disease Brother Heart disease Other Asthma Coronary heart disease Diabetes Environmental allergies Hypertension No family history of adverse response to anesthesia No family history of bleeding disorder Stroke Social History Smoking Status: Current every day smoker Tobacco Type: Cigarettes Age Started Using Tobacco: 21; Cigarettes Per Day: 5 CIG DAILY-trying to quit; Second Hand Exposure: Yes; Do You Dip or Chew Tobacco: No; Tobacco Cessation Education Requested by Patient: No Hx Alcohol Use: No Hx Substance Use: Yes Last Used Substance: Just Prior to Arrival Preferred Language: British Communication Ability: Effective 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 Beliefs That Will Affect Care: None marital status: Current Living Situation: Spouse Current Living Situation Comment: son also lives at home current occupational status: employed current occupation: [employer] Other Information That Helps Us Care for You: No Feels Safe at Home: Yes Safety Concerns: Feels Safe At This Time Assistive Devices: Denture - Upper, Denture - Lower and Glasses Review of Systems Review of Systems: Could not be reliably obtained secondary to lethargy Physical Exam Physical Exam: GENERAL: Lethargic, obese, no respiratory distress SKIN: Normal color, warm HEENT: [place] palpebral conjunctivae, no ptosis, dry buccal mucosa NECK : Supple, short neck, no tenderness CHEST : Decreased breath sounds, no tenderness HEART : RRR, no obvious murmurs ABDOMEN: Some distention, nontender EXTREMITIES : Minimal LE swelling, no LE tenderness, no other conspicuous deformities noted NEUROLOGIC : Lethargic, no facial asymmetry, gait and stance not assessed Results & Data Results & Data Vital Signs (Past 12 Hours) Vital Signs Temp Pulse Pulse Resp BP BP Pulse Ox 04/23/24 04:26 37.1 C 99 H 22 127/86 95 04/23/24 03:00 108 H 19 129/82 93 04/23/24 01:51 95 H 18 138/107 H 93 04/23/24 01:30 102 H 20 168/114 H 94 04/23/24 01:00 83 22 114/80 92 04/23/24 00:30 82 21 105/75 92 04/23/24 00:00 82 24 107/78 91 04/22/24 23:54 89 04/22/24 23:37 36.5 C 77 20 133/84 91 O2 Del Method 04/23/24 04:26 Room Air 04/23/24 03:00 Room Air 04/23/24 01:51 Room Air 04/23/24 01:30 Room Air 04/23/24 01:00 Room Air 04/23/24 00:30 Room Air 04/23/24 00:00 Room Air 04/22/24 23:54 04/22/24 23:37 Room Air Laboratory Results Laboratory Results WBC 14.52 K/ul (4.8-10.8) H 04/22/24 23:58 RBC 4.18 M/uL (4.20-5.40) L 04/22/24 23:58 Hgb 13.6 g/dl (12.0-16.0) 04/22/24 23:58 Hct 40.6 % (37.0-47.0) 04/22/24 23:58 MCV 97.1 fL (80.0-100.0) 04/22/24 23:58 MCH 32.5 pg (25.0-34.0) 04/22/24 23:58 MCHC 33.5 g/dL (32.0-36.0) 04/22/24 23:58 RDW Std Deviation 46.9 fL (36.4-46.3) H 04/22/24 23:58 RDW Coeff of Og 13.2 % (11.5-14.5) 04/22/24 23:58 Plt Count 281 K/uL (130-400) 04/22/24 23:58 MPV 9.2 fL (9.4-12.4) L 04/22/24 23:58 Immature Gran % (Auto) 0.8 % 04/22/24 23:58 Neut % (Auto) 82.0 % 04/22/24 23:58 Lymph % (Auto) 11.5 % 04/22/24 23:58 [place] % (Auto) 4.8 % 04/22/24 23:58 Eos % (Auto) 0.4 % 04/22/24 23:58 Baso % (Auto) 0.5 % 04/22/24 23:58 Neut # (Auto) 11.92 K/uL (1.40-6.50) H 04/22/24 23:58 Lymph # (Auto) 1.67 K/uL (1.20-3.40) 04/22/24 23:58 [place] # (Auto) 0.69 K/uL (0.11-0.59) H 04/22/24 23:58 Eos # (Auto) 0.06 K/uL (0.00-0.50) 04/22/24 23:58 Baso # (Auto) 0.07 K/uL (0.00-0.20) 04/22/24 23:58 Immature Gran # (Auto) 0.11 K/uL (0.01-0.20) 04/22/24 23:58 PT 10.9 Seconds (9.0-12.0) 04/22/24 23:58 INR 1.0 (0.9-1.1) 04/22/24 23:58 Sodium 137 mmol/L (136-145) 04/22/24 23:58 Potassium 4.7 mmol/L (3.5-5.1) 04/22/24 23:58 Chloride 104 mmol/L (98-107) 04/22/24 23:58 Carbon Dioxide 24 mmol/L (21-32) 04/22/24 23:58 Anion Gap 9 (3-11) 04/22/24 23:58 BUN 14 mg/dl (6-23) 04/22/24 23:58 Creatinine 1.29 mg/dl (0.6-1.2) H 04/22/24 23:58 Est Cr Clr Drug Dosing Not Reportable 04/22/24 23:58 Est GFR ( Amer) 59.2 ml/min 04/22/24 23:58 Est GFR (Non-Af Amer) 51.0 ml/min 04/22/24 23:58 BUN/Creatinine Ratio 10.9 (10-20) 04/22/24 23:58 Glucose 208 mg/dl (70-99(Fasting)) H 04/22/24 23:58 Lactate 3.1 mmol/L (0.4-2.0) H* 04/23/24 02:33 Calcium 9.2 mg/dl (8.6-10.3) 04/22/24 23:58 Magnesium 2.0 mg/dl (1.7-2.4) 04/22/24 23:58 Total Bilirubin 0.3 mg/dl (0.2-1.0) 04/22/24 23:58 AST 19 U/L (13-39) 04/22/24 23:58 ALT 19 U/L (7-52) 04/22/24 23:58 Alkaline Phosphatase 75 U/L (34-104) 04/22/24 23:58 Troponin I High Sens < 2.3 pg/ml (0-14) 04/22/24 23:58 Total Protein 7.7 gm/dl (6.0-8.3) 04/22/24 23:58 Albumin 4.0 gm/dl (3.4-5.0) 04/22/24 23:58 Globulin 3.7 gm/dl (2.5-4.0) 04/22/24 23:58 Albumin/Globulin Ratio 1.1 (0.9-2) 04/22/24 23:58 Procalcitonin < 0.02 ng/ml (0-0.5) 04/22/24 23:58 TSH 1.458 uIu/ml (0.300-4.500) 04/22/24 23:58 Urine Color Dark Yellow 04/23/24 01:11 Urine Appearance Clear (Clear) 04/23/24 01:11 Urine pH 5.5 (4.5-7.5) 04/23/24 01:11 Ur Specific [place] 1.029 (1.000-1.030) 04/23/24 01:11 Urine Protein Trace (Negative) H 04/23/24 01:11 Urine Glucose (UA) Negative (Negative) 04/23/24 01:11 Urine Ketones Trace (Negative) H 04/23/24 01:11 Urine Blood 1+ (Negative) H 04/23/24 01:11 Urine Nitrite Negative (Negative) 04/23/24 01:11 Urine Bilirubin Negative (Negative) 04/23/24 01:11 Urine Urobilinogen Negative (Negative) 04/23/24 01:11 Ur Leukocyte Esterase Negative (Negative) 04/23/24 01:11 Urine WBC (Auto) 0-5 /hpf (0-5) 04/23/24 01:11 Urine RBC (Auto) 6-10 /hpf (0-2) H 04/23/24 01:11 U Hyaline Cast (Auto) >20 /lpf (0-2) H 04/23/24 01:11 U Epithel Cells (Auto) 6-10 /hpf (0-2) H 04/23/24 01:11 Urine Bacteria (Auto) None Seen (None Seen) 04/23/24 01:11 Granular Casts Present /lpf (None Prsent) A 04/23/24 01:11 Salicylates < 3.0 mg/dl (3.0-30) L 04/22/24 23:58 Urine Opiates Screen Neg (Neg) 04/23/24 01:11 Ur Methadone, Qual Neg (Neg) 04/23/24 01:11 Urine Fentanyl Screen Neg (Neg) 04/23/24 01:11 Acetaminophen < 3 ug/ml (10-30) L 04/22/24 23:58 Urine Barbiturates Neg (Neg) 04/23/24 01:11 Ur Phencyclidine (PCP) Neg (Neg) 04/23/24 01:11 U Amphetamin/Meth Scrn Neg (Neg) 04/23/24 01:11 MDMA (Ecstasy) Screen Neg (Neg) 04/23/24 01:11 U Benzodiazepines Scrn Neg (Neg) 04/23/24 01:11 Ur Cocaine Metabolite Neg (Neg) 04/23/24 01:11 U Marijuana (THC) Screen Pos (Neg) H 04/23/24 01:11 Ethyl Alcohol mg/dL < 10.0 mg/dl (<10.0) 04/22/24 23:58 Diagnostic Findings Chest x-ray as per my interpretation cardiomegaly, minimal congestion EKG as per my interpretation : Rate 80, NSR, normal axis, no ischemia
[2024-04-23] MEDS ORDERED: PROMETHAZINE HCL 6.25 MG in SODIUM CHLORIDE 0.9% 50 ML IV PRN (05:10)
[2024-04-23] MEDS: SODIUM CHLORIDE 0.9% 1,000 ML IV ONE (05:21)
[2024-04-23] MEDS: LACTATED RINGER'S 1,000 ML IV ONE (06:00)
[2024-04-23] MEDS ORDERED: PANTOprazole 40 MG TAB PO PRN (06:02)
[2024-04-23 06:37] LABS: Base Excess VBG -3.7 mEq/L; HCO3 VBG 23 mmol/L; Oxygen Saturation VBG 78.3 %; PCO2 VBG 45 mmHg (38-50); PO2 VBG 46 mmHg; pH VBG 7.31 (7.36-7.41)
[2024-04-23 06:47] LABS: Basophils # (auto) 0.04 K/uL (0.00-0.20); Basophils % (auto) 0.3 %; Eosinophils # (auto) 0.07 K/uL (0.00-0.50); Eosinophils % (auto) 0.5 %; Hematocrit (blood only) 37.1 % (37.0-47.0); Hemoglobin 12.1 g/dl (12.0-16.0); Immature Granulocytes % (auto) 0.6 %; Lymphocytes # (auto) 2.57 K/uL (1.20-3.40); Lymphocytes % (auto) 16.6 %; Mean Corpuscular Hemoglobin 32.1 pg (25.0-34.0); Mean Corpuscular Hgb Conc 32.6 g/dL (32.0-36.0); Mean Corpuscular Volume 98.4 fL (80.0-100.0); Mean Platelet Volume 9.3 fL (9.4-12.4); Monocytes # (auto) 0.93 K/uL (0.11-0.59); Neutrophils # (auto) 11.76 K/uL (1.40-6.50); Platelet Count 268 K/uL (130-400); RDW Coefficient of Variation 13.2 % (11.5-14.5); RDW Standard Deviation 47.7 fL (36.4-46.3); Red Blood Count 3.77 M/uL (4.20-5.40); White Blood Count 15.47 K/ul (4.8-10.8)
[2024-04-23 07:04] LABS: BUN Creatinine Ratio 13.8 (10-20); Calcium 8.3 mg/dl (8.6-10.3); Creatinine Clr Calc Pharmacy 111.1 ml/min; Est GFR (African American) 95.2 ml/min; Est GFR (Non-African American) 82.2 ml/min; Potassium 4.3 mmol/L (3.5-5.1)
--- NOTE | 2024-04-23 07:22 | XRay Report ---
XR chest 1V portable HISTORY: 43 years-old Female weakness acute weakness with stroke overdose COMPARISON: 11/06/2021 TECHNIQUE: AP view of the chest FINDINGS: Cardiac silhouette is enlarged. Pulmonary vascular congestion. No pneumothorax. Small pleural effusio ns. Diffuse mixed interstitial and alveolar opacities. Bones appear grossly intact. IMPRESSION: 1. Cardiomegaly with mixed interstitial and alveolar opacities suggestive of pulmonary edema versus m ultifocal pneumonia. 2. Small pleural effusions. ACT 112: Negative or not required by law. The above report was generated using voice recognition software. It may contain grammatical, syntax o r spelling errors. Electronically signed by: Jared Coronado M.D. 04/23/2024 7:21 AM
[2024-04-23] MEDS ORDERED: NON-FORMULARY MEDICATION (Riboflavin (Vitamin B2) [Vitamin B-2] 100 mg Tablet) PO SCH (09:00)
[2024-04-23] MEDS: MONTELUKAST SODIUM 10 MG TABLET PO SCH (09:46)
[2024-04-23] MEDS: ENOXAPARIN INJ 40 MG/0.4 ML SYR SQ SCH (09:46)
[2024-04-23] MEDS: ASPIRIN 81 MG ECTAB PO SCH (09:47)
--- NOTE | 2024-04-23 15:56 | Hospitalist Progress Note ---
Date of Service April 23, 2024 Assessment & Plan (1) Encephalopathy: Plan: This is a 43-year-old female who has a significant past medical history of bipolar disorder, generalized anxiety disorder, GERD with esophagitis, hyperlipidemia, history of migraine, tobacco use disorder who presents to ED secondary to altered mental status. Altered mental status occurred approximately 1 hour after ingesting a THC gummy. Patient has utilized these in the past. In ED lab workup mostly unremarkable except for UDS was positive for marijuana. Toxic metabolic encephalopathy Secondary to intentional THC ingestion Clinical dehydration and multiple home neuropsychotropic medications for anxiety/mood disorder contributory Patient not suicidal. symptoms improving, advance diet, continue supportive measures will need to resume neuropsych meds when stable Lactic acidosis Resolved after administration of IV fluid Acute renal insufficiency POA resolved with IVF Chronic medical conditions: GERD, on PPI bronchial asthma, stable hx migraine congenital cranial defect status post surgery ongoing tobacco abuse DVT PPX: SQ Lovenox FULL CODE Dispo: admit to med tele PCP: Kristal Pt was seen and examined in collaboration with Dr. Campbell. This note does not reflect a billable service as pt was admitted after 00:00 on 04/23 Admission and Anticipated Discharge Date Admission Date: April 23, 2024 Subjective Patient was seen and examined in room C5. Follow-up altered mental status after ingesting a THC gummy. She states she feels better this morning than she did when she arrived to ED last evening. She continues to feel drowsy. She denies any pain. She states she has a prior history of taking THC Gummies. She took a whole gummy and she believes she was only to take a half a 1/4. Approximately 1 hour after ingestion she started noticing alteration in mental status. Currently in ED she offers no acute concerns. Review of Systems Review of Systems: All systems reviewed & are unremarkable except as noted in HPI & below Physical Exam Physical Exam: Gen: WD/WN, NAD, drowsy but easily arouses to verbal stimulation, A&O x3 HEENT: Normocephalic, atraumatic, conjunctivae moist, sclerae anicteric, mucous membranes moist. Lung: Clear to Auscultation bilaterally, no wheezes/rales/rhonchi Heart: Regular rate, regular rhythm, no murmurs, rubs, or gallops Abdomen: Soft, NT, ND +BS x 4 Extremities: No edema Skin: Warm, no rash, negative turgor. Results & Data Results & Data Vital Signs (Past 12 Hours) Vital Signs Temp Pulse Pulse Resp BP BP Pulse Ox 04/23/24 11:12 78 23 98 04/23/24 11:00 80 21 83 L 04/23/24 11:00 130/79 04/23/24 10:51 80 24 85 L 04/23/24 10:45 78 23 76 L 04/23/24 10:39 74 26 H 96 04/23/24 10:21 93 H 19 92 04/23/24 10:12 76 24 96 04/23/24 09:54 95 H 21 96 04/23/24 09:45 82 22 93 04/23/24 09:30 76 20 04/23/24 09:21 78 20 94 04/23/24 09:00 79 20 114/72 04/23/24 08:48 77 19 95 04/23/24 08:21 101 H 20 95 04/23/24 08:12 78 18 96 04/23/24 08:00 79 20 95 04/23/24 08:00 107/75 04/23/24 07:51 79 19 95 04/23/24 07:30 82 21 04/23/24 07:30 114/73 04/23/24 07:21 86 24 96 04/23/24 07:06 82 04/23/24 07:00 84 22 95 04/23/24 07:00 113/71 04/23/24 06:42 86 21 95 04/23/24 06:39 86 21 95 04/23/24 06:24 93 H 23 94 04/23/24 06:00 97 H 18 127/85 95 04/23/24 05:30 95 H 21 122/88 94 04/23/24 05:24 89 19 94 04/23/24 04:51 94 H 21 116/85 94 04/23/24 04:26 37.1 C 99 H 22 127/86 95 04/23/24 04:03 99 H 26 H 127/86 95 O2 Del Method 04/23/24 11:12 04/23/24 11:00 04/23/24 11:00 04/23/24 10:51 04/23/24 10:45 04/23/24 10:39 04/23/24 10:21 04/23/24 10:12 04/23/24 09:54 04/23/24 09:45 04/23/24 09:30 04/23/24 09:21 04/23/24 09:00 Room Air 04/23/24 08:48 04/23/24 08:21 04/23/24 08:12 04/23/24 08:00 04/23/24 08:00 04/23/24 07:51 04/23/24 07:30 04/23/24 07:30 04/23/24 07:21 04/23/24 07:06 04/23/24 07:00 04/23/24 07:00 04/23/24 06:42 04/23/24 06:39 04/23/24 06:24 04/23/24 06:00 Room Air 04/23/24 05:30 Room Air 04/23/24 05:24 04/23/24 04:51 Room Air 04/23/24 04:26 Room Air 04/23/24 04:03 Room Air Diagnostic Findings Chest X-Ray 04/22/24 23:50 XR chest 1V portable HISTORY: 43 years-old Female weakness acute weakness with stroke overdose COMPARISON: 11/06/2021 TECHNIQUE: AP view of the chest FINDINGS: Cardiac silhouette is enlarged. Pulmonary vascular congestion. No pneumothorax. Small pleural effusions. Diffuse mixed interstitial and alveolar opacities. Bones appear grossly intact. IMPRESSION: 1. Cardiomegaly with mixed interstitial and alveolar opacities suggestive of pulmonary edema versus multifocal pneumonia. 2. Small pleural effusions. ACT 112: Negative or not required by law. The above report was generated using voice recognition software. It may contain grammatical, syntax or spelling errors. Electronically signed by: Jared Coronado M.D. 04/23/2024 7:21 AM Medications Administered Current Inpatient Medications Acetaminophen (Acetaminophen 325 Mg Tab) 650 mg PO QID PRN PRN Reason: pain/fever Stop: 05/23/24 05:09 Enoxaparin Sodium (Enoxaparin Inj 40 Mg/0.4 Ml Syr) 40 mg SQ QAM CHIRAG Stop: 05/23/24 08:59 Last Admin: 04/23/24 09:46 Dose: 40 mg Promethazine HCl 6.25 mg/ (Sodium Chloride) 50.25 mls @ 201 mls/hr IV Q6H PRN PRN Reason: Nausea And Vomiting Stop: 05/23/24 05:09 Montelukast Sodium (Montelukast Sodium 10 Mg Tablet) 10 mg PO DAILY CHIRAG Stop: 05/23/24 08:59 Last Admin: 04/23/24 09:46 Dose: 10 mg Pantoprazole Sodium (Pantoprazole 40 Mg Tab) 40 mg PO DAILY PRN PRN Reason: Stomach Upset Stop: 05/23/24 06:01
--- NOTE | 2024-04-23 17:08 | Electrocardiogram Report ---
Test Reason : Blood Pressure : / mmHG Vent. Rate : 082 BPM Atrial Rate : 082 BPM P-R Int : 172 ms QRS Dur : 082 ms QT Int : 382 ms P-R-T Axes : 052 039 037 degrees QTc Int : 446 ms Normal sinus rhythm Normal ECG When compared with ECG of 26-JUN-2023 20:16, Nonspecific T wave abnormality no longer evident in Inferior leads Confirmed by Brandon Salgado ([id number]) on 04/23/2024 5:07:49 PM Referred By: REFERRED SELF Confirmed By:Brandon Salgado
[2024-04-23] MEDS: ACETAMINOPHEN 325 MG TAB PO PRN (17:33)
[2024-04-24] MEDS: FUROSEMIDE INJ 20 MG/2 ML VIAL IV ONE (04:15)
[2024-04-24 07:39] LABS: Basophils # (auto) 0.09 K/uL (0.00-0.20); Basophils % (auto) 0.7 %; Eosinophils # (auto) 0.28 K/uL (0.00-0.50); Eosinophils % (auto) 2.2 %; Hematocrit (blood only) 37.1 % (37.0-47.0); Hemoglobin 12.3 g/dl (12.0-16.0); Immature Granulocytes # (auto) 0.05 K/uL (0.01-0.20); Immature Granulocytes % (auto) 0.4 %; Lymphocytes # (auto) 4.79 K/uL (1.20-3.40); Mean Corpuscular Hgb Conc 33.2 g/dL (32.0-36.0); Mean Corpuscular Volume 96.6 fL (80.0-100.0); Mean Platelet Volume 9.8 fL (9.4-12.4); Monocytes # (auto) 0.89 K/uL (0.11-0.59); Monocytes % (auto) 7.1 %; Neutrophils # (auto) 6.52 K/uL (1.40-6.50); Neutrophils % (auto) 51.6 %; Platelet Count 264 K/uL (130-400); RDW Coefficient of Variation 13.3 % (11.5-14.5); RDW Standard Deviation 47.6 fL (36.4-46.3); Red Blood Count 3.84 M/uL (4.20-5.40); White Blood Count 12.62 K/ul (4.8-10.8)
[2024-04-24 08:06] LABS: Albumin Globulin Ratio 1.1 (0.9-2); Albumin Level 3.6 gm/dl (3.4-5.0); BUN Creatinine Ratio 12.3 (10-20); Bilirubin,Total 0.3 mg/dl (0.2-1.0); Calcium 8.7 mg/dl (8.6-10.3); Creatinine Clr Calc Pharmacy 144.3 ml/min; Est GFR (African American) 117.7 ml/min; Est GFR (Non-African American) 101.6 ml/min; Globulin 3.3 gm/dl (2.5-4.0); Magnesium 1.8 mg/dl (1.7-2.4); Total Protein 6.9 gm/dl (6.0-8.3)
[2024-04-24 08:07] LABS: Estimated Average Glucose 120 mg/dl; Hemoglobin A1C 5.8 % (4.5-5.6)
[2024-04-24] MEDS: DICLOFENAC SOD 1% GEL 100 GM TUBE EXT SCH (10:00)
--- NOTE | 2024-04-24 10:55 | Discharge Summary ---
Discharge Summary Date of Service April 24, 2024 Principal Dx & Hospital Course #1 = Principal Diagnosis (1) Encephalopathy: (2) Toxic metabolic encephalopathy: (3) Accidental marijuana overdose: (4) ANUJ (acute kidney injury): (5) Elevated lactic acid level: Plan This is a 43-year-old female who has a significant past medical history of bipolar disorder, generalized anxiety disorder, GERD with esophagitis, hyperlipidemia, history of migraine, tobacco use disorder who presents to ED secondary to altered mental status. Altered mental status occurred approximately 1 hour after ingesting a THC gummy. Patient has utilized these in the past. In ED lab workup mostly unremarkable except for UDS was positive for marijuana. Toxic metabolic encephalopathy Secondary to intentional THC ingestion Clinical dehydration and multiple home neuropsychotropic medications for anxiety/mood disorder contributory Patient not suicidal. symptoms improving, advance diet, continue supportive measures resume neuropsych meds at discharge on day of discharge she is back to baseline and mentating appropriately she states typically she only takes 1/4 to 1/2 a gummy and this time ingested 1 whole gummy. Gummy was an over the counter purchase from sons friend She is instructed to no longer utilize this substance She is strongly advised to not drive until cleared by primary care provider Lactic acidosis Resolved after administration of IV fluid Acute renal insufficiency POA resolved with IVF Abnormal CXR on admission: Hand swelling --CXR on admission reveals small effusions, pulm edema pt reported hand swelling this a.m. overnight provider ordered 20mg IV lasix she feels swelling has resolved prior to d/c will obtain ecg, bnp, repeat cxr and echo last echo was in 2020 reviewed in outpt records showed preserved ef with grade 1 DD ECG independently reviewed and interpreted by myself, NSR, 70bpm no st t wave change BNP Unremarkable; CXR shows resolution of effusions and edema echo pending at time of discharge will be discharged on oral lasix 20mg daily as needed for swelling along with KCL 20meq when using lasix Pre Diabetes a1c 5.8 it is recommended you work with your primary care provider on diet and life style changes to prevent type 2 diabetes Chronic medical conditions: GERD, on PPI bronchial asthma, stable hx migraine congenital cranial defect status post surgery ongoing tobacco abuse - encourage cessation chronic knee pain from prior injury - encourage trial of voltaren gel DVT PPX: SQ Lovenox FULL CODE Dispo: Pt is stable to be discharged home PCP: Kristal Pt was seen and examined in collaboration with Dr. Campbell. Notes For Next Care Provider Pt admitted for encephalopathy after ingestion of THC edible, confirmatory drug screen pending. Initial UDS + for marijuana. Pt advised to not drive until follow up with primary care provider. Medication Changes From Visit Trial of voltaren gel Continue all other home meds Admission HPI Per Admitting Provider History obtained from patient, family, and records. Limited history from patient secondary to disorientation. Medical history significant for hyperlipidemia, GERD, bronchial asthma, migraine, congenital cranial defect status post surgery, anxiety/mood disorder, ongoing tobacco abuse. Last confinement 2020 under psychiatry service at the mental health unit for bipolar disorder. Patient ingested a THC gummy yesterday. Patient noted to be confused and difficult to arouse after taking gummy. Patient has taken gummy before. No headache, no chest pain, no SOB, no abdominal pain. Patient denies self-harm intent. Patient brought to the ER for evaluation. 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 Admission Exam Per Admitting Provider Physical Exam Physical Exam: GENERAL: Lethargic, obese, no respiratory distress SKIN: Normal color, warm HEENT: Blyn palpebral conjunctivae, no ptosis, dry buccal mucosa NECK : Supple, short neck, no tenderness CHEST : Decreased breath sounds, no tenderness HEART : RRR, no obvious murmurs ABDOMEN: Some distention, nontender EXTREMITIES : Minimal LE swelling, no LE tenderness, no other conspicuous deformities noted NEUROLOGIC : Lethargic, no facial asymmetry, gait and stance not assessed Discharge Exam Gen: WD/WN, NAD, drowsy but easily arouses to verbal stimulation, A&O x3 HEENT: Normocephalic, atraumatic, conjunctivae moist, sclerae anicteric, mucous membranes moist. Lung: Clear to Auscultation bilaterally, no wheezes/rales/rhonchi Heart: Regular rate, regular rhythm, no murmurs, rubs, or gallops Abdomen: Soft, NT, ND +BS x 4 Extremities: Trace lower extremity edema Skin: Warm, no rash, negative turgor. Updated Medication List Medication Instructions Recorded Confirmed Type epinephrine 0.3 mg/0.3 mL 0.3 mg IM DIRECTED PRN Allergic 06/29/19 04/23/24 History injection, auto-injector Reaction riboflavin (vitamin B2) 100 mg 400 mg PO QAM 06/29/19 04/23/24 History tablet (Vitamin B-2) aspirin 81 mg tablet,delayed 162 mg PO BID 04/30/21 04/23/24 History release (Adult Aspirin Regimen) acetaminophen 500 mg tablet 500 mg PO Q6H PRN Pain 08/07/21 04/23/24 History (Acetaminophen Extra Strength) ibuprofen 600 mg tablet (IBU) 600 mg PO Q6H PRN fever or pain 08/07/21 04/23/24 History albuterol sulfate 90 mcg/actuation 2 inh inhalation Q6H PRN shortness 11/06/21 04/23/24 Rx aerosol inhaler of breath or wheezing #8.5 grams pantoprazole 40 mg tablet,delayed 40 mg PO DAILY PRN Stomach Upset 03/15/22 04/23/24 History release (Protonix) topiramate 50 mg tablet 50 mg PO BID 05/10/22 04/23/24 History ondansetron 4 mg disintegrating 4 mg PO Q8H PRN nausea and 05/31/23 04/23/24 Rx tablet vomiting #30 tabs lamotrigine 200 mg tablet 200 mg PO QAM 06/26/23 04/23/24 History magnesium oxide 500 mg PO DAILY 06/26/23 04/23/24 History montelukast 10 mg tablet 10 mg PO DAILY 06/26/23 04/23/24 History (Singulair) valacyclovir 1 gram tablet 1,000 mg PO DIRECTED PRN Cold 06/26/23 04/23/24 History (Valtrex) Sores diclofenac sodium 1 % topical gel 4 g EXT QID #100 grams 04/24/24 Rx (Voltaren Arthritis Pain) furosemide 20 mg tablet 20 mg PO DAILY PRN edema #14 tabs 04/24/24 Rx potassium chloride 20 mEq 20 meq PO DAILY PRN when taking 04/24/24 Rx tablet,extended release lasix #14 tabs Hospital Stay Data Consultations 04/23/24 03:16 ED Decision to Admit Stat Diagnostic Imagining Performed Chest X-Ray 06/16/24 23:50 XR chest 1V portable HISTORY: 43 years-old Female weakness acute weakness with stroke overdose COMPARISON: 11/06/2021 TECHNIQUE: AP view of the chest FINDINGS: Cardiac silhouette is enlarged. Pulmonary vascular congestion. No pneumothorax. Small pleural effusions. Diffuse mixed interstitial and alveolar opacities. Bones appear grossly intact. IMPRESSION: 1. Cardiomegaly with mixed interstitial and alveolar opacities suggestive of pulmonary edema versus multifocal pneumonia. 2. Small pleural effusions. ACT 112: Negative or not required by law. The above report was generated using voice recognition software. It may contain grammatical, syntax or spelling errors. Electronically signed by: Jared Coronado M.D. 04/23/2024 7:21 AM Pending Results Patient Have Any Pending Studies at Discharge: Yes (Urine drug screen final pending) Discharge Instructions Given to Patient (Per Discharging Provider) MEDICATION CHANGES: Lasix 20mg daily three times a week as needed for swelling. Potassium chloride, 20meq, take one tablet when taking lasix. Voltaren Gel (Diclofenac), 1% gel, apply 4g to knee four times daily for chronic pain Continue all home medications SUMMARY OF TEST RESULTS: You were admitted to hospital due to altered mental status. It was felt to be secondary to ingestion of THC Edible. No organic cause was found. The final result of your drug screen is pending. PENDING TEST RESULTS: Final drug screen is pending. RECOMMENDATIONS FOR FOLLOW-UP: Absolutely no driving or operating motor vehicle until you follow up with your Primary Care Provider and are cleared. Do not use over the counter THC edibles. These are not regulated by the FDA. Continue all other medications as prescribed. Please discuss with your primary care provider regarding the use of as needed lasix Resume activity as tolerated. Recommend to stay well hydrated, drinking approximately 80 oz of water, on a daily basis. You are encouraged to try voltaren gel for your chronic knee pain. Your A1C was elevated during your hospital stay. Your A1C was 5.8. This is consistent with Pre Diabetes. It is recommended you work with your primary care provider on diet and lifestyle changes to help prevent Type 2 Diabetes. OTHER INSTRUCTIONS: Seek medical attention if you have: * temperature above 101 * chest pain or trouble breathing * abdominal pain, nausea, vomiting * diarrhea, dark stools or bloody stools * any unanswered questions or concerns Call 911 if symptoms are severe. Please take good care of yourself. It has been a pleasure taking care of you. Please take care of yourself. If you have any questions regarding your recent hospitalization please contact [facility] and request Donald Luke @ [phone]. Total Time Total Time Spent Total Time Spent (In Minutes): 45 minutes Supervising Physician Co-Signing Physician Notes Attending Addendum: Case reviewed with the advanced practitioner. I have personally performed a history and physical examination on the patient. I have reviewed the advanced practitioner's documentation on the date of service referenced in note, and I agree with, and take responsibility for the plan of care. please refer to her notes for full details patient seen and examined, records reviewed by myself as well Farhan Campbell MD
--- NOTE | 2024-04-24 11:50 | XRay Report ---
XR chest 1V portable CLINICAL HISTORY: follow up effusions TECHNIQUE: Single frontal radiograph of the chest was obtained. Comparison: Comparison is made to chest radiograph 04/23/2024 FINDINGS: No lines and tubes are seen. The cardiomediastinal silhouette is normal. The lungs are clear, previou sly noted vascular congestion and airspace opacities have resolved. No evidence of pleural effusion o r pneumothorax. IMPRESSION: Previously noted pleural effusions have resolved. Pulmonary edema has also resolved. ACT 112: Negative or not required by law. Electronically signed by: Richard Arevalo M.D. 04/24/2024 11:48 AM
--- NOTE | 2024-04-24 13:02 | Electrocardiogram Report ---
Test Reason : Blood Pressure : / mmHG Vent. Rate : 070 BPM Atrial Rate : 070 BPM P-R Int : 154 ms QRS Dur : 082 ms QT Int : 382 ms P-R-T Axes : 049 041 045 degrees QTc Int : 412 ms Normal sinus rhythm with sinus arrhythmia Normal ECG When compared with ECG of 23-APR-2024 00:04, No significant change was found Confirmed by Brandon Salgado ([id number]) on 04/24/2024 12:59:57 PM Referred By: REFERRED SELF Confirmed By:Brandon Salgado
[2024-04-25 12:06] LABS: Marijuana Quant, GCMS Urine >5000 ng/mL (<5)
== END 2024-04-24 16:12 | disposition home or self-care (01) ==
LOC: ED 23:33 → EDINP 23:33 → 2N 04-23 19:51

== ENCOUNTER 2024-12-26 01:07 | Observation (INO) ==
[2024-12-26 01:13] VITALS: TEMP 98.1
--- NOTE | 2024-12-26 01:25 | Emergency Department Note ---
Impression & Plan Fluid collection at surgical site, Leukocytosis ED Provider Note CHIEF COMPLAINT: Postsurgical complaint HISTORY OF PRESENT ILLNESS: This 43-year-old female patient presents to the emergency department via private vehicle for evaluation of concern for wound dehiscence from abdominal hernia surgery yesterday. She reports pain and burning to the incision site. She states pain radiates across the left side of the abdomen. She denies nausea, vomiting or fever. She reports no heavy lifting. REVIEW OF SYSTEMS: A review of systems was performed with positives and pertinent negatives listed in the history of present illness. All other systems were reviewed and are negative. ALLERGIES: See below MEDICATIONS: See below PMH: See below PHYSICAL EXAM: VITALS: Vitals are noted on the nurse's note and reviewed by myself. Vital signs stable. GENERAL: 43-year-old female, in no acute distress, nondiaphoretic, well- developed well-nourished. SKIN: Surgical site at umbilicus, Steri-Strips in place. HEAD: Normocephalic atraumatic. HEART: Regular rate and rhythm without murmurs gallops or rubs. LUNGS: Clear to auscultation bilaterally without wheezes, rales or rhonchi. No retractions or accessory muscle use. ABDOMEN: Positive bowel sounds x 4. Soft, TTP umbilicus, no palpable mass. No rebound tenderness or guarding. NEURO: Patient was alert and oriented to person place and time. No focal neurological deficits. MEDICAL DECISION MAKING: Patient is a 43-year-old female who arrives to the emergency department for evaluation of the above-stated complaint. A saline lock was established, CBC, CMP were obtained. Lab work shows leukocytosis, 17.94, with a stable hemoglobin and hematocrit. CMP shows hyperglycemia 176, otherwise unremarkable. CT imaging of the abdomen and pelvis with IV contrast was obtained, which shows a focal isodense fluid collection measuring 15 x 28 x 35 mm seen at the operative site with few tiny adjacent air foci and minimal surrounding fat stranding. Likely postoperative collection, however superimposed infection cannot be excluded. The presence of a significant leukocytosis, and further evaluation is indicated. I contacted Melvin Doshi PA-C from general surgery who agreed to evaluate the patient. She did agree that due to the patient's significant leukocytosis, that the patient should at minimum follow-up with Dr. Montanez on an outpatient basis in the morning. The patient did state she is in significant pain, and was not agreeable to discharge. She was provided oral acetaminophen, oral oxycodone, and IV Zosyn. Recommendations were made for admission to medicine for observation with general surgery consult. Case management was contacted, to facilitate admission to the [facility] hospitalist group. Dr. Polo, agreed to accept the patient under his care. Please refer to his documentation, for further patient workup. DIFFERENTIAL DIAGNOSIS: Wound dehiscence, abscess, seroma, hematoma, as well as other pathologies. The chart was completed utilizing [employer] Speech voice recognition software. Grammatical errors, random word insertions, pronoun errors, and incomplete sentences are an occasional consequence of this system due to software limitations, ambient noise, and hardware issues. Any formal questions or concerns about the content, text, or information contained within the body of this dictation should be directly addressed to the physician for clarification. Past Med/Surg History Problem List (Updated 12/26/24 @ 06:12 by JANET Mays) Leukocytosis (Acute) Fluid collection at surgical site (Acute) Toxic metabolic encephalopathy Bilateral tinnitus Sensorineural hearing loss (SNHL) of both ears Hearing reduced Cerumen impaction Suspected COVID-19 virus infection (Acute) Bipolar disorder, curr episode mixed, severe, with psychotic features Tobacco use GERD (gastroesophageal reflux disease) Bipolar disorder Asthma HAS NOT USED INHALER SINCE LAST WINTER Headache (Acute) Bite by animal (Acute) Acute headache (Acute) Depressive disorder (Chronic 06/08/11) Adnexal cyst (Acute) Medical History Encephalopathy Elevated lactic acid level Leukocytosis ANUJ (acute kidney injury) Accidental marijuana overdose Acute confusion Atypical migraine Degenerative disc disease Osteoarthritis History of kidney stones Diverticulosis History of IBS Anemia Post traumatic stress disorder Depression with anxiety Migraine Surgical History History of knee surgery H/O craniotomy AT 6 MONTHS AGE (LEFT SIDE OF SKULL ABNORMALITY "WAS LEFT ON LEFT SIDE TOO LONG AN INFANT") History of dilatation and curettage History of ankle surgery RT History of colonoscopy History of appendectomy History of cholecystectomy History of tooth extraction History of tubal ligation Family History Grandmother (Maternal) Family hx of colon cancer Father Throat cancer Heart disease Brother Heart disease Other Asthma Coronary heart disease Diabetes Environmental allergies Hypertension No family history of adverse response to anesthesia No family history of bleeding disorder Stroke Social History Smoking Status: Never smoker Tobacco Type: E-cigarettes / Vaping Age Started Using Tobacco: 21; Cigarettes Per Day: 5 CIG DAILY-trying to quit; Second Hand Exposure: Yes; Do You Dip or Chew Tobacco: No; Hx Alcohol Use: No Hx Substance Use: Yes Last Used Substance: Just Prior to Arrival Preferred Language: Pashto Communication Ability: Effective Java [id number] Application 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 Required: No Beliefs That Will Affect Care: None marital status: Current Living Situation: Spouse Current Living Situation Comment: son also lives at home current occupational status: employed current occupation: [employer] Feels Safe at Home: Yes Assistive Devices: Glasses Allergies Allergies Allergy/AdvReac Type Severity Reaction Status Date / Time bee venom protein (honey bee) Allergy Severe ITCHY Verified 04/23/24 14:00 THROAT, FACE SWELLS-CARRIES AN EPIPEN citalopram Allergy Intermediate ITCHING/EFFECTS Verified 04/23/24 14:00 MOOD AND THINKING dexamethasone [From Decadron] Allergy Intermediate Cramping Verified 04/23/24 14:00 of the Muscles ragweed pollen Allergy Intermediate Hives Verified 04/23/24 14:00 pollen extracts Allergy Mild Watery Eye Verified 04/23/24 14:00 azithromycin AdvReac Intermediate Gastrointestinal Verified 04/23/24 14:00 Upset cephalexin AdvReac Intermediate GI SYMPTOMS Verified 04/23/24 14:00 Fish Containing Products AdvReac Intermediate Vomiting Verified 04/23/24 14:00 ketorolac AdvReac Intermediate headache Verified 04/23/24 14:00 morphine AdvReac Intermediate REBOUND Verified 04/23/24 14:00 MIGRAINE HEADACHE red dye AdvReac Intermediate # 40 & Verified 04/23/24 14:00 #30--MIGRAINE sulfamethoxazole AdvReac Intermediate GI SYMPTOMS Verified 04/23/24 14:00 trimethoprim AdvReac Intermediate GI SYMPTOMS Verified 04/23/24 14:00 venlafaxine AdvReac Intermediate Dizziness Verified 04/23/24 14:00 Home Meds Home Medications Medication Instructions Recorded Confirmed epinephrine 0.3 mg/0.3 mL 0.3 mg IM DIRECTED PRN Allergic 06/29/19 04/23/24 injection, auto-injector Reaction riboflavin (vitamin B2) 100 mg 400 mg PO QAM 06/29/19 04/23/24 tablet (Vitamin B-2) aspirin 81 mg tablet,delayed 162 mg PO BID 04/30/21 04/23/24 release (Adult Aspirin Regimen) acetaminophen 500 mg tablet 500 mg PO Q6H PRN Pain 08/07/21 04/23/24 (Acetaminophen Extra Strength) ibuprofen 600 mg tablet (IBU) 600 mg PO Q6H PRN fever or pain 08/07/21 04/23/24 pantoprazole 40 mg tablet,delayed 40 mg PO DAILY PRN Stomach Upset 03/15/22 04/23/24 release (Protonix) topiramate 50 mg tablet 50 mg PO BID 05/10/22 04/23/24 lamotrigine 200 mg tablet 200 mg PO QAM 06/26/23 04/23/24 magnesium oxide 500 mg PO DAILY 06/26/23 04/23/24 montelukast 10 mg tablet 10 mg PO DAILY 06/26/23 04/23/24 (Singulair) valacyclovir 1 gram tablet 1,000 mg PO DIRECTED PRN Cold 06/26/23 04/23/24 (Valtrex) Sores Previous Rx's Medication Instructions Recorded albuterol sulfate 90 mcg/actuation 2 inh inhalation Q6H PRN shortness 11/06/21 aerosol inhaler of breath or wheezing #8.5 grams ondansetron 4 mg disintegrating 4 mg PO Q8H PRN nausea and 05/31/23 tablet vomiting #30 tabs diclofenac sodium 1 % topical gel 4 g EXT QID #100 grams 04/24/24 (Voltaren Arthritis Pain) furosemide 20 mg tablet 20 mg PO DAILY PRN edema #14 tabs 04/24/24 potassium chloride 20 mEq 20 meq PO DAILY PRN when taking 04/24/24 tablet,extended release lasix #14 tabs hydroxyzine HCl 25 mg tablet 25 mg PO Q6H PRN hives #30 tabs 05/30/24 methylprednisolone 4 mg tablets in See Rx Instructions .Route 05/30/24 a dose pack (Medrol (Roland)) .COMPLEX #21 ea Results & Data (ED) Vital Signs Vital Signs - 24 hr 12/26/24 01:09 12/26/24 01:27 12/26/24 01:37 Temperature 36.7 C Temperature Source Temporal Artery Scan Pulse Rate 114 H 92 H Pulse Rate [Apical] 86 Pulse Rate from SpO2 Sensor Respiratory Rate 19 21 Respiratory Depth Normal Blood Pressure 203/102 H Blood Pressure [Right Arm] 148/89 H Blood Pressure Mean 135 Blood Pressure Mean [Right Arm] 108 Blood Pressure Position [Right Arm] Sitting Pulse Oximetry 95 95 Oxygen Delivery Method Room Air Room Air Sepsis Recent Fever Within 48 Hours No Sepsis New/Unexplained Change in Mental Status N/A Sepsis Action Taken by Nursing No Action Required 12/26/24 02:15 12/26/24 02:15 12/26/24 02:24 Temperature Temperature Source Pulse Rate 87 87 Pulse Rate [Apical] Pulse Rate from SpO2 Sensor 87 88 Respiratory Rate 21 21 Respiratory Depth Blood Pressure 129/77 129/77 Blood Pressure [Right Arm] Blood Pressure Mean 94 94 Blood Pressure Mean [Right Arm] Blood Pressure Position [Right Arm] Pulse Oximetry 95 94 Oxygen Delivery Method Sepsis Recent Fever Within 48 Hours Sepsis New/Unexplained Change in Mental Status Sepsis Action Taken by Nursing 12/26/24 02:39 12/26/24 03:00 12/26/24 03:00 Temperature Temperature Source Pulse Rate 93 H Pulse Rate [Apical] Pulse Rate from SpO2 Sensor 93 H Respiratory Rate 22 Respiratory Depth Blood Pressure 135/78 135/78 Blood Pressure [Right Arm] Blood Pressure Mean 112 112 Blood Pressure Mean [Right Arm] Blood Pressure Position [Right Arm] Pulse Oximetry 94 Oxygen Delivery Method Sepsis Recent Fever Within 48 Hours Sepsis New/Unexplained Change in Mental Status Sepsis Action Taken by Nursing 12/26/24 03:18 12/26/24 03:21 12/26/24 03:33 Temperature Temperature Source Pulse Rate 81 79 82 Pulse Rate [Apical] Pulse Rate from SpO2 Sensor 81 79 83 Respiratory Rate 20 19 22 Respiratory Depth Blood Pressure Blood Pressure [Right Arm] Blood Pressure Mean Blood Pressure Mean [Right Arm] Blood Pressure Position [Right Arm] Pulse Oximetry 94 93 93 Oxygen Delivery Method Sepsis Recent Fever Within 48 Hours Sepsis New/Unexplained Change in Mental Status Sepsis Action Taken by Nursing 12/26/24 03:45 12/26/24 04:00 12/26/24 04:00 Temperature Temperature Source Pulse Rate 85 Pulse Rate [Apical] Pulse Rate from SpO2 Sensor 84 Respiratory Rate 22 Respiratory Depth Blood Pressure 135/76 135/76 Blood Pressure [Right Arm] Blood Pressure Mean 103 103 Blood Pressure Mean [Right Arm] Blood Pressure Position [Right Arm] Pulse Oximetry 91 Oxygen Delivery Method Sepsis Recent Fever Within 48 Hours Sepsis New/Unexplained Change in Mental Status Sepsis Action Taken by Nursing 12/26/24 04:03 12/26/24 04:24 12/26/24 05:57 Temperature Temperature Source Pulse Rate 85 77 81 Pulse Rate [Apical] Pulse Rate from SpO2 Sensor 84 80 Respiratory Rate 21 16 Respiratory Depth Blood Pressure 135/76 Blood Pressure [Right Arm] Blood Pressure Mean 95 Blood Pressure Mean [Right Arm] Blood Pressure Position [Right Arm] Pulse Oximetry 92 96 Oxygen Delivery Method Sepsis Recent Fever Within 48 Hours Sepsis New/Unexplained Change in Mental Status Sepsis Action Taken by Jail Medications Current Medication List: was personally reviewed by me Laboratory Data Attestation: I reviewed the patient's lab results. 12/26/24 01:40 12/26/24 01:53 Lab Results 12/26/24 12/26/24 Range/Units 01:40 01:53 WBC 17.94 H (4.8-10.8) K/ul RBC 4.13 L (4.20-5.40) M/uL Hgb 13.1 (12.0-16.0) g/dl Hct 39.3 (37.0-47.0) % MCV 95.2 (80.0-100.0) fL MCH 31.7 (25.0-34.0) pg MCHC 33.3 (32.0-36.0) g/dL RDW Std Deviation 46.1 (36.4-46.3) fL RDW Coeff of Og 13.2 (11.5-14.5) % Plt Count 257 (130-400) K/uL MPV 9.3 L (9.4-12.4) fL Immature Gran % (Auto) 0.5 % Neut % (Auto) 84.1 % Lymph % (Auto) 10.8 % Mon[place] % (Auto) 4.2 % Eos % (Auto) 0.2 % Baso % (Auto) 0.2 % Neut # (Auto) 15.09 H (1.40-6.50) K/uL Lymph # (Auto) 1.93 (1.20-3.40) K/uL Mon[place] # (Auto) 0.76 H (0.11-0.59) K/uL Eos # (Auto) 0.04 (0.00-0.50) K/uL Baso # (Auto) 0.03 (0.00-0.20) K/uL Immature Gran # (Auto) 0.09 (0.01-0.20) K/uL Sodium 136 (136-145) mmol/L Potassium 4.2 (3.5-5.1) mmol/L Chloride 106 (98-107) mmol/L Carbon Dioxide 22 (21-32) mmol/L Anion Gap 8 (3-11) BUN 11 (6-23) mg/dl Creatinine 0.74 (0.6-1.2) mg/dl Est Cr Clr Drug Dosing Not Reportable eGFR 103.53 BUN/Creatinine Ratio 14.9 (10-20) Glucose 176 H (70-99(Fasting)) mg/dl Calcium 8.7 (8.6-10.3) mg/dl Total Bilirubin 0.2 (0.2-1.0) mg/dl AST 14 (13-39) U/L ALT 15 (7-52) U/L Alkaline Phosphatase 63 (34-104) U/L Total Protein 7.3 (6.0-8.3) gm/dl Albumin 3.8 (3.4-5.0) gm/dl Globulin 3.5 (2.5-4.0) gm/dl Albumin/Globulin Ratio 1.1 (0.9-2) Administered Medications Discontinued Medications Acetaminophen (Acetaminophen 500 Mg Tab) 1,000 mg PO NOW STA Stop: 12/26/24 02:29 Last Admin: 12/26/24 02:41 Dose: 1,000 mg Documented By: KATE Piperacillin Sod/Tazobactam Sod (Zosyn) 4.5 gm in 100 mls @ 200 mls/hr IV NOW ONE; Protocol Stop: 12/26/24 04:59 Last Infusion: 12/26/24 05:20 Dose: Infused Documented By: Admin: 12/26/24 04:35 Dose: 200 mls/hr Documented By: MELANY Ioversol (Optiray 320 100ml) 100 ml IV ONCE ONE Stop: 12/26/24 02:48 Last Admin: 12/26/24 02:47 Dose: 93 ml Documented By: JAVIER Oxycodone HCl (Oxycodone Hcl Ir 5 Mg Tab (Immediate Release)) 5 mg PO NOW STA Stop: 12/26/24 04:31 Last Admin: 12/26/24 04:35 Dose: 5 mg Documented By: MELANY Imaging Data Attestation: I personally reviewed and interpreted this imaging study as follows: Radiologist's Impression: Abdomen/Pelvis CT 12/26/24 01:40 EXAM: CT abd pelvis IV con only CLINICAL HISTORY: post surgical pain TECHNIQUE: CT of the abdomen and pelvis was performed, with the following protocol: axial images, and reconstructed coronal and sagittal images. Intravenous contrast was administered (93 ML OPTIRAY 320). One of the following dose reduction techniques was utilized for this exam: Automated exposure control, adjustment of the mA and/or kV according to patient size, and use of iterative reconstruction. COMPARISON: 12/02/2024 FINDINGS: Sections of lower thorax show no significant abnormality. Abdomen: Soft Tissues: Interval postsurgical removal of right paraumbilical hernia seen on prior CT study. Focal isodense fluid collection measuring 15 x 28 x 45 mm ( AP x TR x CC ) seen at the operative site with few tiny adjacent air foci and minimal surrounding fat stranding. Liver: 20 cm in size take any. No focal lesions, cysts, or masses were identified. Gallbladder and Biliary System: Post cholecystectomy status. Pancreas: Pancreatic head, body, and tail are visualized and appear normal in size and density. No pancreatic masses or calcifications were noted. Spleen: Normal in size, shape, and density. No splenic lesions or masses were identified. Kidneys and Adrenal Glands: Both kidneys are normal in size, shape, and position. No renal calculi or hydronephrosis. Adrenal glands are unremarkable. Pelvis: Urinary Bladder: Partially distended. Uterus and adnexa appear unremarkable. Peritoneal and Retroperitoneal Structures: No free fluid or abnormal fluid collections were identified within the abdomen or pelvis. No lymphadenopathy was noted. Bowel: Uncomplicated colonic diverticulosis noted. The visualized bowel loops are normal in caliber and appearance. No evidence of bowel obstruction or wall thickening. Appendix is not well delineated. Bones: Mild degenerative changes in lumbar spine. IMPRESSION: 1. Interval postsurgical removal of right paraumbilical hernia seen on prior CT study. 2. Focal isodense fluid collection measuring 15 x 28 x 35 mm ( AP x TR x CC ) seen at the operative site with few tiny adjacent air foci and minimal surrounding fat stranding. This appears to be postoperative collection, however, superimposed infection cannot be excluded. Recommended clinical correlation and follow up. Electronically signed by Abran Jaimes 12-26-2024 03:50 AM Discharge Plan Visit Data Chief Complaint: Wound Recheck Stated Complaint: S/P SURGERY 12/25 -SUTURES POSSIBLY POPPED OUT ED Provider: Brenda Rivas ED Midlevel Provider: Selma Campbell Discharge Problem: Fluid collection at surgical site, Leukocytosis Forms Stand Alone Forms: [facility] Prescriptions Prescriptions: No Action pantoprazole [Protonix] 40 mg tablet,delayed release (DR/EC) 40 mg PO DAILY PRN (Reason: Stomach Upset) riboflavin (vitamin B2) [Vitamin B-2] 100 mg Tablet 400 mg PO QAM epinephrine 0.3 mg/0.3 mL auto-injector 0.3 mg IM DIRECTED PRN (Reason: Allergic Reaction) aspirin [Adult Aspirin Regimen] 81 mg tablet,delayed release (DR/EC) 162 mg PO BID Rx Instructions: PER PT "DON'T TAKE REGULARLY". ondansetron 4 mg tablet,disintegrating 4 mg PO Q8H PRN (Reason: nausea and vomiting) Qty: 30 0RF lamotrigine 200 mg tablet 200 mg PO QAM valacyclovir [Valtrex] 1 gram Tablet 1,000 mg PO DIRECTED PRN (Reason: Cold Sores) magnesium oxide 500 mg Tablet 500 mg PO DAILY montelukast [Singulair] 10 mg Tablet 10 mg PO DAILY acetaminophen [Acetaminophen Extra Strength] 500 mg Tablet 500 mg PO Q6H PRN (Reason: Pain) ibuprofen [IBU] 600 mg tablet 600 mg PO Q6H PRN (Reason: fever or pain) albuterol sulfate 90 mcg/actuation HFA aerosol inhaler 2 inh inhalation Q6H PRN (Reason: shortness of breath or wheezing) Qty: 8.5 0RF topiramate 50 mg tablet 50 mg PO BID methylprednisolone [Medrol (Roland)] 4 mg tablets,dose pack See Rx Instructions .ROUTE .COMPLEX Qty: 21 0RF Rx Instructions: Take as directed on pack hydroxyzine HCl 25 mg tablet 25 mg PO Q6H PRN (Reason: hives) Qty: 30 0RF diclofenac sodium [Voltaren Arthritis Pain] 1 % Gel 4 g EXT QID Qty: 100 0RF Rx Instructions: Apply to Left Knee four times a day. furosemide 20 mg tablet 20 mg PO DAILY PRN (Reason: edema) Qty: 14 0RF potassium chloride 20 mEq tablet extended release 20 meq PO DAILY PRN (Reason: when taking lasix) Qty: 14 0RF Referrals Referrals: Roddy Giraldo MD [Primary Care Provider] -
[2024-12-26 02:10] LABS: Basophils # (auto) 0.03 K/uL (0.00-0.20); Basophils % (auto) 0.2 %; Eosinophils # (auto) 0.04 K/uL (0.00-0.50); Eosinophils % (auto) 0.2 %; Hematocrit (blood only) 39.3 % (37.0-47.0); Hemoglobin 13.1 g/dl (12.0-16.0); Immature Granulocytes # (auto) 0.09 K/uL (0.01-0.20); Immature Granulocytes % (auto) 0.5 %; Lymphocytes # (auto) 1.93 K/uL (1.20-3.40); Lymphocytes % (auto) 10.8 %; Mean Corpuscular Hemoglobin 31.7 pg (25.0-34.0); Mean Corpuscular Hgb Conc 33.3 g/dL (32.0-36.0); Mean Corpuscular Volume 95.2 fL (80.0-100.0); Mean Platelet Volume 9.3 fL (9.4-12.4); Monocytes # (auto) 0.76 K/uL (0.11-0.59); Monocytes % (auto) 4.2 %; Neutrophils # (auto) 15.09 K/uL (1.40-6.50); Neutrophils % (auto) 84.1 %; Platelet Count 257 K/uL (130-400); RDW Coefficient of Variation 13.2 % (11.5-14.5); RDW Standard Deviation 46.1 fL (36.4-46.3); Red Blood Count 4.13 M/uL (4.20-5.40); White Blood Count 17.94 K/ul (4.8-10.8)
[2024-12-26 02:27] LABS: Alanine Aminotransferase 15 U/L (7-52); Albumin Globulin Ratio 1.1 (0.9-2); Albumin Level 3.8 gm/dl (3.4-5.0); Alkaline Phosphatase 63 U/L (34-104); Anion Gap 8 (3-11); Aspartate Aminotransferase 14 U/L (13-39); BUN Creatinine Ratio 14.9 (10-20); Bilirubin,Total 0.2 mg/dl (0.2-1.0); Blood Urea Nitrogen 11 mg/dl (6-23); Calcium 8.7 mg/dl (8.6-10.3); Carbon Dioxide 22 mmol/L (21-32); Chloride 106 mmol/L (98-107); Globulin 3.5 gm/dl (2.5-4.0); Glucose 176 mg/dl (70-99(Fasting)); Potassium 4.2 mmol/L (3.5-5.1); Sodium 136 mmol/L (136-145); Total Protein 7.3 gm/dl (6.0-8.3)
[2024-12-26] MEDS: ACETAMINOPHEN 500 MG TAB PO STA (02:41)
[2024-12-26] MEDS: OPTIRAY 320 100ml IV ONE (02:47)
--- NOTE | 2024-12-26 03:50 | CT Scan Report ---
EXAM: CT abd pelvis IV con only CLINICAL HISTORY: post surgical pain TECHNIQUE: CT of the abdomen and pelvis was performed, with the following protocol: axial images, and reconstructed coronal and sagittal images. Intravenous contrast was administered (93 ML OPTIRAY 320). One of the following dose reduction techniques was utilized for this exam: Automated exposure control, adjustment of the mA and/or kV according to patient size, and use of iterative reconstruction. COMPARISON: 12/02/2024 FINDINGS: Sections of lower thorax show no significant abnormality. Abdomen: Soft Tissues: Interval postsurgical removal of right paraumbilical hernia seen on prior CT study. Focal isodense fluid collection measuring 15 x 28 x 45 mm ( AP x TR x CC ) seen at the operative site with few tiny adjacent air foci and minimal surrounding fat stranding. Liver: 20 cm in size take any. No focal lesions, cysts, or masses were identified. Gallbladder and Biliary System: Post cholecystectomy status. Pancreas: Pancreatic head, body, and tail are visualized and appear normal in size and density. No pancreatic masses or calcifications were noted. Spleen: Normal in size, shape, and density. No splenic lesions or masses were identified. Kidneys and Adrenal Glands: Both kidneys are normal in size, shape, and position. No renal calculi or hydronephrosis. Adrenal glands are unremarkable. Pelvis: Urinary Bladder: Partially distended. Uterus and adnexa appear unremarkable. Peritoneal and Retroperitoneal Structures: No free fluid or abnormal fluid collections were identified within the abdomen or pelvis. No lymphadenopathy was noted. Bowel: Uncomplicated colonic diverticulosis noted. The visualized bowel loops are normal in caliber and appearance. No evidence of bowel obstruction or wall thickening. Appendix is not well delineated. Bones: Mild degenerative changes in lumbar spine. IMPRESSION: 1. Interval postsurgical removal of right paraumbilical hernia seen on prior CT study. 2. Focal isodense fluid collection measuring 15 x 28 x 35 mm ( AP x TR x CC ) seen at the operative site with few tiny adjacent air foci and minimal surrounding fat stranding. This appears to be postoperative collection, however, superimposed infection cannot be excluded. Recommended clinical correlation and follow up. Electronically signed by Abran Jaimes 12-26-2024 03:50 AM
[2024-12-26] MEDS: oxyCODONE HCL IR 5 MG TAB (IMMEDIATE RELEASE) PO STA (04:35)
[2024-12-26] MEDS: PIPERACILLIN/TAZOBACTAM 4.5 GM/100 ML BAG IV ONE (04:35)
--- NOTE | 2024-12-26 04:50 | Surgery Consultation ---
Date of Consultation December 26, 2024 Assessment & Plan (1) Fluid collection at surgical site: Patient yesterday underwent umbilical hernia repair with mesh by Dr. Montanez. When trying to get up from her couch she felt 2 "pops" at her surgical site and worsening pain at the site. The patient was worked up and was found to have an elevated WBC at [address] findings of a 1.5x2.8x3.5 cm post-operative fluid collection. The patient was seen and evaluated this morning at bedside, she is resting comfortably, VSS, and NAD. Her surgical site has no overlying signs of infection at this time however is moderately tender over the area. I did discuss with the patient that since surgery was only 24 hours ago, it is unlikely the collection is an abscess and that her WBC could be elevated secondary from surgery as well. I did offer the patient to be sent home with oral antibiosis and to call her surgeons office first thing this morning. However, the patient feels uncomfortable going home with the amount of pain she is currently having. Recommend for now keeping patient NPO, IV hydration, and pain control, patient was given antibiotics in the ED, continue for now and continue to trend WBC. Will discuss patient's case with attending surgeon this morning and will provide additional surgical recommendations at that time. Supervising Physician Co-Signing Physician Notes I saw and examined this patient in the ED this am. Her pain is improved but she states she was changed to IV only and started NPO status She currently has no signs/symptoms of obstruction, her CT A/P was reviewed and there are no signs of a recurrent umbilical at this time. She may have a regular diet and oral pain medications I spent a good amount of time educating the patient on good post umbilical hernia repair habits to decrease her risk of further post operative complications. She expressed understanding. Abdominal binder requested to be applied and go home with the patient as well. Continue using ice packs for now. The incision is completely intact,without drainage, some ecchymosis is present immediately at the surgical site, not broad. Umbilicus is still inverted without bulging of tissues to suggest herniation and the fascia appears intact on CT imaging. Keep the incision covered with dry gauze and keep dry/no showers for 2 more days. Do not rub the incision. History of Present Illness Reason for Consultation: post-op complication History of Present Illness Patient is a 43-year-old female who presented to the emergency room for complaints of post-operative pain. Patient underwent umbilical hernia repair with mesh yesterday with Dr. Montanez. She states she was trying to get up from the couch and she had felt 2 "pops" at her surgical site. Since then she has been having increased pain at the surgical site but denies any nausea, vomiting or new onset of fevers or chills. The patient was worked up and WBC was elevated at [address] imaging was concerning for a 1.5x2.8x4.5cm post-operative fluid collection. The patient was seen and evaluated this morning at bedside, she is resting comfortably in bed, VSS, and NAD. The patient's surgical dressing was taken down and the incision appears to be well approximated without any overlying signs of infection present, she does have moderate amount of tenderness over the area. Allergies Allergy/AdvReac Type Severity Reaction Status Date / Time bee venom protein (honey bee) Allergy Severe ITCHY Verified 04/23/24 14:00 THROAT, FACE SWELLS-CARRIES AN EPIPEN citalopram Allergy Intermediate ITCHING/EFFECTS Verified 04/23/24 14:00 MOOD AND THINKING dexamethasone [From Decadron] Allergy Intermediate Cramping Verified 04/23/24 14:00 of the Muscles ragweed pollen Allergy Intermediate Hives Verified 04/23/24 14:00 pollen extracts Allergy Mild Watery Eye Verified 04/23/24 14:00 azithromycin AdvReac Intermediate Gastrointestinal Verified 04/23/24 14:00 Upset cephalexin AdvReac Intermediate GI SYMPTOMS Verified 04/23/24 14:00 Fish Containing Products AdvReac Intermediate Vomiting Verified 04/23/24 14:00 ketorolac AdvReac Intermediate headache Verified 04/23/24 14:00 morphine AdvReac Intermediate REBOUND Verified 04/23/24 14:00 MIGRAINE HEADACHE red dye AdvReac Intermediate # 40 & Verified 04/23/24 14:00 #30--MIGRAINE sulfamethoxazole AdvReac Intermediate GI SYMPTOMS Verified 04/23/24 14:00 trimethoprim AdvReac Intermediate GI SYMPTOMS Verified 04/23/24 14:00 venlafaxine AdvReac Intermediate Dizziness Verified 04/23/24 14:00 Home Medications Medication Instructions Recorded Confirmed Type aspirin 81 mg tablet,delayed 81 mg PO DAILY 12/26/24 12/26/24 History release furosemide 20 mg tablet 20 mg PO UD 12/26/24 12/26/24 History magnesium oxide 500 mg PO DAILY 12/26/24 12/26/24 History oxycodone-acetaminophen 5 mg-325 1 tab PO Q4H PRN Severe Pain 12/26/24 12/26/24 History mg tablet (Scale Score 7-10) potassium chloride 20 mEq 20 meq PO UD 12/26/24 12/26/24 History tablet,extended release Patient History Medical History Encephalopathy Elevated lactic acid level Leukocytosis ANUJ (acute kidney injury) Accidental marijuana overdose Acute confusion Atypical migraine Degenerative disc disease Osteoarthritis History of kidney stones Diverticulosis History of IBS Anemia Post traumatic stress disorder Depression with anxiety Migraine Surgical History History of knee surgery H/O craniotomy AT 6 MONTHS AGE (LEFT SIDE OF SKULL ABNORMALITY "WAS LEFT ON LEFT SIDE TOO LONG AN ") History of dilatation and curettage History of ankle surgery RT History of colonoscopy History of appendectomy History of cholecystectomy History of tooth extraction History of tubal ligation Family History Grandmother (Maternal) Family hx of colon cancer Father Throat cancer Heart disease Brother Heart disease Other Asthma Coronary heart disease Diabetes Environmental allergies Hypertension No family history of adverse response to anesthesia No family history of bleeding disorder Stroke Social History Smoking Status: Never smoker Tobacco Type: E-cigarettes / Vaping Age Started Using Tobacco: 21; Cigarettes Per Day: 5 CIG DAILY-trying to quit; Second Hand Exposure: Yes; Do You Dip or Chew Tobacco: No; Hx Alcohol Use: No Hx Substance Use: Yes Last Used Substance: Just Prior to Arrival Preferred Language: Vietnamese Communication Ability: Effective Manager Of It Required: No Beliefs That Will Affect Care: None marital status: Current Living Situation: Spouse Current Living Situation Comment: son also lives at home current occupational status: employed current occupation: [employer] Feels Safe at Home: Yes Assistive Devices: Glasses Review of Systems Review of Systems: All systems reviewed & are unremarkable except as noted in HPI & below Physical Exam Constitutional: WD/WN, vitals as above Respiratory: normal respiratory effort, lungs clear to auscultation Cardiovascular: RRR, no murmur, no edema Gastrointestinal (Abdomen): Abdomen soft, nondistended, +TTP over umbilical surgical site. Steri-strips were removed to evaluate incision - incision well approximated, c/d/i without signs of infection. No rebound, guarding or sings of peritonitis. Skin: no rashes, warm and dry Psychiatric: A+Ox3, euthymic affect Results & Data Vital Signs (Past 12 Hours) Vital Signs Temp Pulse Pulse Resp BP BP Pulse Ox 12/26/24 04:03 85 21 92 12/26/24 04:00 135/76 12/26/24 04:00 135/76 12/26/24 03:45 85 22 91 12/26/24 03:33 82 22 93 12/26/24 03:21 79 19 93 12/26/24 03:18 81 20 94 12/26/24 03:00 135/78 12/26/24 03:00 135/78 12/26/24 02:39 93 H 22 94 12/26/24 02:24 87 21 94 12/26/24 02:15 129/77 12/26/24 02:15 87 21 129/77 95 12/26/24 01:37 92 H 12/26/24 01:27 86 21 148/89 H 95 12/26/24 01:09 36.7 C 114 H 19 203/102 H 95 O2 Del Method 12/26/24 04:03 12/26/24 04:00 12/26/24 04:00 12/26/24 03:45 12/26/24 03:33 12/26/24 03:21 12/26/24 03:18 12/26/24 03:00 12/26/24 03:00 12/26/24 02:39 12/26/24 02:24 12/26/24 02:15 12/26/24 02:15 12/26/24 01:37 12/26/24 01:27 Room Air 12/26/24 01:09 Room Air Diagnostic Findings EXAM: CT abd pelvis IV con only CLINICAL HISTORY: post surgical pain TECHNIQUE: CT of the abdomen and pelvis was performed, with the following protocol: axial images, and reconstructed coronal and sagittal images. Intravenous contrast was administered (93 ML OPTIRAY 320). One of the following dose reduction techniques was utilized for this exam: Automated exposure control, adjustment of the mA and/or kV according to patient size, and use of iterative reconstruction. COMPARISON: 12/02/2024 FINDINGS: Sections of lower thorax show no significant abnormality. Abdomen: Soft Tissues: Interval postsurgical removal of right paraumbilical hernia seen on prior CT study. Focal isodense fluid collection measuring 15 x 28 x 45 mm ( AP x TR x CC ) seen at the operative site with few tiny adjacent air foci and minimal surrounding fat stranding. Liver: 20 cm in size take any. No focal lesions, cysts, or masses were identified. Gallbladder and Biliary System: Post cholecystectomy status. Pancreas: Pancreatic head, body, and tail are visualized and appear normal in size and density. No pancreatic masses or calcifications were noted. Spleen: Normal in size, shape, and density. No splenic lesions or masses were identified. Kidneys and Adrenal Glands: Both kidneys are normal in size, shape, and position. No renal calculi or hydronephrosis. Adrenal glands are unremarkable. Pelvis: Urinary Bladder: Partially distended. Uterus and adnexa appear unremarkable. Peritoneal and Retroperitoneal Structures: No free fluid or abnormal fluid collections were identified within the abdomen or pelvis. No lymphadenopathy was noted. Bowel: Uncomplicated colonic diverticulosis noted. The visualized bowel loops are normal in caliber and appearance. No evidence of bowel obstruction or wall thickening. Appendix is not well delineated. Bones: Mild degenerative changes in lumbar spine. IMPRESSION: 1. Interval postsurgical removal of right paraumbilical hernia seen on prior CT study. 2. Focal isodense fluid collection measuring 15 x 28 x 35 mm ( AP x TR x CC ) seen at the operative site with few tiny adjacent air foci and minimal surrounding fat stranding. This appears to be postoperative collection, however, superimposed infection cannot be excluded. Recommended clinical correlation and follow up. PG Care Time/CCT Total # of Minutes Spent Total Time Spent with Patient: Total time spent is greater than 50% in coordination of care (as documented) at patient's floor/unit and/or counseling patient: [place] [address] Office/OBS Consult Lvl 1 Patient Type New Medical Decision Making Straight Forward Diagnoses Fluid collection at surgical site T88.8XXA
--- OUTSIDE RECORDS SUMMARY | 2024-12-26 05:25 | External Medical Summary | Summary of Care ---
Author Name Unknown Organization [facility] Address [address] [place] [address] Phone [phone] Care Team Providers Care Ambulance Operations Supervisor Name Role Phone Roddy Gabriel MD Primary Care Provider + Reason for Visit * Reason Comments NEW PATIENT Umbilical hernia * Evaluate & Treat - Unlimited Visits (Within 10 days (routine)) - Authorized Specialty Diagnoses / Procedures Referred By Sloan luque Referred To Contact General Surgery Diagnoses Umbilical hernia without obstruction and without gangrene Roddy Gabriel MD [address] [place] [address] Phone: tel: fax: Referral ID Status Reason Start Date Expiration Date Visits Requested Visits Authorized [id number] Authorized Specialty Services Required 12/03/[id number] Encounter Details Date Type Department Care Team (Late st Contact Info) Description 12/06/2024 2:30 PM EST Office Visit General Surgery, [facility] [address] [id number] Newton Montanez MD [address] [place] [place] [id number] Incisional hernia, without obstruction or gangrene* Allergies Active Allergy Reactions Criticality Noted Date Comments Azithromycin High 04/23/2004 gi upset Sulfamethoxazole-Trimet hoprim Nausea/vomiting 12/23/2016 Bee Venom 04/27/2024 Citalopram High 09/18/2021 Citalopram Hydrobromide Other (Please comment) 09/21/2011 Effects on mood, thinking Cephalexin Nausea/vomiting 12/23/2016 Atorvastatin Calcium 01/31/2014 Myalgias Morphine Other (Please comment) High 09/01/2015 Rebound migraines Red Dye #40 (Allura Red) 01/09/2013 40 and 30 causes pt to get migraines Venlafaxine 04/23/2004 Effexor, dizziness documented as of this encounter (statuses as of 12/06/2024) Medications valACYclovir (VALTREX) 1000 MG Tablet Take 2 Tabs by mouth every 12 hours. For 1 day for cold sores 4 Tab 11 7 Active aspirin enteric coated 81 MG TBEC Take 2 Tablets by mouth in the morning and 2 Tablets before bedtime. Active Acetaminophen 500 MG Oral Tablet Take 1 Tablet by mouth every 6 hours as needed for Pain. Active Magnesium 500 MG Capsule Take 400 mg by mouth 2 times a day. Active lamoTRIgine 200 MG Oral Tablet (LaMICtal) Take 1 Tablet by mouth. In the morning. 3 Active hydrOXYzine HCl 50 MG Oral Tablet TAKE 1/2 TO 1 (ONE-HALF TO ONE) TABLET BY MOUTH THREE TIMES DAILY NEEDED FOR ANXIETY 3 Active Topiramate 50 MG Oral Tablet (topAMAX) Take 1 Tablet by mouth in the morning and 1 Tablet before bedtime. 60 Tablet 11 3 Active Additional Information Patient not taking.Reported on 12/06/2024 EPINEPHrine 0.3 MG/0.3ML Injection Solution Auto-injector (Autoinjector) Inject 0.3 mg into a large muscle as needed for Anaphylaxis (severe allergic reaction). 3 Active hydrOXYzine HCl 25 MG Oral Tablet Take 1 Tablet by mouth every 6 hours as needed. Active Montelukast Sodium 10 MG Oral Tablet (Singulair) Take 1 Tablet by mouth in the morning. 90 Tablet 3 4 Active Pantoprazole Sodium 40 MG Oral Tablet Delayed Release (Protonix)Indica tions:Gastroesop hageal reflux disease without esophagitis Take 1 Tablet by mouth in the morning. 30 minutes before the first meal of the day. Do not crush, split or chew the tablet. 90 Tablet 3 4 Active Furosemide 20 MG Oral Tablet (Lasix) Take 1 Tablet by mouth as needed for Other (swelling). Three times a week as needed for swelling 30 Tablet 4 Active Potassium Chloride ER 20 MEQ Oral Tablet Extended Release Take 1 Tablet by mouth as needed for Other (with lasix). Take with lasix up to 3 times weekly as needed for swelling. 30 Tablet 4 Active documented as of this encounter (statuses as of 12/06/2024) Active Problems Problem Noted Date Diagnosed Date Incisional hernia, without obstruction or gangre ne 12/06/2024 Class 2 severe obesity due t o excess calories with serious comorbidity and body mass index (BMI) of 35.0 to 35.9 in adult 04/27/2024 Varicose veins of right lower extremity with andrew n 04/07/2023 Leg cramping 04/07/2023 Viral gastroenteritis 04/07/2023 History of 2019 novel coronavirus disease (COVID -19) 11/09/2021 Overview (11/09/2021): 10/27 Bereavement, uncomplicated 12/01/2020 Dyslipidemia 04/21/2020 Gastroesophageal reflux disease with esophagitis 04/21/2020 Recurrent urticaria 06/11/2019 Overview (06/11/2019): since 04/08/19 S/P craniotomy 09/20/2013 Routine general medical exam ination at a health care facility 06/20/2012 Overview (04/27/2024): 04/30 [facility] TTE--mild LVH, normal EF. 04/19 dad from [place] Generalized anxiety disorder 11/26/2011 Bipolar affective disorder, currently depressed, moderate 11/26/2011 Overview (11/29/2015): 11/22 [facility] inpatient admit dx bipolar start lamictal, gabapentin 12/22 sertraline 50mg ok, 100mg sedating 07/20 pt self d/c sertrline Tobacco use disorder 05/02/2011 Overview (05/02/2011): 0.5 ppd Migraine with aura and witho ut status migrainosus, not intractable 03/30/2011 Overview (01/14/2013): 01/17 MRI brain-no mass. ?hx occiptal operation? documented as of this encounter (statuses as of 12/06/2024) Resolved Problems Problem Noted Date Diagnosed Date Resolved Date Body mass index (BMI) of 40. 0 to 44.9 in adult 03/19/2019 11/20/2019 Overview: Per Obesity protocol #1 Trichomonas infection 07/25/20162018 Overview (07/28/2016): 07/07/16 treated. 07/28 retreat +4 pills for . Renal stone 10/08/2015 04/21/2020 Left-sided low back pain wit h left-sided sciatica 08/14/2015 04/21/2020 Constipation 04/24/2015 04/21/2020 Acute conjunctivitis 10/21/2014 014 Other and unspecified hyperlipidemia 10/07/2013 04/21/2020 Overview (10/25/2014): 2014-LDL 120s-reinforced TLC Family history of ischemic heart disease 08/08/2013 04/21/2020 Screening cholesterol level 08/08/2013 04/21/2020 Menstrual migraine 02/15/2013 0 Jaw pain 07/28/2012 04/21/2020 Obesity, Class I, BMI 30.0-3 4.9 (see actual BMI) 05/02/2011 03/21/2019 Overview: Per Obesity protocol #1 Encounter for supervision of other normal 11/27/2010 06/20/2012 Overview (03/09/2016): ICD-10 update of inactive term Low grade squamous intraepithelial dysplasia 9 07/28/2012 Presence of intrauterine contraceptive device 02/05/20 09 11/19/2010 Threatened premature labor, antepartum 03/27/2008 08/27/2008 Overview (03/10/2021): ICD-10 update of inactive term HBP [place] [id number] HIGH-RISK PREG NOS 03/21/2008 08/27/2008 Anemia 02/04/2006 07/28/2012 Overview (02/04/2006): Post cholecystectomy 01/31/06 documented as of this encounter (statuses as of 12/06/2024) Immunizations Name Administration Dates Next Due Seasonal Influenza Vac., MDV , IM, 0.5 mL (Fluzone) 12/12/2014,08/01/2013,07/28/2012 Seasonal Influenza, PF, 6 M & above, IM , (FluLaval or Fluzone) 09/07/2019 TDAP (age 10 and older)(Boostrix) 08/01/2018 TDAP, Age 7 and older, IM (Adacel) 04/24/2008 documented as of this encounter Social [...] in the Last Year Never true 04/21/2020 Comments No Sex and Gender Information Value Date Recorded Sex Assigned at Not on file Legal Sex Female 5:34 AM EST Gender Identity Not on file Sexual Orientation Not on file Occupation Industry Job Start Date Job End Date 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 Not on file Not on file Not on file documented as of this encounter Last Filed Vital Signs Vital Sign Reading Time Taken Comments Blood Pressure 143/86 12/06/2024 2:09 PM EST Pulse 80 12/06/2024 2:09 PM EST Temperature 36.3 C (97.3 F) 12/06/2024 2:09 PM ES T Respiratory Rate - - Oxygen Saturation - - Inhaled Oxygen Concentration - - Weight 124.7 kg (275 lb) 12/06/2024 2:09 PM EST Height 175.3 cm (5' 9") 12/06/2024 2:09 PM EST p er pt Body Mass Index 40.61 12/06/2024 2:09 PM EST documented in this encounter Progress Notes * Ashely Tyson LPN - 12/06/2024 3:02 PM EST Patient identified by name and date of . Chief Complaint Patient presents with NEW PATIENT Umbilical hernia Patient scheduled at [facility] for hernia surgery with dr montanez . Date of Test: 12/25/2024 Medications reviewed. EKG not obtained, pt is 43 not needed Labs: not obtained, pt is 43 years old , not needed Permit signed. Patient verbalizes understanding of pre- and post op instructions. Written instructions given for review at later date. 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 Pt would like to try and take at least 2 weeks off, hopefully, return light duty afterwards. If possible. * Newton Montanez MD - 12/06/2024 2:31 PM EST CC- Chief Complaint Patient presents with NEW PATIENT Umbilical hernia REF: RODDY GABRIEL [address] [facility] [place] [address] (office) [phone] (fax) HPI.: Gill Mcdonald is a 43 year old female seen in consultation for an incisional/umbilical hernia. Symptoms have been present for 1 weeks duration. Sx did not start at work. Pain is sharp and intermittent. Lump is not reducible. Pt has no Sx of chronic constipation,chronic cough,difficulty urinating. Past Medical History Past Medical History: Diagnosis Date Asthma, severity to be determined Bipolar affective disorder, currently depressed, moderate ([facility]) 11/26/201111/22 [facility] inpatient admit dx bipolar start lamictal, gabapentin 12/22 sertraline 50mg ok, 100mg sedating 07/20 pt self d/c sertrline Constipation 04/24/2015 Depression, major, recurrent (HCC) 11/26/2011 Depressive disorder, not elsewhere classified Dyslipidemia 04/21/2020 Family history of ischemic heart disease 08/08/2013 Gastroesophageal reflux disease with esophagitis 04/21/2020 Generalized anxiety disorder 11/26/2011 History of 2019 novel coronavirus disease (COVID-19) 11/09/202110/27 Left-sided low back pain with left-sided sciatica 08/14/2015 Migraine 03/30/201101/17 MRI brain-no mass. ?hx occiptal operation? Migraine variant 03/30/201101/17 MRI brain-no mass. ?hx occiptal operation? 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 07/28 retreat +4 pills for . Varicella without complication Past Surgical History Past Surgical History: Procedure Laterality Date , INDUCED BY D&E 2010 D&E COLONOSCOPY, DIAGNOSTIC (RECTUM) 08/23/2019 hyperplastic polyp, repeat 10 yrs/COLONOSCOPY FLEXIBLE PROXIMAL DIAGNOSTIC performed by Nicolasa Smart MD at ENDOSCOPY [facility] COLPOSCOPY OF CERVIX W/BIOPSY 11/14 DENTAL SURGERY PROCEDURE NEC 01/13 INFORMATION 2000 right ankle surgery INJECT DX/THER SUBSTANCE INTERLAMINAR CERVICAL/THORACIC W IMAGE GUIDE 09/27/2019 INJECTION SPINE LUMBAR CERVICAL OR THORACIC performed by Ren Yin Cousins, DO at OR [facility] IOF MRI ARM JOINT WO CONTRAST 04/24/04 rt shoulder/no rotator cuff tear oe tendonitis LAPAROSCOPY;APPENDECTOMY 11/08/2007 Dr. Eaton - [facility] LIGATE/CUT OVIDUCT(S) 05/19 Dr Moody MISCELLANEOUS ORDER ([facility] ONLY) 1981- skull surgery [facility] [place] MISCELLANEOUS ORDER ([facility] ONLY) 07/30/15 b/l lumbar facet joint injection-Dr Campos [facility] MISCELLANEOUS ORDER ([facility] ONLY) Bilateral 11/25/2016 b/l L4,L5,S1 median nerve branch blocks--Dr Campos MISCELLANEOUS ORDER ([facility] ONLY) Bilateral 02/14/2017 b/l L4-S1 facet nerve blocks--Dr Campos [facility] MRA HEAD WO CONTRAST 12/28/03 no intracranial or intraorbital foreign body REMOVE GALLBLADDER 01/26/06 at [facility] by Dr. Harper Medications: Current Outpatient Medications Medication Sig Dispense Refill valACYclovir (VALTREX) 1000 MG Tablet Take 2 Tabs by mouth every 12 hours. For 1 day for cold sores4 Tab 11 aspirin enteric coated 81 MG TBEC Take 2 Tablets by mouth in the morning and 2 Tablets before bedtime. Acetaminophen 500 MG Oral Tablet Take 1 Tablet by mouth every 6 hours as needed for Pain. Magnesium 500 MG Capsule Take 400 mg by mouth 2 times a day. EPINEPHrine 0.3 MG/0.3ML Injection Solution Auto-injector (Autoinjector) Inject 0.3 mg into a largemuscle as needed for Anaphylaxis (severe allergic reaction). hydrOXYzine HCl 25 MG Oral Tablet Take 1 Tablet by mouth every 6 hours as needed. Montelukast Sodium 10 MG Oral Tablet (Singulair) Take 1 Tablet by mouth in the morning. 90 Tablet 3 Pantoprazole Sodium 40 MG Oral Tablet Delayed Release (Protonix) Take 1 Tablet by mouth in the morning. 30 minutes before the first meal of the day. Do not crush, split or chew the tablet. 90 Tablet 3 Furosemide 20 MG Oral Tablet (Lasix) Take 1 Tablet by mouth as needed for Other (swelling). Three times a week as needed for swelling 30 Tablet 0 Potassium Chloride ER 20 MEQ Oral Tablet Extended Release Take 1 Tablet by mouth as needed for Other (with lasix). Take with lasix up to 3 times weekly as needed for swelling. 30 Tablet 0 lamoTRIgine 200 MG Oral Tablet (LaMICtal) Take 1 Tablet by mouth. In the morning. (Patient not taking: Reported on 12/06/2024) hydrOXYzine HCl 50 MG Oral Tablet TAKE 1/2 TO 1 (ONE-HALF TO ONE) TABLET BY MOUTH THREE TIMES DAILYAS NEEDED FOR ANXIETY (Patient not taking: Reported on 04/27/2024) Topiramate 50 MG Oral Tablet (topAMAX) Take 1 Tablet by mouth in the morning and 1 Tablet before bedtime. (Patient not taking: Reported on 12/06/2024) 60 Tablet 11 No current facility-administered medications for this visit. Allergies: Allergies as of 12/06/2024 - Reviewed 12/06/2024 Allergen Reaction Noted Azithromycin 04/23/2004 Citalopram 09/18/2021 Morphine Other (Please comment) 09/01/2015 Bactrim [sulfamethoxazole-trimethoprim] Nausea/vomiting 12/23/2016 Bee venom 04/27/2024 Citalopram hydrobromide Other (Please comment) 09/21/2011 Keflex [cephalexin] Nausea/vomiting 12/23/2016 Lipitor [atorvastatin calcium] 01/31/2014 Red dye #40 (allura red) 01/09/2013 Venlafaxine 04/23/2004 Family History Family History Problem Relation Name Age of Onset Breast Cancer Mother Dx early 40s Heart Disorder Mother 51 [place]-?congenital heart disease, age 51 Hypertension Mother Stroke Mother Thyroid Disorder Father Diabetes Father Hypertension Father Stroke Father Heart Disorder Father +stents, pacemaker, CAD/ 04/19 Throat cancer Father Heart Disorder Sister 38 CHF Allergies Brother ? hand eczema Heart Disorder Brother 34 CAD, congenital heart diesease age 34 Diabetes Grandmother (Maternal) insulin dependent Heart Disorder Grandmother (Maternal) Diabetes Grandfather (Maternal) Heart Disorder Grandfather (Maternal) Thyroid Disorder Aunt (Unspecified) Thyroid Disorder Aunt (Unspecified) Thyroid Disorder Aunt (Unspecified) Stroke Aunt (Unspecified) Stroke Uncle (Unspecified) Heart Disorder Uncle (Unspecified) 50 [place] 06/19 Social History Social History Socioeconomic History Marital status: Spouse name: Don Number of children: 1 Years of education: Not on file Highest education level: Not on file Occupational History 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 3 kids Other Topics Concern Not on file Social History Narrative Not on file Social Needs Financial Resource Strain: Not on file Food Insecurity: No Food Insecurity (04/21/2020) Hunger Vital Sign Worried About Running Out of Food in the Last Year: Never true Ran Out of Food in the Last Year: Never true Transportation Needs: Not on file Social Connections: Unknown (04/24/2024) Social Connections How often do you feel lonely or isolated from those around you? (Adult - for ages 18 years and over): Not on file Housing Stability: Not on file ROS: GEN: no weight loss, fever, fatigue HEENT: no changes in vision or hearing, no sinus problems, no sore throat, no hoarseness RESPIRATORY: no cough, wheezing, SOB or change in breathing CARDIOVASCULAR: no exertional chest pain, dyspnea, palpitations GI: no melena or hemetemesis, no change in bowel habits, no nausea or vomiting : no dysuria, hematuria, frequency MUSCULOSKELETAL: no change in joint pains, no new arthritis PSYCHIATRIC: no significant anxiety or depression, unchanged sleep pattern HEME: no bleeding tendency, no clotting tendency NEURO: no significant headache, no seizures , no tremors SKIN: no new rashes, no itching Physical Exam: Blood pressure 143/86, pulse 80, temperature 36.3 C (97.3 F), height 1.753 m (5' 9"), weight 124.7 kg (275 lb). Constitutional: alert,healthy,well nourished Head: normocephalic,atraumatic Eyes: conjunctiva non-injected,sclera white,EOMI Ears: pinna normal shape and color Neck: supple,no JVD,trachea midline Lungs: clear to auscultation,breath sounds are equal and symmetric,no crepitus Heart: regular rate & rhythm,no murmur, gallops or rubs Abdomen: soft ,positive bowel sounds,non-tender, small tender nonreducible fat containing hernia atumbilicus/incision Extremities: no edema, no skin discoloration Neuro: alert,gait normal,motor normal Skin: no obvious rashes or significant lesions,warm and dry with good turgor Imaging: CT scan from [facility] in the reviewed personally IMP: Gill Mcdonald is a 43 year old female with a umbilical/incisional hernia which is currentlysymptomatic. For this reason, I have recommended that the patient consider an open incisional/umbilical hernia repair with mesh. I discussed the surgery in detail and the complications related to the surgery and the anesthesia. Risks include, but are not limited to: recurrence of the hernia, numbness, seroma formation, bleeding, infection and mesh infection requiring mesh removal. Patient understands these risks. Expected same day nature of surgery and postoperative recovery period reviewed. Activity restrictions postoperatively to include no heavy lifting or high impact activity for four to six weeks reviewed. All questions were answered to the patient's satisfaction and consent was signed. Newton Montanez MD 12/06/2024 2:31 PM documented in this encounter Nursing Notes * Ashely Tyson LPN - 12/06/2024 2:11 PM EST Patient identified by name and date of . Chief Complaint Patient presents with NEW PATIENT Umbilical hernia Pt presents with , león, Pt has complaints of right side pain. Was at [facility] ER- not work related. Had imaging done. documented in this encounter Plan of Treatment Upcoming Encounters Date Type Department Care Team (Late st Contact Info) Description 12/25/2024 Hospital Encounter OR [facility], Operating Room [facility] [address] [place] [id number] Newton Montanez MD [address] [place] [address] 01/09/2025 1:00 PM EST Office Visit General Surgery, [facility] [address] [place] [address] Newton Montanez MD [address] [place] [address] 06/18/2025 11:45 AM EDT Imaging Radiology [facility] [place] [address] [place] [phone] Scheduled Procedures Name Priority Associated Diagnoses Date/Ti me INCISIONAL/VENTRAL/SPIGELIAN HERNIA REPAIR INITIAL < 3 CM REDUCIBLE Incisional hernia, without obstruction or gangrene COLONOSCOPY FLEXIBLE PROXIMA L DIAGNOSTIC Recall Screening for colon cancer Health Maintenance Due Date Last Done Comments Hepatitis B Vaccine (1 of 3 - 19+ 3-dose series) 2000 Pneumococcal Vaccine: Pediatrics (0 to 5 Years) and At-Risk Patients (6 to 18 Years and 19+ Years) (1 of 2 - PCV) 2000 Depression Monitoring 07/05/2020 07/05/2019 COVID-19 Vaccine ( - season) 2024 Influenza Vaccine (FLU shot) (#1) 2024 09/07/2019, 12/12/2014, 08/01/2013, Additional history exists Mammogram 06/15/2025 06/15/2024, 07/2024, 06/07/2024 Diabetes Screening 04/27/2027 04/27/2024, 0 04/27/2024, 04/07/2023, Additional history exists Pap Smear 06/07/2027 06/07/2024, 11/08, 11/28/2012, Additional history exists DTap/Tdap Vaccines (3 - Td or Tdap) 08/01/2028 08/01/2018, 04/24/2008 Lipid Panel 04/27/2029 04/27/2024, 01/06, 08/29/2014, Additional history exists Cervical Cancer Screening 06/07/2029 HPV/Co-Test 06/07/2029 06/07/2024 HPV (Gardasil) Vaccine Aged Out No lo nger eligible based on patient's age to complete this topic MENINGOCOCCAL (MENACTRA/MENVEO) Aged Out No longer eligible based on patient's age to complete this topic documented as of this encounter Medical Devices Not on filedocumented as of this encounter Visit Diagnoses Diagnosis Incisional hernia, without obstruction or gangrene- Primary Incisional hernia without mention of obstruction or gangrene Incisional hernia, without obstruction or gangrene- Primary Incisional hernia without mention of obstruction or gangrene documented in this encounter Advance Directives * Full Code (Latest Code Status on File) Date Activated Date Inactivated Comments 03/25/2008 9:50 PM 03/27/2008 2:14 PM * Full Code Date Activated Date Inactivated Comments 03/21/2008 10:27 PM 03/23/2008 4:23 PM Care Teams Ambulance Operations Supervisor Relationship Specialty Start Date End Date Roddy Gabriel MD [address] [facility] [place] [address] PCP - General Family Medicine 10/30/14 documented as of this encounter
--- OUTSIDE RECORDS SUMMARY | 2024-12-26 05:25 | External Medical Summary | Summary of Care ---
Author Name Unknown Organization [facility] Address [address] [place] [address] Phone [phone] Care Team Providers Care Machine Mover Name Role Phone Roddy Gabriel MD Primary Care Provider + Reason for Visit * Reason Comments NEW PATIENT Umbilical hernia * Evaluate & Treat - Unlimited Visits (Within 10 days (routine)) - Authorized Specialty Diagnoses / Procedures Referred By Sloan luque Referred To Contact General Surgery Diagnoses Umbilical hernia without obstruction and without gangrene Roddy Gabriel MD [address] [address] Phone: tel: fax: Referral ID Status Reason Start Date Expiration Date Visits Requested Visits Authorized [id number] Authorized Specialty Services Required 12/03/[id number] Encounter Details Date Type Department Care Team (Late st Contact Info) Description 12/06/2024 2:30 PM EST Office Visit General Surgery, [facility] [address] [place] [address] Newton Montanez MD [address] [place] [address] Incisional hernia, without obstruction or gangrene* Allergies [...] health care facility 06/20/2012 Overview (04/27/2024): 04/30 [facility] TTE--mild LVH, normal EF. 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 Not on file Not [...] NEW PATIENT Umbilical hernia Patient scheduled at the [facility] for hernia surgery with dr montanez [...] hernia REF: RODDY GABRIEL [address] [facility] [place] [address] (office) [phone] (fax) HPI.: Gill Mcdonald is a 43 [...] determined Bipolar affective disorder, currently depressed, moderate ([facility]) 11/26/201111/22 [facility] inpatient admit dx bipolar start lamictal, gabapentin [...] performed by Nicolasa Smart MD at ENDOSCOPY [facility] COLPOSCOPY OF CERVIX W/BIOPSY 11/14 DENTAL SURGERY PROCEDURE NEC 01/13 INFORMATION 2000 right ankle surgery INJECT DX/THER SUBSTANCE INTERLAMINAR CERVICAL/THORACIC W IMAGE GUIDE 09/27/2019 INJECTION SPINE LUMBAR CERVICAL OR THORACIC performed by Ren Yin Cousins, DO at OR [facility] IOF MRI ARM JOINT WO CONTRAST 04/24/04 rt shoulder/no rotator cuff tear oe tendonitis LAPAROSCOPY;APPENDECTOMY 11/08/2007 Dr. Eaton - [facility] LIGATE/CUT OVIDUCT(S) 05/19 Dr Moody MISCELLANEOUS ORDER ([facility] ONLY) 1981- skull surgery [facility] MISCELLANEOUS ORDER ([facility] ONLY) 07/30/15 b/l lumbar facet joint injection-Dr Campos [facility] MISCELLANEOUS ORDER ([facility] ONLY) Bilateral 11/25/2016 b/l L4,L5,S1 median nerve branch blocks--Dr Campos MISCELLANEOUS ORDER ([facility] ONLY) Bilateral 02/14/2017 b/l L4-S1 facet nerve blocks--Dr Campos [facility] MRA HEAD WO CONTRAST 12/28/03 no intracranial or intraorbital foreign body REMOVE GALLBLADDER 01/26/06 at [facility] by Dr. 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 Was at [facility] ER- not work related. Had imaging done. documented in this encounter Plan of Treatment Upcoming Encounters Date Type Department Care Team (Late st Contact Info) Description 12/25/2024 Hospital Encounter OR [facility], Operating Room [facility] [address] [phone] Newton Montanez MD [address] [place] [address] 01/09/2025 1:00 PM EST Office Visit General Surgery, [facility] [address] [place] [address] Newton Montanez MD [address] [place] [address] 06/18/2025 11:45 AM EDT Imaging Radiology [facility] 1st [facility] [place] [address] [place] [phone] Scheduled Procedures [...] 10:27 PM 03/23/2008 4:23 PM Care Teams Machine Mover Relationship Specialty Start Date End Date Roddy Gabriel MD [address] [facility] [place] [address] PCP - General Family Medicine 10/30/14 documented as of this encounter
--- OUTSIDE RECORDS SUMMARY | 2024-12-26 05:25 | External Medical Summary | Summary of Care ---
Author Name Unknown Organization [facility] Address [address] [place] [address] Phone [phone] Care Team Providers Care Enrollment Counselor Name Role Phone Roddy Gabriel MD Primary Care Provider + Reason for Visit * Reason Comments NEW PATIENT Umbilical hernia * Evaluate & Treat - Unlimited Visits (Within 10 days (routine)) - Authorized Specialty Diagnoses / Procedures Referred By Sloan luque Referred To Contact General Surgery Diagnoses Umbilical hernia without obstruction and without gangrene Roddy Gabriel MD [address] [address] Phone: tel: fax: Referral ID Status Reason Start Date Expiration Date Visits Requested Visits Authorized [id number] Authorized Specialty Services Required 12/03/[phone] Encounter Details Date Type Department Care Team (Late st Contact Info) Description 12/06/2024 2:30 PM EST Office Visit General Surgery, [facility] [address] [place] [address] Newton Montanez MD [address] [place] [address] Incisional hernia, without obstruction or gangrene* Allergies [...] health care facility 06/20/2012 Overview (04/27/2024): 04/30 [facility] TTE--mild LVH, normal EF. 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 Not on file Not [...] NEW PATIENT Umbilical hernia Patient scheduled at [facility] for hernia surgery with dr montanez [...] hernia REF: RODDY GABRIEL [address] [facility] [place] [address] (office) [phone] (fax) HPI.: Gill Mcdonald is a 43 [...] determined Bipolar affective disorder, currently depressed, moderate ([facility]) 11/26/201111/22 [facility] inpatient admit dx bipolar start [...] performed by Nicolasa Smart MD at ENDOSCOPY [facility] COLPOSCOPY OF CERVIX W/BIOPSY 11/14 DENTAL SURGERY PROCEDURE NEC 01/13 INFORMATION 2000 right ankle surgery INJECT DX/THER SUBSTANCE INTERLAMINAR CERVICAL/THORACIC W IMAGE GUIDE 09/27/2019 INJECTION SPINE LUMBAR CERVICAL OR THORACIC performed by Ren Yin Cousins, DO at OR [facility] IOF MRI ARM JOINT WO CONTRAST 04/24/04 rt shoulder/no rotator cuff tear oe tendonitis LAPAROSCOPY;APPENDECTOMY 11/08/2007 Dr. Eaton - [facility] LIGATE/CUT OVIDUCT(S) 05/19 Dr Moody MISCELLANEOUS ORDER ([facility] ONLY) 1981- skull surgery [facility] MISCELLANEOUS ORDER ([facility] ONLY) 07/30/15 b/l lumbar facet joint injection-Dr Campos [facility] MISCELLANEOUS ORDER ([facility] ONLY) Bilateral 11/25/2016 b/l L4,L5,S1 median nerve branch blocks--Dr Campso MISCELLANEOUS ORDER ([facility] ONLY) Bilateral 02/14/2017 b/l L4-S1 facet nerve blocks--Dr Campos [facility] MRA HEAD WO CONTRAST 12/28/03 no intracranial or intraorbital foreign body REMOVE GALLBLADDER 01/26/06 at [facility] by Dr. 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 Was at [facility] ER- not work related. Had imaging done. documented in this encounter Plan of Treatment Upcoming Encounters Date Type Department Care Team (Late st Contact Info) Description 12/25/2024 Hospital Encounter OR [facility], Operating Room [facility] [address] [phone] Newton Montanez MD [address] [place] [address] 01/09/2025 1:00 PM EST Office Visit General Surgery, [facility] [address] [place] [address] Newton Montanez MD [address] [place] [address] 06/18/2025 11:45 AM EDT Imaging Radiology [facility] 1st [facility] [place] [address] [place] [phone] Scheduled Procedures [...] 10:27 PM 03/23/2008 4:23 PM Care Teams Enrollment Counselor Relationship Specialty Start Date End Date Roddy Gabriel MD [address] [facility] [place] [address] PCP - General Family Medicine 10/30/14 documented as of this encounter
--- OUTSIDE RECORDS SUMMARY | 2024-12-26 05:25 | External Medical Summary | Summary of Care ---
Author Name Unknown Organization [facility] Address [address] [place] [address] Phone [phone] Care Team Providers Care Ell Tutor Name Role Phone Roddy Gabriel MD Primary Care Provider + Reason for Visit * Reason Comments NEW PATIENT Umbilical hernia * Evaluate & Treat - Unlimited Visits (Within 10 days (routine)) - Authorized Specialty Diagnoses / Procedures Referred By Sloan luque Referred To Contact General Surgery Diagnoses Umbilical hernia without obstruction and without gangrene Roddy Gabriel MD [address] [address] Phone: tel: fax: Referral ID Status Reason Start Date Expiration Date Visits Requested Visits Authorized [id number] Authorized Specialty Services Required 12/03/[phone] Encounter Details Date Type Department Care Team (Late st Contact Info) Description 12/06/2024 2:30 PM EST Office Visit General Surgery, [facility] [address] [place] [address] Newton Montanez MD [address] [place] [address] Incisional hernia, without obstruction or gangrene* Allergies [...] health care facility 06/20/2012 Overview (04/27/2024): 04/30 [facility] TTE--mild LVH, normal EF. 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 Not on file Not [...] NEW PATIENT Umbilical hernia Patient scheduled at [facility] for hernia surgery with dr montanez [...] hernia REF: RODDY GABRIEL [address] [facility] [place] [address] (office) [phone] (fax) HPI.: Gill Mcdonald is a 43 [...] determined Bipolar affective disorder, currently depressed, moderate ([facility]) 11/26/201111/22 [facility] inpatient admit dx bipolar start lamictal, gabapentin [...] performed by Nicolasa Smart MD at ENDOSCOPY [facility] COLPOSCOPY OF CERVIX W/BIOPSY 11/14 DENTAL SURGERY PROCEDURE NEC 01/13 INFORMATION 2000 right ankle surgery INJECT DX/THER SUBSTANCE INTERLAMINAR CERVICAL/THORACIC W IMAGE GUIDE 09/27/2019 INJECTION SPINE LUMBAR CERVICAL OR THORACIC performed by Ren Yin Cousins, DO at OR [facility] IOF MRI ARM JOINT WO CONTRAST 04/24/04 rt shoulder/no rotator cuff tear oe tendonitis LAPAROSCOPY;APPENDECTOMY 11/08/2007 Dr. Eaton - [facility] LIGATE/CUT OVIDUCT(S) 05/19 Dr Moody MISCELLANEOUS ORDER ([facility] ONLY) 1981- skull surgery @[place] MISCELLANEOUS ORDER ([facility] ONLY) 07/30/15 b/l lumbar facet joint injection-Dr Campos [facility] MISCELLANEOUS ORDER ([facility] ONLY) Bilateral 11/25/2016 b/l L4,L5,S1 median nerve branch blocks--Dr Campos MISCELLANEOUS ORDER ([facility] ONLY) Bilateral 02/14/2017 b/l L4-S1 facet nerve blocks--Dr Campos [facility] MRA HEAD WO CONTRAST 12/28/03 no intracranial or intraorbital foreign body REMOVE GALLBLADDER 01/26/06 at [facility] by Dr. 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 Was at [facility] ER- not work related. Had imaging done. documented in this encounter Plan of Treatment Upcoming Encounters Date Type Department Care Team (Late st Contact Info) Description 12/25/2024 Hospital Encounter OR [facility], Operating Room [facility] [address] [phone] Newton Montanez MD [address] [address] 01/09/2025 1:00 PM EST Office Visit General Surgery, [facility] [address] [place] [address] Newton Montanez MD [address] [place] [address] 06/18/2025 11:45 AM EDT Imaging Radiology [facility] 1st [facility] [place] [address] [place] [phone] Scheduled Procedures [...] 10:27 PM 03/23/2008 4:23 PM Care Teams Ell Tutor Relationship Specialty Start Date End Date Roddy Gabriel MD [address] [facility] [place] [address] PCP - General Family Medicine 10/30/14 documented as of this encounter
--- OUTSIDE RECORDS SUMMARY | 2024-12-26 05:25 | External Medical Summary | Summary of Care ---
Author Name Unknown Organization [facility] Address [address] [place] [address] Phone [phone] Care Team Providers Care Marine Service Operator Name Role Phone Roddy Gabriel MD Primary Care Provider + Reason for Visit * Reason Comments NEW PATIENT Umbilical hernia * Evaluate & Treat - Unlimited Visits (Within 10 days (routine)) - Authorized Specialty Diagnoses / Procedures Referred By Sloan luque Referred To Contact General Surgery Diagnoses Umbilical hernia without obstruction and without gangrene Roddy Gabriel MD [address] [address] Phone: tel: fax: Referral ID Status Reason Start Date Expiration Date Visits Requested Visits Authorized [id number] Authorized Specialty Services Required 12/03/[phone] Encounter Details Date Type Department Care Team (Late st Contact Info) Description 12/06/2024 2:30 PM EST Office Visit General Surgery, [facility] [address] [place] [address] Newton Montanez MD [address] [place] [address] Incisional hernia, without obstruction or gangrene* Allergies [...] care facility 06/20/2012 Overview (04/27/2024): 04/30 [facility] TTE--mild LVH, normal EF. 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 Not on file Not [...] NEW PATIENT Umbilical hernia Patient scheduled at [facility] for hernia surgery with dr montanez [...] hernia REF: RODDY GABRIEL [address] [facility] [place] [address] (office) [phone] (fax) HPI.: Gill Mcdonald is a 43 [...] determined Bipolar affective disorder, currently depressed, moderate ([facility]) 11/26/201111/22 [facility] inpatient admit dx bipolar start lamictal, gabapentin [...] performed by Nicolasa Smart MD at ENDOSCOPY [facility] COLPOSCOPY OF CERVIX W/BIOPSY 11/14 DENTAL SURGERY PROCEDURE NEC 01/13 INFORMATION 2000 right ankle surgery INJECT DX/THER SUBSTANCE INTERLAMINAR CERVICAL/THORACIC W IMAGE GUIDE 09/27/2019 INJECTION SPINE LUMBAR CERVICAL OR THORACIC performed by Ren Yin Cousins, DO at OR [facility] IOF MRI ARM JOINT WO CONTRAST 04/24/04 rt shoulder/no rotator cuff tear oe tendonitis LAPAROSCOPY;APPENDECTOMY 11/08/2007 Dr. Eaton - [facility] LIGATE/CUT OVIDUCT(S) 05/19 Dr Moody MISCELLANEOUS ORDER ([facility] ONLY) 1981- [place] [place]CE[facility]ANEOUS ORDER ([facility] ONLY) 07/30/15 b/l lumbar facet joint injection-Dr Campos [facility] MISCELLANEOUS ORDER ([facility] ONLY) Bilateral 11/25/2016 b/l L4,L5,S1 median nerve branch blocks--Dr Campos MISCELLANEOUS ORDER ([facility] ONLY) Bilateral 02/14/2017 b/l L4-S1 facet nerve blocks--Dr Campos [facility] MRA HEAD WO CONTRAST 12/28/03 no intracranial or intraorbital foreign body REMOVE GALLBLADDER 01/26/06 at [facility] by Dr. 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 Was at [facility] ER- not work related. Had imaging done. documented in this encounter Plan of Treatment Upcoming Encounters Date Type Department Care Team (Late st Contact Info) Description 12/25/2024 Hospital Encounter OR [facility], Operating Room [facility] [address] [phone] Newton Montanez MD [address] [address] 01/09/2025 1:00 PM EST Office Visit General Surgery, [facility] [address] [place] [address] Newton Montanez MD [address] [place] [address] 06/18/2025 11:45 AM EDT Imaging Radiology [facility] 1st [facility] [place] [address] [place] [phone] Scheduled Procedures [...] 10:27 PM 03/23/2008 4:23 PM Care Teams Marine Service Operator Relationship Specialty Start Date End Date Roddy Gabriel MD [address] [facility] [place] [address] PCP - General Family Medicine 10/30/14 documented as of this encounter
--- NOTE | 2024-12-26 08:10 | History & Physical Report ---
Date of Service December 26, 2024 Assessment & Plan (1) Fluid collection at surgical site: Plan: 43-year-old female with past medical significant for dyslipidemia, varicose veins of right lower extremity, GERD, obesity, migraine, bipolar affective disorder, tobacco use disorder, general anxiety disorder, history of status post craniectomy as a child, history of incisional hernia who had umbilical hernia repair with mesh yesterday at [facility] because last night patient felt pops at her surgical site and worsening pain at the surgical site. In ER was found to have WBC of [address] shows 1.5 X2.8X 3.5 cm postoperative fluid collection. Surgery evaluated patient in the ER and recommended p.o. antibiotics and followup as outpatient but patient was not comfortable going home. Complains of pain at the surgical site. Denies any fevers. No nausea. No chest pain or shortness of breath. No cough. No headache. No runny nose. Currently resting comfortably and hemodynamically stable. Fluid collection surgical site Umbilical hernia repair with mesh yesterday Pain at surgical site Empiric Zosyn, n.p.o., fluids Surgery consult History of bipolar affective disorder No longer taking Lamictal History of migraines No longer taking topiramate Obesity Counseling DVT prophylaxis SCDs for now Disposition Observation medical floor Full code History of Present Illness Chief Complaint: Abdominal pain at surgical site Primary Care Provider: Roddy Giraldo MD 43-year-old female with past medical significant for dyslipidemia, varicose veins of right lower extremity, GERD, obesity, migraine, bipolar affective disorder, tobacco use disorder, general anxiety disorder, history of status post craniectomy as a child, history of incisional hernia who had umbilical hernia repair with mesh yesterday at [facility] because last night patient felt pops at her surgical site and worsening pain at the surgical site. In ER was found to have WBC of [address] shows 1.5 X2.8X 3.5 cm postoperative fluid collection. Surgery evaluated patient in the ER and recommended p.o. antib iotics and followup as outpatient but patient was not comfortable going home. Complains of pain at the surgical site. Denies any fevers. No nausea. No chest pain or shortness of breath. No cough. No headache. No runny nose. Currently resting comfortably and hemodynamically stable. Past medical history. As mentioned above. Past surgical history. induced by D&E. Colonoscopy colposcopy of cervix with biopsy. Dental surgery. Injection of the lumbar cervical or thoracic spine. Laparoscopic appendectomy. Ligation of oviducts. Cholecystectomy. Social history. . Smokes 0.5 pack a day for 13 years. Alcohol very little. No drug use. Family history. Mother had breast cancer in her 40s. [place]. Hypertension. Stroke. Father had thyroid disorder. Stroke. Hypertension. CAD. Diabetes. Allergies Allergy/AdvReac Type Severity Reaction Status Date / Time bee venom protein (honey bee) Allergy Severe ITCHY Verified 04/23/24 14:00 THROAT, FACE SWELLS-CARRIES AN EPIPEN citalopram Allergy Intermediate ITCHING/EFFECTS Verified 04/23/24 14:00 MOOD AND THINKING dexamethasone [From Decadron] Allergy Intermediate Cramping Verified 04/23/24 14:00 of the Muscles ragweed pollen Allergy Intermediate Hives Verified 04/23/24 14:00 pollen extracts Allergy Mild Watery Eye Verified 04/23/24 14:00 azithromycin AdvReac Intermediate Gastrointestinal Verified 04/23/24 14:00 Upset cephalexin AdvReac Intermediate GI SYMPTOMS Verified 04/23/24 14:00 Fish Containing Products AdvReac Intermediate Vomiting Verified 04/23/24 14:00 ketorolac AdvReac Intermediate headache Verified 04/23/24 14:00 morphine AdvReac Intermediate REBOUND Verified 04/23/24 14:00 MIGRAINE HEADACHE red dye AdvReac Intermediate # 40 & Verified 04/23/24 14:00 #30--MIGRAINE sulfamethoxazole AdvReac Intermediate GI SYMPTOMS Verified 04/23/24 14:00 trimethoprim AdvReac Intermediate GI SYMPTOMS Verified 04/23/24 14:00 venlafaxine AdvReac Intermediate Dizziness Verified 04/23/24 14:00 Home Medications Medication Instructions Recorded Confirmed Type aspirin 81 mg tablet,delayed 81 mg PO DAILY 12/26/24 12/26/24 History release furosemide 20 mg tablet 20 mg PO UD 12/26/24 12/26/24 History magnesium oxide 500 mg PO DAILY 12/26/24 12/26/24 History oxycodone-acetaminophen 5 mg-325 1 tab PO Q4H PRN Severe Pain 12/26/24 12/26/24 History mg tablet (Scale Score 7-10) potassium chloride 20 mEq 20 meq PO UD 12/26/24 12/26/24 History tablet,extended release Past Med/Surg History Problem List (Updated 12/26/24 @ 06:12 by JANET Mays) Leukocytosis (Acute) Fluid collection at surgical site (Acute) Toxic metabolic encephalopathy Bilateral tinnitus Sensorineural hearing loss (SNHL) of both ears Hearing reduced Cerumen impaction Suspected COVID-19 virus infection (Acute) Bipolar disorder, curr episode mixed, severe, with psychotic features Tobacco use GERD (gastroesophageal reflux disease) Bipolar disorder Asthma HAS NOT USED INHALER SINCE LAST WINTER Headache (Acute) Bite by animal (Acute) Acute headache (Acute) Depressive disorder (Chronic 06/08/11) Adnexal cyst (Acute) Medical History Encephalopathy Elevated lactic acid level Leukocytosis ANUJ (acute kidney injury) Accidental marijuana overdose Acute confusion Atypical migraine Degenerative disc disease Osteoarthritis History of kidney stones Diverticulosis History of IBS Anemia Post traumatic stress disorder Depression with anxiety Migraine Surgical History History of knee surgery H/O craniotomy AT 6 MONTHS AGE (LEFT SIDE OF SKULL ABNORMALITY "WAS LEFT ON LEFT SIDE TOO LONG AN ") History of dilatation and curettage History of ankle surgery RT History of colonoscopy History of appendectomy History of cholecystectomy History of tooth extraction History of tubal ligation Family History Grandmother (Maternal) Family hx of colon cancer Father Throat cancer Heart disease Brother Heart disease Other Asthma Coronary heart disease Diabetes Environmental allergies Hypertension No family history of adverse response to anesthesia No family history of bleeding disorder Stroke Social History Smoking Status: Never smoker Tobacco Type: E-cigarettes / Vaping Age Started Using Tobacco: 21; Cigarettes Per Day: 5 CIG DAILY-trying to quit; Second Hand Exposure: Yes; Do You Dip or Chew Tobacco: No; Hx Alcohol Use: No Hx Substance Use: Yes Last Used Substance: Just Prior to Arrival Preferred Language: German Communication Ability: Effective Aquatics Director Required: No Beliefs That Will Affect Care: None marital status: Current Living Situation: Spouse Current Living Situation Comment: son also lives at home current occupational status: employed current occupation: [employer] Feels Safe at Home: Yes Assistive Devices: Glasses Review of Systems Review of Systems: All systems reviewed & are unremarkable except as noted in HPI & below Physical Exam Physical Exam: General- Not in distress Head- atraumatic Eyes- PERRL. ENT- oropharynx clear Neck- supple, no JVD. Lungs- clear to auscultation no wheezing or crackles Heart- regular rhythm; no murmur, no gallop. Abdomen- normal bowel sounds, soft, surgical site no drainage seen. No distension Extremities- no pretibial edema, no erythema seen Neuro- alert, oriented PERRL, no facial palsy; no dysarthria; moves extremities Results & Data Results & Data Vital Signs (Past 12 Hours) Vital Signs Temp Pulse Pulse Resp BP BP Pulse Ox 12/26/24 06:12 92 H 21 97 12/26/24 06:00 83 23 93 12/26/24 06:00 132/78 12/26/24 05:57 81 12/26/24 05:51 81 20 94 12/26/24 05:48 84 20 95 12/26/24 05:33 83 20 94 12/26/24 05:24 80 23 94 12/26/24 05:06 82 21 94 12/26/24 04:24 77 16 135/76 96 12/26/24 04:03 85 21 92 12/26/24 04:00 135/76 12/26/24 04:00 135/76 12/26/24 03:45 85 22 91 12/26/24 03:33 82 22 93 12/26/24 03:21 79 19 93 12/26/24 03:18 81 20 94 12/26/24 03:00 135/78 12/26/24 03:00 135/78 12/26/24 02:39 93 H 22 94 12/26/24 02:24 87 21 94 12/26/24 02:15 129/77 12/26/24 02:15 87 21 129/77 95 12/26/24 01:37 92 H 12/26/24 01:27 86 21 148/89 H 95 12/26/24 01:09 36.7 C 114 H 19 203/102 H 95 O2 Del Method 12/26/24 06:12 12/26/24 06:00 12/26/24 06:00 12/26/24 05:57 12/26/24 05:51 12/26/24 05:48 12/26/24 05:33 12/26/24 05:24 12/26/24 05:06 12/26/24 04:24 12/26/24 04:03 12/26/24 04:00 12/26/24 04:00 12/26/24 03:45 12/26/24 03:33 12/26/24 03:21 12/26/24 03:18 12/26/24 03:00 12/26/24 03:00 12/26/24 02:39 12/26/24 02:24 12/26/24 02:15 12/26/24 02:15 12/26/24 01:37 12/26/24 01:27 Room Air 12/26/24 01:09 Room Air Diagnostic Findings Laboratory Results WBC 17.94 K/ul (4.8-10.8) H 12/26/24 01:40 RBC 4.13 M/uL (4.20-5.40) L 12/26/24 01:40 Hgb 13.1 g/dl (12.0-16.0) 12/26/24 01:40 Hct 39.3 % (37.0-47.0) 12/26/24 01:40 MCV 95.2 fL (80.0-100.0) 12/26/24 01:40 MCH 31.7 pg (25.0-34.0) 12/26/24 01:40 MCHC 33.3 g/dL (32.0-36.0) 12/26/24 01:40 RDW Std Deviation 46.1 fL (36.4-46.3) 12/26/24 01:40 RDW Coeff of Og 13.2 % (11.5-14.5) 12/26/24 01:40 Plt Count 257 K/uL (130-400) 12/26/24 01:40 MPV 9.3 fL (9.4-12.4) L 12/26/24 01:40 Immature Gran % (Auto) 0.5 % 12/26/24 01:40 Neut % (Auto) 84.1 % 12/26/24 01:40 Lymph % (Auto) 10.8 % 12/26/24 01:40 [place] % (Auto) 4.2 % 12/26/24 01:40 Eos % (Auto) 0.2 % 12/26/24 01:40 Baso % (Auto) 0.2 % 12/26/24 01:40 Neut # (Auto) 15.09 K/uL (1.40-6.50) H 12/26/24 01:40 Lymph # (Auto) 1.93 K/uL (1.20-3.40) 12/26/24 01:40 [place] # (Auto) 0.76 K/uL (0.11-0.59) H 12/26/24 01:40 Eos # (Auto) 0.04 K/uL (0.00-0.50) 12/26/24 01:40 Baso # (Auto) 0.03 K/uL (0.00-0.20) 12/26/24 01:40 Immature Gran # (Auto) 0.09 K/uL (0.01-0.20) 12/26/24 01:40 Sodium 136 mmol/L (136-145) 12/26/24 01:53 Potassium 4.2 mmol/L (3.5-5.1) 12/26/24 01:53 Chloride 106 mmol/L (98-107) 12/26/24 01:53 Carbon Dioxide 22 mmol/L (21-32) 12/26/24 01:53 Anion Gap 8 (3-11) 12/26/24 01:53 BUN 11 mg/dl (6-23) 12/26/24 01:53 Creatinine 0.74 mg/dl (0.6-1.2) 12/26/24 01:53 Est Cr Clr Drug Dosing Not Reportable 12/26/24 01:53 eGFR 103.53 12/26/24 01:53 BUN/Creatinine Ratio 14.9 (10-20) 12/26/24 01:53 Glucose 176 mg/dl (70-99(Fasting)) H 12/26/24 01:53 Calcium 8.7 mg/dl (8.6-10.3) 12/26/24 01:53 Total Bilirubin 0.2 mg/dl (0.2-1.0) 12/26/24 01:53 AST 14 U/L (13-39) 12/26/24 01:53 ALT 15 U/L (7-52) 12/26/24 01:53 Alkaline Phosphatase 63 U/L (34-104) 12/26/24 01:53 Total Protein 7.3 gm/dl (6.0-8.3) 12/26/24 01:53 Albumin 3.8 gm/dl (3.4-5.0) 12/26/24 01:53 Globulin 3.5 gm/dl (2.5-4.0) 12/26/24 01:53 Albumin/Globulin Ratio 1.1 (0.9-2) 12/26/24 01:53 Impressions Abdomen/Pelvis CT 12/26/24 01:40 EXAM: CT abd pelvis IV con only CLINICAL HISTORY: post surgical pain TECHNIQUE: CT of the abdomen and pelvis was performed, with the following protocol: axial images, and reconstructed coronal and sagittal images. Intravenous contrast was administered (93 ML OPTIRAY 320). One of the following dose reduction techniques was utilized for this exam: Automated exposure control, adjustment of the mA and/or kV according to patient size, and use of iterative reconstruction. COMPARISON: 12/02/2024 FINDINGS: Sections of lower thorax show no significant abnormality. Abdomen: Soft Tissues: Interval postsurgical removal of right paraumbilical hernia seen on prior CT study. Focal isodense fluid collection measuring 15 x 28 x 45 mm ( AP x TR x CC ) seen at the operative site with few tiny adjacent air foci and minimal surrounding fat stranding. Liver: 20 cm in size take any. No focal lesions, cysts, or masses were identified. Gallbladder and Biliary System: Post cholecystectomy status. Pancreas: Pancreatic head, body, and tail are visualized and appear normal in size and density. No pancreatic masses or calcifications were noted. Spleen: Normal in size, shape, and density. No splenic lesions or masses were identified. Kidneys and Adrenal Glands: Both kidneys are normal in size, shape, and position. No renal calculi or hydronephrosis. Adrenal glands are unremarkable. Pelvis: Urinary Bladder: Partially distended. Uterus and adnexa appear unremarkable. Peritoneal and Retroperitoneal Structures: No free fluid or abnormal fluid collections were identified within the abdomen or pelvis. No lymphadenopathy was noted. Bowel: Uncomplicated colonic diverticulosis noted. The visualized bowel loops are normal in caliber and appearance. No evidence of bowel obstruction or wall thickening. Appendix is not well delineated. Bones: Mild degenerative changes in lumbar spine. IMPRESSION: 1. Interval postsurgical removal of right paraumbilical hernia seen on prior CT study. 2. Focal isodense fluid collection measuring 15 x 28 x 35 mm ( AP x TR x CC ) seen at the operative site with few tiny adjacent air foci and minimal surrounding fat stranding. This appears to be postoperative collection, however, superimposed infection cannot be excluded. Recommended clinical correlation and follow up. Electronically signed by Abran Jaimes 12-26-2024 03:50 AM Code Status & VTE Plan VTE Prophylaxis Plan VTE Prophylaxis will be ordered: Yes
[2024-12-26] MEDS ORDERED: ACETAMINOPHEN 325 MG TAB PO PRN (08:44)
[2024-12-26] MEDS ORDERED: HYDROmorphone INJ 0.5 MG/0.5 ML SYR IV PRN (08:44)
[2024-12-26] MEDS: HYDROmorphone INJ 0.5 MG/0.5 ML SYR IV PRN (08:53)
[2024-12-26] MEDS: SODIUM CHLORIDE 0.9% 1,000 ML IV SCH (08:53)
[2024-12-26] MEDS: MAGNESIUM OXIDE 400 MG TAB PO SCH (09:50)
[2024-12-26] MEDS: ASPIRIN 81 MG ECTAB PO SCH (09:50)
--- OUTSIDE RECORDS SUMMARY | 2024-12-26 09:59 | External Medical Summary | Summary of Care ---
Author Name Unknown Organization [facility] Address [address] [place] [address] Phone [phone] Care Team Providers Care Filler In Name Role Phone Roddy Giraldo MD Primary Care Provider + Reason for Visit * Auth/Cert Specialty Diagnoses / Procedures Referred By Contac t Referred To Contact Diagnoses Incisional hernia, without obstruction or gangrene Incisional hernia, without obstruction or gangrene [K43.2] Procedures RPR AA HERNIA 1ST < 3 CM REDUCIBLE INCISIONAL/VENTRAL/SPIGELIA N HERNIA REPAIR INITIAL < 3 CM REDUCIBLE Newton Montanez MD [address] [place] [address] Phone: tel: fax: OR [facility], Operating Room [facility] [address] [place] [address] Phone: tel: Referral ID Status Reason Start Date Expiration Date Visits Re quested Visits Authorized [id number] Encounter Details Date Type Department Care Team (Latest Contact Info) Description 12/25/2024 8:43 AM EST - 12/25/2024 1:07 PM EST Hospital Encounter [facility], Operating [facility] [address] [place] [id number] Newton Montanez MD [address] [place] [address] Discharge Disposition: Home - Self Care Allergies Active Allergy Reactions Criticality Noted Date [...] as of this encounter (statuses as of 12/26/2024) Medications valACYclovir (VALTREX) 1000 MG Tablet Take 2 Tabs by mouth every 12 hours. For 1 day for cold sores 4 Tab 11 7 Active Additional Information Patient not taking.Reported on 12/18/2024 aspirin enteric coated 81 MG TBEC Take [...] Active Additional Information Patient not taking.Reported on 12/18/2024 EPINEPHrine 0.3 MG/0.3ML Injection Solution Auto-injector (Autoinjector) Inject 0.3 mg into a large muscle as needed for Anaphylaxis (severe allergic reaction). 3 Active hydrOXYzine HCl 25 MG Oral Tablet Take 1 Tablet by mouth every 6 hours as needed. Active Montelukast Sodium 10 MG Oral Tablet (Singulair) Take 1 Tablet by mouth in the morning. 90 Tablet 3 4 Active Additional Information Patient not taking.Reported on 12/18/2024 Pantoprazole Sodium 40 MG Oral Tablet Delayed Release (Protonix)Indica tions:Gastroesop hageal reflux disease without esophagitis Take 1 Tablet by mouth in the morning. 30 minutes before the first meal of the day. Do not crush, split or chew the tablet. 90 Tablet 3 4 Active Additional Information Patient not taking.Reported on 12/18/2024 Furosemide 20 MG Oral Tablet (Lasix) Take [...] needed for swelling. 30 Tablet 4 Active oxyCODONE-Acetam inophen 5-325 MG Oral Tablet (Percocet) Take 1 Tablet by mouth every 4 hours as needed for Pain, Severe for up to 15 doses. 10 Tablet 12/25/2024 12:37 PM EST 5 Active documented as of this encounter (statuses as of 12/26/2024) Active Problems Problem Noted Date Diagnosed Date [...] health care facility 06/20/2012 Overview (04/27/2024): 04/30 [facility] TTE--mild LVH, normal EF. 04/19 dad from [place] Generalized anxiety disorder 11/26/2011 Bipolar affective disorder, currently depressed, moderate 11/26/2011 Overview (11/29/2015): 11/22 [facility] inpatient admit dx bipolar start lamictal, gabapentin 12/22 sertraline 50mg ok, 100mg sedating 07/20 pt self d/c sertrline Tobacco use disorder 05/02/2011 Overview (05/02/2011): 0.5 ppd Migraine with aura and witho ut status migrainosus, not intractable 03/30/2011 Overview (01/14/2013): 01/17 MRI brain-no mass. ?hx occiptal operation? 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 Not on file Not on file documented as of this encounter Last Filed Vital Signs Vital Sign Reading Time Taken Comments Blood Pressure 129/89 12/25/2024 12:55 PM EST Pulse 77 12/25/2024 12:55 PM EST Temperature 36.1 C (97 F) 12/25/2024 12:40 PM EST Respiratory Rate 14 12/25/2024 12:55 PM EST Oxygen Saturation 95% 12/25/2024 12:55 PM EST Inhaled Oxygen Concentration - - Weight 124.7 kg (275 lb) 12/25/2024 9:15 AM EST Height 175.3 cm (5' 9") 12/25/2024 9:15 AM EST Body Mass Index 40.61 12/25/2024 9:15 AM EST documented in this encounter Discharge Instructions * Discharge Instr - AVS* Newton Montanez MD - 12/25/2024 11:11 AM EST Discharge Date: 12/25/2024 The information below provides you with the instructions and the list of medications you need to betaking following discharge from the hospital. If you have any questions, please ask before leaving.Please carry this letter with you when you see your doctor in the clinic. If you have questions, you can reach us at the numbers above. Post Anesthesia Instructions: 1. Do not drive today. 2. Resume driving when surgeon permits. 3. Do not make important decisions or sign legal documents today. 4. Call surgeon for: Temperature evaluation greater than 101 degrees Uncontrollable pain Excessive Bleeding Persistent Nausea and vomiting Medication intolerance (nausea, vomiting, or rash) 5. For nausea and vomiting use only clear liquids such as: tea, soda, bouillon until nausea subsides, then gradually increase diet as tolerated. 6. If you have any concerns or questions, call your surgeon's office at [phone] . If the physician is unavailable and it is an emergency, call 911 or go to the nearest emergency room. Preprinted instructions given: None (Form No.) Special Care / Other: Instructions for: Inguinal Hernia, Laparoscopic Hernia, Umbilical or Ventral Hernia INCISION CARE: If present, remove any outer dressing(s) in 24 hours. The incision(s) may be sealed with tierney, non-dissolving sutures, or dissolving stitches covered with white adhesive tapes known as steri-strips. In any case, there is no need to cover up the incisions again with gauze. TO PREVENT SWELLING: Swelling and bruising around incisions is common. If groin surgery was performed, the swelling can involve the scrotum and penis. Do not be alarmed. Apply an ice pack to the incision (20 min on, 20 min off) for the first 24-48 hours to help with pain and swelling. SHOWER: You may shower 24 hours after surgery and get the incision(s) or steri-strips wet with soapy water and gently pat them dry. If the steri-strips come off in the shower, do not become concerned. If they are still in place 10 days after surgery, you may remove them. PAIN MEDICATION: You will be given a prescription for a narcotic pain medication (usually Vicodin or Percocet). You may use this if necessary; however, narcotics are constipating and may make your bowel movements more painful. Options for non- constipating pain medications include products that include ibuprofen or T ylenol. BOWEL MEDICATION: To combat constipation, you may take over the counter laxatives, fiber therapy, or prune juice. URINATION: If you cannot urinate, sit in a warm bath then try again. Activity : Rest today. and Do not do any heavy lifting (more than 10 pounds) or any vigorous exercise for 6 weeks. Return to School or Work: Limitations 1-2 weeks; see the activity restrictions listed above Diet: Resume previous diet Follow-up Visit with: Dr. Montanez When: 2 weeks Discharged To: Home documented in this encounter H&P Notes * Newton Montanez MD - 12/25/2024 8:48 AM EST HISTORY & PHYSICAL INTERVAL NOTE - General Surgery [facility] [address] [address] History and Physical Update: Name: Gill Mcdonald Location: OR [facility]/OR Date: 12/25/2024 Time: 8:48 AM DATE OF HISTORY AND PHYSICAL: 12/06/24 BP: / Pulse: Resp: Temp: Temp Summary: No data recorded SpO2: O2 flow rate: Supplemental O2 Delivery: Does patient take a beta andre? No Did patient stop anticoagulants: No Heart Exam: regular rate and rhythm Lung Exam: clear to auscultation bilaterally Other Pertinent Physical Exam: none I have reviewed the H&P previously performed and examined the patient today. There are no new findings noted. * Newton Montanez MD - 12/25/2024 8:47 AM EST CC- No chief complaint on file. REF: PILLONetteRODDY [address] [facility] [place] [address] (office) [phone] (fax) HPI.: Gill Mcdonald is a 43 [...] determined Bipolar affective disorder, currently depressed, moderate (HCC) 11/26/201111/22 [facility] inpatient admit dx bipolar start lamictal, [...] performed by Nicolasa Smart MD at ENDOSCOPY [facility] COLPOSCOPY OF CERVIX W/BIOPSY 11/14 DENTAL SURGERY PROCEDURE NEC 01/13 right ankle surgery INJECT DX/THER SUBSTANCE INTERLAMINAR CERVICAL/THORACIC W IMAGE GUIDE 09/27/2019 INJECTION SPINE LUMBAR CERVICAL OR THORACIC performed by Ren Ye DO at OR [facility] IOF MRI ARM JOINT WO CONTRAST 04/24/04 rt shoulder/no rotator cuff tear oe tendonitis LAPAROSCOPY;APPENDECTOMY 11/08/2007 Dr. Eaton - [facility] LIGATE/CUT OVIDUCT(S) 05/19 Dr Moody MISCELLANEOUS ORDER ([facility] ONLY) 1981- skull surgery @[facility] MISCELLANEOUS ORDER ([facility] ONLY) 07/30/15 b/l lumbar facet joint injection-Dr Campos [facility] MISCELLANEOUS ORDER ([facility] ONLY) Bilateral 11/25/2016 b/l L4,L5,S1 median nerve branch blocks--Dr Campos MISCELLANEOUS ORDER ([facility] ONLY) Bilateral 02/14/2017 b/l L4-S1 facet nerve blocks--Dr Campos [facility] MRA HEAD WO CONTRAST 12/28/03 no intracranial or intraorbital foreign body REMOVE GALLBLADDER 01/26/06 at [facility] by Dr. Harper Medications: Current Outpatient [...] Dx early 40s Heart Disorder Mother 51 [place]-?congenital heart disease, age 51 Hypertension Mother Stroke [...] Uncle (Unspecified) Heart Disorder Uncle (Unspecified) 50 [place] 06/19 Social History Social History Socioeconomic History Marital status: Spouse name: Don Number of children: 1 Years of education: Not on file Highest education level: Not on file Occupational History Occupation: [employer] Home [employer] of [employer]. 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 Constitutional: alert,healthy,well nourished Head: normocephalic,atraumatic Eyes: conjunctiva [...] with good turgor Imaging: [facility] scan from [facility] in the reviewed personally IMP: Gill Mcdonald [...] documented in this encounter Nursing Notes * Mellissa Porras RN - 12/25/2024 1:06 PM EST Vs stable. Reports pain at 3/10 on pain scale, tolerable. Denies nausea and tolerating PO intake. Dressing dry and intact. Verbalized understanding of all discharge directions. Patient stable for discharge to home. Ambulated to private auto with staff presence to care of local combination truck driver. * Mellissa Porras RN - 12/25/2024 12:41 PM EST Patient awake and oriented. Tolerating PO ice chips without nausea. Pain level is tolerable for patient 3/10. Ambulated to restroom and able to void. Vital signs stable. Ready for discharge from PACU1. * Mellissa Porras RN - 12/25/2024 11:47 AM EST Awakened easily to name. Oral airway removed with ease. Vs stable. * Mellissa Porras RN - 12/25/2024 11:19 AM EST Patient received to pacu 1 status post open umbilical repair with mesh. Patient sedated and appears to be resting comfortably. No signs of pain. Respirations are even and unlabored on 6L simple mask with oral airway in place. NSR on monitor. Abdomen soft and non distended. Dressing to umbilical site is clean, dry and intact, ice pack applied. Vital signs stable. * Jeanne Constantino RN - 12/25/2024 9:47 AM EST Patient states drank Boost proven recovery last night. States did not drink this am. * Jeanne Constantino RN - 12/25/2024 9:29 AM EST Patient does not meet criteria for testing. BTL documented in this encounter OR Notes * OR Surgeon - Newton Montanez MD - 12/25/2024 11:07 AM EST [facility] OUT[facility]COPY [facility] [place] [address] [place] [address] OPERATIVE REPORT Name: Gill Mcdonald Date: 12/25/2024 Time: 11:08 AM Location: OR [facility] Service: General Surgery Date of Operation: 12/25/2024 Pre-op Diagnosis: Umbilical/incisional hernia Post-op Diagnosis: Same Surgeon: Newton Montanez MD Assistants: JENNIFER Jones; assisted with tissue retraction and closure Anesthesia: General LMA anesthesia Operation: Open incisional/umbilical hernia repair with mesh Pathology: Yes Specimens: Hernia sac and contents Findings: Umbilical hernia measuring 1.5 cm Drains: None Complications: No immediate complications Indications and History: The patient is a 43 year old female with umbilical/incisional hernia. The risks, benefits, complications, treatment options, and expected outcomes were discussed with the patient and/or family in detail. The possibilities of reaction to medication, pulmonary aspiration, bleeding, recurrent infection, the need for additional procedures, failure to diagnose a condition, and creating a complication requiring transfusion or operation were discussed with the patient who freely signed the consent. The patient concurred with the proposed plan, giving informed consent. Description of Operation: The patient was seen in the Holding Room and the site of surgery properly noted/marked. The patientwas taken to Operating Room [facility] OR , identified as Gill Mcdonald and the procedure verified as open umbilical/incisional hernia repair with mesh. A Time Out was held and the above information confirmed. After the induction of anesthesia, the patient was sterilely prepped and draped in the usual fashion. Local anesthetic was injected into and around the area of the hernia. A transverse incision was made in the supraumbilical region carried down to the level of the fascia. The hernia was identified dissected free circumferentially. The umbilical stalk was detached. The hernia contained omental fat. The sac was excised at the level of the fascia. Excess omental fat was excised. The remaining was reduced back into the abdominal cavity. Attenuated fascia was excised. The hernia measured 1.5 cm. A 4.3 cm hernia mesh was brought onto the field and maneuvered into the sublay position. It was secured to the fascia with transfascial interrupted 2-0 Prolene sutures. The fascia was then closed overlying the mesh with interrupted 2-0 Prolene sutures. Attention was turned to hemostasis which was excellent. The wound was copiously irrigated suctioned free. The umbilical stalk was reattached with 2-0 Vicryl. The subcutaneous tissue was closed with 3-0 Vicryl. The skin was closed with a running 4-0 Monocryl subcuticular stitch. Dermabond was applied. Dressings were applied. All needle, sharps, sponge and lap pad counts were correct. Estimated blood loss was 5 cc. The patient tolerated the procedure well. The patient was taken to the recovery area in stable condition. Attestation: I understand that section 1842 (b)(7)(D) of the Social Security Act generally prohibits Medicare physician fee schedule payment for the services of [id number] in teaching hospitals when qualified residents are available to furnish such services. I certify that the services for which payment is claimed were medically necessary, and that no qualified resident was available to perform the services. I further understand that these services are subject to post-payment review by the Medicare carrier. cc: Professional Reimbursement and Compliance Roddy Giraldo MD documented in this encounter Plan of Treatment Upcoming Encounters Date Type Department Care Team (Late st Contact Info) Description 01/09/2025 1:00 PM EST Office Visit General Surgery, [facility] [address] [place] [address] Newton Montanez MD [address] [place] [address] 06/18/2025 11:45 AM EDT Imaging Radiology [facility] [address] [place] [address] Pending Results Name Type Priority Associated Diagnoses Date /Time SURGICAL PATHOLOGY Pathology Routine Incisional hernia, without obstruction or gangrene 12/25/2024 10:44 AM EST Scheduled Orders Name Type Priority Associated Diagnoses Orde r Schedule SURGICAL PATHOLOGY Pathology Routine Incisional hernia, without obstruction or gangrene Release Upon Ordering for 1 Occurrences starting 12/25/2024 Scheduled Procedures Name Priority Associated Diagnoses Date/Ti [...] 08/01/2013, Additional history exists Mammogram 06/15/2025 06/15/2024, 08/07/2024, 06/07/2024 Diabetes Screening 04/27/2027 04/27/2024, 0 04/27/2024, [...] on patient's age to complete this topic Meningitis B Vaccine (Bexsero/Trumemba) Aged Out No longer eligible based on patient's age to complete this topic documented as of this encounter Medical Devices Not on filedocumented as of this encounter Visit Diagnoses Diagnosis Incisional hernia, without obstruction or gangrene- Primary Incisional hernia without mention of obstruction or gangrene documented in this encounter Administered Medications Inactive Administered Medications - up to 3 most recent administrations Medication Order MAR Action Action Date Dose Rate Site Acetaminophen (Tylenol) tab 975 mg 975 mg, Oral, ONCE, On Tue12/25/24 at 0930, For 1 dose, Maximum of 4 grams (4000 mg) per day., Pre-Op Given 12/25/2024 9:06 AM EST 975 mg ceFAZolin (Ancef) in NSS ivpb 3 g 3 g, IV Piggyback, PREOP, 1 dose, First dose on Tue12/25/24 at 0930, Administer 60 minutes prior to skin incision, Pre-Op New Bag 12/25/2024 9:30 AM EST 3 g 105 mL/hr chlorhexidine gluconate cloth 2 % pad 1 Pad 1 Pad, External, PREOP, First dose on Tue12/25/24 at 0930, Last dose on Tue12/25/24 at 0930, For 1 dose, Cleanse surgical site area immediately before transferring intra-op, Pre-Op Given 12/25/2024 9:22 AM EST 1 Pad dexAMETHasone Sodium Phosphate (Decadron) 4 MG/ML inj 4 mg 4 mg, IV Push, PRN Nausea, Starting on Tue12/25/24 at 1125, Until Tue12/25/24 at 1707, For 1 dose, PROTECT FROM LIGHT, PACU fentaNYL (PF) inj 25 mcg 25 mcg, IV Push, PRN Pain, Severe, Starting on Tue12/25/24 at 1125, Until Tu12/25/24 at 1707, For 6 doses, When given IV Push its recommended that the dose be given over 3 to 5 minutes., PACU Given 12/25/2024 12:26 PM EST 25 mcg Given 12/25/2024 12:17 PM EST 25 mcg Isolyte-S pH 7.4 infusion Intravenous, at 25 mL/hr, Plasma-LYTE 148, isolyte-S, and isolyte-S pH 7.4 are considered equivalent - including for MAR barcode scanning., CONTINUOUS, Starting on Tue12/25/24 at 0930, Until Tue12/25/24 at 1707, Pre-Op Restarted 12/25/2024 10:17 AM EST New Bag 12/25/2024 9:28 AM EST 25 mL/hr ondansetron (Zofran) inj 4 mg 4 mg, IV Push, PRN Nausea, Starting on Tue12/25/24 at 1125, Until Tue12/25/24 at 1707, For 1 dose, PACU oxygen GAS Inhalation, OXYGEN, First dose on Tue12/25/24 at 1600, Until Discontinued, Device/Managed by: Low Flow Device, Goal SPO2 (%): 94 or greater, Starting Device: Simple Mask, Initial Flow Rate (LPM): 6, Lowest Support: Nasal Cannula: Flow 0-6 LPM. Titrate up/down by 1 LPM., Titration Interval: Q2 minutes and as needed., Notify Provider: For sudden DECREASE in resting SPO2 to less than 85% and when escalating delivery device., PACU I - Oxygen for saturation below 95% as indicated per anesthesia. PACU I - Discontinue oxygen when patient is responsive and oxygen saturation is maintained above 94% on room air or same as preanesthetic level. documented in this encounter Active and Recently Administered Medications Times are shown in EST. Scheduled Medication Order 12/23/2024 12/24/2024 12/25/2024 Acetaminophen (Tylenol) tab 975 mg (COMPLETED) 975 mg, Oral, ONCE, On Tue12/25/24 at 0930, For 1 dose, Maximum of 4 grams (4000 mg) per day., Pre-Op 905 (Given - Provid er: Jeanne Constantino RN) ceFAZolin (Ancef) in NSS ivpb 3 g (COMPLETED) 3 g, IV Piggyback, PREOP, 1 dose, First dose on Tue12/25/24 at 0930, Administer 60 minutes prior to skin incision, Pre-Op 0930 (New Bag - Prov ider: Jeanne Constantino RN) chlorhexidine gluconate cloth 2 % pad 1 Pad (COMPLETED) 1 Pad, External, PREOP, First dose on Tue12/25/24 at 0930, Last dose on Tue12/25/24 at 0930, For 1 dose, Cleanse surgical site area immediately before transferring intra-op, Pre-Op 0922 (Given - Provid er: Jeanne Constantino RN - Comment: abdomen) oxygen GAS Inhalation, OXYGEN, First dose on Tue12/25/24 at 1600, Until Discontinued, Device/Managed by: Low Flow Device, Goal SPO2 (%): 94 or greater, Starting Device: Simple Mask, Initial Flow Rate (LPM): 6, Lowest Support: Nasal Cannula: Flow 0-6 LPM. Titrate up/down by 1 LPM., Titration Interval: Q2 minutes and as needed., Notify Provider: For sudden DECREASE in resting SPO2 to less than 85% and when escalating delivery device., PACU I - Oxygen for saturation below 95% as indicated per anesthesia. PACU I - Discontinue oxygen when patient is responsive and oxygen saturation is maintained above 94% on room air or same as preanesthetic level. Continuous Medication Order 12/23/2024 12/24/2024 12/25/2024 Isolyte-S pH 7.4 infusion Intravenous, at 25 mL/hr, Plasma-LYTE 148, isolyte-S, and isolyte-S pH 7.4 are considered equivalent - including for MAR barcode scanning., CONTINUOUS, Starting on Tue12/25/24 at 0930, Until Tue12/25/24 at 1707, Pre-Op 0928 (New Bag - Prov ider: Jeanne Constantino RN)1016 (Paused - Provider: VAN Bates - Comment: Switch to gravity)1017 (Restarted - Provider: VAN Bates)1039 (Anes Intra-Op Fluid - Provider: VAN Bates)1057 (Anes Intra-Op Fluid - Provider: VAN Bates)1118 (Anes Intra-Op Fluid - Provider: VAN Bates) PRN Medication Order 12/23/2024 12/24/2024 12/25/2024 BUPivacaine-EPINEPHrine (PF) (Sensorcaine-EPINEPHrine) 0.5%-1:[id number] inj (CANCELED) ONCE PRN INTRA PROCEDURE, Starting on Tue12/25/24 at 1038, Until Tue12/25/24 at 1111, Intra-Op 1038 (Given - Provid er: Newton Montanez MD - Comment: umbilical area) ceFAZolin 1 g in sodium chloride IR 0.9 % 10 mL irrigation (CANCELED) ONCE PRN INTRA PROCEDURE, Starting on Tue12/25/24 at 1049, Until Tue12/25/24 at 1111, Intra-Op 1049 (Given - Provid er: Newton Montanez MD - Comment: qs to soak mesh) dexAMETHasone Sodium Phosphate (Decadron) 4 MG/ML inj 4 mg 4 mg, IV Push, PRN Nausea, Starting on Tue12/25/24 at 1125, Until Tue12/25/24 at 1707, For 1 dose, PROTECT FROM LIGHT, PACU fentaNYL (PF) inj 25 mcg 25 mcg, IV Push, PRN Pain, Severe, Starting on Tue12/25/24 at 1125, Until Tue12/25/24 at 1707, For 6 doses, When given IV Push its recommended that the dose be given over 3 to 5 minutes., PACU 1217 (Given - Provid er: Mellissa Porras RN)1226 (Given - Provider: Mellissa Porras RN) ondansetron (Zofran) inj 4 mg 4 mg, IV Push, PRN Nausea, Starting on Tue12/25/24 at 1125, Until Tue12/25/24 at 1707, For 1 dose, PACU documented in this encounter Advance Directives * Full Code (Latest Code Status on File) Date Activated Date Inactivated Comments 12/25/2024 8:47 AM 12/25/2024 5:12 PM This order r eflects the patients wishes and were consensually agreed upon. Question Answer Comments Discussion of Advance Directives occurred with: Patient * Full Code Date Activated Date Inactivated Comments 03/25/2008 9:50 PM 03/27/2008 2:14 PM * Full Code Date Activated Date Inactivated Comments 03/21/2008 10:27 PM 03/23/2008 4:23 PM Care Teams Filler In Relationship Specialty Start Date End Date Roddy Giraldo MD [address] [place] [id number] PCP - General Family Medicine 10/30/14 documented as of this encounter
[2024-12-26] MEDS ORDERED: oxyCODONE HCL IR 5 MG TAB (IMMEDIATE RELEASE) PO PRN ×2 (10:01)
[2024-12-26] MEDS: PIPERACILLIN/TAZOBACTAM 4.5 GM/100 ML BAG IV SCH (10:29)
[2024-12-26 11:13] VITALS: BP 142/82; PULSE 61; RESP 20; O2SAT 94
--- NOTE | 2024-12-26 13:36 | Hospitalist Progress Note ---
Date of Service December 26, 2024 Assessment & Plan (1) Fluid collection at surgical site: Plan: 43-year-old female with past medical significant for dyslipidemia, varicose veins of right lower extremity, GERD, obesity, migraine, bipolar affective disorder, tobacco use disorder, general anxiety disorder, history of status post craniectomy as a child, history of incisional hernia who had umbilical hernia repair with mesh yesterday at [facility] because last night patient felt pops at her surgical site and worsening pain at the surgical site. In ER was found to have WBC of [address] shows 1.5 X2.8X 3.5 cm postoperative fluid collection. Surgery evaluated patient in the ER and recommended p.o. antibiotics and followup as outpatient but patient was not comfortable going home. Complains of pain at the surgical site. Denies any fevers. No nausea. No chest pain or shortness of breath. No cough. No headache. No runny nose. Currently resting comfortably and hemodynamically stable. Abdominal pain Fluid collection surgical site S/P Umbilical hernia repair with mesh as outpatient -- Interval postsurgical removal of right paraumbilical hernia seen on prior CT study. Focal isodense fluid collection measuring 15 x 28 x 35 mm ( AP x TR x CC ) seen at the operative site with few tiny adjacent air foci and minimal surrounding fat stranding. This appears to be postoperative collection, however, superimposed infection cannot be excluded. Recommended clinical correlation and follow up. -- Empirically on Zosyn Appreciate surgery input: No indication for antibiotics, can be discharged if tolerates diet Pain control Advance diet as tolerated Plan to discharge home today if tolerates diet History of bipolar affective disorder No longer taking Lamictal History of migraines No longer taking topiramate Morbid obesity Counseling DVT prophylaxis SCDs for now CODE STATUS Full code Disposition Home Admission and Anticipated Discharge Date Admission Date: December 26, 2024 Subjective Patient is seen and examined at bedside States having mild headache Abdominal pain surgical site improved Tolerating diet Discussed with surgery today Denies any chest pain, dyspnea, nausea, vomiting Review of Systems Review of Systems: All systems reviewed & are unremarkable except as noted in Subjective Physical Exam Physical Exam: Physical Exam: Vitals signs as noted above General Appearance:Obese, no apparent distress Head: normocephalic, Atraumatic Eyes: normal inspection, EOMI Neck: supple, Trachea midline Respiratory/Chest: Normal breath sounds, CTA, No accessory muscle use Cardiovascular: S1, S2, No murmur Abdomen/GI:Soft, umbilical surgical site in dressing, binder, non tender, Bowel sounds present Extremities/Musculoskeletal:normal inspection, no edema Neurologic/Psych:AAOX3, grossly no focal neurological deficits Skin: normal color, warm Results & Data Results & Data Vital Signs (Past 12 Hours) Vital Signs Pulse Pulse Resp BP BP Pulse Ox O2 Del Method 12/26/24 10:00 61 20 142/82 H 94 Room Air 12/26/24 07:00 75 14 132/80 95 Room Air 12/26/24 06:12 92 H 21 97 12/26/24 06:00 83 23 93 12/26/24 06:00 132/78 12/26/24 05:57 81 12/26/24 05:51 81 20 94 12/26/24 05:48 84 20 95 12/26/24 05:33 83 20 94 12/26/24 05:24 80 23 94 12/26/24 05:06 82 21 94 12/26/24 04:24 77 16 135/76 96 12/26/24 04:03 85 21 92 12/26/24 04:00 135/76 12/26/24 04:00 135/76 12/26/24 03:45 85 22 91 12/26/24 03:33 82 22 93 12/26/24 03:21 79 19 93 12/26/24 03:18 81 20 94 12/26/24 03:00 135/78 12/26/24 03:00 135/78 12/26/24 02:39 93 H 22 94 12/26/24 02:24 87 21 94 12/26/24 02:15 129/77 12/26/24 02:15 87 21 129/77 95 12/26/24 01:37 92 H Laboratory Results Short CBC 12/26/24 Range/Units 01:40 WBC 17.94 H (4.8-10.8) K/ul Hgb 13.1 (12.0-16.0) g/dl Hct 39.3 (37.0-47.0) % Plt Count 257 (130-400) K/uL BMP 12/26/24 01:53 Sodium 136 Potassium 4.2 Chloride 106 Carbon Dioxide 22 BUN 11 Creatinine 0.74 Glucose 176 H Calcium 8.7 Liver Function 12/26/24 Range/Units 01:53 Total Bilirubin 0.2 (0.2-1.0) mg/dl AST 14 (13-39) U/L ALT 15 (7-52) U/L Alkaline Phosphatase 63 (34-104) U/L Albumin 3.8 (3.4-5.0) gm/dl
--- NOTE | 2024-12-26 13:42 | Discharge Summary ---
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 In ER was found to have WBC of [address] shows 1.5 X2.8X 3.5 cm postoperative fluid collection. Surgery evaluated patient in the ER and recommended p.o. anti biotics and followup as outpatient but patient was not comfortable going home. Complains of pain at the surgical site. Denies any fevers. No nausea. No chest pain or shortness of breath. No cough. No headache. No runny nose. Currently resting comfortably and hemodynamically stable. Past medical history. As mentioned above. Past surgical history. induced by D&E. Colonoscopy colposcopy of cervix with biopsy. Dental surgery. Injection of the lumbar cervical or thoracic spine. Laparoscopic appendectomy. Ligation of oviducts. Cholecystectomy. Social history. . Smokes 0.5 pack a day for 13 years. Alcohol very little. No drug use. Family history. Mother had breast cancer in her 40s. PR. Hypertension. Stroke. Father had thyroid disorder. Stroke. Hypertension. CAD. Diabetes. Admission Exam Per Admitting Provider General- Not in distress Head- atraumatic Eyes- PERRL. ENT- oropharynx clear Neck- supple, no JVD. Lungs- clear to auscultation no wheezing or crackles Heart- regular rhythm; no murmur, no gallop. Abdomen- normal bowel sounds, soft, surgical site no drainage seen. No distension Extremities- no pretibial edema, no erythema seen Neuro- alert, oriented PERRL, no facial palsy; no dysarthria; moves extremities Principal Diagnosis Postsurgical abdominal pain Discharge Data Allergies Allergy/AdvReac Type Severity Reaction Status Date / Time bee venom protein (honey bee) Allergy Severe ITCHY Verified 04/23/24 14:00 THROAT, FACE SWELLS-CARRIES AN EPIPEN citalopram Allergy Intermediate ITCHING/EFFECTS Verified 04/23/24 14:00 MOOD AND THINKING dexamethasone [From Decadron] Allergy Intermediate Cramping Verified 04/23/24 14:00 of the Muscles ragweed pollen Allergy Intermediate Hives Verified 04/23/24 14:00 pollen extracts Allergy Mild Watery Eye Verified 04/23/24 14:00 azithromycin AdvReac Intermediate Gastrointestinal Verified 04/23/24 14:00 Upset cephalexin AdvReac Intermediate GI SYMPTOMS Verified 04/23/24 14:00 Fish Containing Products AdvReac Intermediate Vomiting Verified 04/23/24 14:00 ketorolac AdvReac Intermediate headache Verified 04/23/24 14:00 morphine AdvReac Intermediate REBOUND Verified 04/23/24 14:00 MIGRAINE HEADACHE red dye AdvReac Intermediate # 40 & Verified 04/23/24 14:00 #30--MIGRAINE sulfamethoxazole AdvReac Intermediate GI SYMPTOMS Verified 04/23/24 14:00 trimethoprim AdvReac Intermediate GI SYMPTOMS Verified 04/23/24 14:00 venlafaxine AdvReac Intermediate Dizziness Verified 04/23/24 14:00 Consultations 12/26/24 05:59 ED Decision to Admit Stat 12/26/24 08:44 Consult General Surgery Routine Procedures Performed Laboratory Results WBC 17.94 K/ul (4.8-10.8) H 12/26/24 01:40 RBC 4.13 M/uL (4.20-5.40) L 12/26/24 01:40 Hgb 13.1 g/dl (12.0-16.0) 12/26/24 01:40 Hct 39.3 % (37.0-47.0) 12/26/24 01:40 MCV 95.2 fL (80.0-100.0) 12/26/24 01:40 MCH 31.7 pg (25.0-34.0) 12/26/24 01:40 MCHC 33.3 g/dL (32.0-36.0) 12/26/24 01:40 RDW Std Deviation 46.1 fL (36.4-46.3) 12/26/24 01:40 RDW Coeff of Og 13.2 % (11.5-14.5) 12/26/24 01:40 Plt Count 257 K/uL (130-400) 12/26/24 01:40 MPV 9.3 fL (9.4-12.4) L 12/26/24 01:40 Immature Gran % (Auto) 0.5 % 12/26/24 01:40 Neut % (Auto) 84.1 % 12/26/24 01:40 Lymph % (Auto) 10.8 % 12/26/24 01:40 Gonzales % (Auto) 4.2 % 12/26/24 01:40 Eos % (Auto) 0.2 % 12/26/24 01:40 Baso % (Auto) 0.2 % 12/26/24 01:40 Neut # (Auto) 15.09 K/uL (1.40-6.50) H 12/26/24 01:40 Lymph # (Auto) 1.93 K/uL (1.20-3.40) 12/26/24 01:40 Gonzales # (Auto) 0.76 K/uL (0.11-0.59) H 12/26/24 01:40 Eos # (Auto) 0.04 K/uL (0.00-0.50) 12/26/24 01:40 Baso # (Auto) 0.03 K/uL (0.00-0.20) 12/26/24 01:40 Immature Gran # (Auto) 0.09 K/uL (0.01-0.20) 12/26/24 01:40 Sodium 136 mmol/L (136-145) 12/26/24 01:53 Potassium 4.2 mmol/L (3.5-5.1) 12/26/24 01:53 Chloride 106 mmol/L (98-107) 12/26/24 01:53 Carbon Dioxide 22 mmol/L (21-32) 12/26/24 01:53 Anion Gap 8 (3-11) 12/26/24 01:53 BUN 11 mg/dl (6-23) 12/26/24 01:53 Creatinine 0.74 mg/dl (0.6-1.2) 12/26/24 01:53 Est Cr Clr Drug Dosing Not Reportable 12/26/24 01:53 eGFR 103.53 12/26/24 01:53 BUN/Creatinine Ratio 14.9 (10-20) 12/26/24 01:53 Glucose 176 mg/dl (70-99(Fasting)) H 12/26/24 01:53 Calcium 8.7 mg/dl (8.6-10.3) 12/26/24 01:53 Total Bilirubin 0.2 mg/dl (0.2-1.0) 12/26/24 01:53 AST 14 U/L (13-39) 12/26/24 01:53 ALT 15 U/L (7-52) 12/26/24 01:53 Alkaline Phosphatase 63 U/L (34-104) 12/26/24 01:53 Total Protein 7.3 gm/dl (6.0-8.3) 12/26/24 01:53 Albumin 3.8 gm/dl (3.4-5.0) 12/26/24 01:53 Globulin 3.5 gm/dl (2.5-4.0) 12/26/24 01:53 Albumin/Globulin Ratio 1.1 (0.9-2) 12/26/24 01:53 Impressions Abdomen/Pelvis CT 12/26/24 01:40 EXAM: CT abd pelvis IV con only CLINICAL HISTORY: post surgical pain TECHNIQUE: CT of the abdomen and pelvis was performed, with the following protocol: axial images, and reconstructed coronal and sagittal images. Intravenous contrast was administered (93 ML OPTIRAY 320). One of the following dose reduction techniques was utilized for this exam: Automated exposure control, adjustment of the mA and/or kV according to patient size, and use of iterative reconstruction. COMPARISON: 12/02/2024 FINDINGS: Sections of lower thorax show no significant abnormality. Abdomen: Soft Tissues: Interval postsurgical removal of right paraumbilical hernia seen on prior CT study. Focal isodense fluid collection measuring 15 x 28 x 45 mm ( AP x TR x CC ) seen at the operative site with few tiny adjacent air foci and minimal surrounding fat stranding. Liver: 20 cm in size take any. No focal lesions, cysts, or masses were identified. Gallbladder and Biliary System: Post cholecystectomy status. Pancreas: Pancreatic head, body, and tail are visualized and appear normal in size and density. No pancreatic masses or calcifications were noted. Spleen: Normal in size, shape, and density. No splenic lesions or masses were identified. Kidneys and Adrenal Glands: Both kidneys are normal in size, shape, and position. No renal calculi or hydronephrosis. Adrenal glands are unremarkable. Pelvis: Urinary Bladder: Partially distended. Uterus and adnexa appear unremarkable. Peritoneal and Retroperitoneal Structures: No free fluid or abnormal fluid collections were identified within the abdomen or pelvis. No lymphadenopathy was noted. Bowel: Uncomplicated colonic diverticulosis noted. The visualized bowel loops are normal in caliber and appearance. No evidence of bowel obstruction or wall thickening. Appendix is not well delineated. Bones: Mild degenerative changes in lumbar spine. IMPRESSION: 1. Interval postsurgical removal of right paraumbilical hernia seen on prior CT study. 2. Focal isodense fluid collection measuring 15 x 28 x 35 mm ( AP x TR x CC ) seen at the operative site with few tiny adjacent air foci and minimal surrounding fat stranding. This appears to be postoperative collection, however, superimposed infection cannot be excluded. Recommended clinical correlation and follow up. 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 In ER was found to have WBC of [address] shows 1.5 X2.8X 3.5 cm postoperative fluid co llection. Surgery evaluated patient in the ER and recommended p.o. antibiotics and followup as outpatient but patient was not comfortable going home. Complains of pain at the surgical site. Denies any fevers. No nausea. No chest pain or shortness of breath. No cough. No headache. No runny nose. Currently resting comfortably and hemodynamically stable. Abdominal pain Fluid collection surgical site S/P Umbilical hernia repair with mesh as outpatient -- Interval postsurgical removal of right paraumbilical hernia seen on prior CT study. Focal isodense fluid collection measuring 15 x 28 x 35 mm ( AP x TR x CC ) seen at the operative site with few tiny adjacent air foci and minimal surrounding fat stranding. This appears to be postoperative collection, however, superimposed infection cannot be excluded. Recommended clinical correlation and follow up. -- Empirically on Zosyn Appreciate surgery input: No indication for antibiotics, can be discharged if tolerates diet Pain control Tolerating diet with no issues Plan to discharge home today History of bipolar affective disorder No longer taking Lamictal History of migraines No longer taking topiramate Morbid obesity Counseling DVT prophylaxis SCDs for now CODE STATUS Full code Disposition Home Total Time Total Time Spent Total Time Spent (In Minutes): 52 minutes Discharge Plan Discharge Items Patient Disposition: Home - Self-Care Reason For Visit: ADONMINAL PAIN AT SURGERY SITE Discharge Diagnosis: Postsurgical abdominal pain Activity: Per Instructions section Exercise/Sports: Wait until after follow-up appointment Non-emergency contact: Primary Care Provider and Surgeon Call non-emergency contact if: you have any medication questions, your symptoms worsen, your pain is concerning for you, you have a fever, your wound has increased redness, your wound has increased drainage and your wound pain has increased Follow-up/Referrals: Newton Montanez MD [Physician] - (Date & Time 01/09/2025 1:00 PM Provider: Newton Montanez MD General Surgery, [facility] ) Roddy Giraldo MD [Primary Care Provider] - (Date & Time 01/02/2025 2:40 PM Provider: Roddy Giraldo MD Family Practice [facility] ) Diet: Heart Healthy Addtl Attending Provider Instructions: Follow-up with your primary care physician and your surgeon Dr. Montanez as scheduled Seek immediate medical attention if your symptoms reoccur or worsen Please take all medications as instructed on discharge list below. Please call if you have any questions or problems. You can reach a [facility] hospitalist on duty at [facility] 24 hours a day by calling [phone] Pending Studies at Discharge: No Stand-Alone Forms: [facility] [employer], Smoking Cessation Medications and DC Order Prescriptions: Continued aspirin [Aspir-81] 81 mg Tablet,Delayed Release (Dr/Ec) 81 mg PO DAILY oxycodone-acetaminophen 5-325 mg tablet 1 tab PO Q4H PRN (Reason: Severe Pain (Scale Score 7-10)) magnesium oxide 500 mg magnesium Tablet 500 mg PO DAILY furosemide 20 mg tablet 20 mg PO UD Rx Instructions: lasix 20mg po daily three times a week prn swelling potassium chloride 20 mEq tablet extended release 20 meq PO UD Rx Instructions: potassium 20meq along with lasix Discharge Orders: Discharge Order (Routine); Ordered 12/26/24 Ordered By: Sigifredo Cuevas Admission Data Admit Date/Time: 12/26/24 06:52 Attending Provider: Sigifredo Cuevas Admit Provider: Alexandru Polo Primary Care Provider: Roddy Giraldo Other Providers: Alexandru Polo; Arelis Medina
== END 2024-12-26 15:07 | disposition home or self-care (01) ==
LOC: EDINP 01:07 → ED 01:07 → EDINP 08:45